=== PATIENT | female | born 1945 ===

== ENCOUNTER 2016-06-30 12:23 | Inpatient (IN) | payer MEDICARE ==
[2016-06-30] MEDS ORDERED: ALPRAZolam 0.25 MG TAB PO PRN (16:13)
[2016-06-30] MEDS ORDERED: MELATONIN 3 MG TABLET PO PRN (16:13)
[2016-06-30] MEDS ORDERED: NALOXONE 0.4 MG/ML 1 ML VIAL IV PRN (16:13)
--- NOTE | 2016-06-30 16:31 | XR ---
EXAMINATION TYPE: XR chest 1V portable DATE OF EXAM: 06/30/2016 4:27 PM COMPARISON: NONE HISTORY: Bronchitis TECHNIQUE: Single frontal view of the chest is obtained. FINDINGS: There is no heart failure nor confluent pneumonic infiltrate. There are no hilar masses. T horacic aorta is atheromatous. There is no pleural effusion. 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 IMPRESSION: No active cardiopulmonary disease. Normal heart.
[2016-06-30 16:58] LABS: Basophils # (A) 0.1 k/uL (0-0.2); Basophils % (A) 1 %; CH 28.8; CHCM 31.5; Eosinophils % (A) 0 %; HCT 29.4 % (34.0-46.0); HDW 2.42; Luc # (Auto) 0.26; Luc % (Auto) 2; Lymphocytes # (A) 0.6 k/uL (1.0-4.8); Lymphocytes % (A) 4 %; MCH 28.3 pg (25.0-35.0); MCHC 30.8 g/dL (31.0-37.0); MCV 91.8 fL (80.0-100.0); Monocytes # (A) 0.7 k/uL (0-1.0); Monocytes % (A) 5 %; Neutrophils # (A) 13.8 k/uL (1.3-7.7); Neutrophils % (A) 89 %; WBC 15.6 k/uL (3.8-10.6); WBC (Perox) 16.87
[2016-06-30 17:47] VITALS: BMI 27.9
[2016-06-30 17:48] LABS: Calcium 9.5 mg/dL (8.4-10.2); Potassium 3.9 mmol/L (3.5-5.1); Total Bilirubin 0.3 mg/dL (0.2-1.3); Total Protein 6.4 g/dL (6.3-8.2)
[2016-06-30] MEDS: LEVOFLOXACIN 500MG-D5W PMX 500 MG in DEXTROSE/WATER 1 100ML.BAG IVPB SCH (18:26)
[2016-06-30] MEDS: methylPREDNISolone SOD SUCCI 125 MG/2 ML VIAL IV SCH ×2 (18:26→23:42)
[2016-06-30] MEDS: SODIUM CHLORIDE 0.9% 1,000 ML IV SCH (18:27)
[2016-06-30 18:30] LABS: Amorphous Sediment,Urine Rare /hpf; Appearance,Urine Cloudy (Clear); Bacteria,Urine Rare /hpf; Bilirubin,Urine Negative (Negative); Glucose,Urine (UA) Negative (Negative); Ketones,Urine Negative (Negative); Leukocyte Esterase,Urine Trace (Negative); Mucus,Urine Rare /hpf; Nitrite,Urine Negative (Negative); Particle Count 1220; Protein,Urine Negative (Negative); RBC,Urine <1 /hpf (0-5); Squamous Epithelial Cell,Urine 2 /hpf (0-4); UA Billing (MACRO vs. MICRO) MICRO; Urobilinogen,Urine <2.0 mg/dL (<2.0); WBC,Urine 2 /hpf (0-5)
[2016-06-30] MEDS ORDERED: ACETAMINOPHEN TAB 500 MG TAB PO PRN (18:43)
[2016-06-30] MEDS: FORMOTEROL FUMARATE 20 MCG/2 ML NEBU INHALATION SCH (19:07)
[2016-06-30] MEDS: LEVALBUTEROL NEB (CONC) 1.25 MG/0.5 ML AMP INHALATION SCH (19:07)
[2016-06-30] MEDS: BUDESONIDE 1 MG/2 ML NEBU INHALATION SCH (19:07)
[2016-06-30] MEDS: IPRATROPIUM 0.5 MG/2.5 ML NEBU INHALATION SCH (19:07)
[2016-06-30] MEDS ORDERED: FORMOTEROL FUMARATE 20 MCG/2 ML NEBU INHALATION SCH (20:00)
[2016-06-30 21:33] LABS: Glucose,Whole Blood 230 mg/dL (75-99)
[2016-06-30] MEDS: INSULIN LISPRO (humaLOG) 300 UNIT/3 ML VIAL SQ SCH (21:41)
[2016-06-30] MEDS: HEPARIN SODIUM,PORCINE 5,000 UNIT/ML 1 ML VIAL SQ SCH (21:41)
[2016-06-30] MEDS: HYDROcodone/APAP 5-325MG 1 EACH TAB PO PRN (21:41)
[2016-06-30] MEDS: MONTELUKAST 10 MG TAB PO SCH (21:41)
[2016-07-01] MEDS: methylPREDNISolone SOD SUCCI 125 MG/2 ML VIAL IV SCH ×3 (05:42→17:30)
[2016-07-01 07:00] LABS: Glucose,Whole Blood 121 mg/dL (75-99)
[2016-07-01] MEDS: LEVALBUTEROL NEB (CONC) 1.25 MG/0.5 ML AMP INHALATION SCH ×2 (07:38→13:18)
[2016-07-01] MEDS: IPRATROPIUM 0.5 MG/2.5 ML NEBU INHALATION SCH ×2 (07:38→13:18)
[2016-07-01] MEDS: FORMOTEROL FUMARATE 20 MCG/2 ML NEBU INHALATION SCH ×2 (07:50→19:03)
[2016-07-01] MEDS: BUDESONIDE 1 MG/2 ML NEBU INHALATION SCH ×2 (07:50→19:03)
[2016-07-01] MEDS: LISINOPRIL 20 MG TAB PO SCH (08:44)
[2016-07-01] MEDS: PANTOPRAZOLE 40 MG TABLET PO SCH (08:44)
[2016-07-01] MEDS: ATORVASTATIN 20 MG TAB PO SCH (08:44)
[2016-07-01] MEDS: FUROSEMIDE 20 MG TAB PO SCH (08:44)
[2016-07-01] MEDS: FENOFIBRATE 160 MG TAB PO SCH (08:44)
[2016-07-01] MEDS: ASPIRIN 81 MG CHEW PO SCH (08:44)
[2016-07-01] MEDS: FOLIC ACID 1 MG TAB PO SCH (08:45)
[2016-07-01] MEDS: VITAMIN E (DL,TOCOPHERYL ACET) 400 UNIT CAP PO SCH (08:45)
[2016-07-01] MEDS: LORATADINE 10 MG TAB PO SCH (08:45)
[2016-07-01] MEDS: MULTIVITAMINS, THERA 1 EACH TAB PO SCH (08:45)
[2016-07-01] MEDS: VERAPAMIL SR 240 MG TABLET.ER PO SCH (08:46)
[2016-07-01] MEDS: CYANOCOBALAMIN 500 MCG TAB PO SCH (08:46)
[2016-07-01] MEDS: PARoxetine 20 MG TAB PO SCH (08:46)
[2016-07-01] MEDS: INSULIN LISPRO (humaLOG) 300 UNIT/3 ML VIAL SQ SCH ×4 (08:50→21:57)
[2016-07-01] MEDS: HEPARIN SODIUM,PORCINE 5,000 UNIT/ML 1 ML VIAL SQ SCH ×2 (08:52→21:56)
[2016-07-01 08:56] LABS: Basophils % (A) 0 %; CHCM 31.1; Eosinophils % (A) 0 %; HCT 32.2 % (34.0-46.0); HDW 2.32; HGB 9.6 gm/dL (11.4-16.0); Hypochromasia Slight; Luc # (Auto) 0.16; Luc % (Auto) 1; Lymphocytes # (A) 1.2 k/uL (1.0-4.8); Lymphocytes % (A) 9 %; MCH 27.8 pg (25.0-35.0); MCHC 29.7 g/dL (31.0-37.0); MCV 93.7 fL (80.0-100.0); Mean Platelet Volume 7.7; Monocytes # (A) 0.6 k/uL (0-1.0); Monocytes % (A) 4 %; Neutrophils # (A) 11.8 k/uL (1.3-7.7); Neutrophils % (A) 86 %; RBC 3.43 m/uL (3.80-5.40); RDW 13.2 % (11.5-15.5); WBC 13.8 k/uL (3.8-10.6); WBC (Perox) 14.44
[2016-07-01] MEDS ORDERED: PARoxetine 20 MG TAB PO SCH (09:00)
[2016-07-01 09:06] LABS: Anion Gap 13 mmol/L; Blood Urea Nitrogen 46 mg/dL (7-17); Calcium 9.4 mg/dL (8.4-10.2); Carbon Dioxide 36 mmol/L (22-30); Chloride 94 mmol/L (98-107); Glucose 115 mg/dL (74-99); Non-African American GFR(MDRD) 58 (>60 ml/min/1.73 sqM); Potassium 4.6 mmol/L (3.5-5.1); Sodium 143 mmol/L (137-145)
--- NOTE | 2016-07-01 11:04 | HP ---
DATE OF ADMISSION: 06/30/2016 CHIEF COMPLAINT: Shortness of breath. HISTORY OF PRESENT ILLNESS: This 71-year-old woman with a past history of asthma, chronic obstructive pulmonary disease, CAD, history of hypertension, hyperlipidemia, history of cardiac catheterization, coronary artery disease and stent being followed by Dr. Ryanne Glez in the outpatient setting complaining of shortness of breath and cough for the past several days at least 5 days. Initially the patient has sore throat. Subsequently patient increasing shortness of breath and cough and sputum. The patient came to [facility] and was and the patient subsequently was transferred to [facility] and admitted to the hospital for further evaluation and treatment. At this time, there is no history of fever, rigors or chills. There is no history of headache, loss of consciousness or seizures. PAST MEDICAL HISTORY: History of asthma, COPD, history of CAD, hypertension, hyperlipidemia, history of cardiac arrhythmias, history of coronary artery disease and stent, history of anxiety. MEDICATIONS: Prior to admission include: 1. Prednisone 40 mg p.o. daily. 2. Vitamin E 1000 mg daily. 3. Verapamil ER 240 mg daily. 4. Spiriva 1 puff daily. 5. Crestor 10 mg daily. 6. Ramipril 10 mg daily. 7. Paxil 40 mg daily. 8. Multivitamins one p.o. daily. 9. Singulair 10 mg q6h p.r.n. 10. Claritin 10 mg daily. 11. Hydrocodone 1 tablet q.8 p.r.n. 12. Lasix 20 mg p.o. daily. 13. Folic acid 0.4 mg daily. 14. TriCor 145 mg p.o. daily. 15. Vibramycin 100 mg p.o. b.i.d. 16. Vitamin B12 2.5 grams daily. 17. Ecotrin 81 mg daily. 18. Ventolin 2.5 q.4 p.r.n. 19. Tylenol 500 mg q.6 p.r.n. ALLERGIES: SULFA. FAMILY HISTORY: History chest pain, CHF, COPD and CAD. SOCIAL HISTORY: previous history of smoking. No history of current smoking or alcohol intake. REVIEW OF SYSTEMS: ENT: No diminished hearing. No diminished vision. CARDIOVASCULAR: No angina or palpitations. RESPIRATORY: No cough or hemoptysis otherwise as mentioned earlier. GI: No nausea or vomiting. : No dysuria or retention. Nervous system: No numbness or weakness. ALLERGY/IMMUNOLOGY: No asthma or hayfever. MUSCULOSKELETAL: As mentioned earlier. HEMATOLOGY/ONCOLOGY: No history of anemia. ENDOCRINE: No history of diabetes, hypothyroidism. CONSTITUTIONAL: As mentioned earlier. Dermatology: Negative. RHEUMATOLOGY: Negative. PSYCHIATRY: As mentioned earlier. PHYSICAL EXAMINATION: Alert and oriented times three. Pulse 65. Blood pressure ntd. Respiratory rate 20. Temperature 97.1, pulse ox 97% on room air. HEENT: Conjunctivae normal. NECK: No jugular venous distention. CARDIOVASCULAR: S1, S2 muffled. RESPIRATORY: Breath sounds diminished at the bases. Bilateral scattered rhonchi and crackles. Expiratory wheezing also. ABDOMEN: Soft. Nontender. No mass palpable. LEGS: No edema. No swelling. CENTRAL NERVOUS SYSTEM: Higher functions as mentioned earlier. Moves all four limbs. No focal deficits. LYMPHATICS: No lymph nodes palpable in the neck, axillae or groin. SKIN: No ulcer, rash or bleeding. LABS: At this time show WBC 15.7, hemoglobin 9, sodium 142, potassium 3.9, creatinine is 1.12. Urine noted. ASSESSMENT: 1. Chronic obstructive pulmonary disease acute exacerbation, with acute purulent tracheobronchitis. 2. Increased WBC, possibly secondary to tracheobronchitis. 3. Anemia, normocytic, anemia of chronic disease. 4. Remote history nicotine dependence. 5. Increased creatinine with possible mild acute renal failure, possibly prerenal. 6. History of chronic obstructive pulmonary disease, asthma. 7. History of coronary artery disease and stent. 8. Hypertension. 9. Hyperlipidemia. 10. History of cardiac arrhythmia. 11. History of coronary artery disease and stent. 12. History of anxiety. 13. FULL CODE. RECOMMENDATIONS AND DISCUSSION: In this 72-year-old woman who presented with multiple complex medical issues, we will monitor the patient closely. Continue the current medications. Continue symptomatic treatment. I would recommend extensive bronchodilators. Empiric antibiotics. Consult Dr. Bañuelos. Otherwise, DVT prophylaxis. Resume the home medications. Steroids. Guarded prognosis because of multiple complex medical issues. We will resume the home medications. Further recommendations to follow. A copy of dictation being forwarded to Dr. Rhonda Glez who is the primary care physician. JOSELIN
[2016-07-01 11:28] LABS: Hemoglobin A1C 5.6 % (4.2-6.1)
[2016-07-01 11:41] LABS: Glucose,Whole Blood 131 mg/dL (75-99)
--- NOTE | 2016-07-01 16:15 | P.CNPUL ---
History of Present Illness Consult date: 07/01/16 Reason for consult: COPD History of present illness: 71-year-old female patient with known history of COPD has been maintained on Spiriva on outpatient basis. The patient quit smoking in in October 2015. Over the past 4-5 days the patient has been getting progressively more short of breath. She had increased cough and chest congestion and wheezing. She had tried [id number] medication without much help. She typically gets bronchitis and she does not get hospitalized for that. However, with this current episode, the patient was getting more short of breath to the point where she presented herself to the [facility] were she was evaluated and then sent to the [facility] for further treatment. No chest pain. No hemoptysis. No swelling of the lower extremities. No change in mental status. No other complaints otherwise. She has home O2. She has a home nebulizer. The patient has seen Dr. Baig many years back and not recently. Review of Systems For review of system was done and the positive findings are all mentioned above Past Medical History Past Medical History: Asthma, Coronary Artery Disease (CAD), COPD, Eye Disorder , Hyperlipidemia, Hypertension, Respiratory Disorder Additional Past Medical History / Comment(s): COPD, asthma, hyperlipidemia, hypertension, cardiac arrythmia (skips a beat), pain in rotator cuff bilateral, History of Any Multi-Drug Resistant Organisms: None Reported Past Surgical History: Heart Catheterization, Heart Catheterization With Stent, Tubal Ligation, Uterine Ablation Additional Past Surgical History / Comment(s): natural child , cervical cauterized Past Anesthesia/Blood Transfusion Reactions: No Reported Reaction Date of Last Stent Placement:: 1979 Past Psychological History: Anxiety Smoking Status: Former smoker (quit smoking on ) - Past Family History Mother Family Medical History: Chest Pain / Angina, Congestive Heart Failure (CHF), COPD, Coronary Artery Disease (CAD) Additional Family Medical History / Comment(s): Father Family Medical History: Chest Pain / Angina, Congestive Heart Failure (CHF) Additional Family Medical History / Comment(s): Sister(s) Family Medical History: AICD/Pacemaker, Chest Pain / Angina, Congestive Heart Failure (CHF), COPD Medications and Allergies Home Medications Medication Instructions Recorded Confirmed Type Acetaminophen Tab [Tylenol Tab] 500 mg PO Q6H PRN MDD 4 GRAMS 06/30/16 06/30/16 History Albuterol Nebulized [Ventolin 2.5 mg INHALATION RT-Q4H PRN 06/30/16 06/30/16 History Nebulized] Aspirin EC [Ecotrin Low Dose] 81 mg PO DAILY 06/30/16 06/30/16 History Cyanocobalamin (Vitamin B-12) 2,500 mcg PO DAILY 06/30/16 06/30/16 History [Vitamin B12] Doxycycline Hyclate [Vibramycin] 100 mg PO BID 06/30/16 06/30/16 History Fenofibrate Nanocrystallized 145 mg PO DAILY 06/30/16 06/30/16 History [Tricor] Folic Acid 0.4 mg PO DAILY 06/30/16 06/30/16 History Furosemide [Lasix] 20 mg PO DAILY 06/30/16 06/30/16 History HYDROcodone/APAP 5-325MG [[place] 1 tab PO Q8H PRN MDD 8 TABLETS 06/30/16 History 5-325] Loratadine [Claritin] 10 mg PO DAILY 06/30/16 06/30/16 History Montelukast [Singulair] 10 mg PO HS 06/30/16 06/30/16 History Multivitamins, Thera [Multivitamin] 1 tab PO DAILY 06/30/16 06/30/16 History PARoxetine HCL [Paxil] 40 mg PO DAILY 06/30/16 06/30/16 History Ramipril 10 mg PO DAILY 06/30/16 06/30/16 History Rosuvastatin Calcium [Crestor] 10 mg PO DAILY 06/30/16 06/30/16 History Tiotropium [place] [Spiriva] 1 cap INHALATION RT-DAILY 06/30/16 06/30/16 History Verapamil HCl [Verapamil ER] 240 mg PO DAILY 06/30/16 06/30/16 History Vitamin E 1,000 unit PO DAILY 06/30/16 06/30/16 History predniSONE 40 mg PO DAILY 06/30/16 06/30/16 History Allergies Allergy/AdvReac Type Severity Reaction Status Date / Time Sulfa (Sulfonamide Allergy Unknown Verified 06/30/16 16:24 Antibiotics) Physical Exam Vitals: Vital Signs Temp Pulse Pulse Pulse Resp BP Pulse Ox 07/01/16 15:00 97.9 F 112 H 16 147/62 96 07/01/16 13:31 94 07/01/16 13:18 90 07/01/16 08:06 96 07/01/16 07:50 92 07/01/16 07:49 92 07/01/16 07:37 86 97 07/01/16 07:00 97.8 F 102 H 16 144/66 95 06/30/16 21:21 98.2 F 108 H 16 147/66 95 06/30/16 19:28 69 06/30/16 19:16 70 06/30/16 19:14 69 06/30/16 19:07 66 06/30/16 16:46 97.1 F L 65 20 130/73 97 Intake and Output 07/01/16 07/01/16 07/01/16 06:59 14:59 22:59 Intake Total 590 240 Balance 590 240 Intake: Oral 590 240 Other: Voiding Method Bedside Commode # Voids 2 2 Weight 71.5 kg Head exam was generally normal. There was no scleral icterus or corneal arcus. Mucous membranes were moist.Neck was supple and without jugular venous distension, thyromegaly, or carotid bruits. Carotids were easily palpable bilaterally. There was no adenopathy. Lung sounds are diminished bilaterally and there is diffuse expiratory wheezes heard throughout the lung gilbert and there is prolongation of the expiratory phase of breathing.Cardiac exam revealed the PMI to be normally situated and sized. The rhythm was regular and no extrasystoles were noted during several minutes of auscultation. The first and second heart sounds were normal and physiologic splitting of the second heart sound was noted. There were no murmurs, rubs, clicks, or gallops.Abdominal exam revealed normal bowel sounds. The abdomen was soft, non- tender, and without masses, organomegaly, or appreciable enlargement of the abdominal aorta.Examination of the extremities revealed easily palpable radial, femoral and pedal pulses. There was no cyanosis, clubbing or edema. Results - Laboratory Findings CBC and BMP: 07/01/16 08:09 07/01/16 08:09 Abnormal lab findings: Abnormal Labs 06/30/16 06/30/16 06/30/16 16:45 16:45 18:00 WBC 15.6 H RBC 3.20 L Hgb 9.0 L Hct 29.4 L MCHC 30.8 L Neutrophils # 13.8 H Lymphocytes # 0.6 L Chloride 92 L Carbon Dioxide 36 H BUN 54 H Creatinine 1.12 H Glucose 146 H POC Glucose (mg/dL) Albumin 3.3 L Urine Appearance Cloudy H Ur Leukocyte Esterase Trace H Amorphous Sediment Rare H Urine Bacteria Rare H Hyaline Casts 3 H Urine Mucus Rare H 06/30/16 07/01/16 07/01/16 21:32 06:59 08:09 WBC 13.8 H RBC 3.43 L Hgb 9.6 L Hct 32.2 L MCHC 29.7 L Neutrophils # 11.8 H Lymphocytes # Chloride Carbon Dioxide BUN Creatinine Glucose POC Glucose (mg/dL) 230 H 121 H Albumin Urine Appearance Ur Leukocyte Esterase Amorphous Sediment Urine Bacteria Hyaline Casts Urine Mucus 07/01/16 07/01/16 08:09 11:39 WBC RBC Hgb Hct MCHC Neutrophils # Lymphocytes # Chloride 94 L Carbon Dioxide 36 H BUN 46 H Creatinine Glucose 115 H POC Glucose (mg/dL) 131 H Albumin Urine Appearance Ur Leukocyte Esterase Amorphous Sediment Urine Bacteria Hyaline Casts Urine Mucus - Diagnostic Findings Chest x-ray: image reviewed Assessment and Plan Plan: Assessment 1 acute COPD exacerbation secondary to an underlying bronchitis 2 shortness of breath secondary to above 3 coronary artery disease 4 hypertension 5 hyperlipidemia 6 chronic generalized anxiety disorder Plan We'll put the patient on DuoNeb nebulized treatments 4 times a day around-the- clock. We'll start the patient on IV Solu Medrol 60 every 6 hours. We'll cover the patient with Levaquin as an empiric antibiotic coverage. Monitor the progression and I wouldn't see. The patient started getting better with the next 24-48 hours. Outpatient medication will be ordered resume. We'll continue to follow. Outpatient pulmonary function test. Spiriva as a maintenance on outpatient basis may be also continued. We'll continue to follow.
[2016-07-01 16:55] LABS: Glucose,Whole Blood 137 mg/dL (75-99)
[2016-07-01] MEDS: LEVOFLOXACIN 500MG-D5W PMX 500 MG in DEXTROSE/WATER 1 100ML.BAG IVPB SCH (17:28)
[2016-07-01] MEDS: SODIUM CHLORIDE 0.9% 1,000 ML IV SCH (17:28)
[2016-07-01] MEDS: IPRATROPIUM-ALBUTEROL 3 ML NEB INHALATION SCH (19:03)
--- NOTE | 2016-07-01 19:47 | PN ---
DATE OF SERVICE: 07/01/2016 This 71-year-old woman who was admitted with COPD, acute exacerbation, acute purulent tracheobronchitis, is being closely monitored. Seen and evaluated the patient along with the nurse practitioner. Please refer to the nurse practitioner's notes and impressions documented as a scribe for further information. Closely follow with Dr. Zabala. Further recommendations to follow.
[2016-07-01 21:11] LABS: Glucose,Whole Blood 205 mg/dL (75-99)
[2016-07-01] MEDS: MONTELUKAST 10 MG TAB PO SCH (21:56)
--- NOTE | 2016-07-01 22:42 | P.PN ---
Subjective Date of service 07/01/2016 Personal being dictated for Dr. Peña. Interval history: This is a 71-year-old female admitted with acute COPD exacerbation with purulent tracheobronchitis. Maintained on nebulized bronchodilators, empiric antibiotics, IV steroids with breathing slowly improving. Complains of dyspnea with minimal exertion. Maintaining O2 sats of 96% on 3 L nasal cannula. Denies chest pain, palpitations. Objective - Vital Signs Vital signs: Vital Signs Temp 97.9 F 07/01/16 15:00 Pulse 112 H 07/01/16 15:00 Resp 16 07/01/16 15:00 BP 147/62 07/01/16 15:00 Pulse Ox 96 07/01/16 15:00 Intake & Output 06/30/16 07/01/16 07/01/16 18:59 06:59 18:59 Intake Total 1180 240 Balance 1180 240 Weight 71.5 kg 71.5 kg Intake: Oral 1180 240 Other: Voiding Method Bedside Commode Bedside Commode # Voids 2 2 - Exam PHYSICAL EXAM: VITAL SIGNS: As above GENERAL: [Sitting up in bed, no acute distress] HEENT: [Pupils equal conjunctiva normal.] NECK: [Supple, no JVD] RESPIRATORY EFFORT:[Normal] LUNGS: [Diminished, scattered crackles throughout with expiratory wheezing] CARDIOVASCULAR[regular S1 and S2, no murmurs rubs or gallops, no edema] GI: [Abdomen soft, nontender, positive bowel sounds.] PSYCH: [Alert and oriented -3, mood and affect normal.] NEURO: No focal deficits, moves all 4 extremities, strength and sensation grossly intact - Labs CBC & Chem 7: 07/01/16 08:09 07/01/16 08:09 Labs: Abnormal Lab Results - Last 24 Hours (Table) 06/30/16 06/30/16 06/30/16 Range/Units 16:45 16:45 18:00 WBC 15.6 H (3.8-10.6) k/uL RBC 3.20 L (3.80-5.40) m/uL Hgb 9.0 L (11.4-16.0) gm/dL Hct 29.4 L (34.0-46.0) % MCHC 30.8 L (31.0-37.0) g/dL Neutrophils # 13.8 H (1.3-7.7) k/uL Lymphocytes # 0.6 L (1.0-4.8) k/uL Chloride 92 L (98-107) mmol/L Carbon Dioxide 36 H (22-30) mmol/L BUN 54 H (7-17) mg/dL Creatinine 1.12 H (0.52-1.04) mg/dL Glucose 146 H (74-99) mg/dL POC Glucose (mg/dL) (75-99) mg/dL Albumin 3.3 L (3.5-5.0) g/dL Urine Appearance Cloudy H (Clear) Ur Leukocyte Esterase Trace H (Negative) Amorphous Sediment Rare H (None) /hpf Urine Bacteria Rare H (None) /hpf Hyaline Casts 3 H (0-2) /lpf Urine Mucus Rare H (None) /hpf 06/30/16 07/01/16 07/01/16 Range/Units 21:32 06:59 08:09 WBC 13.8 H (3.8-10.6) k/uL RBC 3.43 L (3.80-5.40) m/uL Hgb 9.6 L (11.4-16.0) gm/dL Hct 32.2 L (34.0-46.0) % MCHC 29.7 L (31.0-37.0) g/dL Neutrophils # 11.8 H (1.3-7.7) k/uL Lymphocytes # (1.0-4.8) k/uL Chloride (98-107) mmol/L Carbon Dioxide (22-30) mmol/L BUN (7-17) mg/dL Creatinine (0.52-1.04) mg/dL Glucose (74-99) mg/dL POC Glucose (mg/dL) 230 H 121 H (75-99) mg/dL Albumin (3.5-5.0) g/dL Urine Appearance (Clear) Ur Leukocyte Esterase (Negative) Amorphous Sediment (None) /hpf Urine Bacteria (None) /hpf Hyaline Casts (0-2) /lpf Urine Mucus (None) /hpf 07/01/16 07/01/16 Range/Units 08:09 11:39 WBC (3.8-10.6) k/uL RBC (3.80-5.40) m/uL Hgb (11.4-16.0) gm/dL Hct (34.0-46.0) % MCHC (31.0-37.0) g/dL Neutrophils # (1.3-7.7) k/uL Lymphocytes # (1.0-4.8) k/uL Chloride 94 L (98-107) mmol/L Carbon Dioxide 36 H (22-30) mmol/L BUN 46 H (7-17) mg/dL Creatinine (0.52-1.04) mg/dL Glucose 115 H (74-99) mg/dL POC Glucose (mg/dL) 131 H (75-99) mg/dL Albumin (3.5-5.0) g/dL Urine Appearance (Clear) Ur Leukocyte Esterase (Negative) Amorphous Sediment (None) /hpf Urine Bacteria (None) /hpf Hyaline Casts (0-2) /lpf Urine Mucus (None) /hpf Assessment and Plan Plan: 1. Acute exacerbation of COPD with acute purulent tracheobronchitis 2. Anemia, normocytic, of chronic disease 3. History of nicotine dependence, quit in October 2015. 4. Acute renal failure, possibly prerenal 5. History of COPD, asthma 6. CAD with history of stent 7. Hypertension 8. Hyperlipidemia 9. Cardiac arrhythmia 10. History of anxiety 11. Chronic respiratory failure, home O2 Plan: Continue on current medication regime, antibiotics, nebulized bronchodilators, IV steroids, monitoring and symptomatic treatment. Continue increasing activity as tolerated, currently presenting with shortness of breath with minimal exertion. Follow closely with pulmonary. Prognosis remains guarded given multiple complex medical issues. The impression and plan of care has been dictated as directed. : I performed a H&P examination of this patient and discussed the same with the dictator. I agree with the dictator's note. Any additional findings/opinions/ etc. will be noted.
[2016-07-02 07:14] LABS: Glucose,Whole Blood 88 mg/dL (75-99)
[2016-07-02] MEDS: methylPREDNISolone SOD SUCCI 125 MG/2 ML VIAL IV SCH ×4 (07:53→17:10)
[2016-07-02] MEDS: IPRATROPIUM-ALBUTEROL 3 ML NEB INHALATION SCH ×4 (08:45→21:07)
[2016-07-02] MEDS: BUDESONIDE 1 MG/2 ML NEBU INHALATION SCH ×2 (08:45→21:07)
[2016-07-02] MEDS: FORMOTEROL FUMARATE 20 MCG/2 ML NEBU INHALATION SCH ×2 (08:45→21:07)
[2016-07-02] MEDS: INSULIN LISPRO (humaLOG) 300 UNIT/3 ML VIAL SQ SCH ×4 (09:00→21:55)
[2016-07-02] MEDS: PANTOPRAZOLE 40 MG TABLET PO SCH (09:08)
[2016-07-02] MEDS: ASPIRIN 81 MG CHEW PO SCH (09:08)
[2016-07-02] MEDS: FENOFIBRATE 160 MG TAB PO SCH (09:10)
[2016-07-02] MEDS: ATORVASTATIN 20 MG TAB PO SCH (09:10)
[2016-07-02] MEDS: CYANOCOBALAMIN 500 MCG TAB PO SCH (09:10)
[2016-07-02] MEDS: FOLIC ACID 1 MG TAB PO SCH (09:10)
[2016-07-02] MEDS: FUROSEMIDE 20 MG TAB PO SCH (09:11)
[2016-07-02] MEDS: VERAPAMIL SR 240 MG TABLET.ER PO SCH (09:12)
[2016-07-02] MEDS: HEPARIN SODIUM,PORCINE 5,000 UNIT/ML 1 ML VIAL SQ SCH ×2 (09:12→21:53)
[2016-07-02] MEDS: PARoxetine 20 MG TAB PO SCH (09:12)
[2016-07-02] MEDS: LORATADINE 10 MG TAB PO SCH (09:12)
[2016-07-02] MEDS: VITAMIN E (DL,TOCOPHERYL ACET) 400 UNIT CAP PO SCH (09:12)
[2016-07-02] MEDS: LISINOPRIL 20 MG TAB PO SCH (09:12)
[2016-07-02 09:17] LABS: Anion Gap 12 mmol/L; Blood Urea Nitrogen 38 mg/dL (7-17); Calcium 9.3 mg/dL (8.4-10.2); Carbon Dioxide 35 mmol/L (22-30); Chloride 95 mmol/L (98-107); Glucose 132 mg/dL (74-99); Non-African American GFR(MDRD) 54 (>60 ml/min/1.73 sqM); Potassium 4.1 mmol/L (3.5-5.1); Sodium 142 mmol/L (137-145)
[2016-07-02 09:40] LABS: Basophils % (A) 0 %; CH 28.6; CHCM 30.6; Eosinophils % (A) 0 %; HCT 33.2 % (34.0-46.0); HDW 2.19; Hypochromasia Slight; Luc # (Auto) 0.21; Luc % (Auto) 2; Lymphocytes # (A) 1.7 k/uL (1.0-4.8); Lymphocytes % (A) 12 %; MCH 28.3 pg (25.0-35.0); MCHC 30.2 g/dL (31.0-37.0); MCV 93.8 fL (80.0-100.0); Mean Platelet Volume 7.6; Monocytes # (A) 0.6 k/uL (0-1.0); Monocytes % (A) 4 %; Neutrophils # (A) 10.9 k/uL (1.3-7.7); Neutrophils % (A) 82 %; RBC 3.54 m/uL (3.80-5.40); WBC 13.4 k/uL (3.8-10.6); WBC (Perox) 13.36
[2016-07-02 11:27] LABS: Glucose,Whole Blood 101 mg/dL (75-99)
--- NOTE | 2016-07-02 12:33 | P.PN ---
Subjective 71-year-old female patient with known history of COPD has been maintained on Spiriva on outpatient basis. The patient quit smoking in in October 2015. Over the past 4-5 days the patient has been getting progressively more short of breath. She had increased cough and chest congestion and wheezing. She had tried [id number] medication without much help. She typically gets bronchitis and she does not get hospitalized for that. However, with this current episode, the patient was getting more short of breath to the point where she presented herself to the [facility] were she was evaluated and then sent to the [facility] for further treatment. No chest pain. No hemoptysis. No swelling of the lower extremities. No change in mental status. No other complaints otherwise. She has home O2. She has a home nebulizer. The patient has seen Dr. Baig many years back and not recently. On 07/02/2016 the patient is still having some shortness of breath and bronchospasm wheezing. There has been only limited improvement over the past 24 hours. The patient is still on a combination of bronchodilators and steroids. No new complaints for now. No chest pain. No significant or copious amount of sputum production. No fever or chills. No other significant events overnight. Objective - Vital Signs Vital signs: Vital Signs Temp 97.7 F 07/02/16 07:00 Pulse 104 H 07/02/16 09:09 Resp 16 07/02/16 07:00 BP 137/79 07/02/16 07:00 Pulse Ox 95 07/02/16 07:00 Intake & Output 07/01/16 07/02/16 07/02/16 18:59 06:59 18:59 Intake Total 240 Balance 240 Intake: Oral 240 Other: Voiding Method Bedside Commode Bedside Commode # Voids 2 1 2 - Exam Head exam was generally normal. There was no scleral icterus or corneal arcus. Mucous membranes were moist.Neck was supple and without jugular venous distension, thyromegaly, or carotid bruits. Carotids were easily palpable bilaterally. There was no adenopathy. Lung sounds are diminished bilaterally and there is diffuse expiratory wheezes heard throughout the lung gilbert and there is prolongation of the expiratory phase of breathing.Cardiac exam revealed the PMI to be normally situated and sized. The rhythm was regular and no extrasystoles were noted during several minutes of auscultation. The first and second heart sounds were normal and physiologic splitting of the second heart sound was noted. There were no murmurs, rubs, clicks, or gallops.Abdominal exam revealed normal bowel sounds. The abdomen was soft, non- tender, and without masses, organomegaly, or appreciable enlargement of the abdominal aorta.Examination of the extremities revealed easily palpable radial, femoral and pedal pulses. There was no cyanosis, clubbing or edema. - Labs CBC & Chem 7: 07/02/16 08:17 07/02/16 08:17 Labs: Abnormal Lab Results - Last 24 Hours (Table) 07/01/16 07/01/16 07/02/16 Range/Units 16:53 20:36 08:17 WBC 13.4 H (3.8-10.6) k/uL RBC 3.54 L (3.80-5.40) m/uL Hgb 10.0 L (11.4-16.0) gm/dL Hct 33.2 L (34.0-46.0) % MCHC 30.2 L (31.0-37.0) g/dL Neutrophils # 10.9 H (1.3-7.7) k/uL Chloride (98-107) mmol/L Carbon Dioxide (22-30) mmol/L BUN (7-17) mg/dL Glucose (74-99) mg/dL POC Glucose (mg/dL) 137 H 205 H (75-99) mg/dL 07/02/16 07/02/16 Range/Units 08:17 11:24 WBC (3.8-10.6) k/uL RBC (3.80-5.40) m/uL Hgb (11.4-16.0) gm/dL Hct (34.0-46.0) % MCHC (31.0-37.0) g/dL Neutrophils # (1.3-7.7) k/uL Chloride 95 L (98-107) mmol/L Carbon Dioxide 35 H (22-30) mmol/L BUN 38 H (7-17) mg/dL Glucose 132 H (74-99) mg/dL POC Glucose (mg/dL) 101 H (75-99) mg/dL Assessment and Plan Plan: Assessment 1 acute COPD exacerbation secondary to an underlying bronchitis 2 shortness of breath secondary to above 3 coronary artery disease 4 hypertension 5 hyperlipidemia 6 chronic generalized anxiety disorder Plan The patient is slowly improving. There has been modest improvement since yesterday. We'll continue the same treatment. Reevaluate this patient in a.m. Please refer to my earlier recommendations in regards to her COPD.
[2016-07-02] MEDS: MULTIVITAMINS, THERA 1 EACH TAB PO SCH (12:44)
--- NOTE | 2016-07-02 12:45 | CDI ---
In responding to this query, please exercise your independent professional judgment. The [facility] Coding Staff and Clinical Documentation Specialists appreciate your assistance in clarifying documentation, maintaining compliance with coding guidelines, accurately documenting patients condition and capturing severity of illness. The fact that a question is asked does not imply that any particular answer is desired or expected. Communication forms are a method of clarifying documentation and are not made part of the Legal Health Record. Thank you in advance for your clarification. Last Revision, August 2015 Michelle Drummond [address] [address] Documentation Clarification Form Date: 07/02/2016 12:40:00 PM From: Stephanie Bennett Admit Date: 06/30/2016 3:26:00 PM Patient Name: Kristen Dorado Visit Number: [id number] Dr. Zeb Peña and Latrice Kim NP Chronic Respiratory Failure is documented in the progress note on 07/01. History/Risk Factors: COPD Home O2 Exsmoker Clinical Indicators: Chronic Respiratory Failure documented on 07/01 Treatment: Breathing tx O2 nasal cannula Pulmonary consult In your professional opinion, can you please clarify if these findings signify one of the following conditions? o Chronic Respiratory failure with hypercapnia o Chronic Respiratory failure with hypoxia o Other Diagnosis, please specify o Unable to determine Please document in your progress notes and discharge summary in order to capture severity of illness and risk of mortality. Include clinical findings that support your diagnosis. FYI: Press F11 to launch patient chart. Place X here if this finding has no clinical significance, is not applicable or if you are not able to provide any additional documentation. JOSELIN
[2016-07-02] MEDS: LEVOFLOXACIN 500MG-D5W PMX 500 MG in DEXTROSE/WATER 1 100ML.BAG IVPB SCH (17:08)
[2016-07-02 17:11] LABS: Glucose,Whole Blood 152 mg/dL (75-99)
[2016-07-02 20:28] LABS: Glucose,Whole Blood 149 mg/dL (75-99)
[2016-07-02] MEDS: SODIUM CHLORIDE 0.9% 1,000 ML IV SCH (21:49)
[2016-07-02] MEDS: HYDROcodone/APAP 5-325MG 1 EACH TAB PO PRN (21:53)
[2016-07-02] MEDS: MONTELUKAST 10 MG TAB PO SCH (21:53)
--- NOTE | 2016-07-02 22:34 | P.PN ---
Addendum entered and electronically signed by Anaid Kim NPC 07/02/16 22: 37: Clarification under assessment:11. Chronic hypercapnic respiratory failure, wears 3.5 liters/ home O2 Original Note: Subjective Date of service 07/02/2016 Personal being dictated for Dr. Peña. Interval history: This is a 71-year-old female admitted with acute COPD exacerbation with purulent tracheobronchitis. Maintained on nebulized bronchodilators, empiric antibiotics, IV steroids. Complains of dyspnea with minimal exertion, not quite at baseline. Minimal productive cough .Maintaining O2 sats of 93% on 2 L nasal cannula, wears 3-1/2 L at home. Denies chest pain, palpitations. Breathing slowly improving. Afebrile. Objective - Vital Signs Vital signs: Vital Signs Temp 96.9 F L 07/02/16 15:00 Pulse 100 07/02/16 21:27 Resp 16 07/02/16 15:00 BP 151/65 07/02/16 15:00 Pulse Ox 93 L 07/02/16 15:00 Intake & Output 07/02/16 07/02/16 07/03/16 06:59 18:59 06:59 Intake Total 100 Balance 100 Intake: Intake, IV Titration 100 Amount Levofloxacin 500Mg-D5w 100 Pmx 500 mg In Dextrose/ Water 1 100ml.bag @ 100 mls/hr IVPB Q24H [facility] Rx#: [id number] Other: Voiding Method Bedside Commode # Voids 1 3 - Exam PHYSICAL EXAM: VITAL SIGNS: As above GENERAL: [Sitting up in bed, no acute distress] HEENT: [Pupils equal conjunctiva normal.] NECK: [Supple, no JVD] RESPIRATORY EFFORT:[Normal] LUNGS: [Diminished, scattered crackles throughout with prolonged expiratory wheezing] CARDIOVASCULAR[regular S1 and S2, no murmurs rubs or gallops, no edema] GI: [Abdomen soft, nontender, positive bowel sounds.] PSYCH: [Alert and oriented -3, mood and affect normal.] NEURO: No focal deficits, moves all 4 extremities, strength and sensation grossly intact - Labs CBC & Chem 7: 07/02/16 08:17 07/02/16 08:17 Labs: Abnormal Lab Results - Last 24 Hours (Table) 07/02/16 07/02/16 07/02/16 Range/Units 08:17 08:17 11:24 WBC 13.4 H (3.8-10.6) k/uL RBC 3.54 L (3.80-5.40) m/uL Hgb 10.0 L (11.4-16.0) gm/dL Hct 33.2 L (34.0-46.0) % MCHC 30.2 L (31.0-37.0) g/dL Neutrophils # 10.9 H (1.3-7.7) k/uL Chloride 95 L (98-107) mmol/L Carbon Dioxide 35 H (22-30) mmol/L BUN 38 H (7-17) mg/dL Glucose 132 H (74-99) mg/dL POC Glucose (mg/dL) 101 H (75-99) mg/dL 07/02/16 07/02/16 Range/Units 17:09 20:25 WBC (3.8-10.6) k/uL RBC (3.80-5.40) m/uL Hgb (11.4-16.0) gm/dL Hct (34.0-46.0) % MCHC (31.0-37.0) g/dL Neutrophils # (1.3-7.7) k/uL Chloride (98-107) mmol/L Carbon Dioxide (22-30) mmol/L BUN (7-17) mg/dL Glucose (74-99) mg/dL POC Glucose (mg/dL) 152 H 149 H (75-99) mg/dL Assessment and Plan Plan: 1. Acute exacerbation of COPD with acute purulent tracheobronchitis 2. Anemia, normocytic, of chronic disease 3. History of nicotine dependence, quit in October 2015. 4. Acute renal failure, possibly prerenal 5. History of COPD, asthma 6. CAD with history of stent 7. Hypertension 8. Hyperlipidemia 9. Cardiac arrhythmia 10. History of anxiety 11. Chronic respiratory failure, home O2 Plan: Continue on current medication regime, antibiotics, nebulized bronchodilators, IV steroids, monitoring and symptomatic treatment. Increase ambulation as tolerated, patient states not quite at baseline in regards to exertional dyspnea. Follow closely with pulmonary. Prognosis remains guarded given multiple complex medical issues. The impression and plan of care has been dictated as directed. : I performed a H&P examination of this patient and discussed the same with the dictator. I agree with the dictator's note. Any additional findings/opinions/ etc. will be noted.
[2016-07-03] MEDS: methylPREDNISolone SOD SUCCI 125 MG/2 ML VIAL IV SCH ×4 (00:17→17:48)
[2016-07-03 07:20] LABS: Glucose,Whole Blood 133 mg/dL (75-99)
[2016-07-03 07:35] LABS: Basophils # (A) 0.1 k/uL (0-0.2); Basophils % (A) 0 %; CH 28.7; CHCM 30.5; Eosinophils % (A) 0 %; HCT 34.5 % (34.0-46.0); HDW 2.21; HGB 10.4 gm/dL (11.4-16.0); Hypochromasia Slight; Luc % (Auto) 1; Lymphocytes # (A) 1.3 k/uL (1.0-4.8); Lymphocytes % (A) 9 %; MCH 28.6 pg (25.0-35.0); MCHC 30.2 g/dL (31.0-37.0); MCV 94.7 fL (80.0-100.0); Mean Platelet Volume 7.9; Monocytes # (A) 0.5 k/uL (0-1.0); Monocytes % (A) 4 %; Neutrophils # (A) 11.6 k/uL (1.3-7.7); Neutrophils % (A) 86 %; RBC 3.64 m/uL (3.80-5.40); RDW 13.2 % (11.5-15.5); WBC 13.5 k/uL (3.8-10.6)
[2016-07-03] MEDS: FORMOTEROL FUMARATE 20 MCG/2 ML NEBU INHALATION SCH ×2 (07:40→19:21)
[2016-07-03] MEDS: IPRATROPIUM-ALBUTEROL 3 ML NEB INHALATION SCH ×4 (07:40→19:21)
[2016-07-03] MEDS: BUDESONIDE 1 MG/2 ML NEBU INHALATION SCH ×2 (07:40→19:21)
[2016-07-03 07:59] LABS: Anion Gap 12 mmol/L; Blood Urea Nitrogen 48 mg/dL (7-17); Calcium 9.2 mg/dL (8.4-10.2); Carbon Dioxide 34 mmol/L (22-30); Chloride 95 mmol/L (98-107); Glucose 126 mg/dL (74-99); Non-African American GFR(MDRD) 51 (>60 ml/min/1.73 sqM); Potassium 4.7 mmol/L (3.5-5.1); Sodium 141 mmol/L (137-145)
[2016-07-03 08:02] VITALS: RESP 18
--- NOTE | 2016-07-03 08:28 | PN ---
DATE OF SERVICE: 07/02/2016 This 71-year-old woman who was admitted with COPD acute exacerbation is improving significantly. No chest or palpitation. No fever. Seen and evaluated the patient along with the nurse practitioner. Please refer to nurse practitioner notes and impression documented for further information.
[2016-07-03] MEDS: INSULIN LISPRO (humaLOG) 300 UNIT/3 ML VIAL SQ SCH ×3 (08:50→17:49)
[2016-07-03] MEDS: HEPARIN SODIUM,PORCINE 5,000 UNIT/ML 1 ML VIAL SQ SCH (08:50)
[2016-07-03] MEDS: VITAMIN E (DL,TOCOPHERYL ACET) 400 UNIT CAP PO SCH (08:50)
[2016-07-03] MEDS: FENOFIBRATE 160 MG TAB PO SCH (08:51)
[2016-07-03] MEDS: FOLIC ACID 1 MG TAB PO SCH (08:51)
[2016-07-03] MEDS: PANTOPRAZOLE 40 MG TABLET PO SCH (08:51)
[2016-07-03] MEDS: LORATADINE 10 MG TAB PO SCH (08:51)
[2016-07-03] MEDS: ASPIRIN 81 MG CHEW PO SCH (08:51)
[2016-07-03] MEDS: PARoxetine 20 MG TAB PO SCH (08:51)
[2016-07-03] MEDS: FUROSEMIDE 20 MG TAB PO SCH (08:51)
[2016-07-03] MEDS: LISINOPRIL 20 MG TAB PO SCH (08:51)
[2016-07-03] MEDS: CYANOCOBALAMIN 500 MCG TAB PO SCH (08:51)
[2016-07-03] MEDS: VERAPAMIL SR 240 MG TABLET.ER PO SCH (08:51)
[2016-07-03] MEDS: ATORVASTATIN 20 MG TAB PO SCH (08:51)
[2016-07-03 11:40] LABS: Glucose,Whole Blood 123 mg/dL (75-99)
[2016-07-03] MEDS: MULTIVITAMINS, THERA 1 EACH TAB PO SCH (12:37)
[2016-07-03 15:34] VITALS: BP 133/60; TEMP 98.3
[2016-07-03] MEDS: SODIUM CHLORIDE 0.9% 1,000 ML IV SCH (16:30)
--- NOTE | 2016-07-03 16:57 | P.PN ---
Progress Note - Text Clarification for progress note of 07/02/[address] Peña. Under assessment: 11. Chronic hypoxic, hypercapnic respiratory failure, wears 3.5 L nasal cannula O2 at home.
[2016-07-03] MEDS ORDERED: LEVOFLOXACIN 500 MG TAB PO SCH (17:00)
[2016-07-03] MEDS ORDERED: LEVOFLOXACIN 250 MG TAB PO SCH (17:00)
--- NOTE | 2016-07-03 17:38 | P.PN ---
Subjective 71-year-old female patient with known history of COPD has been maintained on Spiriva on outpatient basis. The patient quit smoking in in October 2015. Over the past 4-5 days the patient has been getting progressively more short of breath. She had increased cough and chest congestion and wheezing. She had tried [id number] medication without much help. She typically gets bronchitis and she does not get hospitalized for that. However, with this current episode, the patient was getting more short of breath to the point where she presented herself to the [facility] were she was evaluated and then sent to the [facility] for further treatment. No chest pain. No hemoptysis. No swelling of the lower extremities. No change in mental status. No other complaints otherwise. She has home O2. She has a home nebulizer. The patient has seen Dr. Baig many years back and not recently. She is seen again today 07/03/2016 in follow-up. She is awake and alert in no acute distress. She is feeling nearly back to her baseline. She is anxious to go home. She denies any worsening shortness of breath, cough or congestion. She is maintaining good O2 saturations in the high 90s on 3 L/m per nasal cannula. She's been afebrile. Objective - Vital Signs Vital signs: Vital Signs Temp 98.3 F 07/03/16 15:00 Pulse 100 07/03/16 16:05 Resp 18 07/03/16 15:00 BP 133/60 07/03/16 15:00 Pulse Ox 100 07/03/16 15:50 Intake & Output 07/02/16 07/03/16 07/03/16 18:59 06:59 18:59 Intake Total 100 880 480 Balance 100 880 480 Intake: Intake, IV Titration 100 140 Amount Levofloxacin 500Mg-D5w 100 100 Pmx 500 mg In Dextrose/ Water 1 100ml.bag @ 100 mls/hr IVPB Q24H [facility] Rx#: [id number] Sodium Chloride 0.9% 1, 40 000 ml @ 20 mls/hr IV . Q24H [facility] Rx#:[id number] Oral 740 480 Other: Voiding Method Bedside Commode Bedside Commode Bedside Commode # Voids 3 2 3 - Exam GENERAL EXAM: Alert, active, comfortable in no apparent distress. HEAD: Normocephalic. EYES: Normal reaction of pupils, equal size. NOSE: Clear with pink turbinates. THROAT: No erythema or exudates. NECK: No masses, no JVD. CHEST: No chest wall deformity. LUNGS: Equal air entry with faint end expiratory wheeze. Diminished. CVS: S1 and S2 normal with nan audible murmur, regular rhythm. ABDOMEN: No hepatosplenomegaly, normal bowel sounds, no guarding or rigidity. SPINE: No scoliosis or deformity SKIN: No rashes CENTRAL NERVOUS SYSTEM: No focal deficits, tone is normal in all 4 extremities. Extremities: There is no peripheral edema. No clubbing, no cyanosis. Peripheral pulses are intact. - Labs CBC & Chem 7: 07/03/16 07:17 07/03/16 07:17 Labs: Abnormal Lab Results - Last 24 Hours (Table) 07/02/16 07/03/16 07/03/16 Range/Units 20:25 07:13 07:17 WBC 13.5 H (3.8-10.6) k/uL RBC 3.64 L (3.80-5.40) m/uL Hgb 10.4 L (11.4-16.0) gm/dL MCHC 30.2 L (31.0-37.0) g/dL Plt Count 458 H (150-450) k/uL Neutrophils # 11.6 H (1.3-7.7) k/uL Chloride (98-107) mmol/L Carbon Dioxide (22-30) mmol/L BUN (7-17) mg/dL Creatinine (0.52-1.04) mg/dL Glucose (74-99) mg/dL POC Glucose (mg/dL) 149 H 133 H (75-99) mg/dL 07/03/16 07/03/16 Range/Units 07:17 11:36 WBC (3.8-10.6) k/uL RBC (3.80-5.40) m/uL Hgb (11.4-16.0) gm/dL MCHC (31.0-37.0) g/dL Plt Count (150-450) k/uL Neutrophils # (1.3-7.7) k/uL Chloride 95 L (98-107) mmol/L Carbon Dioxide 34 H (22-30) mmol/L BUN 48 H (7-17) mg/dL Creatinine 1.06 H (0.52-1.04) mg/dL Glucose 126 H (74-99) mg/dL POC Glucose (mg/dL) 123 H (75-99) mg/dL Assessment and Plan Plan: Assessment 1 acute COPD exacerbation secondary to an underlying bronchitis 2 shortness of breath secondary to above 3 coronary artery disease 4 hypertension 5 hyperlipidemia 6 chronic generalized anxiety disorder Plan The patient was seen and evaluated by Dr. Zabala. She is cleared for discharge from the pulmonary standpoint. She'll complete her prednisone taper. She'll complete her course of antibiotics.She could follow-up in our office in 1-2 weeks' time. She did see Dr. Baig in the past and would like to follow up with him in our office again. She does have oxygen and a nebulizer for her medications at home. She is encouraged to call sooner with any recurrence of symptoms or any other questions or concerns.
[2016-07-03 17:43] LABS: Glucose,Whole Blood 175 mg/dL (75-99)
[2016-07-03 19:33] VITALS: PULSE 85
--- NOTE | 2016-07-04 08:27 | DS ---
DATE OF ADMISSION: 06/30/2016 DATE OF DISCHARGE: 07/03/2016 DATE OF SERVICE: 07/03/2016 FINAL DIAGNOSES: 1. Chronic obstructive pulmonary disease acute exacerbation with acute purulent tracheobronchitis. 2. Anemia, normocytic anemia of chronic disease. 3. History of nicotine dependence. 4. Acute renal failure, possible prerenal. 5. History of chronic obstructive pulmonary disease, asthma. 6. Coronary artery disease with history of stent. 7. Hypertension. 8. Hyperlipidemia. 9. History of cardiac arrhythmias. 10. History of anxiety. 11. Chronic respiratory failure on home oxygen. DISCHARGE DISPOSITION: The patient will be discharged in stable condition with guarded prognosis. HISTORY OF PRESENT ILLNESS: This 71-year-old woman with a past medical history of multiple medical problems as mentioned earlier was admitted with COPD acute exacerbation. Patient was treated with steroids and antibiotics. The patient improved significantly. On exam, vitals are stable. CARDIOVASCULAR: S1 and S2, muffled. RESPIRATORY: A few scattered rhonchi. ABDOMEN: Soft. NERVOUS SYSTEM: No focal deficits. Dr. Zabala saw the patient. WBC is 13.5 and hemoglobin 10.4. Creatinine is 1.06. DISCHARGE ADVICE: 1. Diet is cardiac. 2. Activity limited until followup. 3. Follow up with Dr. Rhonda Glez in 2 to 3 days. 4. Follow up with Dr. Zabala in 2 weeks. 5. Home care. Medications are: 1. Tylenol 500 mg q.6 p.r.n. 2. Albuterol 2.3 q.i.d. and p.r.n. 3. Ecotrin 81 mg p.o. daily. 4. Symbicort 160/4.5, two puffs b.i.d. 5. Vitamin B12, 2.5 mg p.o. daily. 6. Fenofibrate 145 mg p.o. daily. 7. Folic acid 0.4 daily. 8. Lasix 20 mg daily. 9. [place] 5 mg q.8 p.r.n. 10. Levaquin 250 mg p.o. daily for 5 days. 11. Zestril 40 mg p.o. daily. 12. Claritin 10 mg p.o. daily. 13. Singulair 10 mg q.h.s. 14. Multivitamin 1 p.o. daily. 15. Prilosec 20 mg a.c. b.i.d. 16. Paxil 40 mg p.o. daily. 17. Crestor 10 mg p.o. daily. 18. Spiriva 1 puff daily 19. Verapamil ER 240 mg. 20. Vitamin E 1000 units daily. 21. Prednisone taper, that is 40 mg daily for 3 days, 30 for 3 days, 20 for 3 days, 10 for 3 days then stop.
--- NOTE | 2016-09-05 15:02 | PN ---
Patient is a 71-year-old admitted yesterday. On the CT, patient appears to have left lower lobe pneumonia because of which we ended up keeping the patient today. Patient went into respiratory failure. Patient is on BiPAP, may require intubation. Pulmonology is evaluating the patient at this point of time and patient is acidotic with mild CO2 retention. Patient's PO2 is 128, but patient is on high amounts of oxygen at that time. Patient is tachycardic, tachypneic, respiratory status worsened pretty quickly. Patient is tight and there is no much air movement on exam. Probably patient now has COPD exacerbation. Patient's FEV1 is 24%. Patient will be continued on present antibiotics. Patient may need intubation at this point of time. Patient is being transferred to ICU and Pulmonology is evaluating the patient at this point of time. Review of systems unable to obtain. PHYSICAL EXAMINATION: Temperature 97.5, pulse of 118, respiratory rate of 14, blood pressure is 171/70, saturating at 99% on room air. ABGs were reviewed. Patient is acidotic with pCO2 of 68, hemoglobin 7.8. GENERAL: Patient is in significant respiratory distress on BiPAP. NEUROLOGICAL: Alert. Lung examination is significantly decreased air entry. Patient is tachypneic, in severe respiratory. CARDIOVASCULAR: S1 and S2 present. Patient is mildly tachycardic. No murmurs, rubs, or gallops were appreciated. HEENT: Pupils are round and equally reacting to light. EOMI. No scleral icterus. No conjunctival pallor. Normocephalic, atraumatic. No pharyngeal erythema. No thyromegaly. PULMONARY: Chest is clear to auscultation, no wheezing or crackles. ABDOMEN: Soft, nontender, nondistended, normoactive bowel sounds. No palpable organomegaly. MUSCULOSKELETAL: No joint swelling or deformity. EXTREMITIES: No cyanosis, clubbing, or pedal edema. SKIN: No rashes. ASSESSMENT AND PLAN: 1. Acute respiratory failure, appears to be both hypercapnic and hypoxic respiratory failure. Patient has chronic hypercapnic respiratory failure from chronic obstructive pulmonary disease and chronic hypoxemia from pulmonary fibrosis. Patient will be intubated today. 2. Left lower lobe pneumonia for which patient is on ceftriaxone, azithromycin, which will continue. 3. Pulmonary fibrosis. 4. Coronary artery disease. 5. Patient has some kind of arrhythmia for which patient is on verapamil which is being continued. 6. Acute renal failure, which improved at this point of time with IV fluid resuscitation, although patient does not appear to have any pulmonary edema. 7. Hyperlipidemia. 8. Anxiety disorder. 9. Chronic anemia evaluation as an outpatient. Nature of anemia is unknown.
== END 2016-07-03 20:30 | disposition home health service (06) | DRG 191 ==
LOC: 5MS5E 15:26
PROVIDERS: ADMIT Internal Medicine; ATTEND Internal Medicine
DX: J44.0 Chronic obstructive pulmonary disease with (acute) lower respiratory infection (principal); N17.9 Acute kidney failure, unspecified; J96.12 Chronic respiratory failure with hypercapnia; Z99.81 Dependence on supplemental oxygen; D63.8 Anemia in other chronic diseases classified elsewhere; J20.9 Acute bronchitis, unspecified; J44.1 Chronic obstructive pulmonary disease with (acute) exacerbation; J45.909 Unspecified asthma, uncomplicated; Z87.891 Personal history of nicotine dependence; I25.10 Atherosclerotic heart disease of native coronary artery without angina pectoris; F41.1 Generalized anxiety disorder; F32.9 Major depressive disorder, single episode, unspecified; I10 Essential (primary) hypertension; E78.5 Hyperlipidemia, unspecified; Z79.82 Long term (current) use of aspirin; Z95.5 Presence of coronary angioplasty implant and graft; Z79.52 Long term (current) use of systemic steroids; Z79.899 Other long term (current) drug therapy; Z82.5 Family history of asthma and other chronic lower respiratory diseases
CPT/HCPCS: 71010; 80048; 80053; 81001; 83036; 85025; 87502; 93005; 94640

== ENCOUNTER 2016-09-03 20:55 | Inpatient (IN) | payer MEDICARE ==
[2016-09-03] MEDS ORDERED: ACETAMINOPHEN TAB 325 MG TAB PO PRN (23:43)
[2016-09-04 00:10] LABS: Basophils % (A) 0 %; CH 28.4; CHCM 30.4; Eosinophils # (A) 0.1 k/uL (0-0.7); Eosinophils % (A) 1 %; HCT 24.2 % (34.0-46.0); HDW 2.53; Hypochromasia Moderate; Luc # (Auto) 0.34; Luc % (Auto) 3; Lymphocytes # (A) 1.4 k/uL (1.0-4.8); Lymphocytes % (A) 14 %; MCH 29.6 pg (25.0-35.0); MCHC 31.7 g/dL (31.0-37.0); MCV 93.4 fL (80.0-100.0); Mean Platelet Volume 6.9; Monocytes # (A) 0.6 k/uL (0-1.0); Monocytes % (A) 6 %; Neutrophils # (A) 7.8 k/uL (1.3-7.7); Neutrophils % (A) 76 %; RBC 2.59 m/uL (3.80-5.40); WBC 10.2 k/uL (3.8-10.6); WBC (Perox) 10.55
[2016-09-04 00:24] LABS: Calcium 8.5 mg/dL (8.4-10.2); Potassium 3.9 mmol/L (3.5-5.1); Total Bilirubin 0.3 mg/dL (0.2-1.3); Total Protein 5.5 g/dL (6.3-8.2)
[2016-09-04 00:32] LABS: HGB 7.7 gm/dL (11.4-16.0)
[2016-09-04] MEDS ORDERED: PARoxetine 20 MG TAB PO STA (03:10)
[2016-09-04] MEDS ORDERED: NON-FORMULARY DRUG (Ipratropium/Albuterol Sulfate [Combivent Respimat Inhaler] 1 PUFF) INHALATION SCH (03:15)
[2016-09-04] MEDS: IPRATROPIUM-ALBUTEROL 3 ML NEB INHALATION PRN (03:28)
[2016-09-04] MEDS: HYDROcodone/APAP 5-325MG 1 EACH TAB PO PRN (06:32)
[2016-09-04] MEDS: IPRATROPIUM-ALBUTEROL 3 ML NEB INHALATION SCH ×4 (07:15→19:56)
[2016-09-04] MEDS: SODIUM CHLORIDE 0.9% 1,000 ML IV SCH ×3 (07:44→20:15)
[2016-09-04 08:28] LABS: Basophils % (A) 0 %; CHCM 29.8; Eosinophils # (A) 0.1 k/uL (0-0.7); Eosinophils % (A) 1 %; HCT 25.1 % (34.0-46.0); HDW 2.59; HGB 7.8 gm/dL (11.4-16.0); Hypochromasia Marked; Luc # (Auto) 0.33; Luc % (Auto) 3; Lymphocytes # (A) 1.8 k/uL (1.0-4.8); Lymphocytes % (A) 16 %; MCH 29.3 pg (25.0-35.0); MCHC 31.1 g/dL (31.0-37.0); MCV 94.2 fL (80.0-100.0); Mean Platelet Volume 7.2; Monocytes # (A) 0.7 k/uL (0-1.0); Monocytes % (A) 6 %; Neutrophils # (A) 8.4 k/uL (1.3-7.7); Neutrophils % (A) 74 %; RBC 2.67 m/uL (3.80-5.40); RDW 14.1 % (11.5-15.5); WBC 11.5 k/uL (3.8-10.6); WBC (Perox) 12.02
[2016-09-04] MEDS: AZITHROMYCIN 500 MG in SODIUM CHLORIDE 0.9% 250 ML IVPB SCH (08:32)
--- NOTE | 2016-09-04 08:34 | XR ---
EXAMINATION TYPE: XR chest 2V DATE OF EXAM: 09/04/2016 6:50 AM COMPARISON: NONE INDICATION: Pneumonia, difficulty breathing TECHNIQUE: 2 view chest. FINDINGS: The heart size is normal. The pulmonary vasculature is normal. There is a left basilar infiltrate which can be compatible with pneumonia in the proper clinical sett ing. Degenerative changes are at the shoulders. IMPRESSION: 1. Left lower lobe and lingular pneumonia. Follow-up to clearing is recommended.
[2016-09-04 08:47] LABS: Calcium 8.7 mg/dL (8.4-10.2); Potassium 4.2 mmol/L (3.5-5.1); Total Bilirubin 0.4 mg/dL (0.2-1.3); Total Protein 5.8 g/dL (6.3-8.2)
[2016-09-04] MEDS ORDERED: ACETAMINOPHEN TAB 500 MG TAB PO PRN (11:37)
[2016-09-04] MEDS ORDERED: RX INFO: IV CONTRAST WAS GIVEN 1 EACH MISC MISCELLANE PRN (14:25)
--- NOTE | 2016-09-04 15:25 | HP ---
DATE OF ADMISSION: This dictation is both H&P. Patient is a very pleasant 71-year-old female, was seen in [facility] with back pain and [place] physician called me yesterday to transfer here because of the possibility of left lower lobe pneumonia and patient's anemia which appears to be chronic without any acute GI bleed. Patient denied any blood in the stools, dark stools and patient denied any hematemesis, hematochezia. The other issue being possibility of pneumonia. Patient denied any cough, runny nose. Patient does not have any fevers. Patient has a little bit of pleural effusion on the left side. I do not see any clear-cut infiltrate. Patient although a chest x-ray is consistent with pulmonary fibrosis. Patient does have history of pulmonary fibrosis. Follows with Dr. Zabala as an outpatient. Patient has a little bit of wheeze on exam, has a bit of COPD apparently from the previous dictations from Cardiology and patient also has poor renal function because of which patient cannot take ibuprofen. Instead patient will be discharged on Tramadol. Patient's baseline kidney function appears to be around 0.9 and patient already has Symbicort and other inhalers at home. I do not believe patient will need antibiotics at this point of time. Patient was complaining of some dry cough. Beyond that, patient denied any fever, chills. No evidence of pneumonia clinically or radiologically. Past medical history is significant for COPD, coronary artery disease, hypertension, hyperlipidemia, history of cardiac arrhythmias for which patient is on Verapamil and coronary artery disease with stent placement, anxiety disorder and because of her systolic blood pressure in 90s, I am going to discontinue Ramipril but Verapamil will need to be continued without which patient's blood pressure will go up and history of anxiety disorder. Home medications include: 1. Verapamil. 2. Tiotropium. 3. Rosuvastatin. 4. Paroxetine. 5. Multivitamin. 6. Ipratropium. 7. Albuterol. 8. Hydrocodone. 9. Acetaminophen. 10. Fenofibrate. 11. Cyanocobalamin. 12. Aspirin. 13. Albuterol. 14. Acetaminophen. 15. Tramadol. FAMILY HISTORY: Significant for COPD and coronary artery disease. SOCIAL HISTORY: Used to smoke in the past. Denied any alcohol abuse or any drug abuse. REVIEW OF SYSTEMS: MUSCULOSKELETAL: Patient has low back pain. CONSTITUTIONAL: No fever, no malaise, no fatigue. HEENT: No recent visual problems or hearing problems. Denied any sore throat. CARDIOVASCULAR: No chest pain, orthopnea, PND, no palpitations, no syncope. PULMONARY: No shortness of breath, no cough, no hemoptysis. GASTROINTESTINAL: No diarrhea, no nausea, no vomiting, no abdominal pain. Normoactive bowel sounds. NEUROLOGICAL: No headaches, no weakness, no numbness. HEMATOLOGICAL: Denies any bleeding or petechiae. GENITOURINARY: Denies any burning micturition, frequency, or urgency. ENDOCRINE: Denies any polyuria or polydipsia. The rest of the 14 point review of systems is negative. PHYSICAL EXAMINATION: VITAL SIGNS: Temperature 97.4, pulse of 96, respiratory rate of 16, blood pressure is 112/56, saturating at 97% on 4 L of O2 by nasal cannula. GENERAL: The patient is alert and oriented x3, not in any acute distress. Well developed, well nourished. HEENT: Pupils are round and equally reacting to light. EOMI. No scleral icterus. No conjunctival pallor. Normocephalic, atraumatic. No pharyngeal erythema. No thyromegaly. CARDIOVASCULAR: S1 and S2 present. No murmurs, rubs, or gallops. PULMONARY: Patient has minimal bilateral wheeze and very fine little crackles on exam. ABDOMEN: Soft, nontender, nondistended, normoactive bowel sounds. No palpable organomegaly. MUSCULOSKELETAL: No joint swelling or deformity. EXTREMITIES: No cyanosis, clubbing, or pedal edema. NEUROLOGICAL: Gross neurological examination did not reveal any focal deficits. SKIN: No rashes. LABORATORY DATA: CBC and CMP are abnormal for elevated BUN and creatinine, baseline creatinine is around 0.9. Creatinine has gone up to 1.2 now and around 1.15 with IV fluids and hemoglobin is 7.8, normocytic anemia. Anemia needs to be further evaluated as an outpatient. Patient has chronic anemia. ASSESSMENT AND PLAN: 1. Back pain, appears to be chronic low back pain. Will need to follow as an outpatient for that. 2. Ruled out pneumonia. My suspicion is low for pneumonia. I do not believe patient needs antibiotics. Patient does not have any evidence of pneumonia at this point of time. 3. Pulmonary fibrosis for which patient uses 4 L of oxygen. Patient is saturating at 100%, probably we can cut down the oxygen, but I will leave the decision to Pulmonology who is going to evaluate the patient. Patient will be discharged after Pulmonology evaluation. 4. Coronary artery disease. 5. Arrhythmia, the nature of the arrhythmia is unknown. Patient I do not believe has congestive heart failure. Patient is on verapamil, which will be continued. 6. Acute renal failure secondary to probably DARRYN inhibitor that will be discontinued and intravascular volume depletion, prerenal azotemia. Received IV fluids and patient may have acute tubular necrosis from hypotension. 7. Hyperlipidemia. 8. Generalized anxiety disorder. 9. Chronic anemia, further evaluation as an outpatient. Patient has normocytic anemia. Nature of anemia is unknown. As mentioned above, will need outpatient evaluation. This dictation is both H&P and Discharge Summary. DISCHARGE DIET: Cardiac. Activity as tolerated. Follow up with Dr. Jovany Mcgowan in about 3 to [address] Zabala as scheduled. Patient will be discharged if cleared by Pulmonology. I do not believe patient will need any antibiotics at this time. MTDD
[2016-09-04] MEDS: VERAPAMIL SR 240 MG TABLET.ER PO SCH (16:06)
--- NOTE | 2016-09-04 16:11 | CT ---
CT CHEST FOR PULMONARY EMBOLISM. EXAMINATION TYPE: CT angio chest DATE OF EXAM: 09/04/2016 3:53 PM INDICATION: shortness of breath CT DLP: 457.3 mGycm, Automated exposure control for dose reduction was used. CONTRAST: Patient injected with 80 mL of Visipaque 320. COMPARISON: NONE TECHNIQUE: CT of the chest is performed on a spiral scan at 2 mm thick sections. Study is performed with intravenous contrast timed for evaluation for pulmonary embolism. This will limit additional po rtions of the evaluation. 3-D MIP images reconstructed by the technologist are reviewed on the compu ter in the coronal and sagittal planes. FINDINGS: Contrast timing appears suboptimal limiting the evaluation for pulmonary embolism. No obvious large c entral or lobar pulmonary emboli are identified. Smaller segmental and subsegmental branches may be d ifficult to exclude. There may be some substernal adenopathy or extension of the thyroid on previous measurement proximal 1.6 cm in size. Aortopulmonic window adenopathy is present measuring 1.4 cm. Smaller shotty lymph nod es are the pretracheal space and right suprahilar region. There is an enlarged subcarinal lymph node 1.9 cm. The ascending aorta diameter at the level of the main pulmonary artery is 3.3 cm. The main pulmonary artery diameter at the bifurcation is 2.4 cm. Coronary artery calcification is present. Small left pleural effusion is present. A left lower lobe consolidation is present. Some mild thicken ing of the major fissure on the left is present. There is a pneumonitis are within the superior segme nts of the lower lobes bilaterally. Some pulmonary fibrosis the left base may be present. Some chroni c bronchitis could be considered with peribronchial thickening present. Limited CT section through the upper abdomen are unremarkable. IMPRESSIONS: 1. No obvious large central pulmonary emboli present. Smaller peripheral pulmonary emboli may be diff icult to exclude due to contrast timing. 2. Enlarged mediastinal adenopathy discussed above 3. Pulmonary fibrosis left lower lobe. 4. Consolidation left lower lobe. Neoplasm or pneumonia could be considered within the differential. Follow-up is recommended. 5. Small left pleural effusion.
--- NOTE | 2016-09-04 17:00 | P.CNPUL ---
History of Present Illness Consult date: 09/04/16 Reason for consult: abnormal CXR/CT History of present illness: This 71-year-old female patient with known history of advanced COPD, oxygen dependent at 2 L/m nasal cannula who has a FEV1 of 24% of predicted. The patient was in the hospital for an acute COPD exacerbation back in June 2016. The patient was seen in the office following that and she was placed on Spiriva as maintenance along with albuterol neb last treatment was on incentive basis. The patient was doing well until around 24-48 hours ago when she woke up feeling diffuse body aches and generalized weakness and feeling lethargic. At the same time she had a pleuritic left-sided chest pain. She initially went to [facility] and following that she was brought into the [facility] for further investigation. CAT scan of the chest was done that showed a left lower lobe consolidation typical of an underlying pneumonia. There is some last forming consolidation and evidence of subcarinal and left paratracheal lymphadenopathy is obviously concerning and needs to be followed up to make sure this is not a malignant process. Despite all this, the patient has no fever or chills. No hemodynamic instability. She is up to 5 L of oxygen by nasal cannula which were able to wean it down to 3 L. She is on accommodation of Rocephin and Zithromax. She is producing adequate amount of urine output. No other significant events over the past 12-24 hours. Review of Systems 12 point review of system was done and the positive findings are almost above in history of present illness Past Medical History Past Medical History: Coronary Artery Disease (CAD), Heart Failure, COPD, Eye Disorder, Hyperlipidemia, Hypertension Additional Past Medical History / Comment(s): Cardiac arrythmia (patient says it skips a beat), pain in rotator cuff bilateral History of Any Multi-Drug Resistant Organisms: None Reported Past Surgical History: Heart Catheterization, Heart Catheterization With Stent, Tubal Ligation, Uterine Ablation Additional Past Surgical History / Comment(s): natural child , cervical cauterization Past Anesthesia/Blood Transfusion Reactions: No Reported Reaction Date of Last Stent Placement:: 1979 Past Psychological History: Anxiety Smoking Status: Former smoker Additional Drug Use History / Comment(s): Patient chews nicorette gum. Quit smoking in October 2015. - Past Family History Mother Family Medical History: Chest Pain / Angina, Congestive Heart Failure (CHF), COPD, Coronary Artery Disease (CAD) Additional Family Medical History / Comment(s): Father Family Medical History: Chest Pain / Angina, Congestive Heart Failure (CHF) Additional Family Medical History / Comment(s): Sister(s) Family Medical History: AICD/Pacemaker, Cancer, Chest Pain / Angina, Congestive Heart Failure (CHF), COPD Additional Family Medical History / Comment(s): breast cancer Medications and Allergies Home Medications Medication Instructions Recorded Confirmed Type Acetaminophen Tab [Tylenol] 500 mg PO Q6H PRN MDD 4 GRAMS 06/30/16 09/04/16 History Aspirin EC [Ecotrin Low Dose] 81 mg PO DAILY 06/30/16 09/04/16 History Cyanocobalamin (Vitamin B-12) 500 mcg PO DAILY 06/30/16 09/04/16 History [Vitamin B12] Fenofibrate Nanocrystallized 145 mg PO DAILY 06/30/16 09/04/16 History [Tricor] Folic Acid 0.4 mg PO DAILY 06/30/16 09/04/16 History HYDROcodone/APAP 5-325MG [Bonaparte 1 tab PO Q8H PRN MDD 8 TABLETS 06/30/16 History 5-325] Multivitamins, Thera [Multivitamin 1 tab PO DAILY 06/30/16 09/04/16 History (formulary)] PARoxetine HCL [Paxil] 40 mg PO HS 06/30/16 09/04/16 History Rosuvastatin Calcium [Crestor] 10 mg PO DAILY 06/30/16 09/04/16 History Tiotropium [place] [Spiriva] 1 cap INHALATION RT-DAILY 06/30/16 09/04/16 History Verapamil HCl [Verapamil ER] 240 mg PO DAILY 06/30/16 09/04/16 History Vitamin E 400 unit PO DAILY 06/30/16 09/04/16 History Albuterol Nebulized [Ventolin 2.5 mg INHALATION RT-QID 09/04/16 09/04/16 History Nebulized] Ipratropium/Albuterol Sulfate 1 puff INHALATION RT-QID 09/04/16 09/04/16 History [Combivent Respimat Inhaler] Allergies Allergy/AdvReac Type Severity Reaction Status Date / Time Sulfa (Sulfonamide Allergy Unknown Verified 09/04/16 07:42 Antibiotics) Physical Exam Vitals: Vital Signs Temp Pulse Pulse Resp BP Pulse Ox 09/04/16 16:07 92 09/04/16 16:00 88 09/04/16 11:29 97.4 F L 101 H 16 112/56 97 09/04/16 11:12 96 09/04/16 11:03 92 09/04/16 07:47 99.2 F 109 H 18 122/56 98 09/04/16 07:32 92 09/04/16 07:17 88 09/04/16 03:36 96 09/04/16 03:28 93 09/04/16 03:00 97.8 F 93 20 91/52 100 09/04/16 00:45 98.1 F 82 94/64 99 09/03/16 23:05 98.2 F 94 20 125/59 98 Intake and Output 09/04/16 09/04/16 09/04/16 06:59 14:59 22:59 Intake Total 1300 360 Output Total 300 400 Balance 1300 60 -400 Intake: IV 800 Sodium Chloride 0.9% 1, 800 000 ml @ 100 mls/hr IV . Q10H [facility] Rx#:[id number] Oral 500 360 Output: Urine 300 400 Other: Weight 71.5 kg Head exam was generally normal. There was no scleral icterus or corneal arcus. Mucous membranes were moist.Neck was supple and without jugular venous distension, thyromegaly, or carotid bruits. Carotids were easily palpable bilaterally. There was no adenopathy. Lung sounds are markedly diminished bilaterally with crackles in the lung bases more so on the left.Cardiac exam revealed the PMI to be normally situated and sized. The rhythm was regular and no extrasystoles were noted during several minutes of auscultation. The first and second heart sounds were normal and physiologic splitting of the second heart sound was noted. There were no murmurs, rubs, clicks, or gallops.Abdominal exam revealed normal bowel sounds. The abdomen was soft, non- tender, and without masses, organomegaly, or appreciable enlargement of the abdominal aorta.Examination of the extremities revealed easily palpable radial, femoral and pedal pulses. There was no cyanosis, clubbing or edema. Results - Laboratory Findings CBC and BMP: 09/04/16 07:57 09/04/16 07:57 PT/INR, D-dimer D-Dimer 4.23 mg/L FEU (<0.60) H 09/04/16 13:45 Abnormal lab findings: Abnormal Labs 09/03/16 09/03/16 09/04/16 23:57 23:57 07:57 WBC 11.5 H RBC 2.59 L 2.67 L Hgb 7.7 L D 7.8 L Hct 24.2 L 25.1 L Neutrophils # 7.8 H 8.4 H D-Dimer BUN 22 H Creatinine 1.20 H Glucose 118 H Total Protein 5.5 L Albumin 2.9 L 09/04/16 09/04/16 07:57 13:45 WBC RBC Hgb Hct Neutrophils # D-Dimer 4.23 H BUN 21 H Creatinine 1.15 H Glucose 134 H Total Protein 5.8 L Albumin 3.0 L - Diagnostic Findings Chest x-ray: image reviewed CT scan - chest: image reviewed Assessment and Plan Plan: Assessment 1 acute left lower lobe pneumonia with secondary pleurisy and shortness of breath 2 advanced COPD with an FEV1 of 24% of predicted consistent with severe disease 3 chronic hypoxic respiratory failure maintained on oxygen at 2 L per minute nasal cannula on outpatient basis 4 mediastinal lymphadenopathy, could be potentially pathologic and malignant and this needs to be followed up at a later stage and biopsy will be indicated if there is enlargement in the size of the lymph nodes. Rule out underlying malignancy. 5 coronary artery disease 6 chronic anemia 7 hypertension 8 hyperlipidemia. Plan My recommendations to keep the patient a hospital for another 24-48 hours. Provide the patient IV Rocephin and Zithromax to treat her left lower lobe pneumonia. I hope the pleuritic chest pain would improve with antibiotic treatment. Make sure there is no development or evolution of a left-sided pleural effusion. I think, based on the advanced COPD, it's reasonable to keep the patient and a hospital for another 24 hours for IV antibiotics her condition is further stabilized. I discussed this with Dr. Larkin
[2016-09-04] MEDS: PARoxetine 20 MG TAB PO SCH (20:15)
[2016-09-05] MEDS: IPRATROPIUM-ALBUTEROL 3 ML NEB INHALATION PRN ×2 (01:57→08:21)
[2016-09-05] MEDS: HYDROcodone/APAP 5-325MG 1 EACH TAB PO PRN ×2 (02:30→20:12)
[2016-09-05] MEDS: SODIUM CHLORIDE 0.9% 1,000 ML IV SCH ×2 (05:43→15:59)
[2016-09-05] MEDS: IPRATROPIUM-ALBUTEROL 3 ML NEB INHALATION SCH ×5 (07:38→23:30)
[2016-09-05] MEDS: VERAPAMIL SR 240 MG TABLET.ER PO SCH (07:57)
[2016-09-05] MEDS ORDERED: methylPREDNISolone SOD SUCCI 125 MG/2 ML VIAL IV STA (08:15)
--- NOTE | 2016-09-05 08:37 | XR ---
EXAMINATION TYPE: XR chest 1V portable DATE OF EXAM: 09/05/2016 8:28 AM HISTORY: resp distress. REFERENCE: Previous study dated 09/04/2016. FINDINGS: The heart is enlarged. There is left basilar airspace disease. There is a small left effusi on. IMPRESSION: 1. CONTINUING LEFT BASILAR PNEUMONIA. 2. SMALL LEFT EFFUSION. 3. CARDIOMEGALY.
[2016-09-05] MEDS: AZITHROMYCIN 500 MG in SODIUM CHLORIDE 0.9% 250 ML IVPB SCH (08:39)
[2016-09-05 08:49] LABS: ABG PCO2 60 mmHg (35-45); ABG PH 7.24 (7.35-7.45); ABG PO2 128 mmHg (83-108)
[2016-09-05 08:50] LABS: ABG Base Excess -1.8 mmol/L; ABG HCO3 25 mmol/L (21-25); ABG TCO2 27 mmol/L (19-24)
[2016-09-05 10:17] LABS: Glucose,Whole Blood 118 mg/dL (75-99)
[2016-09-05 10:54] LABS: ALT 31 U/L (9-52); AST 19 U/L (14-36); Alkaline Phosphatase 64 U/L (38-126); Anion Gap 15 mmol/L; Blood Urea Nitrogen 12 mg/dL (7-17); Calcium 8.9 mg/dL (8.4-10.2); Carbon Dioxide 24 mmol/L (22-30); Chloride 109 mmol/L (98-107); Glucose 125 mg/dL (74-99); Non-African American GFR(MDRD) >60 (>60 ml/min/1.73 sqM); Potassium 4.6 mmol/L (3.5-5.1); Sodium 148 mmol/L (137-145); Total Bilirubin 0.3 mg/dL (0.2-1.3); Total Protein 5.8 g/dL (6.3-8.2)
[2016-09-05 10:59] LABS: CH 27.7; CHCM 28.5; HCT 25.9 % (34.0-46.0); HGB 7.8 gm/dL (11.4-16.0); Hypochromasia Marked; MCH 29.5 pg (25.0-35.0); MCHC 30.2 g/dL (31.0-37.0); MCV 97.6 fL (80.0-100.0); RBC 2.66 m/uL (3.80-5.40); RDW 14.2 % (11.5-15.5); WBC 9.9 k/uL (3.8-10.6)
[2016-09-05 11:23] LABS: Add Differential Manual Differential
[2016-09-05 11:24] LABS: Nucleated Red Blood Cells 0 /100 WBC (0-0); Total Cells Counted 100
[2016-09-05] MEDS: PROPOFOL 500 MG in EMPTY BAG 1 BAG IV SCH ×3 (11:30→22:45)
[2016-09-05] MEDS ORDERED: PROPOFOL 0 ML IV ONE (11:45)
--- NOTE | 2016-09-05 12:05 | P.PN ---
Subjective This 71-year-old female patient with known history of advanced COPD, oxygen dependent at 2 L/m nasal cannula who has a FEV1 of 24% of predicted. The patient was in the hospital for an acute COPD exacerbation back in June 2016. The patient was seen in the office following that and she was placed on Spiriva as maintenance along with albuterol neb last treatment was on incentive basis. The patient was doing well until around 24-48 hours ago when she woke up feeling diffuse body aches and generalized weakness and feeling lethargic. At the same time she had a pleuritic left-sided chest pain. She initially went to [facility] and following that she was brought into the [facility] for further investigation. CAT scan of the chest was done that showed a left lower lobe consolidation typical of an underlying pneumonia. There is some last forming consolidation and evidence of subcarinal and left paratracheal lymphadenopathy is obviously concerning and needs to be followed up to make sure this is not a malignant process. Despite all this, the patient has no fever or chills. No hemodynamic instability. She is up to 5 L of oxygen by nasal cannula which were able to wean it down to 3 L. She is on accommodation of Rocephin and Zithromax. She is producing adequate amount of urine output. No other significant events over the past 12-24 hours. On 09/05/2016 the patient is being seen in follow-up. The patient has developed significant worsening in her respiratory status. Earlier this morning I was informed of the patient was having labored breathing and she was becoming more restless and agitated. At that time I ordered to start the patient on systemic steroids, and the chest x-ray was also done and showed worsening of the left lung pulmonary infiltrate along with development of a small left-sided pleural effusion. At that point the patient that she has resulted intensive care unit patient was started on BiPAP which she was unable to tolerate due to increased restlessness, agitation, and asynchronous with the BiPAP. At that point, the patient was intubated. I intubated the patient and I started her on sedation with Diprivan. Currently she assist-control mode of ventilation. She is post intubation. Chest x-ray still pending. A triple lumen catheter was inserted. Hemodynamically she remains stable. No hypotension. Urine output remains adequate. The family was informed and a message was left over the phone to them of the above-mentioned changes. Objective - Vital Signs Vital signs: Vital Signs Temp 97.5 F L 09/05/16 08:00 Pulse 118 H 09/05/16 08:30 Resp 40 H 09/05/16 08:00 BP 171/77 09/05/16 08:00 Pulse Ox 99 09/05/16 08:00 Intake & Output 09/04/16 09/05/16 09/05/16 18:59 06:59 18:59 Intake Total 360 1050 0 Output Total 700 200 Balance -340 850 0 Weight 71.5 kg Intake: IV 1000 Sodium Chloride 0.9% 1, 1000 000 ml @ 100 mls/hr IV . Q10H [facility] Rx#:[id number] Intake, IV Titration 50 Amount cefTRIAXone 1,000 mg In 50 Sodium Chloride 0.9% 50 ml @ 100 mls/hr IVPB Q12HR [facility] Rx#:[id number] Oral 360 0 Output: Urine 700 200 Other: Voiding Method Toilet Toilet # Voids 1 - Exam The patient is intubated on mechanical ventilator. The patient is sedated with Diprivan. She is calm and comfortable. Head exam was generally normal. There was no scleral icterus or corneal arcus. Mucous membranes were moist. The patient has an orogastric and orotracheal tube in place.Neck was supple and without jugular venous distension, thyromegaly, or carotid bruits. Carotids were easily palpable bilaterally. There was no adenopathy. Lung sounds are diminished bilaterally along with some scattered expiratory wheezes throughout the lung gilbert.Cardiac exam revealed the PMI to be normally situated and sized. The rhythm was regular and no extrasystoles were noted during several minutes of auscultation. The first and second heart sounds were normal and physiologic splitting of the second heart sound was noted. There were no murmurs , rubs, clicks, or gallops.Abdominal exam revealed normal bowel sounds. The abdomen was soft, non-tender, and without masses, organomegaly, or appreciable enlargement of the abdominal aorta.Examination of the extremities revealed easily palpable radial, femoral and pedal pulses. There was no cyanosis, clubbing or edema. - Labs CBC & Chem 7: 09/05/16 10:35 09/05/16 10:35 Labs: Abnormal Lab Results - Last 24 Hours (Table) 09/04/16 09/05/16 09/05/16 Range/Units 13:45 08:42 10:16 RBC (3.80-5.40) m/uL Hgb (11.4-16.0) gm/dL Hct (34.0-46.0) % MCHC (31.0-37.0) g/dL Plt Count (150-450) k/uL Neutrophils # (Manual) (1.3-7.7) k/uL Lymphocytes # (Manual) (1.0-4.8) k/uL D-Dimer 4.23 H (<0.60) mg/L FEU ABG pH 7.24 L (7.35-7.45) ABG pCO2 60 H (35-45) mmHg ABG pO2 128 H (83-108) mmHg ABG Total CO2 27 H (19-24) mmol/L ABG O2 Saturation 98.0 H (94-97) % Sodium (137-145) mmol/L Chloride (98-107) mmol/L Glucose (74-99) mg/dL POC Glucose (mg/dL) 118 H (75-99) mg/dL Total Protein (6.3-8.2) g/dL Albumin (3.5-5.0) g/dL 09/05/16 09/05/16 09/05/16 Range/Units 10:35 10:35 10:35 RBC 2.66 L (3.80-5.40) m/uL Hgb 7.8 L (11.4-16.0) gm/dL Hct 25.9 L (34.0-46.0) % MCHC 30.2 L (31.0-37.0) g/dL Plt Count 459 H (150-450) k/uL Neutrophils # (Manual) 9.2 H (1.3-7.7) k/uL Lymphocytes # (Manual) 0.2 L (1.0-4.8) k/uL D-Dimer 4.79 H (<0.60) mg/L FEU ABG pH (7.35-7.45) ABG pCO2 (35-45) mmHg ABG pO2 (83-108) mmHg ABG Total CO2 (19-24) mmol/L ABG O2 Saturation (94-97) % Sodium 148 H (137-145) mmol/L Chloride 109 H (98-107) mmol/L Glucose 125 H (74-99) mg/dL POC Glucose (mg/dL) (75-99) mg/dL Total Protein 5.8 L (6.3-8.2) g/dL Albumin 3.0 L (3.5-5.0) g/dL Microbiology - Last 24 Hours (Table) 09/04/16 00:17 Blood Culture - Preliminary Blood No Growth after 24 hours 09/03/16 23:57 Blood Culture - Preliminary Blood No Growth after 24 hours Assessment and Plan Plan: Assessment 1 acute left lower lobe pneumonia with secondary pleurisy and shortness of breath On 09/05/2016, the patient progressively went into respiratory failure. She developed worsening in the left basal infiltrate along with a hemoglobin of a small left-sided pleural effusion. She became more tachypneic and she subsequently went to respiratory failure, failed BiPAP, ultimately intubated and placed on a mechanical ventilator. Currently she is an assist-control mode. Post intubation chest x-ray and blood gases are still pending. 2 advanced COPD with an FEV1 of 24% of predicted consistent with severe disease 3 chronic hypoxic respiratory failure maintained on oxygen at 2 L per minute nasal cannula on outpatient basis 4 mediastinal lymphadenopathy, could be potentially pathologic and malignant and this needs to be followed up at a later stage and biopsy will be indicated if there is enlargement in the size of the lymph nodes. Rule out underlying malignancy. 5 coronary artery disease 6 chronic anemia 7 hypertension 8 hyperlipidemia. Plan Stop the antibiotic treatment to include a combination of Zosyn and Levaquin and drop the Rocephin and Zithromax for now. May need to perform a bronchoscopy and bronchial lavage of the left lower lobe looking for any microbial growth. No previous history of staphylococcal infection this patient. No previous history of MRSA infection. At this point, the patient on a mechanical ventilator and she is sedated. She is an assist-control mode. She was placed on assist control of 16, FiO2 of 50%, PEEP of 5 and tidal volume of 400. The peak airway pressure is elevated consistent with her underlying COPD. Continue the systemic steroids. Continue the bronchodilators. Initiate tube feeds. Aggressive supportive care will be continued. The family will be contacted on his above-mentioned changes. Condition is critical. Prognosis poor specially with her poor baseline pulmonary status with an FEV1 of 24% of predicted. We'll make further recommendations based on her progress. This is a critically care evaluation that was done in 35 minutes excluding time to do any procedures. Time with Patient: Greater than 30
[2016-09-05] MEDS ORDERED: CISATRACURIUM 2 MG/ML 5 ML VIAL IV ONE (12:15)
[2016-09-05] MEDS ORDERED: PROPOFOL 50 ML IV ONE ×3 (12:29→15:55)
--- NOTE | 2016-09-05 12:30 | XR ---
EXAMINATION TYPE: XR chest 1V DATE OF EXAM: 09/05/2016 12:24 PM HISTORY: intubation. REFERENCE: Previous study dated 09/05/2016. FINDINGS: The study is underexposed. The patient is rotated. The patient has been intubated. ET tube is in satisfactory position with its tip 5.4 cm above the car robyn. An NG tube is present and crosses the hemidiaphragm but its tip is not visualized. A left international logistics coordinator al jugular catheter is in place. Its tip is in the superior vena cava. The lungs are overinflated. The heart is enlarged. There is a left-sided pleural effusion. There is l eft basilar airspace disease. IMPRESSION: 1. COPD. 2. CARDIOMEGALY. 3. CONTINUING LEFT BASILAR AIRSPACE DISEASE. 4. SMALL LEFT EFFUSION. 5. SATISFACTORY ET TUBE PLACEMENT.
[2016-09-05 12:58] LABS: ABG Base Excess -3.2 mmol/L; ABG HCO3 23 mmol/L (21-25); ABG PCO2 59 mmHg (35-45); ABG PH 7.22 (7.35-7.45); ABG PO2 158 mmHg (83-108); ABG TCO2 25 mmol/L (19-24)
--- NOTE | 2016-09-05 13:49 | CDI ---
In responding to this query, please exercise your independent professional judgment. The [facility] Coding Staff and Clinical Documentation Specialists appreciate your assistance in clarifying documentation, maintaining compliance with coding guidelines, accurately documenting patients condition and capturing severity of illness. The fact that a question is asked does not imply that any particular answer is desired or expected. Communication forms are a method of clarifying documentation and are not made part of the Legal Health Record. Thank you in advance for your clarification. Last Revision, August 2015 Michelle Drummond [address] [facility] [place] [address] Documentation Clarification Form Date: 09/05/2016 1:41:00 PM From: Stephanie Bennett Admit Date: 09/03/2016 11:20:00 PM Patient Name: Kristen Dorado Visit Number: [id number] Dr. Herminia Zabala 'On 09/05/2016, the patient progressively went into respiratory failure' per your progress note on 09/05. History/Risk Factors: COPD Chronic Hypoxic respiratory failure Left lower lobe Pneumonia Clinical Indicators: 'worsening left basal infiltrate'...'she became more tachypneic and went into respiratory failure' per progress note on 09/05 ABG/CBG: pH - 7.24, pCO2 - 60, pHCO3 - 25 Treatment: Intubated and placed on Mechanical Ventilation In your professional opinion, can you please clarify if these findings signify one of the following conditions? Acuity: o Acute o Acute on Chronic Respiratory Status: o Respiratory failure with hypercapnia o Respiratory failure with hypoxia o Other Diagnosis, please specify o Unable to determine Please document in your progress notes and discharge summary in order to capture severity of illness and risk of mortality. Include clinical findings that support your diagnosis. FYI: Press F11 to launch patient chart. Place X here if this finding has no clinical significance, is not applicable or if you are not able to provide any additional documentation. JOSELIN
[2016-09-05] MEDS: LEVOFLOXACIN 750MG-D5W PMX 750 MG in DEXTROSE/WATER 1 150ML.BAG IVPB SCH (14:16)
[2016-09-05] MEDS: methylPREDNISolone SOD SUCCI 40 MG/ML 1 ML VIAL IV SCH ×2 (16:00→23:16)
[2016-09-05] MEDS ORDERED: NALOXONE 0.4 MG/ML 1 ML VIAL IV PRN (16:19)
[2016-09-05] MEDS ORDERED: PROPOFOL 500 MG in EMPTY BAG 1 BAG IV SCH (16:45)
[2016-09-05] MEDS: PIPERACILLIN-TAZOBACTAM 3.375 GM in DEXTROSE/WATER 1 50ML.BAG IVPB SCH ×2 (18:11→23:16)
[2016-09-05] MEDS: CHLORHEXIDINE GLUCONATE 15 ML CUP MUCOUS MEM SCH (20:11)
[2016-09-05] MEDS: PARoxetine 20 MG TAB PO SCH (20:12)
[2016-09-05] MEDS: BUDESONIDE 0.5 MG/2 ML NEBU INHALATION SCH (20:26)
[2016-09-06] MEDS: PROPOFOL 500 MG in EMPTY BAG 1 BAG IV SCH ×5 (00:56→10:25)
[2016-09-06] MEDS: SODIUM CHLORIDE 0.9% 1,000 ML IV SCH ×3 (03:22→23:05)
[2016-09-06] MEDS: IPRATROPIUM-ALBUTEROL 3 ML NEB INHALATION SCH ×5 (03:36→19:55)
[2016-09-06 04:29] LABS: ALT 27 U/L (9-52); AST 15 U/L (14-36); Alkaline Phosphatase 53 U/L (38-126); Anion Gap 10 mmol/L; Blood Urea Nitrogen 20 mg/dL (7-17); Carbon Dioxide 27 mmol/L (22-30); Chloride 107 mmol/L (98-107); Glucose 182 mg/dL (74-99); Magnesium 2.2 mg/dL (1.6-2.3); Non-African American GFR(MDRD) >60 (>60 ml/min/1.73 sqM); Phosphorous 2.6 mg/dL (2.5-4.5); Potassium 4.2 mmol/L (3.5-5.1); Sodium 144 mmol/L (137-145); Total Bilirubin 0.3 mg/dL (0.2-1.3); Total Protein 5.4 g/dL (6.3-8.2)
[2016-09-06 04:32] LABS: Basophils % (A) 0 %; CH 28.2; CHCM 29.4; Eosinophils % (A) 0 %; HCT 22.7 % (34.0-46.0); HDW 2.64; HGB 7.2 gm/dL (11.4-16.0); Hypochromasia Marked; Luc # (Auto) 0.09; Luc % (Auto) 1; Lymphocytes # (A) 0.6 k/uL (1.0-4.8); Lymphocytes % (A) 10 %; MCH 30.4 pg (25.0-35.0); MCHC 31.6 g/dL (31.0-37.0); MCV 96.1 fL (80.0-100.0); Mean Platelet Volume 6.9; Monocytes # (A) 0.2 k/uL (0-1.0); Monocytes % (A) 4 %; Neutrophils # (A) 5.4 k/uL (1.3-7.7); Neutrophils % (A) 85 %; RBC 2.36 m/uL (3.80-5.40); RDW 14.3 % (11.5-15.5); WBC 6.4 k/uL (3.8-10.6); WBC (Perox) 6.46
[2016-09-06 05:15] LABS: ABG HCO3 26 mmol/L (21-25); ABG PCO2 41 mmHg (35-45); ABG PH 7.42 (7.35-7.45); ABG PO2 183 mmHg (83-108); ABG TCO2 27 mmol/L (19-24)
[2016-09-06 05:16] LABS: ABG Base Excess 1.8 mmol/L
--- NOTE | 2016-09-06 07:24 | PCN ---
DATE OF PROCEDURE: ENDOTRACHEAL INTUBATION PREOPERATIVE DIAGNOSIS: Acute respiratory failure. POSTOPERATIVE DIAGNOSIS: Acute respiratory failure. Indication: Respiratory compromise. A time-out was completed verifying correct patient, procedure, site, positioning, and implant(s) or special equipment if applicable. The patient was positioned appropriately and a #8 endotracheal tube was placed under direct laryngoscopy. A #4 Espino blade was used to visualize the vocal cord. The tube was anchored at 22 cm at the teeth. Correct placement was confirmed by presence of bilateral breath sounds without air sounds in the abdomen on auscultation. An end-tidal CO2 monitor was also used to confirm tracheal placement of the ET tube. A chest x-ray was ordered to assess for pneumothorax and verify endotracheal tube placement. The patient tolerated the procedure well and there were no complications. No bedside complication.
--- NOTE | 2016-09-06 07:27 | PCN ---
DATE OF PROCEDURE: PREOPERATIVE DIAGNOSIS: Respiratory failure. POSTOPERATIVE DIAGNOSIS: Respiratory failure. TRIPLE LUMEN CATHETER PLACEMENT Indication: Hemodynamic monitoring/Intravenous access. A time-out was completed verifying correct patient, procedure, site, positioning, and implant(s) or special equipment if applicable. The patient was placed in a dependent position appropriate for triple lumen catheter placement based on the vein to be cannulated. The patient's left shoulder was prepped and draped in sterile fashion. 1% Lidocaine was used to anesthetize the surrounding skin area. A triple lumen 9F Cordis catheter was introduced into the left subclavian vein using Seldinger technique. The catheter was threaded smoothly over the guide wire and appropriate blood return was obtained. Each lumen of the catheter was evacuated of air and flushed with sterile saline. The catheter was then sutured in place to the skin and a sterile dressing applied. Perfusion to the extremity distal to the point of catheter insertion was checked and found to be adequate. No bedside complications.
--- NOTE | 2016-09-06 07:31 | PCN ---
DATE OF PROCEDURE: ARTERIAL LINE PLACEMENT Indication: Hemodynamic monitoring. A time-out was completed verifying correct patient, procedure, site, positioning, and implant(s) or special equipment if applicable. Silviano's test was performed to ensure adequate perfusion. The patient's right wrist was prepped and draped in sterile fashion. 1% Lidocaine was used to anesthetize the area. An 18G Arrow arterial line was introduced into the right radial artery. The catheter was threaded over the guide wire and the needle was removed with appropriate pulsatile blood return. Blood loss was minimal. The catheter was then sutured in place to the skin and a sterile dressing applied. Perfusion to the extremity distal to the point of catheter insertion was checked and found to be adequate. The patient tolerated the procedure well and there were no complications. No bedside complications or bleeding for this procedure.
[2016-09-06] MEDS: BUDESONIDE 0.5 MG/2 ML NEBU INHALATION SCH ×2 (07:40→19:55)
--- NOTE | 2016-09-06 07:53 | XR ---
EXAMINATION TYPE: XR chest 1V DATE OF EXAM: 09/06/2016 6:31 AM CLINICAL HISTORY: Difficulty breathing progress study. TECHNIQUE: Single AP portable upright view of the chest is obtained. COMPARISON: Chest x-ray from one day earlier FINDINGS: An endotracheal tube, orogastric tube, and left internal jugular central venous catheter a re all stable in appearance. Cardiac silhouette size is stable and mildly enlarged with persistent left basilar opacity consistent with infiltrate and/or atelectasis and probable small left pleural effusion. There is new patchy rig ht basilar atelectasis and/or infiltrate. Upper lungs are clear without pneumothorax. Osseous structu res are demineralized. Degenerative change bilateral glenohumeral joints is redemonstrated. IMPRESSION: Persistent mild cardiomegaly with left basilar atelectasis and/or infiltrate and probable small left pleural effusion felt stable. New patchy right basilar atelectasis and/or infiltrate is f elt present.
[2016-09-06] MEDS: methylPREDNISolone SOD SUCCI 40 MG/ML 1 ML VIAL IV SCH ×3 (08:04→23:08)
[2016-09-06] MEDS: CHLORHEXIDINE GLUCONATE 15 ML CUP MUCOUS MEM SCH (08:05)
[2016-09-06] MEDS: VERAPAMIL SR 240 MG TABLET.ER PO SCH (08:05)
[2016-09-06] MEDS: PIPERACILLIN-TAZOBACTAM 3.375 GM in DEXTROSE/WATER 1 50ML.BAG IVPB SCH ×3 (08:06→23:11)
[2016-09-06] MEDS ORDERED: PANTOPRAZOLE 40 MG/10 ML VIAL IV SCH (09:00)
[2016-09-06 11:11] LABS: ABG Base Excess 2.1 mmol/L; ABG HCO3 26 mmol/L (21-25); ABG PCO2 41 mmHg (35-45); ABG PH 7.42 (7.35-7.45); ABG PO2 145 mmHg (83-108); ABG TCO2 27 mmol/L (19-24)
[2016-09-06] MEDS: NYSTATIN 100,000 UNIT/ML SUSP 500,000 UNIT/5 ML CUP PO SCH ×3 (12:11→23:05)
[2016-09-06 12:16] LABS: Glucose,Whole Blood 140 mg/dL (75-99)
[2016-09-06] MEDS: LEVOFLOXACIN 750MG-D5W PMX 750 MG in DEXTROSE/WATER 1 150ML.BAG IVPB SCH (12:16)
[2016-09-06 12:52] LABS: Hemoglobin A1C 5.6 % (4.2-6.1)
--- NOTE | 2016-09-06 13:10 | P.PN ---
Subjective This 71-year-old female patient with known history of advanced COPD, oxygen dependent at 2 L/m nasal cannula who has a FEV1 of 24% of predicted. The patient was in the hospital for an acute COPD exacerbation back in June 2016. The patient was seen in the office following that and she was placed on Spiriva as maintenance along with albuterol neb last treatment was on incentive basis. The patient was doing well until around 24-48 hours ago when she woke up feeling diffuse body aches and generalized weakness and feeling lethargic. At the same time she had a pleuritic left-sided chest pain. She initially went to [facility] and following that she was brought into the [facility] for further investigation. CAT scan of the chest was done that showed a left lower lobe consolidation typical of an underlying pneumonia. There is some last forming consolidation and evidence of subcarinal and left paratracheal lymphadenopathy is obviously concerning and needs to be followed up to make sure this is not a malignant process. Despite all this, the patient has no fever or chills. No hemodynamic instability. She is up to 5 L of oxygen by nasal cannula which were able to wean it down to 3 L. She is on accommodation of Rocephin and Zithromax. She is producing adequate amount of urine output. No other significant events over the past 12-24 hours. On 09/05/2016 the patient is being seen in follow-up. The patient has developed significant worsening in her respiratory status. Earlier this morning I was informed of the patient was having labored breathing and she was becoming more restless and agitated. At that time I ordered to start the patient on systemic steroids, and the chest x-ray was also done and showed worsening of the left lung pulmonary infiltrate along with development of a small left-sided pleural effusion. At that point the patient that she has resulted intensive care unit patient was started on BiPAP which she was unable to tolerate due to increased restlessness, agitation, and asynchronous with the BiPAP. At that point, the patient was intubated. I intubated the patient and I started her on sedation with Diprivan. Currently she assist-control mode of ventilation. She is post intubation. Chest x-ray still pending. A triple lumen catheter was inserted. Hemodynamically she remains stable. No hypotension. Urine output remains adequate. The family was informed and a message was left over the phone to them of the above-mentioned changes. On 09/06/2016 the patient is being seen in follow-up. She is hemodynamically stable. She is was sedated on Diprivan. She is calm and comfortable. Peak airway pressures around 24. Chest x-ray showing some limited left lower lobe infiltration and small effusion. No significant orotracheal secretions. Hemodynamically stable. Follow-up blood gases from this morning showed a pH of 7.42 with a pCO2 of 41 and pO2 of 183. This was done with an FiO2 of 50%. Based on this, the patient was given a sedation holiday and she woke up appropriately where she was able to follow commands and answering questions appropriately. The patient was then given a spontaneous breathing trial with a pressure support of 5 and a PEEP of 5 and this presents for total of 30 minutes. The subsequent blood gases showed adequate numbers with pH of 7.42 and a pCO2 of 41 and pO2 of 145. At that point, the patient was extubated. Currently she is awake and alert and she is following commands and answering questions. No signs of any major respiratory distress. Objective - Vital Signs Vital signs: Vital Signs Temp 98.9 F 09/06/16 12:00 Pulse 101 H 09/06/16 12:00 Resp 30 H 09/06/16 12:00 BP 118/50 09/06/16 10:00 Pulse Ox 97 09/06/16 12:00 Intake & Output 09/05/16 09/06/16 09/06/16 18:59 06:59 18:59 Intake Total 705.50 1649.332 584.315 Output Total 610 850 475 Balance 95.50 799.332 109.315 Weight 71.5 kg Intake: IV 655.5 1112.5 400.0 Levofloxacin 750Mg-D5w 150 Pmx 750 mg In Dextrose/ Water 1 150ml.bag @ 100 mls/hr IVPB Q24H [facility] Rx#: [id number] Piperacillin-Tazobactam 3 37.5 12.5 50.0 .375 gm In Dextrose/Water 1 50ml.bag @ 12.5 mls/hr IVPB Q8HR [facility] Rx#: [id number] Propofol 50 ml As IV .STK 118.0 -[facility] Rx#:[id number] Sodium Chloride 0.9% 1, 500 1100 200 000 ml @ 100 mls/hr IV . Q10H [facility] Rx#:[id number] Intake, IV Titration 50.00 196.832 79.315 Amount Propofol 500 mg In Empty 50.00 196.832 79.315 Bag 1 bag @ Titrate IV . Q0M [facility] Rx#:[id number] Oral 0 Tube Feeding 250 105 Other 90 Output: Urine 610 850 475 Other: Voiding Method Indwelling Catheter Indwelling Catheter Indwelling Catheter ABP, PAP, CO, CI - Last Documented Arterial Blood Pressure 147/47 - Exam The patient appeared well nourished and normally developed. Vital signs as documented. Head exam is unremarkable. No scleral icterus or corneal arcus noted. Neck is without jugular venous distension, thyromegaly, or carotid bruits. Carotid upstrokes are brisk bilaterally. Lungs sounds are diminished bilaterally along with some crackles in the left lung base. Cardiac exam reveals the PMI to be normally sized and situated. Rhythm is regular. First and second heart sounds normal. No murmurs, rubs or gallops. Abdominal exam reveals normal bowel sounds, no masses, no organomegaly and no aortic enlargement. Extremities are nonedematous and both femoral and pedal pulses are normal. - Labs CBC & Chem 7: 09/06/16 03:50 09/06/16 03:50 Labs: Abnormal Lab Results - Last 24 Hours (Table) 09/06/16 09/06/16 09/06/16 Range/Units 03:50 03:50 04:53 RBC 2.36 L (3.80-5.40) m/uL Hgb 7.2 L (11.4-16.0) gm/dL Hct 22.7 L (34.0-46.0) % Lymphocytes # 0.6 L (1.0-4.8) k/uL ABG pO2 183 H (83-108) mmHg ABG HCO3 26 H (21-25) mmol/L ABG Total CO2 27 H (19-24) mmol/L ABG O2 Saturation 100.0 H (94-97) % BUN 20 H (7-17) mg/dL Glucose 182 H (74-99) mg/dL POC Glucose (mg/dL) (75-99) mg/dL Total Protein 5.4 L (6.3-8.2) g/dL Albumin 2.7 L (3.5-5.0) g/dL 09/06/16 09/06/16 Range/Units 11:03 12:15 RBC (3.80-5.40) m/uL Hgb (11.4-16.0) gm/dL Hct (34.0-46.0) % Lymphocytes # (1.0-4.8) k/uL ABG pO2 145 H (83-108) mmHg ABG HCO3 26 H (21-25) mmol/L ABG Total CO2 27 H (19-24) mmol/L ABG O2 Saturation 99.0 H (94-97) % BUN (7-17) mg/dL Glucose (74-99) mg/dL POC Glucose (mg/dL) 140 H (75-99) mg/dL Total Protein (6.3-8.2) g/dL Albumin (3.5-5.0) g/dL Microbiology - Last 24 Hours (Table) 09/04/16 00:17 Blood Culture - Preliminary Blood No Growth after 48 hours 09/03/16 23:57 Blood Culture - Preliminary Blood No Growth after 48 hours Assessment and Plan Plan: Assessment 1 acute left lower lobe pneumonia with secondary pleurisy and shortness of breath On 09/05/2016, the patient progressively went into respiratory failure. She developed worsening in the left basal infiltrate along with a hemoglobin of a small left-sided pleural effusion. She became more tachypneic and she subsequently went to respiratory failure, failed BiPAP, ultimately intubated and placed on a mechanical ventilator. Currently she is an assist-control mode. Post intubation chest x-ray and blood gases are still pending. On 09/06/2016 the patient was weaned off the mechanical ventilator and the patient was extubated. Chest x-ray still showing some limited left lower lobe pulmonary infiltration. The rapid extubation was done as the patient has severe COPD and I did not want to let's patient on a mechanical ventilator for extended period of time. The patient was extubated as long as she was doing better. 2 advanced COPD with an FEV1 of 24% of predicted consistent with severe disease 3 chronic hypoxic respiratory failure maintained on oxygen at 2 L per minute nasal cannula on outpatient basis 4 mediastinal lymphadenopathy, could be potentially pathologic and malignant and this needs to be followed up at a later stage and biopsy will be indicated if there is enlargement in the size of the lymph nodes. Rule out underlying malignancy. 5 coronary artery disease 6 chronic anemia 7 hypertension 8 hyperlipidemia. Plan Keep the patient in ICU for another 24 hours. Continue the steroids. Continued antibiotics. Continue the bronchial dilators. We'll continue to follow. This is a critically care evaluation was done in 40 minutes. Time with Patient: Greater than 30
[2016-09-06] MEDS: INSULIN LISPRO (humaLOG) 300 UNIT/3 ML VIAL SQ SCH ×3 (13:35→23:05)
--- NOTE | 2016-09-06 15:07 | PN ---
Patient is a 71-year-old admitted who was intubated yesterday for respiratory failure, multifactorial. Patient was extubated today, clinically doing well. Patient has multiple pulmonary problems which will be discussed below. REVIEW OF SYSTEMS: CARDIOVASCULAR: No chest pain, no orthopnea, no PND, no palpitations. PULMONARY: Denied any shortness of breath. No cough or hemoptysis. GASTROINTESTINAL: No diarrhea, nausea or vomiting. No abdominal pain. Normoactive bowel sounds. NEUROLOGIC: No headaches, no weakness, no numbness. PHYSICAL EXAMINATION: VITAL SIGNS: Temperature 98.9, pulse of 100, respiratory rate of 28. Blood pressure is 120/65. Saturating at 97% on 3 L of oxygen by nasal cannula. GENERAL: The patient is alert and oriented x3, not in any acute distress. Well developed, well nourished. HEENT: Pupils are round and equally reacting to light. EOMI. No scleral icterus. No conjunctival pallor. Normocephalic, atraumatic. No pharyngeal erythema. No thyromegaly. CARDIOVASCULAR: S1 and S2 present. No murmurs, rubs, or gallops. PULMONARY: Crackles in the left lower lung bases. ABDOMEN: Soft, nontender, nondistended, normoactive bowel sounds. No palpable organomegaly. MUSCULOSKELETAL: No joint swelling or deformity. EXTREMITIES: No cyanosis, clubbing, or pedal edema. NEUROLOGICAL: Gross neurological examination did not reveal any focal deficits. SKIN: No rashes. LABORATORY DATA: CBC, CMP: no significant abnormality was appreciated. ABG was reviewed. ASSESSMENT AND PLAN: 1. Acute respiratory failure, multifactorial, both hypercapnic and hypoxic respiratory failure. Patient has chronic hypercapnic respiratory failure as well as chronic hypoxic respiratory failure. Hypercapnic respiratory failure is secondary to chronic obstructive pulmonary disease exacerbation and hypoxic respiratory failure is secondary to pulmonary fibrosis and left lower lobe pneumonia. Patient is on antibiotics in the form of Zosyn at this point of time. 2. Pulmonary fibrosis. 3. Sepsis secondary to left lower lobe pneumonia. 4. Arrhythmia. Nature of arrhythmia is unknown. Patient is on Verapamil, which will be continued. 5. Acute renal failure; prerenal azotemia due to intravascular volume depletion, improved with IV fluid resuscitation. 6. Hyperlipidemia. 7. Anxiety disorder. 8. Chronic anemia, which will need further evaluation as an outpatient.
[2016-09-06 17:46] LABS: Glucose,Whole Blood 116 mg/dL (75-99)
[2016-09-06] MEDS: PARoxetine 20 MG TAB PO SCH (20:58)
[2016-09-06] MEDS: HYDROcodone/APAP 5-325MG 1 EACH TAB PO PRN (20:58)
[2016-09-06] MEDS ORDERED: ONDANSETRON 4 MG/2 ML VIAL IVP PRN (21:33)
[2016-09-06 23:06] LABS: Glucose,Whole Blood 139 mg/dL (75-99)
[2016-09-07] MEDS: ALPRAZolam 0.25 MG TAB PO PRN ×2 (00:17→08:42)
[2016-09-07] MEDS: IPRATROPIUM 0.5 MG/2.5 ML NEBU INHALATION SCH ×7 (01:23→23:22)
[2016-09-07 05:27] LABS: Basophils % (A) 0 %; CH 27.9; Eosinophils % (A) 0 %; HCT 25.7 % (34.0-46.0); HDW 2.64; HGB 7.8 gm/dL (11.4-16.0); Hypochromasia Marked; Luc # (Auto) 0.24; Luc % (Auto) 1; Lymphocytes # (A) 0.5 k/uL (1.0-4.8); Lymphocytes % (A) 3 %; MCH 29.1 pg (25.0-35.0); MCHC 30.2 g/dL (31.0-37.0); MCV 96.5 fL (80.0-100.0); Mean Platelet Volume 7.2; Monocytes # (A) 0.5 k/uL (0-1.0); Monocytes % (A) 3 %; Neutrophils # (A) 16.4 k/uL (1.3-7.7); Neutrophils % (A) 93 %; RBC 2.66 m/uL (3.80-5.40); RDW 14.6 % (11.5-15.5); WBC 17.8 k/uL (3.8-10.6); WBC (Perox) 18.42
[2016-09-07 05:40] LABS: ALT 31 U/L (9-52); AST 19 U/L (14-36); Alkaline Phosphatase 51 U/L (38-126); Anion Gap 11 mmol/L; Blood Urea Nitrogen 22 mg/dL (7-17); Calcium 8.8 mg/dL (8.4-10.2); Carbon Dioxide 30 mmol/L (22-30); Chloride 106 mmol/L (98-107); Glucose 131 mg/dL (74-99); Magnesium 2.1 mg/dL (1.6-2.3); Non-African American GFR(MDRD) >60 (>60 ml/min/1.73 sqM); Phosphorous 4.5 mg/dL (2.5-4.5); Sodium 147 mmol/L (137-145); Total Bilirubin 0.3 mg/dL (0.2-1.3); Total Protein 5.6 g/dL (6.3-8.2)
[2016-09-07 05:57] LABS: Potassium 4.3 mmol/L (3.5-5.1)
--- NOTE | 2016-09-07 07:18 | XR ---
EXAMINATION TYPE: XR chest 1V DATE OF EXAM: 09/07/2016 5:33 AM COMPARISON: 09/06/2016 HISTORY: 71-year-old female intubated TECHNIQUE: Single frontal view of the chest is obtained. FINDINGS: Interval extubation and removal of NG tube. Left IJ CVC tip remains at the lower SVC level. Heart remains borderline enlarged with diffuse interstitial vascular prominence and continued small l eft and trace right effusions with adjacent left greater than right bibasilar opacities. Degenerative changes at both glenohumeral joints. IMPRESSION: Overall stable exam with small left and trace right effusion and bibasilar patchy atelectasis or cons olidation.
[2016-09-07 07:28] LABS: Glucose,Whole Blood 120 mg/dL (75-99)
[2016-09-07] MEDS ORDERED: LEVALBUTEROL NEB 1.25 MG/3 ML AMP INHALATION SCH (08:00)
[2016-09-07] MEDS: BUDESONIDE 0.5 MG/2 ML NEBU INHALATION SCH ×2 (08:16→19:26)
[2016-09-07] MEDS: INSULIN LISPRO (humaLOG) 300 UNIT/3 ML VIAL SQ SCH ×5 (08:27→23:41)
[2016-09-07] MEDS: NYSTATIN 100,000 UNIT/ML SUSP 500,000 UNIT/5 ML CUP PO SCH ×4 (08:41→21:49)
[2016-09-07] MEDS: PANTOPRAZOLE 40 MG TABLET PO SCH (08:41)
[2016-09-07] MEDS: VERAPAMIL SR 240 MG TABLET.ER PO SCH (08:41)
[2016-09-07] MEDS: methylPREDNISolone SOD SUCCI 40 MG/ML 1 ML VIAL IV SCH (08:41)
[2016-09-07] MEDS: HYDROcodone/APAP 5-325MG 1 EACH TAB PO PRN (08:42)
[2016-09-07] MEDS: PIPERACILLIN-TAZOBACTAM 3.375 GM in DEXTROSE/WATER 1 50ML.BAG IVPB SCH ×3 (08:56→23:41)
[2016-09-07] MEDS: SODIUM CHLORIDE 0.9% 1,000 ML IV SCH ×3 (08:57→23:42)
[2016-09-07] MEDS ORDERED: FUROSEMIDE 10 MG/ML 4 ML VIAL IV STA (10:15)
[2016-09-07] MEDS: LORazepam 2 MG/ML SYRINGE IV PRN (10:18)
--- NOTE | 2016-09-07 10:45 | P.PN ---
Subjective This 71-year-old female patient with known history of advanced COPD, oxygen dependent at 2 L/m nasal cannula who has a FEV1 of 24% of predicted. The patient was in the hospital for an acute COPD exacerbation back in June 2016. The patient was seen in the office following that and she was placed on Spiriva as maintenance along with albuterol neb last treatment was on incentive basis. The patient was doing well until around 24-48 hours ago when she woke up feeling diffuse body aches and generalized weakness and feeling lethargic. At the same time she had a pleuritic left-sided chest pain. She initially went to [facility] and following that she was brought into the [facility] for further investigation. CAT scan of the chest was done that showed a left lower lobe consolidation typical of an underlying pneumonia. There is some last forming consolidation and evidence of subcarinal and left paratracheal lymphadenopathy is obviously concerning and needs to be followed up to make sure this is not a malignant process. Despite all this, the patient has no fever or chills. No hemodynamic instability. She is up to 5 L of oxygen by nasal cannula which were able to wean it down to 3 L. She is on accommodation of Rocephin and Zithromax. She is producing adequate amount of urine output. No other significant events over the past 12-24 hours. On 09/05/2016 the patient is being seen in follow-up. The patient has developed significant worsening in her respiratory status. Earlier this morning I was informed of the patient was having labored breathing and she was becoming more restless and agitated. At that time I ordered to start the patient on systemic steroids, and the chest x-ray was also done and showed worsening of the left lung pulmonary infiltrate along with development of a small left-sided pleural effusion. At that point the patient that she has resulted intensive care unit patient was started on BiPAP which she was unable to tolerate due to increased restlessness, agitation, and asynchronous with the BiPAP. At that point, the patient was intubated. I intubated the patient and I started her on sedation with Diprivan. Currently she assist-control mode of ventilation. She is post intubation. Chest x-ray still pending. A triple lumen catheter was inserted. Hemodynamically she remains stable. No hypotension. Urine output remains adequate. The family was informed and a message was left over the phone to them of the above-mentioned changes. On 09/06/2016 the patient is being seen in follow-up. She is hemodynamically stable. She is was sedated on Diprivan. She is calm and comfortable. Peak airway pressures around 24. Chest x-ray showing some limited left lower lobe infiltration and small effusion. No significant orotracheal secretions. Hemodynamically stable. Follow-up blood gases from this morning showed a pH of 7.42 with a pCO2 of 41 and pO2 of 183. This was done with an FiO2 of 50%. Based on this, the patient was given a sedation holiday and she woke up appropriately where she was able to follow commands and answering questions appropriately. The patient was then given a spontaneous breathing trial with a pressure support of 5 and a PEEP of 5 and this presents for total of 30 minutes. The subsequent blood gases showed adequate numbers with pH of 7.42 and a pCO2 of 41 and pO2 of 145. At that point, the patient was extubated. Currently she is awake and alert and she is following commands and answering questions. No signs of any major respiratory distress. The patient is seen again today 09/07/2016 in follow-up in the intensive care unit. Upon evaluation she was having some respiratory difficulty. She had gotten up to the bedside commode with assistance and did have a bowel movement. By the time she had gotten back in bed she was quite short of breath, tachycardic and hypertensive. Her chest x-ray shows increased pulmonary venous congestion and infiltrate of the left lung base. She has been afebrile. She was maintaining O2 saturations in the low 90s on 3 L/m. Blood cultures reveal no growth to date. Sputum cultures pending. Current white count 17.8. Hemoglobin 7.8. Objective - Vital Signs Vital signs: Vital Signs Temp 97.6 F 09/07/16 08:00 Pulse 130 H 09/07/16 10:00 Resp 40 H 09/07/16 10:00 BP 143/75 09/07/16 07:00 Pulse Ox 95 09/07/16 10:00 Intake & Output 09/06/16 09/07/16 09/07/16 18:59 06:59 18:59 Intake Total 2061.815 112.5 450 Output Total 830 1005 145 Balance 1231.815 -892.5 305 Weight 71.5 kg 76.6 kg Intake: IV 1037.5 112.5 450 Levofloxacin 750Mg-D5w 150 Pmx 750 mg In Dextrose/ Water 1 150ml.bag @ 100 mls/hr IVPB Q24H [facility] Rx#: [id number] Piperacillin-Tazobactam 3 87.5 12.5 50 .375 gm In Dextrose/Water 1 50ml.bag @ 12.5 mls/hr IVPB Q8HR [facility] Rx#: [id number] Sodium Chloride 0.9% 1, 800 100 400 000 ml @ 100 mls/hr IV . Q10H [facility] Rx#:[id number] Intake, IV Titration 79.315 Amount Propofol 500 mg In Empty 79.315 Bag 1 bag @ Titrate IV . Q0M [facility] Rx#:[id number] Tube Feeding 945 Output: Urine 830 1005 145 Other: Voiding Method Indwelling Catheter Indwelling Catheter # Voids 1 ABP, PAP, CO, CI - Last Documented Arterial Blood Pressure 170/73 - Exam GENERAL EXAM: Alert, currently in mild respiratory distress HEAD: Normocephalic. EYES: Normal reaction of pupils, equal size. NOSE: Clear with pink turbinates. THROAT: No erythema or exudates. NECK: No masses, no JVD. CHEST: No chest wall deformity. LUNGS: Equal air entry with crackles in the left lung base, and expiratory wheeze, diminished. CVS: S1 and S2 normal with no audible murmurs, regular rhythm. Tachycardic. ABDOMEN: Soft, umbilical hernia, normal bowel sounds, no guarding or rigidity. SPINE: No scoliosis or deformity SKIN: No rashes CENTRAL NERVOUS SYSTEM: No focal deficits, tone is normal in all 4 extremities. Extremities: There is trace peripheral edema. No clubbing, no cyanosis. Peripheral pulses are intact. - Labs CBC & Chem 7: 09/07/16 04:30 09/07/16 04:30 Labs: Abnormal Lab Results - Last 24 Hours (Table) 09/06/16 09/06/16 09/06/16 Range/Units 11:03 12:15 17:36 WBC (3.8-10.6) k/uL RBC (3.80-5.40) m/uL Hgb (11.4-16.0) gm/dL Hct (34.0-46.0) % MCHC (31.0-37.0) g/dL Plt Count (150-450) k/uL Neutrophils # (1.3-7.7) k/uL Lymphocytes # (1.0-4.8) k/uL ABG pO2 145 H (83-108) mmHg ABG HCO3 26 H (21-25) mmol/L ABG Total CO2 27 H (19-24) mmol/L ABG O2 Saturation 99.0 H (94-97) % Sodium (137-145) mmol/L BUN (7-17) mg/dL Glucose (74-99) mg/dL POC Glucose (mg/dL) 140 H 116 H (75-99) mg/dL Total Protein (6.3-8.2) g/dL Albumin (3.5-5.0) g/dL 09/06/16 09/07/16 09/07/16 Range/Units 23:04 04:30 04:30 WBC 17.8 H (3.8-10.6) k/uL RBC 2.66 L (3.80-5.40) m/uL Hgb 7.8 L (11.4-16.0) gm/dL Hct 25.7 L (34.0-46.0) % MCHC 30.2 L (31.0-37.0) g/dL Plt Count 580 H (150-450) k/uL Neutrophils # 16.4 H (1.3-7.7) k/uL Lymphocytes # 0.5 L (1.0-4.8) k/uL ABG pO2 (83-108) mmHg ABG HCO3 (21-25) mmol/L ABG Total CO2 (19-24) mmol/L ABG O2 Saturation (94-97) % Sodium 147 H (137-145) mmol/L BUN 22 H (7-17) mg/dL Glucose 131 H (74-99) mg/dL POC Glucose (mg/dL) 139 H (75-99) mg/dL Total Protein 5.6 L (6.3-8.2) g/dL Albumin 2.9 L (3.5-5.0) g/dL 09/07/16 Range/Units 07:26 WBC (3.8-10.6) k/uL RBC (3.80-5.40) m/uL Hgb (11.4-16.0) gm/dL Hct (34.0-46.0) % MCHC (31.0-37.0) g/dL Plt Count (150-450) k/uL Neutrophils # (1.3-7.7) k/uL Lymphocytes # (1.0-4.8) k/uL ABG pO2 (83-108) mmHg ABG HCO3 (21-25) mmol/L ABG Total CO2 (19-24) mmol/L ABG O2 Saturation (94-97) % Sodium (137-145) mmol/L BUN (7-17) mg/dL Glucose (74-99) mg/dL POC Glucose (mg/dL) 120 H (75-99) mg/dL Total Protein (6.3-8.2) g/dL Albumin (3.5-5.0) g/dL Microbiology - Last 24 Hours (Table) 09/06/16 10:28 Gram Stain - Preliminary Sputum Sputum Culture - Preliminary 09/04/16 00:17 Blood Culture - Preliminary Blood No Growth after 72 hours 09/03/16 23:57 Blood Culture - Preliminary Blood No Growth after 72 hours Assessment and Plan Plan: Assessment 1 acute left lower lobe pneumonia with secondary pleurisy and shortness of breath On 09/05/2016, the patient progressively went into respiratory failure. She developed worsening in the left basal infiltrate along with a hemoglobin of a small left-sided pleural effusion. She became more tachypneic and she subsequently went to respiratory failure, failed BiPAP, ultimately intubated and placed on a mechanical ventilator. Currently she is an assist-control mode. Post intubation chest x-ray and blood gases are still pending. On 09/06/2016 the patient was weaned off the mechanical ventilator and the patient was extubated. Chest x-ray still showing some limited left lower lobe pulmonary infiltration. The rapid extubation was done as the patient has severe COPD and I did not want to let's patient on a mechanical ventilator for extended period of time. The patient was extubated as long as she was doing better. On 09/07/2016 the patient was found to be in [id number] respiratory distress. She was placed back on BiPAP 12/5 at 40% FiO2. She was given 1 mg of Ativan IV push for her anxiety. She was given 40 mg of Lasix IV push. IV's decreased to KVO. 2 advanced COPD with an FEV1 of 24% of predicted consistent with severe disease 3 chronic hypoxic respiratory failure maintained on oxygen at 2 L per minute nasal cannula on outpatient basis 4 mediastinal lymphadenopathy, could be potentially pathologic and malignant and this needs to be followed up at a later stage and biopsy will be indicated if there is enlargement in the size of the lymph nodes. Rule out underlying malignancy. 5 coronary artery disease 6 chronic anemia 7 hypertension 8 hyperlipidemia. Plan The patient was seen and evaluated by Dr. Zabala. We did go ahead and give the patient IV Lasix, 1 mg of Ativan and placed her on BiPAP at 12/540% FiO2. Her heart rate and blood pressure have improved her respiratory rate has improved. Her chest x-ray was reviewed. We will keep her here in the intensive care unit another 24 hours and closer monitoring. If the patient continues to worsen in any respiratory distress we will reintubate her place her back on the mechanical ventilator. Her daughter has been updated. We'll continue to follow. Time with Patient: Greater than 30
[2016-09-07] MEDS: methylPREDNISolone SOD SUCCI 125 MG/2 ML VIAL IV SCH ×2 (12:06→17:49)
[2016-09-07] MEDS: LEVOFLOXACIN 750MG-D5W PMX 750 MG in DEXTROSE/WATER 1 150ML.BAG IVPB SCH (12:09)
[2016-09-07] MEDS: LEVALBUTEROL NEB 1.25 MG/3 ML AMP INHALATION SCH ×3 (12:20→23:22)
[2016-09-07 12:33] LABS: Glucose,Whole Blood 130 mg/dL (75-99)
[2016-09-07 12:40] LABS: ABG Base Excess 4.1 mmol/L; ABG HCO3 30 mmol/L (21-25); ABG Oxygen Saturation 98.3 % (94-97); ABG PCO2 57 mmHg (35-45); ABG PH 7.34 (7.35-7.45); ABG PO2 120 mmHg (83-108); ABG TCO2 31 mmol/L (19-24)
[2016-09-07] MEDS ORDERED: PROPOFOL 50 ML IV ONE (14:19)
[2016-09-07] MEDS ORDERED: SUCCINYLCHOLINE CHLORIDE 100 MG/5 ML SYR IV ONE (14:20)
--- NOTE | 2016-09-07 14:50 | XR ---
EXAMINATION TYPE: XR chest 1V DATE OF EXAM: 09/07/2016 2:43 PM COMPARISON: 09/07/2016 HISTORY: 71 year-old female post intubation TECHNIQUE: Single frontal view of the chest is obtained. FINDINGS: ET tube tip is 3.2 cm from the tristin. NG tube courses below the diaphragm. Left IJ CVC tip at the mi d to lower SVC. Heart remains upper limits of normal in size with mild diffuse interstitial prominence. Small left an d trace right pleural effusions remain. Degenerative changes at both shoulders. IMPRESSION: 1. Satisfactory ET tube, tip 3.2 cm from the tristin. 2. Otherwise, stable exam, small left and trace right pleural effusions with adjacent atelectasis and /or consolidation. Correlate to exclude mild CHF.
[2016-09-07] MEDS: PROPOFOL 500 MG in EMPTY BAG 1 BAG IV SCH ×3 (15:00→23:45)
[2016-09-07 15:53] LABS: ABG Base Excess 5.9 mmol/L; ABG HCO3 30 mmol/L (21-25); ABG Oxygen Saturation 99.1 % (94-97); ABG PCO2 47 mmHg (35-45); ABG PH 7.42 (7.35-7.45); ABG PO2 135 mmHg (83-108); ABG TCO2 32 mmol/L (19-24)
[2016-09-07 18:50] LABS: Glucose,Whole Blood 132 mg/dL (75-99)
[2016-09-07] MEDS: CHLORHEXIDINE GLUCONATE 15 ML CUP MUCOUS MEM SCH (21:48)
[2016-09-07] MEDS: PARoxetine 20 MG TAB PO SCH (21:49)
[2016-09-07 23:40] LABS: Glucose,Whole Blood 168 mg/dL (75-99)
[2016-09-08] MEDS: methylPREDNISolone SOD SUCCI 125 MG/2 ML VIAL IV SCH ×4 (00:04→23:51)
[2016-09-08] MEDS: SODIUM CHLORIDE 0.9% 1,000 ML IV SCH ×3 (00:04→23:51)
[2016-09-08] MEDS: IPRATROPIUM 0.5 MG/2.5 ML NEBU INHALATION SCH ×5 (03:25→20:15)
[2016-09-08 05:26] LABS: Glucose,Whole Blood 138 mg/dL (75-99)
[2016-09-08] MEDS: INSULIN LISPRO (humaLOG) 300 UNIT/3 ML VIAL SQ SCH ×4 (05:31→23:53)
[2016-09-08] MEDS: PROPOFOL 500 MG in EMPTY BAG 1 BAG IV SCH ×6 (05:34→22:14)
[2016-09-08 05:38] LABS: ABG Base Excess 7.6 mmol/L; ABG HCO3 32 mmol/L (21-25); ABG PCO2 47 mmHg (35-45); ABG PH 7.45 (7.35-7.45); ABG PO2 147 mmHg (83-108); ABG TCO2 33 mmol/L (19-24)
[2016-09-08 05:49] LABS: Basophils % (A) 0 %; CH 28.1; CHCM 29.9; Eosinophils % (A) 0 %; HCT 25.4 % (34.0-46.0); HDW 2.54; HGB 7.8 gm/dL (11.4-16.0); Hypochromasia Marked; Luc # (Auto) 0.24; Luc % (Auto) 2; Lymphocytes # (A) 0.8 k/uL (1.0-4.8); Lymphocytes % (A) 9 %; MCH 29.1 pg (25.0-35.0); MCHC 30.9 g/dL (31.0-37.0); MCV 94.3 fL (80.0-100.0); Mean Platelet Volume 6.8; Monocytes # (A) 0.6 k/uL (0-1.0); Monocytes % (A) 6 %; Neutrophils # (A) 8.3 k/uL (1.3-7.7); Neutrophils % (A) 83 %; RBC 2.69 m/uL (3.80-5.40); RDW 14.6 % (11.5-15.5); WBC (Perox) 10.34
[2016-09-08 06:06] LABS: ALT 33 U/L (9-52); AST 22 U/L (14-36); Alkaline Phosphatase 44 U/L (38-126); Anion Gap 7 mmol/L; Blood Urea Nitrogen 33 mg/dL (7-17); Calcium 8.6 mg/dL (8.4-10.2); Carbon Dioxide 34 mmol/L (22-30); Chloride 102 mmol/L (98-107); Glucose 127 mg/dL (74-99); Magnesium 2.4 mg/dL (1.6-2.3); Non-African American GFR(MDRD) 55 (>60 ml/min/1.73 sqM); Phosphorous 3.4 mg/dL (2.5-4.5); Sodium 143 mmol/L (137-145); Total Bilirubin 0.3 mg/dL (0.2-1.3); Total Protein 5.4 g/dL (6.3-8.2)
--- NOTE | 2016-09-08 07:21 | XR ---
EXAMINATION TYPE: XR chest 1V portable DATE OF EXAM: 09/08/2016 6:34 AM Comparison: 09/17/2016 Clinical History: 71 year-old female tube placement Findings: ET tube remains satisfactory. NG tube courses below the diaphragm. Left IJ CVC tip at the level of th e lower SVC. Heart remains upper limits of normal in size. Some interstitial prominence noted in the upper lungs w ith continued small left and trace right pleural effusions with left basilar opacity. Degenerative changes at both shoulders. Impression: Overall stable findings with small left and trace right pleural effusions with adjacent atelectasis a nd/or consolidation. There may be some increasing interstitial changes in the upper lungs. Correlate for possible mild CHF as an etiology.
[2016-09-08] MEDS: BUDESONIDE 0.5 MG/2 ML NEBU INHALATION SCH ×2 (07:42→20:15)
[2016-09-08] MEDS: LEVALBUTEROL NEB 1.25 MG/3 ML AMP INHALATION SCH ×4 (07:42→20:15)
[2016-09-08] MEDS: PIPERACILLIN-TAZOBACTAM 3.375 GM in DEXTROSE/WATER 1 50ML.BAG IVPB SCH ×2 (08:29→15:02)
[2016-09-08] MEDS: PANTOPRAZOLE 40 MG TABLET PO SCH (08:30)
[2016-09-08] MEDS: CHLORHEXIDINE GLUCONATE 15 ML CUP MUCOUS MEM SCH ×2 (08:31→20:34)
[2016-09-08] MEDS: VERAPAMIL SR 240 MG TABLET.ER PO SCH (08:33)
[2016-09-08] MEDS: NYSTATIN 100,000 UNIT/ML SUSP 500,000 UNIT/5 ML CUP PO SCH ×4 (08:50→21:43)
--- NOTE | 2016-09-08 09:50 | PCN ---
DATE OF PROCEDURE: ENDOTRACHEAL INTUBATION Indication: Respiratory compromise. A time-out was completed verifying correct patient, procedure, site, positioning, and implant(s) or special equipment if applicable. The patient was positioned appropriately. A #4 Espino blade was used and #8 orotracheal tube was placed under direct laryngoscopy. The tube was anchored at 22 cm at the teeth. Correct placement was confirmed by presence of bilateral breath sounds without air sounds in the abdomen on auscultation. An end-tidal CO2 monitor was also used to confirm tracheal placement of the ET tube. A chest x-ray was ordered to assess for pneumothorax and verify endotracheal tube placement. The patient tolerated the procedure well and there were no complications. No bedside complications or bleeding.
[2016-09-08 12:14] LABS: Glucose,Whole Blood 112 mg/dL (75-99)
[2016-09-08] MEDS: LORazepam 2 MG/ML SYRINGE IV PRN (12:15)
--- NOTE | 2016-09-08 12:44 | PN ---
DATE OF SERVICE: 09/07/2016 INTERVAL HISTORY: Ms. Dorado is a 71-year-old female with a past medical history of COPD, oxygen dependent on 2 L, coronary artery disease, hypertension, hyperlipidemia, admitted to the hospital for acute COPD exacerbation. The patient was intubated on 09/05/2016 and has been extubated yesterday. The patient was doing okay but eventually started using accessory muscles of respiration, for which the patient has been placed on BiPAP. Currently the patient is on BiPAP. She seems to be resting comfortably on BiPAP. REVIEW OF SYSTEMS: Could not be done as the patient is on BiPAP and cannot speak full sentences off of BiPAP. The patient's medications have been reviewed. She is on Tylenol, Salmon, ( ) Xopenex, levelofloxacin, Ativan, Solu-Medrol, Narcan, nystatin oral suspension, Zofran, Protonix, Zosyn, Propofol. GENERAL: Patient appears to be mild respiratory distress. She is on BiPAP currently. HEAD: Atraumatic, normocephalic. NECK: No JVD. CARDIOVASCULAR: S1, S2. LUNGS: Crackles at the left lung base and has expiratory wheezes in all lung gilbert, overall diminished breath sounds. CARDIOVASCULAR: S1, S2 heard. Tachycardic. ABDOMEN: Soft. Umbilical hernia. Normal bowel movements. No rigidity or guarding. SKIN: No rashes see on gross examination. HAND OUTSIDE CUTTER: No focal neurological deficits. EXTREMITIES: Positive for trace pedal edema. LABS: White count of 17.8, hemoglobin 7.8, platelets of 580, sodium 147, potassium 4.3, chloride 106, bicarb 30, BUN 22, creatinine 0.90. Albumin 2.9. ASSESSMENT AND PLAN: 1. Acute respiratory failure, multifactorial, both hypercapnic and hypoxic respiratory failure. 2. Acute left lower lobe pneumonia with pleural effusion. 3. End-stage chronic obstructive pulmonary disease, oxygen dependent disease. 4. Coronary artery disease. 5. Hypertension. 6. Hyperlipidemia. 7. Chronic anemia. 8. Anxiety disorder. 9. Acute renal failure, creatinine slowly trending down. PLAN: Continue the patient on BiPAP for now. Continue antibiotics in the form of levofloxacin and Zosyn. Continue the rest of her medication regimen. Overall prognosis is guarded secondary to chronic medical conditions. Further recommendations to follow depending on the progress of the patient. MTDD
[2016-09-08] MEDS: LEVOFLOXACIN 750MG-D5W PMX 750 MG in DEXTROSE/WATER 1 150ML.BAG IVPB SCH (13:25)
--- NOTE | 2016-09-08 15:41 | P.PN ---
Subjective This 71-year-old female patient with known history of advanced COPD, oxygen dependent at 2 L/m nasal cannula who has a FEV1 of 24% of predicted. The patient was in the hospital for an acute COPD exacerbation back in June 2016. The patient was seen in the office following that and she was placed on Spiriva as maintenance along with albuterol neb last treatment was on incentive basis. The patient was doing well until around 24-48 hours ago when she woke up feeling diffuse body aches and generalized weakness and feeling lethargic. At the same time she had a pleuritic left-sided chest pain. She initially went to [facility] and following that she was brought into the [facility] for further investigation. CAT scan of the chest was done that showed a left lower lobe consolidation typical of an underlying pneumonia. There is some last forming consolidation and evidence of subcarinal and left paratracheal lymphadenopathy is obviously concerning and needs to be followed up to make sure this is not a malignant process. Despite all this, the patient has no fever or chills. No hemodynamic instability. She is up to 5 L of oxygen by nasal cannula which were able to wean it down to 3 L. She is on accommodation of Rocephin and Zithromax. She is producing adequate amount of urine output. No other significant events over the past 12-24 hours. On 09/05/2016 the patient is being seen in follow-up. The patient has developed significant worsening in her respiratory status. Earlier this morning I was informed of the patient was having labored breathing and she was becoming more restless and agitated. At that time I ordered to start the patient on systemic steroids, and the chest x-ray was also done and showed worsening of the left lung pulmonary infiltrate along with development of a small left-sided pleural effusion. At that point the patient that she has resulted intensive care unit patient was started on BiPAP which she was unable to tolerate due to increased restlessness, agitation, and asynchronous with the BiPAP. At that point, the patient was intubated. I intubated the patient and I started her on sedation with Diprivan. Currently she assist-control mode of ventilation. She is post intubation. Chest x-ray still pending. A triple lumen catheter was inserted. Hemodynamically she remains stable. No hypotension. Urine output remains adequate. The family was informed and a message was left over the phone to them of the above-mentioned changes. On 09/06/2016 the patient is being seen in follow-up. She is hemodynamically stable. She is was sedated on Diprivan. She is calm and comfortable. Peak airway pressures around 24. Chest x-ray showing some limited left lower lobe infiltration and small effusion. No significant orotracheal secretions. Hemodynamically stable. Follow-up blood gases from this morning showed a pH of 7.42 with a pCO2 of 41 and pO2 of 183. This was done with an FiO2 of 50%. Based on this, the patient was given a sedation holiday and she woke up appropriately where she was able to follow commands and answering questions appropriately. The patient was then given a spontaneous breathing trial with a pressure support of 5 and a PEEP of 5 and this presents for total of 30 minutes. The subsequent blood gases showed adequate numbers with pH of 7.42 and a pCO2 of 41 and pO2 of 145. At that point, the patient was extubated. Currently she is awake and alert and she is following commands and answering questions. No signs of any major respiratory distress. The patient is seen again today 09/07/2016 in follow-up in the intensive care unit. Upon evaluation she was having some respiratory difficulty. She had gotten up to the bedside commode with assistance and did have a bowel movement. By the time she had gotten back in bed she was quite short of breath, tachycardic and hypertensive. Her chest x-ray shows increased pulmonary venous congestion and infiltrate of the left lung base. She has been afebrile. She was maintaining O2 saturations in the low 90s on 3 L/m. Blood cultures reveal no growth to date. Sputum cultures pending. Current white count 17.8. Hemoglobin 7.8. On 09/08/2016, the patient is intubated. Noted the patient's was having some respiratory difficulties yesterday morning. We'll watched her throughout the morning and late in the afternoon the patient became more short of breath. She was placed on BiPAP however she failed BiPAP therapy knowing that she was becoming more lethargic and asynchronous and she was using abdominal muscles of breathing. Based on that, but decided to intubate the patient and put her back on a mechanical ventilation. This morning, the patient is an assist-control mode of ventilation and FiO2 has been down to 40% and she is in a PEEP of 5 with a tidal volume of 400. Oxygenation is improved and the pO2 is above 100. Peak airway pressures elevated at around 33. Static pressures around 17. Chest x-ray shows a stable left lower lobe consolidation small effusion. She is not wheezing as much. She is calm and comfortable while being sedated with Diprivan. Enteral feeding will be restarted. Hemodynamically stable. No other significant issues over the past 24 hours specially post intubation. Objective - Vital Signs Vital signs: Vital Signs Temp 98.5 F 09/08/16 12:00 Pulse 90 09/08/16 15:29 Resp 20 09/08/16 15:00 BP 143/75 09/07/16 07:00 Pulse Ox 99 09/08/16 15:00 Intake & Output 09/07/16 09/08/16 09/08/16 18:59 06:59 18:59 Intake Total 820 140 437.959 Output Total 2400 685 330 Balance -1580 -545 107.959 Weight 74 kg 74 kg Intake: IV 820 40 360 Levofloxacin 750Mg-D5w 150 150 Pmx 750 mg In Dextrose/ Water 1 150ml.bag @ 100 mls/hr IVPB Q24H [facility] Rx#: [id number] Piperacillin-Tazobactam 3 100 50 .375 gm In Dextrose/Water 1 50ml.bag @ 12.5 mls/hr IVPB Q8HR [facility] Rx#: [id number] Sodium Chloride 0.9% 1, 570 40 160 000 ml @ 20 mls/hr IV . Q24H [facility] Rx#:[id number] Intake, IV Titration 100 77.959 Amount Propofol 500 mg In Empty 100 77.959 Bag 1 bag @ Titrate IV . Q0M [facility] Rx#:[id number] Output: Urine 2400 685 330 Other: Voiding Method Indwelling Catheter Indwelling Catheter Indwelling Catheter # Voids 1 ABP, PAP, CO, CI - Last Documented Arterial Blood Pressure 150/58 - Exam Patient is intubated on a mechanical ventilator. She is sedated with Diprivan and she is calm and comfortable.Head exam was generally normal. There was no scleral icterus or corneal arcus. Mucous membranes were moist.Neck was supple and without jugular venous distension, thyromegaly, or carotid bruits. Carotids were easily palpable bilaterally. There was no adenopathy. Orogastric and orotracheal tube are both in place. There is no goiter or neck masses. Lungs sounds are diminished otherwise they're clear. Scattered wheezes or rhonchi are heard bilaterally. Otherwise the breast on that equal and symmetrical.Cardiac exam revealed the PMI to be normally situated and sized. The rhythm was regular and no extrasystoles were noted during several minutes of auscultation. The first and second heart sounds were normal and physiologic splitting of the second heart sound was noted. There were no murmurs, rubs, clicks, or gallops.Abdominal exam revealed normal bowel sounds. The abdomen was soft, non-tender, and without masses, organomegaly, or appreciable enlargement of the abdominal aorta.Examination of the extremities revealed easily palpable radial, femoral and pedal pulses. There was no cyanosis, clubbing or edema. - Labs CBC & Chem 7: 09/08/16 05:20 09/08/16 05:20 Labs: Abnormal Lab Results - Last 24 Hours (Table) 09/07/16 09/07/16 09/07/16 Range/Units 15:00 18:48 23:39 RBC (3.80-5.40) m/uL Hgb (11.4-16.0) gm/dL Hct (34.0-46.0) % MCHC (31.0-37.0) g/dL Plt Count (150-450) k/uL Neutrophils # (1.3-7.7) k/uL Lymphocytes # (1.0-4.8) k/uL ABG pCO2 47 H (35-45) mmHg ABG pO2 135 H (83-108) mmHg ABG HCO3 30 H (21-25) mmol/L ABG Total CO2 32 H (19-24) mmol/L ABG O2 Saturation 99.1 H (94-97) % Carbon Dioxide (22-30) mmol/L BUN (7-17) mg/dL Glucose (74-99) mg/dL POC Glucose (mg/dL) 132 H 168 H (75-99) mg/dL Magnesium (1.6-2.3) mg/dL Total Protein (6.3-8.2) g/dL Albumin (3.5-5.0) g/dL 09/08/16 09/08/16 09/08/16 Range/Units 05:20 05:20 05:23 RBC 2.69 L (3.80-5.40) m/uL Hgb 7.8 L (11.4-16.0) gm/dL Hct 25.4 L (34.0-46.0) % MCHC 30.9 L (31.0-37.0) g/dL Plt Count 541 H (150-450) k/uL Neutrophils # 8.3 H (1.3-7.7) k/uL Lymphocytes # 0.8 L (1.0-4.8) k/uL ABG pCO2 (35-45) mmHg ABG pO2 (83-108) mmHg ABG HCO3 (21-25) mmol/L ABG Total CO2 (19-24) mmol/L ABG O2 Saturation (94-97) % Carbon Dioxide 34 H (22-30) mmol/L BUN 33 H (7-17) mg/dL Glucose 127 H (74-99) mg/dL POC Glucose (mg/dL) 138 H (75-99) mg/dL Magnesium 2.4 H (1.6-2.3) mg/dL Total Protein 5.4 L (6.3-8.2) g/dL Albumin 2.8 L (3.5-5.0) g/dL 09/08/16 09/08/16 Range/Units 05:33 12:12 RBC (3.80-5.40) m/uL Hgb (11.4-16.0) gm/dL Hct (34.0-46.0) % MCHC (31.0-37.0) g/dL Plt Count (150-450) k/uL Neutrophils # (1.3-7.7) k/uL Lymphocytes # (1.0-4.8) k/uL ABG pCO2 47 H (35-45) mmHg ABG pO2 147 H (83-108) mmHg ABG HCO3 32 H (21-25) mmol/L ABG Total CO2 33 H (19-24) mmol/L ABG O2 Saturation 99.0 H (94-97) % Carbon Dioxide (22-30) mmol/L BUN (7-17) mg/dL Glucose (74-99) mg/dL POC Glucose (mg/dL) 112 H (75-99) mg/dL Magnesium (1.6-2.3) mg/dL Total Protein (6.3-8.2) g/dL Albumin (3.5-5.0) g/dL Microbiology - Last 24 Hours (Table) 09/06/16 10:28 Gram Stain - Final Sputum Sputum Culture - Final Baylee albicans 09/04/16 00:17 Blood Culture - Preliminary Blood No Growth after 96 hours 09/03/16 23:57 Blood Culture - Preliminary Blood No Growth after 96 hours Assessment and Plan Plan: Assessment 1 acute left lower lobe pneumonia with secondary pleurisy and shortness of breath On 09/05/2016, the patient progressively went into respiratory failure. She developed worsening in the left basal infiltrate along with a hemoglobin of a small left-sided pleural effusion. She became more tachypneic and she subsequently went to respiratory failure, failed BiPAP, ultimately intubated and placed on a mechanical ventilator. Currently she is an assist-control mode. Post intubation chest x-ray and blood gases are still pending. On 09/06/2016 the patient was weaned off the mechanical ventilator and the patient was extubated. Chest x-ray still showing some limited left lower lobe pulmonary infiltration. The rapid extubation was done as the patient has severe COPD and I did not want to let's patient on a mechanical ventilator for extended period of time. The patient was extubated as long as she was doing better. On 09/08/2016, the patient is intubated after being extubated on 09/06/2016. The patient was unable to tolerate extubation for more than 24 hours. She became progressively more bronchospastic and wheezy and she was using accessory muscles of breathing. She furthermore failed BiPAP treatment and for that reason she was reintubated. She is doing better right now while being on assist control mode of ventilation on the mechanical ventilator. Chest x-ray findings are essentially stable with a stable consolidation of the left lower lobe. Hemodynamically the patient is stable for now. 2 advanced COPD with an FEV1 of 24% of predicted consistent with severe disease 3 chronic hypoxic respiratory failure maintained on oxygen at 2 L per minute nasal cannula on outpatient basis 4 mediastinal lymphadenopathy, could be potentially pathologic and malignant and this needs to be followed up at a later stage and biopsy will be indicated if there is enlargement in the size of the lymph nodes. Rule out underlying malignancy. 5 coronary artery disease 6 chronic anemia 7 hypertension 8 hyperlipidemia. Plan Continue vent support for another 24 hours. Continue the bronchodilators. Continued IV Solu Medrol. Continue same antibiotic coverage. Repeat chest x- ray in the morning. Keep the patient sedated Diprivan. Restart enteral feeding for nutritional support and the patient will be kept on sedation without any weaning trials today. She was given a sedation holiday and she seemed to be quite awake and alert. Affect the patient wakes of Estefanía fast and she has made a high tolerance for sedation. As such, we will reevaluate her situation assess her candidacy for further weaning first thing in the morning. Dictation this is a critically care evaluation that was done and 32 minutes. Time with Patient: Greater than 30
[2016-09-08 18:17] LABS: Glucose,Whole Blood 172 mg/dL (75-99)
[2016-09-08] MEDS: PARoxetine 20 MG TAB PO SCH (20:34)
[2016-09-08 23:50] LABS: Glucose,Whole Blood 162 mg/dL (75-99)
[2016-09-08] MEDS: HEPARIN SODIUM,PORCINE 5,000 UNIT/ML 1 ML VIAL SQ SCH (23:51)
[2016-09-09] MEDS: PROPOFOL 500 MG in EMPTY BAG 1 BAG IV SCH ×7 (00:59→21:00)
[2016-09-09] MEDS: PIPERACILLIN-TAZOBACTAM 3.375 GM in DEXTROSE/WATER 1 50ML.BAG IVPB SCH ×3 (00:59→16:40)
[2016-09-09 04:23] LABS: Basophils % (A) 0 %; CH 28.1; CHCM 30.3; Eosinophils % (A) 0 %; HCT 25.3 % (34.0-46.0); HDW 2.46; HGB 7.9 gm/dL (11.4-16.0); Hypochromasia Moderate; Luc # (Auto) 0.12; Luc % (Auto) 1; Lymphocytes # (A) 0.6 k/uL (1.0-4.8); Lymphocytes % (A) 7 %; MCH 28.8 pg (25.0-35.0); Mean Platelet Volume 6.8; Monocytes # (A) 0.3 k/uL (0-1.0); Monocytes % (A) 4 %; Neutrophils # (A) 7.6 k/uL (1.3-7.7); Neutrophils % (A) 88 %; RBC 2.72 m/uL (3.80-5.40); RDW 14.7 % (11.5-15.5); WBC 8.6 k/uL (3.8-10.6); WBC (Perox) 9.31
[2016-09-09 04:40] LABS: ABG Base Excess 8.9 mmol/L; ABG HCO3 33 mmol/L (21-25); ABG PCO2 42 mmHg (35-45); ABG PO2 148 mmHg (83-108); ABG TCO2 34 mmol/L (19-24)
[2016-09-09 04:44] LABS: ALT 35 U/L (9-52); AST 20 U/L (14-36); Alkaline Phosphatase 42 U/L (38-126); Anion Gap 6 mmol/L; Blood Urea Nitrogen 37 mg/dL (7-17); Calcium 8.5 mg/dL (8.4-10.2); Carbon Dioxide 34 mmol/L (22-30); Chloride 104 mmol/L (98-107); Glucose 167 mg/dL (74-99); Magnesium 2.6 mg/dL (1.6-2.3); Non-African American GFR(MDRD) >60 (>60 ml/min/1.73 sqM); Phosphorous 3.3 mg/dL (2.5-4.5); Potassium 4.2 mmol/L (3.5-5.1); Sodium 144 mmol/L (137-145); Total Bilirubin 0.4 mg/dL (0.2-1.3); Total Protein 5.4 g/dL (6.3-8.2)
[2016-09-09 06:44] LABS: Glucose,Whole Blood 167 mg/dL (75-99)
[2016-09-09] MEDS: INSULIN LISPRO (humaLOG) 300 UNIT/3 ML VIAL SQ SCH ×3 (06:44→18:14)
[2016-09-09] MEDS: IPRATROPIUM 0.5 MG/2.5 ML NEBU INHALATION SCH ×4 (07:03→19:43)
[2016-09-09] MEDS: LEVALBUTEROL NEB 1.25 MG/3 ML AMP INHALATION SCH (07:04)
[2016-09-09] MEDS: BUDESONIDE 0.5 MG/2 ML NEBU INHALATION SCH ×2 (07:04→19:43)
--- NOTE | 2016-09-09 07:14 | PN ---
DATE OF SERVICE: 09/08/2016 INTERVAL HISTORY: Ms. Dorado is a 71-year-old female with a past medical history of advanced COPD. Presented for acute COPD exacerbation. The patient was extubated a couple of days back but she was desaturating and so she was intubated again yesterday. Patient's chest x-ray showed worsening of her pneumonia. Patient is on FiO2 of 40% and PEEP of 5 with a tidal volume of 400. She is currently on propofol. Review of systems could not be done as the patient is intubated. VITALS: Heart rate of 92 to 100, respiratory rate 20, blood pressure 123/50, she is on a ventilator with FiO2 of 40%, PEEP of 5 and tidal volume of 400. GENERAL EXAMINATION: Patient intubated and sedated. CHEST: Patient has an OG tube in place. NECK: No masses. LUNGS: Diminished. In the lung gilbert no wheezes. HEART: S1, S2 heard. GI: Prominent, soft, bowel sounds are positive. EXTREMITIES: No edema. Palpable pulses are felt. Patient Labs: White count of 10, hemoglobin 7.8, platelet 541, sodium 143, potassium 4, chloride 102, bicarb 34, BUN 33, creatine 1, ABG's 7.45, bicarb 47, albumin of 2.8. ASSESSMENT AND PLAN: 1. Acute respiratory failure, multifactorial, both hypocapnic and hypoxic respiratory failure. 2. Acute left lower lobe pneumonia with pleural effusion. 3. End stage chronic obstructive pulmonary disease, oxygen dependent. 4. Coronary artery disease. 5. Hypertension. 6. Hyperlipidemia. 7. Chronic anemia. 8. Anxiety disorder. 9. Acute kidney injury, prerenal, due to infection. PLAN: The plan is to continue the patient on the ventilator support, continue antibiotics in the form of Zosyn and Rocephin. Continue with Solu-Medrol. Oral prognosis is poor chronic medical conditions. Further recommendations to follow depending on the progress of the patient. MICHAELD
[2016-09-09] MEDS ORDERED: LEVALBUTEROL NEB (CONC) 1.25 MG/0.5 ML AMP INHALATION SCH (08:41)
[2016-09-09] MEDS: HEPARIN SODIUM,PORCINE 5,000 UNIT/ML 1 ML VIAL SQ SCH ×2 (08:53→15:44)
[2016-09-09] MEDS: CHLORHEXIDINE GLUCONATE 15 ML CUP MUCOUS MEM SCH ×2 (08:53→21:55)
[2016-09-09] MEDS: PANTOPRAZOLE 40 MG/10 ML VIAL IV SCH (08:59)
[2016-09-09] MEDS: methylPREDNISolone SOD SUCCI 125 MG/2 ML VIAL IV SCH ×2 (08:59→16:40)
[2016-09-09] MEDS: NYSTATIN 100,000 UNIT/ML SUSP 500,000 UNIT/5 ML CUP PO SCH ×4 (09:00→21:55)
--- NOTE | 2016-09-09 09:14 | XR ---
EXAMINATION TYPE: XR chest 1V portable DATE OF EXAM: 09/09/2016 6:44 AM COMPARISON: 09/08/2016 INDICATION: Tube placement TECHNIQUE: Single frontal view of the chest is obtained. FINDINGS: The heart size is normal. The pulmonary vasculature is normal. There is a small left pleural effusion. Retrocardiac infiltrate is not excluded. This finding is stab le from prior study Endotracheal tube is present with tip above the tristin. Nasogastric tube transverses the thorax. Left central venous catheter is present with tip in the superior vena cava region. Lines and catheters ar e stable from prior study. IMPRESSION: 1. Stable left lower lobe infiltrate and pleural effusion. 2. Lines and catheters stable from prior study.
[2016-09-09] MEDS: VERAPAMIL SR 240 MG TABLET.ER PO SCH (11:08)
[2016-09-09] MEDS: LEVALBUTEROL NEB (CONC) 1.25 MG/0.5 ML AMP INHALATION SCH ×3 (11:21→19:43)
[2016-09-09 12:11] LABS: Glucose,Whole Blood 164 mg/dL (75-99)
[2016-09-09] MEDS: LEVOFLOXACIN 750MG-D5W PMX 750 MG in DEXTROSE/WATER 1 150ML.BAG IVPB SCH (13:19)
--- NOTE | 2016-09-09 13:57 | P.PN ---
Subjective Principal diagnosis: Acute respiratory failure secondary to his COPD exacerbation This 71-year-old female patient with known history of advanced COPD, oxygen dependent at 2 L/m nasal cannula who has a FEV1 of 24% of predicted. The patient was in the hospital for an acute COPD exacerbation back in June 2016. The patient was seen in the office following that and she was placed on Spiriva as maintenance along with albuterol neb last treatment was on incentive basis. The patient was doing well until around 24-48 hours ago when she woke up feeling diffuse body aches and generalized weakness and feeling lethargic. At the same time she had a pleuritic left-sided chest pain. She initially went to [facility] and following that she was brought into the [facility] for further investigation. CAT scan of the chest was done that showed a left lower lobe consolidation typical of an underlying pneumonia. There is some last forming consolidation and evidence of subcarinal and left paratracheal lymphadenopathy is obviously concerning and needs to be followed up to make sure this is not a malignant process. Despite all this, the patient has no fever or chills. No hemodynamic instability. She is up to 5 L of oxygen by nasal cannula which were able to wean it down to 3 L. She is on accommodation of Rocephin and Zithromax. She is producing adequate amount of urine output. No other significant events over the past 12-24 hours. On 09/05/2016 the patient is being seen in follow-up. The patient has developed significant worsening in her respiratory status. Earlier this morning I was informed of the patient was having labored breathing and she was becoming more restless and agitated. At that time I ordered to start the patient on systemic steroids, and the chest x-ray was also done and showed worsening of the left lung pulmonary infiltrate along with development of a small left-sided pleural effusion. At that point the patient that she has resulted intensive care unit patient was started on BiPAP which she was unable to tolerate due to increased restlessness, agitation, and asynchronous with the BiPAP. At that point, the patient was intubated. I intubated the patient and I started her on sedation with Diprivan. Currently she assist-control mode of ventilation. She is post intubation. Chest x-ray still pending. A triple lumen catheter was inserted. Hemodynamically she remains stable. No hypotension. Urine output remains adequate. The family was informed and a message was left over the phone to them of the above-mentioned changes. On 09/06/2016 the patient is being seen in follow-up. She is hemodynamically stable. She is was sedated on Diprivan. She is calm and comfortable. Peak airway pressures around 24. Chest x-ray showing some limited left lower lobe infiltration and small effusion. No significant orotracheal secretions. Hemodynamically stable. Follow-up blood gases from this morning showed a pH of 7.42 with a pCO2 of 41 and pO2 of 183. This was done with an FiO2 of 50%. Based on this, the patient was given a sedation holiday and she woke up appropriately where she was able to follow commands and answering questions appropriately. The patient was then given a spontaneous breathing trial with a pressure support of 5 and a PEEP of 5 and this presents for total of 30 minutes. The subsequent blood gases showed adequate numbers with pH of 7.42 and a pCO2 of 41 and pO2 of 145. At that point, the patient was extubated. Currently she is awake and alert and she is following commands and answering questions. No signs of any major respiratory distress. The patient is seen again today 09/07/2016 in follow-up in the intensive care unit. Upon evaluation she was having some respiratory difficulty. She had gotten up to the bedside commode with assistance and did have a bowel movement. By the time she had gotten back in bed she was quite short of breath, tachycardic and hypertensive. Her chest x-ray shows increased pulmonary venous congestion and infiltrate of the left lung base. She has been afebrile. She was maintaining O2 saturations in the low 90s on 3 L/m. Blood cultures reveal no growth to date. Sputum cultures pending. Current white count 17.8. Hemoglobin 7.8. On 09/08/2016, the patient is intubated. Noted the patient's was having some respiratory difficulties yesterday morning. We'll watched her throughout the morning and late in the afternoon the patient became more short of breath. She was placed on BiPAP however she failed BiPAP therapy knowing that she was becoming more lethargic and asynchronous and she was using abdominal muscles of breathing. Based on that, but decided to intubate the patient and put her back on a mechanical ventilation. This morning, the patient is an assist-control mode of ventilation and FiO2 has been down to 40% and she is in a PEEP of 5 with a tidal volume of 400. Oxygenation is improved and the pO2 is above 100. Peak airway pressures elevated at around 33. Static pressures around 17. Chest x-ray shows a stable left lower lobe consolidation small effusion. She is not wheezing as much. She is calm and comfortable while being sedated with Diprivan. Enteral feeding will be restarted. Hemodynamically stable. No other significant issues over the past 24 hours specially post intubation. On 09/09/2016, patient remains on mechanical ventilation, chest x-ray showed a small left lower lobe atelectasis and possibly a small left pleural effusion. Patient remains on propofol, she is hemodynamically stable. Remains on the same vent settings, FiO2 is down to 30%. PEEP is 5 tidal volume is 400. ABG showed a pO2 of 148 pCO2 of 42 pH of 7.50. Hemoglobin is 7.9 WBC count is 8.6. Basic metabolic profile is relatively normal except for a bicarb of 34. Renal profile is normal. Objective - Vital Signs Vital signs: Vital Signs Temp 99.6 F 09/09/16 12:00 Pulse 97 09/09/16 13:00 Resp 24 09/09/16 13:00 BP 116/60 09/09/16 13:00 Pulse Ox 96 09/09/16 13:00 Intake & Output 09/08/16 09/09/16 09/09/16 18:59 06:59 18:59 Intake Total 677.959 830.831 669.211 Output Total 490 581 400 Balance 187.959 249.831 269.211 Weight 74 kg 71.4 kg Intake: IV 470 210.0 180 Levofloxacin 750Mg-D5w 150 Pmx 750 mg In Dextrose/ Water 1 150ml.bag @ 100 mls/hr IVPB Q24H [facility] Rx#: [id number] Piperacillin-Tazobactam 3 100 50.0 100 .375 gm In Dextrose/Water 1 50ml.bag @ 12.5 mls/hr IVPB Q8HR [facility] Rx#: [id number] Sodium Chloride 0.9% 1, 220 160 80 000 ml @ 20 mls/hr IV . Q24H [facility] Rx#:[id number] Intake, IV Titration 127.959 220.831 59.211 Amount Propofol 500 mg In Empty 127.959 220.831 39.211 Bag 1 bag @ Titrate IV . Q0M [facility] Rx#:[id number] Sodium Chloride 0.9% 1, 20 000 ml @ 20 mls/hr IV . Q24H [facility] Rx#:[id number] Oral 0 Tube Feeding 80 310 370 Other 90 60 Output: Urine 490 581 400 Other: Voiding Method Indwelling Catheter Indwelling Catheter Indwelling Catheter # Voids 1 ABP, PAP, CO, CI - Last Documented Arterial Blood Pressure 131/49 - Exam Patient is intubated on a mechanical ventilator. She is sedated with Diprivan and she is calm and comfortable.Head exam was generally normal. There was no scleral icterus or corneal arcus. Mucous membranes were moist.Neck was supple and without jugular venous distension, thyromegaly, or carotid bruits. Carotids were easily palpable bilaterally. There was no adenopathy. Orogastric and orotracheal tube are both in place. There is no goiter or neck masses. Lungs sounds are diminished otherwise they're clear. Scattered wheezes or rhonchi are heard bilaterally. Otherwise the breast on that equal and symmetrical.Cardiac exam revealed the PMI to be normally situated and sized. The rhythm was regular and no extrasystoles were noted during several minutes of auscultation. The first and second heart sounds were normal and physiologic splitting of the second heart sound was noted. There were no murmurs, rubs, clicks, or gallops.Abdominal exam revealed normal bowel sounds. The abdomen was soft, non-tender, and without masses, organomegaly, or appreciable enlargement of the abdominal aorta.Examination of the extremities revealed easily palpable radial, femoral and pedal pulses. There was no cyanosis, clubbing or edema. - Labs CBC & Chem 7: 09/09/16 04:05 09/09/16 04:05 Labs: Abnormal Lab Results - Last 24 Hours (Table) 09/08/16 09/08/16 09/09/16 Range/Units 18:15 23:47 04:05 RBC (3.80-5.40) m/uL Hgb (11.4-16.0) gm/dL Hct (34.0-46.0) % Plt Count (150-450) k/uL Lymphocytes # (1.0-4.8) k/uL ABG pH (7.35-7.45) ABG pO2 (83-108) mmHg ABG HCO3 (21-25) mmol/L ABG Total CO2 (19-24) mmol/L ABG O2 Saturation (94-97) % Carbon Dioxide 34 H (22-30) mmol/L BUN 37 H (7-17) mg/dL Glucose 167 H (74-99) mg/dL POC Glucose (mg/dL) 172 H 162 H (75-99) mg/dL Magnesium 2.6 H (1.6-2.3) mg/dL Total Protein 5.4 L (6.3-8.2) g/dL Albumin 2.8 L (3.5-5.0) g/dL 09/09/16 09/09/16 09/09/16 Range/Units 04:05 04:34 06:39 RBC 2.72 L (3.80-5.40) m/uL Hgb 7.9 L (11.4-16.0) gm/dL Hct 25.3 L (34.0-46.0) % Plt Count 571 H (150-450) k/uL Lymphocytes # 0.6 L (1.0-4.8) k/uL ABG pH 7.50 H (7.35-7.45) ABG pO2 148 H (83-108) mmHg ABG HCO3 33 H (21-25) mmol/L ABG Total CO2 34 H (19-24) mmol/L ABG O2 Saturation 100.0 H (94-97) % Carbon Dioxide (22-30) mmol/L BUN (7-17) mg/dL Glucose (74-99) mg/dL POC Glucose (mg/dL) 167 H (75-99) mg/dL Magnesium (1.6-2.3) mg/dL Total Protein (6.3-8.2) g/dL Albumin (3.5-5.0) g/dL 09/09/16 Range/Units 12:10 RBC (3.80-5.40) m/uL Hgb (11.4-16.0) gm/dL Hct (34.0-46.0) % Plt Count (150-450) k/uL Lymphocytes # (1.0-4.8) k/uL ABG pH (7.35-7.45) ABG pO2 (83-108) mmHg ABG HCO3 (21-25) mmol/L ABG Total CO2 (19-24) mmol/L ABG O2 Saturation (94-97) % Carbon Dioxide (22-30) mmol/L BUN (7-17) mg/dL Glucose (74-99) mg/dL POC Glucose (mg/dL) 164 H (75-99) mg/dL Magnesium (1.6-2.3) mg/dL Total Protein (6.3-8.2) g/dL Albumin (3.5-5.0) g/dL Microbiology - Last 24 Hours (Table) 09/04/16 00:17 Blood Culture - Preliminary Blood No Growth after 120 hours 09/03/16 23:57 Blood Culture - Preliminary Blood No Growth after 120 hours Assessment and Plan Plan: 1 acute left lower lobe pneumonia with secondary pleurisy and shortness of breath On 09/05/2016, the patient progressively went into respiratory failure. She developed worsening in the left basal infiltrate along with a hemoglobin of a small left-sided pleural effusion. She became more tachypneic and she subsequently went to respiratory failure, failed BiPAP, ultimately intubated and placed on a mechanical ventilator. Currently she is an assist-control mode. Post intubation chest x-ray and blood gases are still pending. On 09/06/2016 the patient was weaned off the mechanical ventilator and the patient was extubated. Chest x-ray still showing some limited left lower lobe pulmonary infiltration. The rapid extubation was done as the patient has severe COPD and I did not want to let's patient on a mechanical ventilator for extended period of time. The patient was extubated as long as she was doing better. On 09/08/2016, the patient is intubated after being extubated on 09/06/2016. The patient was unable to tolerate extubation for more than 24 hours. She became progressively more bronchospastic and wheezy and she was using accessory muscles of breathing. She furthermore failed BiPAP treatment and for that reason she was reintubated. She is doing better right now while being on assist control mode of ventilation on the mechanical ventilator. Chest x-ray findings are essentially stable with a stable consolidation of the left lower lobe. Hemodynamically the patient is stable for now. On 09/09/2016, remains intubated, however before extubating the patient, I would like to discuss the CODE STATUS again with the family. If the patient is to be reintubated, I prefer and eventually proceed with tracheostomy. However the patient is made DO NOT RESUSCITATE, and not to reintubate in case if she fails, then it would be appropriate to proceed with weaning trials on a daily basis and possibly extubate once we feel that she has a better chance to do well postextubation. However I prefer to discuss the CODE STATUS and the issue of intubation or not after extubation. 2 advanced COPD with an FEV1 of 24% of predicted consistent with severe disease 3 chronic hypoxic respiratory failure maintained on oxygen at 2 L per minute nasal cannula on outpatient basis 4 mediastinal lymphadenopathy, could be potentially pathologic and malignant and this needs to be followed up at a later stage and biopsy will be indicated if there is enlargement in the size of the lymph nodes. Rule out underlying malignancy. 5 coronary artery disease 6 chronic anemia 7 hypertension 8 hyperlipidemia Recommendation: Continue ventilatory support, continue bronchodilators, steroids , antibiotics, address mental status on a daily basis off the prevent, continue nutritional support, and again I would like to discuss the CODE STATUS again with the family. Before proceeding with extubation, I would like to make sure that the family is very well aware of that patient may have to be reintubated over and over again. And at this point I prefer that we proceed with tracheostomy. Critical care time is 34 minutes.. Time with Patient: Greater than 30
[2016-09-09 18:16] LABS: Glucose,Whole Blood 162 mg/dL (75-99)
[2016-09-09] MEDS: PARoxetine 20 MG TAB PO SCH (21:56)
[2016-09-09] MEDS: LORazepam 2 MG/ML SYRINGE IV PRN (22:08)
[2016-09-09 23:33] LABS: Glucose,Whole Blood 158 mg/dL (75-99)
[2016-09-10] MEDS: methylPREDNISolone SOD SUCCI 125 MG/2 ML VIAL IV SCH ×3 (00:53→16:01)
[2016-09-10] MEDS: SODIUM CHLORIDE 0.9% 1,000 ML IV SCH (00:53)
[2016-09-10] MEDS: HEPARIN SODIUM,PORCINE 5,000 UNIT/ML 1 ML VIAL SQ SCH ×3 (00:53→16:01)
[2016-09-10] MEDS: PROPOFOL 500 MG in EMPTY BAG 1 BAG IV SCH ×9 (00:55→19:52)
[2016-09-10] MEDS: INSULIN LISPRO (humaLOG) 300 UNIT/3 ML VIAL SQ SCH ×4 (00:55→18:08)
[2016-09-10] MEDS: PIPERACILLIN-TAZOBACTAM 3.375 GM in DEXTROSE/WATER 1 50ML.BAG IVPB SCH ×3 (01:00→16:02)
[2016-09-10 05:28] LABS: Basophils % (A) 0 %; CH 28.1; CHCM 30.1; Eosinophils % (A) 0 %; HCT 26.6 % (34.0-46.0); HDW 2.38; Hypochromasia Moderate; Luc # (Auto) 0.08; Luc % (Auto) 1; Lymphocytes # (A) 0.6 k/uL (1.0-4.8); Lymphocytes % (A) 6 %; MCH 28.1 pg (25.0-35.0); MCV 93.7 fL (80.0-100.0); Mean Platelet Volume 7.1; Monocytes # (A) 0.3 k/uL (0-1.0); Monocytes % (A) 3 %; Neutrophils # (A) 8.3 k/uL (1.3-7.7); Neutrophils % (A) 89 %; RBC 2.84 m/uL (3.80-5.40); RDW 15.1 % (11.5-15.5); WBC 9.3 k/uL (3.8-10.6); WBC (Perox) 10.19
[2016-09-10 05:47] LABS: ALT 35 U/L (9-52); AST 19 U/L (14-36); Alkaline Phosphatase 39 U/L (38-126); Anion Gap 6 mmol/L; Blood Urea Nitrogen 35 mg/dL (7-17); Calcium 8.4 mg/dL (8.4-10.2); Carbon Dioxide 32 mmol/L (22-30); Chloride 104 mmol/L (98-107); Glucose 154 mg/dL (74-99); Magnesium 2.6 mg/dL (1.6-2.3); Non-African American GFR(MDRD) >60 (>60 ml/min/1.73 sqM); Phosphorous 3.5 mg/dL (2.5-4.5); Potassium 4.5 mmol/L (3.5-5.1); Sodium 142 mmol/L (137-145); Total Bilirubin 0.3 mg/dL (0.2-1.3); Total Protein 4.9 g/dL (6.3-8.2)
[2016-09-10] MEDS: BUDESONIDE 1 MG/2 ML NEBU INHALATION SCH ×2 (07:55→19:02)
[2016-09-10] MEDS: LEVALBUTEROL NEB (CONC) 1.25 MG/0.5 ML AMP INHALATION SCH ×4 (07:55→19:02)
[2016-09-10] MEDS: IPRATROPIUM 0.5 MG/2.5 ML NEBU INHALATION SCH ×4 (07:55→19:02)
[2016-09-10 08:03] LABS: ABG PH 7.47 (7.35-7.45)
[2016-09-10 08:04] LABS: ABG Base Excess 6.4 mmol/L; ABG HCO3 30 mmol/L (21-25); ABG PCO2 41 mmHg (35-45); ABG PO2 104 mmHg (83-108); ABG TCO2 31 mmol/L (19-24)
--- NOTE | 2016-09-10 08:07 | XR ---
EXAMINATION TYPE: XR chest 1V portable DATE OF EXAM: 09/10/2016 6:25 AM COMPARISON: NONE HISTORY: SOB, Follow Up FINDINGS: Indwelling tubes and catheters are unchanged. No change in left basilar effusion, infiltrate and/or atelectasis. Stable appearance of the cardio-mediastinal structures at this time. Pleural effusion unchanged. IMPRESSION: 1. Stable portable chest. Clinical correlation and follow up until resolution is recommended.
[2016-09-10] MEDS: VERAPAMIL SR 240 MG TABLET.ER PO SCH (08:41)
[2016-09-10] MEDS: CHLORHEXIDINE GLUCONATE 15 ML CUP MUCOUS MEM SCH ×2 (08:41→20:14)
[2016-09-10] MEDS: PANTOPRAZOLE 40 MG/10 ML VIAL IV SCH (08:41)
[2016-09-10] MEDS: NYSTATIN 100,000 UNIT/ML SUSP 500,000 UNIT/5 ML CUP PO SCH ×3 (08:41→18:09)
--- NOTE | 2016-09-10 09:55 | PN ---
DATE OF SERVICE: 09/09/2016 INTERVAL HISTORY: Ms. Peterson is a 71-year-old female with a past medical history of advanced COPD, coming in with her difficulty in breathing. She is being treated for acute COPD exacerbation secondary to her pneumonia. Patient was extubated a couple of days back and placed on BiPAP, but she could not tolerate BiPAP and so has been reintubated. Currently, she is on a ventilatory support. She is being sedated on a propofol drip but is very easily arousable. She tries to communicate with us with the ventilator in place. Review of systems could not be done as the patient is intubated. She does not seem to be in any acute distress. Patient's vital signs, temperature 99.8, heart rate between 90 to 110, respiratory rate she is on a ventilator, blood pressure 100 to 120/60 to 70. GENERAL EXAMINATION: Patient is intubated. HEAD: Atraumatic, oral cavity patient has OG-tube in place. NECK: Supple. LUNGS: Diminished in all lung gilbert. No wheezes, coarse breath sounds. HEART: S1, S2 heard. GI: Abdomen was soft. Bowel sounds are positive. EXTREMITIES: No edema. Pulses are palpable. Patient's labs: White count of 8.6, hemoglobin 9.9, platelets 571, sodium 144, potassium 4.2, chloride 104, bicarb 34, BUN 57, creatinine 1.77, magnesium 2.6. Albumin is 2.8. ASSESSMENT AND PLAN: 1. Acute left lower lobe pneumonia, causing acute respiratory failure. 2. End-stage chronic obstructive pulmonary disease. 3. Coronary artery disease. 4. Hypertension. 5. Hyperlipidemia. 6. Chronic anemia. 7. Anxiety disorder. 8. Acute kidney injury prerenal, resolving. PLAN: Support the patient on the ventilator as the patient has end-stage COPD and pneumonia, currently she will be a difficult candidate to extubate. We have to try daily weaning trials. Dr. Baig from Pulmonary following the patient closely. Possible for family meeting to discuss the CODE STATUS tomorrow and continue with the rest of her medication regimen. Overall prognosis is poor. Further recommendations to follow depending on the progress of the patient. MTDD
[2016-09-10 11:37] LABS: Glucose,Whole Blood 131 mg/dL (75-99)
[2016-09-10] MEDS: LEVOFLOXACIN 750MG-D5W PMX 750 MG in DEXTROSE/WATER 1 150ML.BAG IVPB SCH (12:39)
--- NOTE | 2016-09-10 12:40 | P.PN ---
Subjective Principal diagnosis: Acute respiratory failure secondary to his COPD exacerbation This 71-year-old female patient with known history of advanced COPD, oxygen dependent at 2 L/m nasal cannula who has a FEV1 of 24% of predicted. The patient was in the hospital for an acute COPD exacerbation back in June 2016. The patient was seen in the office following that and she was placed on Spiriva as maintenance along with albuterol neb last treatment was on incentive basis. The patient was doing well until around 24-48 hours ago when she woke up feeling diffuse body aches and generalized weakness and feeling lethargic. At the same time she had a pleuritic left-sided chest pain. She initially went to [facility] and following that she was brought into the [facility] for further investigation. CAT scan of the chest was done that showed a left lower lobe consolidation typical of an underlying pneumonia. There is some last forming consolidation and evidence of subcarinal and left paratracheal lymphadenopathy is obviously concerning and needs to be followed up to make sure this is not a malignant process. Despite all this, the patient has no fever or chills. No hemodynamic instability. She is up to 5 L of oxygen by nasal cannula which were able to wean it down to 3 L. She is on accommodation of Rocephin and Zithromax. She is producing adequate amount of urine output. No other significant events over the past 12-24 hours. On 09/05/2016 the patient is being seen in follow-up. The patient has developed significant worsening in her respiratory status. Earlier this morning I was informed of the patient was having labored breathing and she was becoming more restless and agitated. At that time I ordered to start the patient on systemic steroids, and the chest x-ray was also done and showed worsening of the left lung pulmonary infiltrate along with development of a small left-sided pleural effusion. At that point the patient that she has resulted intensive care unit patient was started on BiPAP which she was unable to tolerate due to increased restlessness, agitation, and asynchronous with the BiPAP. At that point, the patient was intubated. I intubated the patient and I started her on sedation with Diprivan. Currently she assist-control mode of ventilation. She is post intubation. Chest x-ray still pending. A triple lumen catheter was inserted. Hemodynamically she remains stable. No hypotension. Urine output remains adequate. The family was informed and a message was left over the phone to them of the above-mentioned changes. On 09/06/2016 the patient is being seen in follow-up. She is hemodynamically stable. She is was sedated on Diprivan. She is calm and comfortable. Peak airway pressures around 24. Chest x-ray showing some limited left lower lobe infiltration and small effusion. No significant orotracheal secretions. Hemodynamically stable. Follow-up blood gases from this morning showed a pH of 7.42 with a pCO2 of 41 and pO2 of 183. This was done with an FiO2 of 50%. Based on this, the patient was given a sedation holiday and she woke up appropriately where she was able to follow commands and answering questions appropriately. The patient was then given a spontaneous breathing trial with a pressure support of 5 and a PEEP of 5 and this presents for total of 30 minutes. The subsequent blood gases showed adequate numbers with pH of 7.42 and a pCO2 of 41 and pO2 of 145. At that point, the patient was extubated. Currently she is awake and alert and she is following commands and answering questions. No signs of any major respiratory distress. The patient is seen again today 09/07/2016 in follow-up in the intensive care unit. Upon evaluation she was having some respiratory difficulty. She had gotten up to the bedside commode with assistance and did have a bowel movement. By the time she had gotten back in bed she was quite short of breath, tachycardic and hypertensive. Her chest x-ray shows increased pulmonary venous congestion and infiltrate of the left lung base. She has been afebrile. She was maintaining O2 saturations in the low 90s on 3 L/m. Blood cultures reveal no growth to date. Sputum cultures pending. Current white count 17.8. Hemoglobin 7.8. On 09/08/2016, the patient is intubated. Noted the patient's was having some respiratory difficulties yesterday morning. We'll watched her throughout the morning and late in the afternoon the patient became more short of breath. She was placed on BiPAP however she failed BiPAP therapy knowing that she was becoming more lethargic and asynchronous and she was using abdominal muscles of breathing. Based on that, but decided to intubate the patient and put her back on a mechanical ventilation. This morning, the patient is an assist-control mode of ventilation and FiO2 has been down to 40% and she is in a PEEP of 5 with a tidal volume of 400. Oxygenation is improved and the pO2 is above 100. Peak airway pressures elevated at around 33. Static pressures around 17. Chest x-ray shows a stable left lower lobe consolidation small effusion. She is not wheezing as much. She is calm and comfortable while being sedated with Diprivan. Enteral feeding will be restarted. Hemodynamically stable. No other significant issues over the past 24 hours specially post intubation. On 09/09/2016, patient remains on mechanical ventilation, chest x-ray showed a small left lower lobe atelectasis and possibly a small left pleural effusion. Patient remains on propofol, she is hemodynamically stable. Remains on the same vent settings, FiO2 is down to 30%. PEEP is 5 tidal volume is 400. ABG showed a pO2 of 148 pCO2 of 42 pH of 7.50. Hemoglobin is 7.9 WBC count is 8.6. Basic metabolic profile is relatively normal except for a bicarb of 34. Renal profile is normal. On 09/10/2016, patient remains on mechanical ventilation, chest x-ray is basically about the same showing a small area of atelectasis and possibly a small effusion on the left side. Patient remains on propofol drip, she remains hemodynamically stable, tolerating nutritional support via enteral feeding.ABG this morning showed a pO2 of 104 pCO2 of 41 pH of 7.47.hemoglobin is 8.0, basic metabolic profile is relatively normal.medications were reviewed, remains on the same course of bronchodilators, remains on antibiotics and steroids.sputum was positive only for [place]. Which is felt to be a contamination. Objective - Vital Signs Vital signs: Vital Signs Temp 98.3 F 09/10/16 08:00 Pulse 84 09/10/16 11:49 Resp 19 09/10/16 11:00 BP 121/65 09/10/16 11:00 Pulse Ox 99 09/10/16 11:00 Intake & Output 09/09/16 09/10/16 09/10/16 18:59 06:59 18:59 Intake Total 1337.348 572.298 516.204 Output Total 580 585 385 Balance 757.348 -12.702 131.204 Weight 77.6 kg Intake: IV 440 270 122.5 0.9 for pressure bag 15 Levofloxacin 750Mg-D5w 150 Pmx 750 mg In Dextrose/ Water 1 150ml.bag @ 100 mls/hr IVPB Q24H [facility] Rx#: [id number] Piperacillin-Tazobactam 3 150 50 37.5 .375 gm In Dextrose/Water 1 50ml.bag @ 12.5 mls/hr IVPB Q8HR [facility] Rx#: [id number] Sodium Chloride 0.9% 1, 140 220 70 000 ml @ 20 mls/hr IV . Q24H [facility] Rx#:[id number] Intake, IV Titration 347.348 102.298 83.704 Amount Levofloxacin 750Mg-D5w 150 Pmx 750 mg In Dextrose/ Water 1 150ml.bag @ 100 mls/hr IVPB Q24H [facility] Rx#: [id number] Propofol 500 mg In Empty 137.348 102.298 83.704 Bag 1 bag @ Titrate IV . Q0M [facility] Rx#:[id number] Sodium Chloride 0.9% 1, 60 000 ml @ 20 mls/hr IV . Q24H [facility] Rx#:[id number] Oral 0 Tube Feeding 460 200 280 Other 90 30 Output: Urine 580 585 385 Other: Voiding Method Indwelling Catheter Indwelling Catheter Indwelling Catheter ABP, PAP, CO, CI - Last Documented Arterial Blood Pressure 116/47 - Exam Physical Exam: Revealed a 71-year-old female on mechanical ventilation in no distress. Patient seems to be sedated on propofol. HEENT:[Neck is supple.] [No neck masses.] [No thyromegaly.] [No JVD.]: Endotracheal tube seems to be intact. And nasogastric tube is also intact. Chest: [diminished breath sound bilaterally, no crackles or rhonchi or wheezes.. ] Cardiac Exam: [Normal S1 and S2, no S3 gallop, no murmur.] Abdomen: [Soft, nontender, no megaly, no rebound, no guarding, normal bowel sounds.] Extremities: [No clubbing, no edema, no cyanosis.] Neurological Exam: [cannot be assessed, patient is fully sedated on propofol drip. - Labs CBC & Chem 7: 09/10/16 05:00 09/10/16 05:00 Labs: Abnormal Lab Results - Last 24 Hours (Table) 09/09/16 09/09/16 09/10/16 Range/Units 18:13 23:31 05:00 RBC (3.80-5.40) m/uL Hgb (11.4-16.0) gm/dL Hct (34.0-46.0) % MCHC (31.0-37.0) g/dL Plt Count (150-450) k/uL Neutrophils # (1.3-7.7) k/uL Lymphocytes # (1.0-4.8) k/uL ABG pH (7.35-7.45) ABG HCO3 (21-25) mmol/L ABG Total CO2 (19-24) mmol/L ABG O2 Saturation (94-97) % Carbon Dioxide 32 H (22-30) mmol/L BUN 35 H (7-17) mg/dL Glucose 154 H (74-99) mg/dL POC Glucose (mg/dL) 162 H 158 H (75-99) mg/dL Magnesium 2.6 H (1.6-2.3) mg/dL Total Protein 4.9 L (6.3-8.2) g/dL Albumin 2.6 L (3.5-5.0) g/dL 09/10/16 09/10/16 09/10/16 Range/Units 05:00 07:17 11:35 RBC 2.84 L (3.80-5.40) m/uL Hgb 8.0 L (11.4-16.0) gm/dL Hct 26.6 L (34.0-46.0) % MCHC 30.0 L (31.0-37.0) g/dL Plt Count 589 H (150-450) k/uL Neutrophils # 8.3 H (1.3-7.7) k/uL Lymphocytes # 0.6 L (1.0-4.8) k/uL ABG pH 7.47 H (7.35-7.45) ABG HCO3 30 H (21-25) mmol/L ABG Total CO2 31 H (19-24) mmol/L ABG O2 Saturation 98.0 H (94-97) % Carbon Dioxide (22-30) mmol/L BUN (7-17) mg/dL Glucose (74-99) mg/dL POC Glucose (mg/dL) 131 H (75-99) mg/dL Magnesium (1.6-2.3) mg/dL Total Protein (6.3-8.2) g/dL Albumin (3.5-5.0) g/dL Microbiology - Last 24 Hours (Table) 09/04/16 00:17 Blood Culture - Final Blood No Growth after 144 hours 09/03/16 23:57 Blood Culture - Final Blood No Growth after 144 hours Assessment and Plan Plan: 1 acute left lower lobe pneumonia with secondary pleurisy and shortness of breath On 09/05/2016, the patient progressively went into respiratory failure. She developed worsening in the left basal infiltrate along with a hemoglobin of a small left-sided pleural effusion. She became more tachypneic and she subsequently went to respiratory failure, failed BiPAP, ultimately intubated and placed on a mechanical ventilator. Currently she is an assist-control mode. Post intubation chest x-ray and blood gases are still pending. On 09/06/2016 the patient was weaned off the mechanical ventilator and the patient was extubated. Chest x-ray still showing some limited left lower lobe pulmonary infiltration. The rapid extubation was done as the patient has severe COPD and I did not want to let's patient on a mechanical ventilator for extended period of time. The patient was extubated as long as she was doing better. On 09/08/2016, the patient is intubated after being extubated on 09/06/2016. The patient was unable to tolerate extubation for more than 24 hours. She became progressively more bronchospastic and wheezy and she was using accessory muscles of breathing. She furthermore failed BiPAP treatment and for that reason she was reintubated. She is doing better right now while being on assist control mode of ventilation on the mechanical ventilator. Chest x-ray findings are essentially stable with a stable consolidation of the left lower lobe. Hemodynamically the patient is stable for now. On 09/09/2016, remains intubated, however before extubating the patient, I would like to discuss the CODE STATUS again with the family. If the patient is to be reintubated, I prefer and eventually proceed with tracheostomy. However the patient is made DO NOT RESUSCITATE, and not to reintubate in case if she fails, then it would be appropriate to proceed with weaning trials on a daily basis and possibly extubate once we feel that she has a better chance to do well postextubation. However I prefer to discuss the CODE STATUS and the issue of intubation or not after extubation. On 09/10/2016, patient remains on mechanical ventilation, had a long discussion with her family at bedside, and given the option of either extubation and not to reintubate considering her poor prognostic picture and considering his severe COPD not to mention the poor quality of life, they were also given the option of tracheostomy and PEG tube placement and eventually transferred to a select care specialty. Family would like to decide on this, not quite ready to make a decision. In the meantime we'll plan to continue present supportive care measures, and we will follow closely. 2 advanced COPD with an FEV1 of 24% of predicted consistent with severe disease 3 chronic hypoxic respiratory failure maintained on oxygen at 2 L per minute nasal cannula on outpatient basis 4 mediastinal lymphadenopathy, could be potentially pathologic and malignant and this needs to be followed up at a later stage and biopsy will be indicated if there is enlargement in the size of the lymph nodes. Rule out underlying malignancy. 5 coronary artery disease 6 chronic anemia 7 hypertension 8 hyperlipidemia Recommendation: Continue ventilatory support, continue bronchodilators, steroids , antibiotics, address mental status on a daily basis off the prevent, continue nutritional support, family was approached about different options including extubation and not to reintubate if she fails, or possibly tracheostomy and PEG tube placement. Family is not ready to decide at this point, I would like to discuss it among themselves and they will get back to me regarding final decision. Again overall prognosis remains poor, we'll continue to follow closely. Critical care time is 40 minutes. Time with Patient: Greater than 30
--- NOTE | 2016-09-10 16:52 | P.PN ---
Subjective 71-year-old female with end-stage COPD FEV of 24% comes in to the hospital with difficulty breathing. Patient was intubated secondary to a left lower lobe pneumonia causing acute exacerbation of COPD. Patient was apparently extubated thereafter was reintubated due to failure and change in mental status. Today patient was seen by the pharmacy salesperson was on minimal settings no rapid spontaneous breathing trials were encouraged.. The special forces engineer sergeant as discussed with the patient's family in regards to the outlook if patient fails another extubation. Patient apparently is adamant that she does not want to be dependent on a vent. And she has verbalized this to the family in the past. Patient is sedated currently on propofol on the ventilator on minimal settings ABG was reviewed from this morning. No significant oral or ET tube secretions reported. Objective - Vital Signs Vital signs: Vital Signs Temp 98.8 F 09/10/16 16:00 Pulse 92 09/10/16 16:00 Resp 20 09/10/16 16:00 BP 102/45 09/10/16 16:00 Pulse Ox 100 09/10/16 16:00 Intake & Output 09/09/16 09/10/16 09/10/16 18:59 06:59 18:59 Intake Total 1337.348 351.969 0267.204 Output Total 580 585 780 Balance 757.348 -12.702 386.204 Weight 77.6 kg Intake: IV 440 270 372.5 0.9 for pressure bag 30 Levofloxacin 750Mg-D5w 150 150 Pmx 750 mg In Dextrose/ Water 1 150ml.bag @ 100 mls/hr IVPB Q24H [facility] Rx#: [id number] Piperacillin-Tazobactam 3 150 50 62.5 .375 gm In Dextrose/Water 1 50ml.bag @ 12.5 mls/hr IVPB Q8HR [facility] Rx#: [id number] Sodium Chloride 0.9% 1, 140 220 130 000 ml @ 20 mls/hr IV . Q24H [facility] Rx#:[id number] Intake, IV Titration 347.348 102.298 183.704 Amount Levofloxacin 750Mg-D5w 150 Pmx 750 mg In Dextrose/ Water 1 150ml.bag @ 100 mls/hr IVPB Q24H [facility] Rx#: [id number] Propofol 500 mg In Empty 137.348 102.298 183.704 Bag 1 bag @ Titrate IV . Q0M [facility] Rx#:[id number] Sodium Chloride 0.9% 1, 60 000 ml @ 20 mls/hr IV . Q24H [facility] Rx#:[id number] Oral 0 Tube Feeding 460 200 520 Other 90 90 Output: Urine 580 585 780 Other: Voiding Method Indwelling Catheter Indwelling Catheter Indwelling Catheter ABP, PAP, CO, CI - Last Documented Arterial Blood Pressure 110/47 - Exam Is arousable currently intubated and sedated Lungs good air movement diminished at the bases however no rhonchi or wheezing appreciated Heart S1-S2 heard regular rate and rhythm no murmurs appreciated Abdomen soft nontender no organomegaly Lower extremities no edema noted neuro exam currently intubated and sedated however is arousable and moves all 4 extremities on command. - Labs CBC & Chem 7: 09/10/16 05:00 09/10/16 05:00 Labs: Abnormal Lab Results - Last 24 Hours (Table) 09/09/16 09/09/16 09/10/16 Range/Units 18:13 23:31 05:00 RBC (3.80-5.40) m/uL Hgb (11.4-16.0) gm/dL Hct (34.0-46.0) % MCHC (31.0-37.0) g/dL Plt Count (150-450) k/uL Neutrophils # (1.3-7.7) k/uL Lymphocytes # (1.0-4.8) k/uL ABG pH (7.35-7.45) ABG HCO3 (21-25) mmol/L ABG Total CO2 (19-24) mmol/L ABG O2 Saturation (94-97) % Carbon Dioxide 32 H (22-30) mmol/L BUN 35 H (7-17) mg/dL Glucose 154 H (74-99) mg/dL POC Glucose (mg/dL) 162 H 158 H (75-99) mg/dL Magnesium 2.6 H (1.6-2.3) mg/dL Total Protein 4.9 L (6.3-8.2) g/dL Albumin 2.6 L (3.5-5.0) g/dL 09/10/16 09/10/16 09/10/16 Range/Units 05:00 07:17 11:35 RBC 2.84 L (3.80-5.40) m/uL Hgb 8.0 L (11.4-16.0) gm/dL Hct 26.6 L (34.0-46.0) % MCHC 30.0 L (31.0-37.0) g/dL Plt Count 589 H (150-450) k/uL Neutrophils # 8.3 H (1.3-7.7) k/uL Lymphocytes # 0.6 L (1.0-4.8) k/uL ABG pH 7.47 H (7.35-7.45) ABG HCO3 30 H (21-25) mmol/L ABG Total CO2 31 H (19-24) mmol/L ABG O2 Saturation 98.0 H (94-97) % Carbon Dioxide (22-30) mmol/L BUN (7-17) mg/dL Glucose (74-99) mg/dL POC Glucose (mg/dL) 131 H (75-99) mg/dL Magnesium (1.6-2.3) mg/dL Total Protein (6.3-8.2) g/dL Albumin (3.5-5.0) g/dL Microbiology - Last 24 Hours (Table) 09/04/16 00:17 Blood Culture - Final Blood No Growth after 144 hours 09/03/16 23:57 Blood Culture - Final Blood No Growth after 144 hours Assessment and Plan Plan: #1 acute on chronic hypoxic hypercapnic respiratory failure secondary to a left lower lobe pneumonia causing acute exacerbation of COPD #2 CAD. #3 chronic anemia #4 history of hypertension #5 dyslipidemia plan The special forces engineer sergeant has discussed with the patient's family. Patient apparently does not wish to be vent dependent. However patient is currently sedated no DPOA is recognize or does the patient have advanced directives on documented however patient has apparently verbalized to the family in the past. May have to respect the patient's wishes from the past in regards to not undergoing tracheostomy and this should be verbalized to the patient's family that this would cause her demise as well. Prognosis appears to be extremely poor continue ongoing care was discussed with the [employer] as well.
[2016-09-10 18:10] LABS: Glucose,Whole Blood 130 mg/dL (75-99)
[2016-09-10] MEDS: PARoxetine 20 MG TAB PO SCH (20:14)
[2016-09-11] MEDS: NYSTATIN 100,000 UNIT/ML SUSP 500,000 UNIT/5 ML CUP PO SCH ×5 (00:42→22:42)
[2016-09-11] MEDS: HEPARIN SODIUM,PORCINE 5,000 UNIT/ML 1 ML VIAL SQ SCH ×3 (00:42→16:57)
[2016-09-11] MEDS: SODIUM CHLORIDE 0.9% 1,000 ML IV SCH ×2 (00:43→23:10)
[2016-09-11] MEDS: INSULIN LISPRO (humaLOG) 300 UNIT/3 ML VIAL SQ SCH ×4 (00:43→18:16)
[2016-09-11] MEDS: methylPREDNISolone SOD SUCCI 125 MG/2 ML VIAL IV SCH ×3 (00:43→16:56)
[2016-09-11] MEDS: PROPOFOL 500 MG in EMPTY BAG 1 BAG IV SCH ×8 (00:49→23:09)
[2016-09-11 00:51] LABS: Glucose,Whole Blood 132 mg/dL (75-99)
[2016-09-11] MEDS: PIPERACILLIN-TAZOBACTAM 3.375 GM in DEXTROSE/WATER 1 50ML.BAG IVPB SCH ×3 (00:51→18:15)
[2016-09-11] MEDS: HYDROcodone/APAP 5-325MG 1 EACH TAB PO PRN (02:56)
[2016-09-11 05:08] LABS: CHCM 30.1; HCT 27.3 % (34.0-46.0); HGB 8.6 gm/dL (11.4-16.0); Hypochromasia Moderate; MCH 29.3 pg (25.0-35.0); MCHC 31.5 g/dL (31.0-37.0); MCV 93.1 fL (80.0-100.0); Mean Platelet Volume 7.2; RBC 2.93 m/uL (3.80-5.40); RDW 15.2 % (11.5-15.5)
[2016-09-11 05:28] LABS: Magnesium 2.6 mg/dL (1.6-2.3); Phosphorous 4.1 mg/dL (2.5-4.5)
[2016-09-11 05:29] LABS: Anion Gap 5 mmol/L; Blood Urea Nitrogen 34 mg/dL (7-17); Calcium 8.5 mg/dL (8.4-10.2); Carbon Dioxide 32 mmol/L (22-30); Chloride 102 mmol/L (98-107); Glucose 140 mg/dL (74-99); Non-African American GFR(MDRD) >60 (>60 ml/min/1.73 sqM); Potassium 4.7 mmol/L (3.5-5.1); Sodium 139 mmol/L (137-145)
--- NOTE | 2016-09-11 07:56 | XR ---
EXAMINATION TYPE: XR chest 1V portable DATE OF EXAM: 09/11/2016 6:45 AM CLINICAL HISTORY: Difficulty breathing progress study. TECHNIQUE: Single AP portable upright view of the chest is obtained. COMPARISON: Chest x-ray from one day earlier FINDINGS: An endotracheal tube, orogastric tube, and left internal jugular central venous catheter a re stable in appearance. There is persistent small left pleural effusion. Right lung is grossly clear . Cardiac silhouette size is stable and within normal limits atherosclerotic thoracic aorta. Osseous structures are intact. IMPRESSION: Overall stable findings, persistent small left pleural effusion and associated left bas ilar atelectasis and/or infiltrate
[2016-09-11] MEDS: PANTOPRAZOLE 40 MG/10 ML VIAL IV SCH (08:00)
[2016-09-11] MEDS: CHLORHEXIDINE GLUCONATE 15 ML CUP MUCOUS MEM SCH ×2 (08:00→21:02)
[2016-09-11] MEDS: VERAPAMIL SR 240 MG TABLET.ER PO SCH (08:01)
[2016-09-11 08:20] LABS: ABG Base Excess 5.9 mmol/L; ABG HCO3 30 mmol/L (21-25); ABG PCO2 42 mmHg (35-45); ABG PH 7.46 (7.35-7.45); ABG PO2 98 mmHg (83-108); ABG TCO2 31 mmol/L (19-24)
[2016-09-11] MEDS: IPRATROPIUM 0.5 MG/2.5 ML NEBU INHALATION SCH ×4 (08:44→19:58)
[2016-09-11] MEDS: BUDESONIDE 1 MG/2 ML NEBU INHALATION SCH ×2 (08:44→19:58)
[2016-09-11] MEDS: LEVALBUTEROL NEB (CONC) 1.25 MG/0.5 ML AMP INHALATION SCH ×4 (08:44→19:58)
--- NOTE | 2016-09-11 10:14 | P.PN ---
Subjective Principal diagnosis: Acute respiratory failure secondary to his COPD exacerbation This 71-year-old female patient with known history of advanced COPD, oxygen dependent at 2 L/m nasal cannula who has a FEV1 of 24% of predicted. The patient was in the hospital for an acute COPD exacerbation back in June 2016. The patient was seen in the office following that and she was placed on Spiriva as maintenance along with albuterol neb last treatment was on incentive basis. The patient was doing well until around 24-48 hours ago when she woke up feeling diffuse body aches and generalized weakness and feeling lethargic. At the same time she had a pleuritic left-sided chest pain. She initially went to [facility] and following that she was brought into the [facility] for further investigation. CAT scan of the chest was done that showed a left lower lobe consolidation typical of an underlying pneumonia. There is some last forming consolidation and evidence of subcarinal and left paratracheal lymphadenopathy is obviously concerning and needs to be followed up to make sure this is not a malignant process. Despite all this, the patient has no fever or chills. No hemodynamic instability. She is up to 5 L of oxygen by nasal cannula which were able to wean it down to 3 L. She is on accommodation of Rocephin and Zithromax. She is producing adequate amount of urine output. No other significant events over the past 12-24 hours. On 09/05/2016 the patient is being seen in follow-up. The patient has developed significant worsening in her respiratory status. Earlier this morning I was informed of the patient was having labored breathing and she was becoming more restless and agitated. At that time I ordered to start the patient on systemic steroids, and the chest x-ray was also done and showed worsening of the left lung pulmonary infiltrate along with development of a small left-sided pleural effusion. At that point the patient that she has resulted intensive care unit patient was started on BiPAP which she was unable to tolerate due to increased restlessness, agitation, and asynchronous with the BiPAP. At that point, the patient was intubated. I intubated the patient and I started her on sedation with Diprivan. Currently she assist-control mode of ventilation. She is post intubation. Chest x-ray still pending. A triple lumen catheter was inserted. Hemodynamically she remains stable. No hypotension. Urine output remains adequate. The family was informed and a message was left over the phone to them of the above-mentioned changes. On 09/06/2016 the patient is being seen in follow-up. She is hemodynamically stable. She is was sedated on Diprivan. She is calm and comfortable. Peak airway pressures around 24. Chest x-ray showing some limited left lower lobe infiltration and small effusion. No significant orotracheal secretions. Hemodynamically stable. Follow-up blood gases from this morning showed a pH of 7.42 with a pCO2 of 41 and pO2 of 183. This was done with an FiO2 of 50%. Based on this, the patient was given a sedation holiday and she woke up appropriately where she was able to follow commands and answering questions appropriately. The patient was then given a spontaneous breathing trial with a pressure support of 5 and a PEEP of 5 and this presents for total of 30 minutes. The subsequent blood gases showed adequate numbers with pH of 7.42 and a pCO2 of 41 and pO2 of 145. At that point, the patient was extubated. Currently she is awake and alert and she is following commands and answering questions. No signs of any major respiratory distress. The patient is seen again today 09/07/2016 in follow-up in the intensive care unit. Upon evaluation she was having some respiratory difficulty. She had gotten up to the bedside commode with assistance and did have a bowel movement. By the time she had gotten back in bed she was quite short of breath, tachycardic and hypertensive. Her chest x-ray shows increased pulmonary venous congestion and infiltrate of the left lung base. She has been afebrile. She was maintaining O2 saturations in the low 90s on 3 L/m. Blood cultures reveal no growth to date. Sputum cultures pending. Current white count 17.8. Hemoglobin 7.8. On 09/08/2016, the patient is intubated. Noted the patient's was having some respiratory difficulties yesterday morning. We'll watched her throughout the morning and late in the afternoon the patient became more short of breath. She was placed on BiPAP however she failed BiPAP therapy knowing that she was becoming more lethargic and asynchronous and she was using abdominal muscles of breathing. Based on that, but decided to intubate the patient and put her back on a mechanical ventilation. This morning, the patient is an assist-control mode of ventilation and FiO2 has been down to 40% and she is in a PEEP of 5 with a tidal volume of 400. Oxygenation is improved and the pO2 is above 100. Peak airway pressures elevated at around 33. Static pressures around 17. Chest x-ray shows a stable left lower lobe consolidation small effusion. She is not wheezing as much. She is calm and comfortable while being sedated with Diprivan. Enteral feeding will be restarted. Hemodynamically stable. No other significant issues over the past 24 hours specially post intubation. On 09/09/2016, patient remains on mechanical ventilation, chest x-ray showed a small left lower lobe atelectasis and possibly a small left pleural effusion. Patient remains on propofol, she is hemodynamically stable. Remains on the same vent settings, FiO2 is down to 30%. PEEP is 5 tidal volume is 400. ABG showed a pO2 of 148 pCO2 of 42 pH of 7.50. Hemoglobin is 7.9 WBC count is 8.6. Basic metabolic profile is relatively normal except for a bicarb of 34. Renal profile is normal. On 09/10/2016, patient remains on mechanical ventilation, chest x-ray is basically about the same showing a small area of atelectasis and possibly a small effusion on the left side. Patient remains on propofol drip, she remains hemodynamically stable, tolerating nutritional support via enteral feeding.ABG this morning showed a pO2 of 104 pCO2 of 41 pH of 7.47.hemoglobin is 8.0, basic metabolic profile is relatively normal.medications were reviewed, remains on the same course of bronchodilators, remains on antibiotics and steroids.sputum was positive only for [place]lee. Which is felt to be a contamination. Reevaluated today on 09/11/2016, remains on mechanical ventilation, propofol drip , same vent settings, chest x-ray is basically about the same, all labs were reviewed. Including ABG showed a pO2 of 98 pCO2 of 42 pH of 7.46. Electrolytes and renal profile is relatively normal. Hemoglobin is 8.6. Today I plan to give the patient a weaning trial, however I would like to hear from the family regarding final decision about reintubation or tracheostomy. I have a very strong feeling that the patient will likely failed extubation and at this point I would likely recommend tracheostomy and PEG tube placement. Family is yet to get back to me regarding final decision. In the meantime we' ll continue weaning trials on a daily basis. Off propofol, and we'll continue the same treatment plan including antibiotics bronchodilators and nutritional support. Objective - Vital Signs Vital signs: Vital Signs Temp 98.2 F 09/11/16 08:00 Pulse 83 09/11/16 09:00 Resp 20 09/11/16 09:00 BP 96/46 09/11/16 09:00 Pulse Ox 99 09/11/16 09:00 Intake & Output 09/10/16 09/11/16 09/11/16 18:59 06:59 18:59 Intake Total 1245.969 8155.437 278.485 Output Total 915 910 490 Balance 432.204 173.437 -211.515 Weight 77.5 kg Intake: IV 423.5 328.5 119 0.9 for pressure bag 36 36 9 Levofloxacin 750Mg-D5w 150 Pmx 750 mg In Dextrose/ Water 1 150ml.bag @ 100 mls/hr IVPB Q24H [facility] Rx#: [id number] Piperacillin-Tazobactam 3 87.5 62.5 50 .375 gm In Dextrose/Water 1 50ml.bag @ 12.5 mls/hr IVPB Q8HR [facility] Rx#: [id number] Sodium Chloride 0.9% 1, 150 230 60 000 ml @ 20 mls/hr IV . Q24H [facility] Rx#:[id number] Intake, IV Titration 233.704 114.937 39.485 Amount Propofol 500 mg In Empty 233.704 114.937 39.485 Bag 1 bag @ Titrate IV . Q0M [facility] Rx#:[id number] Tube Feeding 600 640 120 Other 90 Output: Urine 915 910 490 Other: Voiding Method Indwelling Catheter Indwelling Catheter Indwelling Catheter # Voids 1 # Bowel Movements 0 ABP, PAP, CO, CI - Last Documented Arterial Blood Pressure 129/49 - Exam Physical Exam: Revealed a 71-year-old female on mechanical ventilation in no distress. Patient seems to be sedated on propofol. HEENT:[Neck is supple.] [No neck masses.] [No thyromegaly.] [No JVD.]: Endotracheal tube seems to be intact. And nasogastric tube is also intact. Chest: [diminished breath sound bilaterally, no crackles or rhonchi or wheezes.. ] Cardiac Exam: [Normal S1 and S2, no S3 gallop, no murmur.] Abdomen: [Soft, nontender, no megaly, no rebound, no guarding, normal bowel sounds.] Extremities: [No clubbing, no edema, no cyanosis.] Neurological Exam: [cannot be assessed, patient is fully sedated on propofol drip. - Labs CBC & Chem 7: 09/11/16 05:00 09/11/16 05:00 Labs: Abnormal Lab Results - Last 24 Hours (Table) 09/10/16 09/10/16 09/11/16 Range/Units 11:35 18:08 00:40 WBC (3.8-10.6) k/uL RBC (3.80-5.40) m/uL Hgb (11.4-16.0) gm/dL Hct (34.0-46.0) % Plt Count (150-450) k/uL ABG pH (7.35-7.45) ABG HCO3 (21-25) mmol/L ABG Total CO2 (19-24) mmol/L ABG O2 Saturation (94-97) % Carbon Dioxide (22-30) mmol/L BUN (7-17) mg/dL Glucose (74-99) mg/dL POC Glucose (mg/dL) 131 H 130 H 132 H (75-99) mg/dL Magnesium (1.6-2.3) mg/dL 09/11/16 09/11/16 09/11/16 Range/Units 05:00 05:00 05:00 WBC 11.0 H (3.8-10.6) k/uL RBC 2.93 L (3.80-5.40) m/uL Hgb 8.6 L (11.4-16.0) gm/dL Hct 27.3 L (34.0-46.0) % Plt Count 553 H (150-450) k/uL ABG pH (7.35-7.45) ABG HCO3 (21-25) mmol/L ABG Total CO2 (19-24) mmol/L ABG O2 Saturation (94-97) % Carbon Dioxide 32 H (22-30) mmol/L BUN 34 H (7-17) mg/dL Glucose 140 H (74-99) mg/dL POC Glucose (mg/dL) (75-99) mg/dL Magnesium 2.6 H (1.6-2.3) mg/dL 09/11/16 Range/Units 07:10 WBC (3.8-10.6) k/uL RBC (3.80-5.40) m/uL Hgb (11.4-16.0) gm/dL Hct (34.0-46.0) % Plt Count (150-450) k/uL ABG pH 7.46 H (7.35-7.45) ABG HCO3 30 H (21-25) mmol/L ABG Total CO2 31 H (19-24) mmol/L ABG O2 Saturation 98.0 H (94-97) % Carbon Dioxide (22-30) mmol/L BUN (7-17) mg/dL Glucose (74-99) mg/dL POC Glucose (mg/dL) (75-99) mg/dL Magnesium (1.6-2.3) mg/dL Assessment and Plan Plan: 1 acute left lower lobe pneumonia with secondary pleurisy and shortness of breath On 09/05/2016, the patient progressively went into respiratory failure. She developed worsening in the left basal infiltrate along with a hemoglobin of a small left-sided pleural effusion. She became more tachypneic and she subsequently went to respiratory failure, failed BiPAP, ultimately intubated and placed on a mechanical ventilator. Currently she is an assist-control mode. Post intubation chest x-ray and blood gases are still pending. On 09/06/2016 the patient was weaned off the mechanical ventilator and the patient was extubated. Chest x-ray still showing some limited left lower lobe pulmonary infiltration. The rapid extubation was done as the patient has severe COPD and I did not want to let's patient on a mechanical ventilator for extended period of time. The patient was extubated as long as she was doing better. On 09/08/2016, the patient is intubated after being extubated on 09/06/2016. The patient was unable to tolerate extubation for more than 24 hours. She became progressively more bronchospastic and wheezy and she was using accessory muscles of breathing. She furthermore failed BiPAP treatment and for that reason she was reintubated. She is doing better right now while being on assist control mode of ventilation on the mechanical ventilator. Chest x-ray findings are essentially stable with a stable consolidation of the left lower lobe. Hemodynamically the patient is stable for now. On 09/09/2016, remains intubated, however before extubating the patient, I would like to discuss the CODE STATUS again with the family. If the patient is to be reintubated, I prefer and eventually proceed with tracheostomy. However the patient is made DO NOT RESUSCITATE, and not to reintubate in case if she fails, then it would be appropriate to proceed with weaning trials on a daily basis and possibly extubate once we feel that she has a better chance to do well postextubation. However I prefer to discuss the CODE STATUS and the issue of intubation or not after extubation. On 09/10/2016, patient remains on mechanical ventilation, had a long discussion with her family at bedside, and given the option of either extubation and not to reintubate considering her poor prognostic picture and considering his severe COPD not to mention the poor quality of life, they were also given the option of tracheostomy and PEG tube placement and eventually transferred to a select care specialty. Family would like to decide on this, not quite ready to make a decision. In the meantime we'll plan to continue present supportive care measures, and we will follow closely. On 08/2016, patient is basically about the same. Today I plan to give the patient a weaning trial off propofol, and we'll decide whether to extubate depending on how she does, in the meantime I'm still waiting to hear from the family regarding decision for tracheostomy or extubation but not reintubation if the patient fails. 2 advanced COPD with an FEV1 of 24% of predicted consistent with severe disease 3 chronic hypoxic respiratory failure maintained on oxygen at 2 L per minute nasal cannula on outpatient basis 4 mediastinal lymphadenopathy, could be potentially pathologic and malignant and this needs to be followed up at a later stage and biopsy will be indicated if there is enlargement in the size of the lymph nodes. Rule out underlying malignancy. 5 coronary artery disease 6 chronic anemia 7 hypertension 8 hyperlipidemia Recommendation: Continue ventilatory support, continue bronchodilators, steroids , antibiotics, address mental status on a daily basis off the prevent, continue nutritional support, overall prognosis remains poor and guarded, and patient will likely failed extubation considering his severe COPD, but before we extubate, we will make a decision with the family as for further treatment plan. Critical care time is 34 minutes. Time with Patient: Greater than 30
[2016-09-11 11:58] LABS: Glucose,Whole Blood 109 mg/dL (75-99)
[2016-09-11] MEDS: LEVOFLOXACIN 750MG-D5W PMX 750 MG in DEXTROSE/WATER 1 150ML.BAG IVPB SCH (14:14)
[2016-09-11 14:48] LABS: ABG HCO3 30 mmol/L (21-25); ABG PCO2 45 mmHg (35-45); ABG PH 7.44 (7.35-7.45); ABG PO2 96 mmHg (83-108)
[2016-09-11 14:49] LABS: ABG Base Excess 6.3 mmol/L; ABG TCO2 32 mmol/L (19-24)
[2016-09-11 18:19] LABS: Glucose,Whole Blood 106 mg/dL (75-99)
[2016-09-11] MEDS: PARoxetine 20 MG TAB PO SCH (21:02)
--- NOTE | 2016-09-11 21:02 | P.PN ---
Subjective 71-year-old female with end-stage COPD FEV of 24% comes in to the hospital with difficulty breathing. Patient was intubated secondary to a left lower lobe pneumonia causing acute exacerbation of COPD. Patient was apparently extubated thereafter was reintubated due to failure and change in mental status. Today patient was seen by the campus recruiting internship was on minimal settings no rapid spontaneous breathing trials were encouraged.. The watch case polisher as discussed with the patient's family in regards to the outlook if patient fails another extubation. Patient apparently is adamant that she does not want to be dependent on a vent. And she has verbalized this to the family in the past. Patient is sedated currently on propofol on the ventilator on minimal settings ABG was reviewed from this morning. No significant oral or ET tube secretions reported. 09/11/16 On CPAP RSBI <100 awake following commands was able to states that she does want a trach, however wants to be a DNR Family was at bedside, who agreed with her requests. pt was not on sedation during this eval no overnight events. Objective - Vital Signs Vital signs: Vital Signs Temp 98.1 F 09/11/16 16:00 Pulse 88 09/11/16 20:25 Resp 19 09/11/16 19:00 BP 93/49 09/11/16 19:00 Pulse Ox 98 09/11/16 19:00 Intake & Output 09/11/16 09/11/16 09/12/16 06:59 18:59 06:59 Intake Total 1083.437 496.640 23 Output Total 910 1765 60 Balance 173.437 -1268.360 -37 Weight 77.5 kg 77.5 kg Intake: IV 328.5 256 23 0.9 for pressure bag 36 36 3 Piperacillin-Tazobactam 3 62.5 100 .375 gm In Dextrose/Water 1 50ml.bag @ 12.5 mls/hr IVPB Q8HR [facility] Rx#: [id number] Sodium Chloride 0.9% 1, 230 120 20 000 ml @ 20 mls/hr IV . Q24H [facility] Rx#:[id number] Intake, IV Titration 114.937 80.640 Amount Propofol 500 mg In Empty 114.937 80.640 Bag 1 bag @ Titrate IV . Q0M [facility] Rx#:[id number] Tube Feeding 640 160 Output: Urine 910 1765 60 Other: Voiding Method Indwelling Catheter Indwelling Catheter # Voids 1 # Bowel Movements 0 ABP, PAP, CO, CI - Last Documented Arterial Blood Pressure 118/40 - Exam awake Lungs good air movement diminished at the bases however no rhonchi or wheezing appreciated Heart S1-S2 heard regular rate and rhythm no murmurs appreciated Abdomen soft nontender no organomegaly Lower extremities no edema noted neuro exam currently intubated and awake follwing commands moves all four extremities. - Labs CBC & Chem 7: 09/11/16 05:00 09/11/16 05:00 Labs: Abnormal Lab Results - Last 24 Hours (Table) 09/11/16 09/11/16 09/11/16 Range/Units 00:40 05:00 05:00 WBC 11.0 H (3.8-10.6) k/uL RBC 2.93 L (3.80-5.40) m/uL Hgb 8.6 L (11.4-16.0) gm/dL Hct 27.3 L (34.0-46.0) % Plt Count 553 H (150-450) k/uL ABG pH (7.35-7.45) ABG HCO3 (21-25) mmol/L ABG Total CO2 (19-24) mmol/L ABG O2 Saturation (94-97) % Carbon Dioxide (22-30) mmol/L BUN (7-17) mg/dL Glucose (74-99) mg/dL POC Glucose (mg/dL) 132 H (75-99) mg/dL Magnesium 2.6 H (1.6-2.3) mg/dL 09/11/16 09/11/16 09/11/16 Range/Units 05:00 07:10 11:57 WBC (3.8-10.6) k/uL RBC (3.80-5.40) m/uL Hgb (11.4-16.0) gm/dL Hct (34.0-46.0) % Plt Count (150-450) k/uL ABG pH 7.46 H (7.35-7.45) ABG HCO3 30 H (21-25) mmol/L ABG Total CO2 31 H (19-24) mmol/L ABG O2 Saturation 98.0 H (94-97) % Carbon Dioxide 32 H (22-30) mmol/L BUN 34 H (7-17) mg/dL Glucose 140 H (74-99) mg/dL POC Glucose (mg/dL) 109 H (75-99) mg/dL Magnesium (1.6-2.3) mg/dL 09/11/16 09/11/16 Range/Units 14:08 18:14 WBC (3.8-10.6) k/uL RBC (3.80-5.40) m/uL Hgb (11.4-16.0) gm/dL Hct (34.0-46.0) % Plt Count (150-450) k/uL ABG pH (7.35-7.45) ABG HCO3 30 H (21-25) mmol/L ABG Total CO2 32 H (19-24) mmol/L ABG O2 Saturation 98.0 H (94-97) % Carbon Dioxide (22-30) mmol/L BUN (7-17) mg/dL Glucose (74-99) mg/dL POC Glucose (mg/dL) 106 H (75-99) mg/dL Magnesium (1.6-2.3) mg/dL Assessment and Plan Plan: #1 acute on chronic hypoxic hypercapnic respiratory failure secondary to a left lower lobe pneumonia causing acute exacerbation of COPD #2 CAD. #3 chronic anemia #4 history of hypertension #5 dyslipidemia plan code status is DNR continue ongoing care weaning trials possible extubation discussed with RN and family Vitals stable pt does like to have trach done, if she fails extubation and gets reintubated this will be communicated with the campus recruiting internship.
[2016-09-12] MEDS: methylPREDNISolone SOD SUCCI 125 MG/2 ML VIAL IV SCH ×3 (00:05→16:15)
[2016-09-12] MEDS: INSULIN LISPRO (humaLOG) 300 UNIT/3 ML VIAL SQ SCH ×4 (00:13→19:03)
[2016-09-12 00:14] LABS: Glucose,Whole Blood 124 mg/dL (75-99)
[2016-09-12] MEDS: HEPARIN SODIUM,PORCINE 5,000 UNIT/ML 1 ML VIAL SQ SCH ×3 (00:39→16:16)
[2016-09-12] MEDS: PIPERACILLIN-TAZOBACTAM 3.375 GM in DEXTROSE/WATER 1 50ML.BAG IVPB SCH ×3 (00:39→16:20)
[2016-09-12] MEDS: PROPOFOL 500 MG in EMPTY BAG 1 BAG IV SCH ×4 (01:20→21:10)
[2016-09-12 04:44] LABS: CH 28.9; CHCM 30.3; HCT 29.8 % (34.0-46.0); HDW 2.35; HGB 8.7 gm/dL (11.4-16.0); Hypochromasia Moderate; MCH 28.1 pg (25.0-35.0); MCHC 29.3 g/dL (31.0-37.0); MCV 95.8 fL (80.0-100.0); Mean Platelet Volume 7.2; RBC 3.11 m/uL (3.80-5.40); RDW 15.7 % (11.5-15.5); WBC 10.8 k/uL (3.8-10.6)
[2016-09-12 04:53] LABS: Anion Gap 5 mmol/L; Blood Urea Nitrogen 33 mg/dL (7-17); Calcium 8.3 mg/dL (8.4-10.2); Carbon Dioxide 31 mmol/L (22-30); Chloride 105 mmol/L (98-107); Glucose 137 mg/dL (74-99); Magnesium 2.5 mg/dL (1.6-2.3); Non-African American GFR(MDRD) >60 (>60 ml/min/1.73 sqM); Phosphorous 4.6 mg/dL (2.5-4.5); Sodium 141 mmol/L (137-145)
--- NOTE | 2016-09-12 06:51 | P.GSCN ---
<Marisol Wesley - Last Filed: 09/12/16 06:37> History of Present Illness Consult date: 09/11/16 Reason for Consult: Placement of tracheostomy and PEG tube. Requesting physician: Adi Gomez History of present illness: This 71-year-old female with end-stage COPD had been followed by pulmonology for treatment. Approximately a week and a half ago she had increasing shortness of breath, diffuse body aches, generalized weakness, and was feeling lethargic. She presented to [facility] and was subsequently transferred to [facility] for further investigation. Multiple studies demonstrated most likely diagnosis of pneumonia. Again, pulmonology was managing her care including steroids and antibiotics, she became hypoxic and was trialed on BiPAP, which she failed and was subsequently intubated. She was weaned off of the ventilator and extubated, however, she again became hypoxic requiring reintubation. Multiple weaning trials had been completed without successful extubation. Dr. Neri was consulted for placement of tracheostomy and PEG tube. Review of Systems Review of systems completed and was negative except as noted. - Constitutional Reports as per HPI - Cardiovascular Reports as per HPI - Respiratory Reports as per HPI Past Medical History Past Medical History: Coronary Artery Disease (CAD), Heart Failure, COPD, Eye Disorder, Hyperlipidemia, Hypertension Additional Past Medical History / Comment(s): Cardiac arrythmia (patient says it skips a beat), pain in rotator cuff bilateral History of Any Multi-Drug Resistant Organisms: None Reported Past Surgical History: Heart Catheterization, Heart Catheterization With Stent, Tubal Ligation, Uterine Ablation Additional Past Surgical History / Comment(s): natural child , cervical cauterization Past Anesthesia/Blood Transfusion Reactions: No Reported Reaction Date of Last Stent Placement:: 1979 Past Psychological History: Anxiety Smoking Status: Former smoker Additional Drug Use History / Comment(s): Patient chews nicorette gum. Quit smoking in October 2015. - Past Family History Mother Family Medical History: Chest Pain / Angina, Congestive Heart Failure (CHF), COPD, Coronary Artery Disease (CAD) Additional Family Medical History / Comment(s): Father Family Medical History: Chest Pain / Angina, Congestive Heart Failure (CHF) Additional Family Medical History / Comment(s): Sister(s) Family Medical History: AICD/Pacemaker, Cancer, Chest Pain / Angina, Congestive Heart Failure (CHF), COPD Additional Family Medical History / Comment(s): breast cancer Medications and Allergies Home Medications Medication Instructions Recorded Confirmed Type Acetaminophen Tab [Tylenol] 500 mg PO Q6H PRN MDD 4 GRAMS 06/30/16 09/04/16 History Aspirin EC [Ecotrin Low Dose] 81 mg PO DAILY 06/30/16 09/04/16 History Cyanocobalamin (Vitamin B-12) 500 mcg PO DAILY 06/30/16 09/04/16 History [Vitamin B12] Fenofibrate Nanocrystallized 145 mg PO DAILY 06/30/16 09/04/16 History [Tricor] Folic Acid 0.4 mg PO DAILY 06/30/16 09/04/16 History HYDROcodone/APAP 5-325MG [[place] 1 tab PO Q8H PRN MDD 8 TABLETS 06/30/16 History 5-325] Multivitamins, Thera [Multivitamin 1 tab PO DAILY 06/30/16 09/04/16 History (formulary)] PARoxetine HCL [Paxil] 40 mg PO HS 06/30/16 09/04/16 History Rosuvastatin Calcium [Crestor] 10 mg PO DAILY 06/30/16 09/04/16 History Tiotropium [place] [Spiriva] 1 cap INHALATION RT-DAILY 06/30/16 09/04/16 History Verapamil HCl [Verapamil ER] 240 mg PO DAILY 06/30/16 09/04/16 History Vitamin E 400 unit PO DAILY 06/30/16 09/04/16 History Albuterol Nebulized [Ventolin 2.5 mg INHALATION RT-QID 09/04/16 09/04/16 History Nebulized] Ipratropium/Albuterol Sulfate 1 puff INHALATION RT-QID 09/04/16 09/04/16 History [Combivent Respimat Inhaler] Allergies Allergy/AdvReac Type Severity Reaction Status Date / Time Sulfa (Sulfonamide Allergy Unknown Verified 09/04/16 07:42 Antibiotics) Surgical - Exam Vital Signs Temp Pulse Resp BP Pulse Ox 98.2 F 94 20 125/59 98 09/03/16 23:05 09/03/16 23:05 09/03/16 23:05 09/03/16 23:05 09/03/16 23:05 - General well developed, no distress - Eyes PERRL, normal ocular movement - Neck no masses, trachea midline carotid bruit: absent - Respiratory Lungs sounds diminished bilaterally. Respirations even, nonlabored on mechanical ventilation. Current settings: assist control, tidal volume 400, FiO2 30%, respiratory rate 20, PEEP 5. She has an 8.0 ET tube present, 22 at the lip. - Cardiovascular S1, S2 present. Regular rate and rhythm, normal sinus rhythm on telemetry. Patient has right radial a line present, left internal jugular triple-lumen central line present. No edema present. - Abdomen OG tube present. Tube feeding currently on hold as patient is nothing by mouth for surgery today. Abdomen: soft, non tender, bowel sounds - Genitourinary Bender present draining clear, yellow urine. - Integumentary no rash - Neurologic Sedated on ventilator, however, does wake up and follow all commands, nods/ shakes had appropriately. Results - Labs 09/12/16 04:35 09/12/16 04:35 Abnormal Lab Results - Last 24 Hours (Table) 09/11/16 09/11/16 09/11/16 Range/Units 07:10 11:57 14:08 WBC (3.8-10.6) k/uL RBC (3.80-5.40) m/uL Hgb (11.4-16.0) gm/dL Hct (34.0-46.0) % MCHC (31.0-37.0) g/dL RDW (11.5-15.5) % Plt Count (150-450) k/uL ABG pH 7.46 H (7.35-7.45) ABG HCO3 30 H 30 H (21-25) mmol/L ABG Total CO2 31 H 32 H (19-24) mmol/L ABG O2 Saturation 98.0 H 98.0 H (94-97) % Carbon Dioxide (22-30) mmol/L BUN (7-17) mg/dL Glucose (74-99) mg/dL POC Glucose (mg/dL) 109 H (75-99) mg/dL Calcium (8.4-10.2) mg/dL Phosphorus (2.5-4.5) mg/dL Magnesium (1.6-2.3) mg/dL 09/11/16 09/12/16 09/12/16 Range/Units 18:14 00:12 04:35 WBC (3.8-10.6) k/uL RBC (3.80-5.40) m/uL Hgb (11.4-16.0) gm/dL Hct (34.0-46.0) % MCHC (31.0-37.0) g/dL RDW (11.5-15.5) % Plt Count (150-450) k/uL ABG pH (7.35-7.45) ABG HCO3 (21-25) mmol/L ABG Total CO2 (19-24) mmol/L ABG O2 Saturation (94-97) % Carbon Dioxide 31 H (22-30) mmol/L BUN 33 H (7-17) mg/dL Glucose 137 H (74-99) mg/dL POC Glucose (mg/dL) 106 H 124 H (75-99) mg/dL Calcium 8.3 L (8.4-10.2) mg/dL Phosphorus 4.6 H (2.5-4.5) mg/dL Magnesium 2.5 H (1.6-2.3) mg/dL 09/12/16 Range/Units 04:35 WBC 10.8 H (3.8-10.6) k/uL RBC 3.11 L (3.80-5.40) m/uL Hgb 8.7 L (11.4-16.0) gm/dL Hct 29.8 L (34.0-46.0) % MCHC 29.3 L (31.0-37.0) g/dL RDW 15.7 H (11.5-15.5) % Plt Count 523 H (150-450) k/uL ABG pH (7.35-7.45) ABG HCO3 (21-25) mmol/L ABG Total CO2 (19-24) mmol/L ABG O2 Saturation (94-97) % Carbon Dioxide (22-30) mmol/L BUN (7-17) mg/dL Glucose (74-99) mg/dL POC Glucose (mg/dL) (75-99) mg/dL Calcium (8.4-10.2) mg/dL Phosphorus (2.5-4.5) mg/dL Magnesium (1.6-2.3) mg/dL Diabetes panel 09/12/16 Range/Units 04:35 Sodium 141 (137-145) mmol/L Potassium 5.0 (3.5-5.1) mmol/L Chloride 105 (98-107) mmol/L Carbon Dioxide 31 H (22-30) mmol/L BUN 33 H (7-17) mg/dL Creatinine 0.69 (0.52-1.04) mg/dL Glucose 137 H (74-99) mg/dL Calcium 8.3 L (8.4-10.2) mg/dL Calcium panel 09/12/16 Range/Units 04:35 Calcium 8.3 L (8.4-10.2) mg/dL Phosphorus 4.6 H (2.5-4.5) mg/dL Pituitary panel 09/12/16 Range/Units 04:35 Sodium 141 (137-145) mmol/L Potassium 5.0 (3.5-5.1) mmol/L Chloride 105 (98-107) mmol/L Carbon Dioxide 31 H (22-30) mmol/L BUN 33 H (7-17) mg/dL Creatinine 0.69 (0.52-1.04) mg/dL Glucose 137 H (74-99) mg/dL Calcium 8.3 L (8.4-10.2) mg/dL Adrenal panel 09/12/16 Range/Units 04:35 Sodium 141 (137-145) mmol/L Potassium 5.0 (3.5-5.1) mmol/L Chloride 105 (98-107) mmol/L Carbon Dioxide 31 H (22-30) mmol/L BUN 33 H (7-17) mg/dL Creatinine 0.69 (0.52-1.04) mg/dL Glucose 137 H (74-99) mg/dL Calcium 8.3 L (8.4-10.2) mg/dL - Imaging Chest x-ray: report reviewed, image reviewed Assessment and Plan (1) Acute respiratory failure requiring reintubation Status: Acute (2) Left lower lobe pneumonia Status: Acute (3) COPD exacerbation Status: Acute Plan: Plan is for placement of tracheostomy tube as well as PEG tube 09/12/2016. Tube feeding stopped at midnight. Daughter will be here prior to surgery to witness patient signing consent. Medical management per primary, continued pulmonary management per the site specialist. Thank you Dr. Gomez for this consult. Time with Patient: Greater than 30 <DaronEnoch - Last Filed: 09/12/16 12:15> History of Present Illness History of present illness: TANKROOM TENDER notes reviewded and accepted I reviewed in detail with the patient and her family the procedure of tracheostomy and PEG tube including risks and options. They appear to understand these things and wished to proceed as directed. Surgical - Exam Osteopathic Statement: *. No significant issues noted on an osteopathic structural exam other than those noted in the History and Physical/Consult. Vital Signs Temp Pulse Resp BP Pulse Ox 98.2 F 94 20 125/59 98 09/03/16 23:05 09/03/16 23:05 09/03/16 23:05 09/03/16 23:05 09/03/16 23:05 Results - Labs 09/12/16 04:35 09/12/16 04:35 Abnormal Lab Results - Last 24 Hours (Table) 09/11/16 09/11/16 09/12/16 Range/Units 14:08 18:14 00:12 WBC (3.8-10.6) k/uL RBC (3.80-5.40) m/uL Hgb (11.4-16.0) gm/dL Hct (34.0-46.0) % MCHC (31.0-37.0) g/dL RDW (11.5-15.5) % Plt Count (150-450) k/uL ABG HCO3 30 H (21-25) mmol/L ABG Total CO2 32 H (19-24) mmol/L ABG O2 Saturation 98.0 H (94-97) % Carbon Dioxide (22-30) mmol/L BUN (7-17) mg/dL Glucose (74-99) mg/dL POC Glucose (mg/dL) 106 H 124 H (75-99) mg/dL Calcium (8.4-10.2) mg/dL Phosphorus (2.5-4.5) mg/dL Magnesium (1.6-2.3) mg/dL 09/12/16 09/12/16 09/12/16 Range/Units 04:35 04:35 06:58 WBC 10.8 H (3.8-10.6) k/uL RBC 3.11 L (3.80-5.40) m/uL Hgb 8.7 L (11.4-16.0) gm/dL Hct 29.8 L (34.0-46.0) % MCHC 29.3 L (31.0-37.0) g/dL RDW 15.7 H (11.5-15.5) % Plt Count 523 H (150-450) k/uL ABG HCO3 (21-25) mmol/L ABG Total CO2 (19-24) mmol/L ABG O2 Saturation (94-97) % Carbon Dioxide 31 H (22-30) mmol/L BUN 33 H (7-17) mg/dL Glucose 137 H (74-99) mg/dL POC Glucose (mg/dL) 124 H (75-99) mg/dL Calcium 8.3 L (8.4-10.2) mg/dL Phosphorus 4.6 H (2.5-4.5) mg/dL Magnesium 2.5 H (1.6-2.3) mg/dL Diabetes panel 09/12/16 Range/Units 04:35 Sodium 141 (137-145) mmol/L Potassium 5.0 (3.5-5.1) mmol/L Chloride 105 (98-107) mmol/L Carbon Dioxide 31 H (22-30) mmol/L BUN 33 H (7-17) mg/dL Creatinine 0.69 (0.52-1.04) mg/dL Glucose 137 H (74-99) mg/dL Calcium 8.3 L (8.4-10.2) mg/dL Calcium panel 09/12/16 Range/Units 04:35 Calcium 8.3 L (8.4-10.2) mg/dL Phosphorus 4.6 H (2.5-4.5) mg/dL Pituitary panel 09/12/16 Range/Units 04:35 Sodium 141 (137-145) mmol/L Potassium 5.0 (3.5-5.1) mmol/L Chloride 105 (98-107) mmol/L Carbon Dioxide 31 H (22-30) mmol/L BUN 33 H (7-17) mg/dL Creatinine 0.69 (0.52-1.04) mg/dL Glucose 137 H (74-99) mg/dL Calcium 8.3 L (8.4-10.2) mg/dL Adrenal panel 09/12/16 Range/Units 04:35 Sodium 141 (137-145) mmol/L Potassium 5.0 (3.5-5.1) mmol/L Chloride 105 (98-107) mmol/L Carbon Dioxide 31 H (22-30) mmol/L BUN 33 H (7-17) mg/dL Creatinine 0.69 (0.52-1.04) mg/dL Glucose 137 H (74-99) mg/dL Calcium 8.3 L (8.4-10.2) mg/dL
[2016-09-12 07:01] LABS: Glucose,Whole Blood 124 mg/dL (75-99)
[2016-09-12] MEDS: IPRATROPIUM 0.5 MG/2.5 ML NEBU INHALATION SCH ×4 (07:24→19:18)
[2016-09-12] MEDS: BUDESONIDE 1 MG/2 ML NEBU INHALATION SCH ×2 (07:24→19:18)
[2016-09-12] MEDS: LEVALBUTEROL NEB (CONC) 1.25 MG/0.5 ML AMP INHALATION SCH ×4 (07:24→19:18)
[2016-09-12] MEDS: CHLORHEXIDINE GLUCONATE 15 ML CUP MUCOUS MEM SCH ×2 (08:26→21:09)
[2016-09-12] MEDS: VERAPAMIL SR 240 MG TABLET.ER PO SCH (08:27)
[2016-09-12] MEDS: NYSTATIN 100,000 UNIT/ML SUSP 500,000 UNIT/5 ML CUP PO SCH ×3 (08:27→21:09)
[2016-09-12] MEDS: PANTOPRAZOLE 40 MG/10 ML VIAL IV SCH (08:28)
--- NOTE | 2016-09-12 08:43 | XR ---
EXAMINATION TYPE: XR chest 1V portable DATE OF EXAM: 09/12/2016 6:50 AM COMPARISON: NONE INDICATION: Difficulty breathing on previous abnormal chest TECHNIQUE: Single frontal view of the chest is obtained. FINDINGS: The heart size is normal. The pulmonary vasculature is normal. There continues to be a left pleural effusion which is stable. An endotracheal tube is present with t he tip above the tristin. Nasogastric tube transverses the thorax. Left central venous catheter is pre sent with the tip in the superior vena cava region. EKG leads overlie the chest. Minimal atelectasis may be developing at the right base. IMPRESSION: 1. Stable small left pleural effusion. 2. Minimal subsegmental atelectasis developing right base. 3. Lines and catheters discussed above.
[2016-09-12 12:34] LABS: Glucose,Whole Blood 95 mg/dL (75-99)
--- NOTE | 2016-09-12 13:18 | P.PN ---
Subjective Principal diagnosis: Acute respiratory failure secondary to his COPD exacerbation This 71-year-old female patient with known history of advanced COPD, oxygen dependent at 2 L/m nasal cannula who has a FEV1 of 24% of predicted. The patient was in the hospital for an acute COPD exacerbation back in June 2016. The patient was seen in the office following that and she was placed on Spiriva as maintenance along with albuterol neb last treatment was on incentive basis. The patient was doing well until around 24-48 hours ago when she woke up feeling diffuse body aches and generalized weakness and feeling lethargic. At the same time she had a pleuritic left-sided chest pain. She initially went to [facility] and following that she was brought into the [facility] for further investigation. CAT scan of the chest was done that showed a left lower lobe consolidation typical of an underlying pneumonia. There is some last forming consolidation and evidence of subcarinal and left paratracheal lymphadenopathy is obviously concerning and needs to be followed up to make sure this is not a malignant process. Despite all this, the patient has no fever or chills. No hemodynamic instability. She is up to 5 L of oxygen by nasal cannula which were able to wean it down to 3 L. She is on accommodation of Rocephin and Zithromax. She is producing adequate amount of urine output. No other significant events over the past 12-24 hours. On 09/05/2016 the patient is being seen in follow-up. The patient has developed significant worsening in her respiratory status. Earlier this morning I was informed of the patient was having labored breathing and she was becoming more restless and agitated. At that time I ordered to start the patient on systemic steroids, and the chest x-ray was also done and showed worsening of the left lung pulmonary infiltrate along with development of a small left-sided pleural effusion. At that point the patient that she has resulted intensive care unit patient was started on BiPAP which she was unable to tolerate due to increased restlessness, agitation, and asynchronous with the BiPAP. At that point, the patient was intubated. I intubated the patient and I started her on sedation with Diprivan. Currently she assist-control mode of ventilation. She is post intubation. Chest x-ray still pending. A triple lumen catheter was inserted. Hemodynamically she remains stable. No hypotension. Urine output remains adequate. The family was informed and a message was left over the phone to them of the above-mentioned changes. On 09/06/2016 the patient is being seen in follow-up. She is hemodynamically stable. She is was sedated on Diprivan. She is calm and comfortable. Peak airway pressures around 24. Chest x-ray showing some limited left lower lobe infiltration and small effusion. No significant orotracheal secretions. Hemodynamically stable. Follow-up blood gases from this morning showed a pH of 7.42 with a pCO2 of 41 and pO2 of 183. This was done with an FiO2 of 50%. Based on this, the patient was given a sedation holiday and she woke up appropriately where she was able to follow commands and answering questions appropriately. The patient was then given a spontaneous breathing trial with a pressure support of 5 and a PEEP of 5 and this presents for total of 30 minutes. The subsequent blood gases showed adequate numbers with pH of 7.42 and a pCO2 of 41 and pO2 of 145. At that point, the patient was extubated. Currently she is awake and alert and she is following commands and answering questions. No signs of any major respiratory distress. The patient is seen again today 09/07/2016 in follow-up in the intensive care unit. Upon evaluation she was having some respiratory difficulty. She had gotten up to the bedside commode with assistance and did have a bowel movement. By the time she had gotten back in bed she was quite short of breath, tachycardic and hypertensive. Her chest x-ray shows increased pulmonary venous congestion and infiltrate of the left lung base. She has been afebrile. She was maintaining O2 saturations in the low 90s on 3 L/m. Blood cultures reveal no growth to date. Sputum cultures pending. Current white count 17.8. Hemoglobin 7.8. On 09/08/2016, the patient is intubated. Noted the patient's was having some respiratory difficulties yesterday morning. We'll watched her throughout the morning and late in the afternoon the patient became more short of breath. She was placed on BiPAP however she failed BiPAP therapy knowing that she was becoming more lethargic and asynchronous and she was using abdominal muscles of breathing. Based on that, but decided to intubate the patient and put her back on a mechanical ventilation. This morning, the patient is an assist-control mode of ventilation and FiO2 has been down to 40% and she is in a PEEP of 5 with a tidal volume of 400. Oxygenation is improved and the pO2 is above 100. Peak airway pressures elevated at around 33. Static pressures around 17. Chest x-ray shows a stable left lower lobe consolidation small effusion. She is not wheezing as much. She is calm and comfortable while being sedated with Diprivan. Enteral feeding will be restarted. Hemodynamically stable. No other significant issues over the past 24 hours specially post intubation. On 09/09/2016, patient remains on mechanical ventilation, chest x-ray showed a small left lower lobe atelectasis and possibly a small left pleural effusion. Patient remains on propofol, she is hemodynamically stable. Remains on the same vent settings, FiO2 is down to 30%. PEEP is 5 tidal volume is 400. ABG showed a pO2 of 148 pCO2 of 42 pH of 7.50. Hemoglobin is 7.9 WBC count is 8.6. Basic metabolic profile is relatively normal except for a bicarb of 34. Renal profile is normal. On 09/10/2016, patient remains on mechanical ventilation, chest x-ray is basically about the same showing a small area of atelectasis and possibly a small effusion on the left side. Patient remains on propofol drip, she remains hemodynamically stable, tolerating nutritional support via enteral feeding.ABG this morning showed a pO2 of 104 pCO2 of 41 pH of 7.47.hemoglobin is 8.0, basic metabolic profile is relatively normal.medications were reviewed, remains on the same course of bronchodilators, remains on antibiotics and steroids.sputum was positive only for Baylee. Which is felt to be a contamination. Reevaluated today on 09/11/2016, remains on mechanical ventilation, propofol drip , same vent settings, chest x-ray is basically about the same, all labs were reviewed. Including ABG showed a pO2 of 98 pCO2 of 42 pH of 7.46. Electrolytes and renal profile is relatively normal. Hemoglobin is 8.6. Today I plan to give the patient a weaning trial, however I would like to hear from the family regarding final decision about reintubation or tracheostomy. I have a very strong feeling that the patient will likely failed extubation and at this point I would likely recommend tracheostomy and PEG tube placement. Family is yet to get back to me regarding final decision. In the meantime we' ll continue weaning trials on a daily basis. Off propofol, and we'll continue the same treatment plan including antibiotics bronchodilators and nutritional support. Reevaluated today on 09/12/2016, remains on mechanical ventilation, propofol drip , same vent settings, x-ray is about the same. Patient is scheduled to undergo tracheostomy and PEG tube placement today. Labs were reviewed, her hemoglobin is 8.7 today WBC count is 10.8 electrolytes and renal profile are normal. Objective - Vital Signs Vital signs: Vital Signs Temp 98.2 F 09/12/16 09:00 Pulse 78 09/12/16 11:31 Resp 19 09/12/16 11:00 BP 96/48 09/12/16 11:00 Pulse Ox 100 09/12/16 11:00 Intake & Output 09/11/16 09/12/16 09/12/16 18:59 06:59 18:59 Intake Total 496.640 926.994 142 Output Total 1765 1335 240 Balance -1268.360 -408.006 -98 Weight 77.5 kg 75.2 kg Intake: IV 256 336.5 142 0.9 for pressure bag 36 39 12 Piperacillin-Tazobactam 3 100 37.5 50 .375 gm In Dextrose/Water 1 50ml.bag @ 12.5 mls/hr IVPB Q8HR [facility] Rx#: [id number] Sodium Chloride 0.9% 1, 120 260 80 000 ml @ 20 mls/hr IV . Q24H [facility] Rx#:[id number] Intake, IV Titration 80.640 250.494 Amount Propofol 500 mg In Empty 80.640 250.494 Bag 1 bag @ Titrate IV . Q0M [facility] Rx#:[id number] Tube Feeding 160 280 0 Other 60 Output: Urine 1765 1335 240 Other: Voiding Method Indwelling Catheter Indwelling Catheter Indwelling Catheter # Bowel Movements 0 0 0 ABP, PAP, CO, CI - Last Documented Arterial Blood Pressure 90/41 - Exam Physical Exam: Revealed a 71-year-old female on mechanical ventilation in no distress. Patient seems to be sedated on propofol. HEENT:[Neck is supple.] [No neck masses.] [No thyromegaly.] [No JVD.]: Endotracheal tube seems to be intact. And nasogastric tube is also intact. Chest: [diminished breath sound bilaterally, no crackles or rhonchi or wheezes.. ] Cardiac Exam: [Normal S1 and S2, no S3 gallop, no murmur.] Abdomen: [Soft, nontender, no megaly, no rebound, no guarding, normal bowel sounds.] Extremities: [No clubbing, no edema, no cyanosis.] Neurological Exam: [cannot be assessed, patient is fully sedated on propofol drip. - Labs CBC & Chem 7: 09/12/16 04:35 09/12/16 04:35 Labs: Abnormal Lab Results - Last 24 Hours (Table) 09/11/16 09/11/16 09/12/16 Range/Units 14:08 18:14 00:12 WBC (3.8-10.6) k/uL RBC (3.80-5.40) m/uL Hgb (11.4-16.0) gm/dL Hct (34.0-46.0) % MCHC (31.0-37.0) g/dL RDW (11.5-15.5) % Plt Count (150-450) k/uL ABG HCO3 30 H (21-25) mmol/L ABG Total CO2 32 H (19-24) mmol/L ABG O2 Saturation 98.0 H (94-97) % Carbon Dioxide (22-30) mmol/L BUN (7-17) mg/dL Glucose (74-99) mg/dL POC Glucose (mg/dL) 106 H 124 H (75-99) mg/dL Calcium (8.4-10.2) mg/dL Phosphorus (2.5-4.5) mg/dL Magnesium (1.6-2.3) mg/dL 09/12/16 09/12/16 09/12/16 Range/Units 04:35 04:35 06:58 WBC 10.8 H (3.8-10.6) k/uL RBC 3.11 L (3.80-5.40) m/uL Hgb 8.7 L (11.4-16.0) gm/dL Hct 29.8 L (34.0-46.0) % MCHC 29.3 L (31.0-37.0) g/dL RDW 15.7 H (11.5-15.5) % Plt Count 523 H (150-450) k/uL ABG HCO3 (21-25) mmol/L ABG Total CO2 (19-24) mmol/L ABG O2 Saturation (94-97) % Carbon Dioxide 31 H (22-30) mmol/L BUN 33 H (7-17) mg/dL Glucose 137 H (74-99) mg/dL POC Glucose (mg/dL) 124 H (75-99) mg/dL Calcium 8.3 L (8.4-10.2) mg/dL Phosphorus 4.6 H (2.5-4.5) mg/dL Magnesium 2.5 H (1.6-2.3) mg/dL Assessment and Plan Plan: 1 acute left lower lobe pneumonia with secondary pleurisy and shortness of breath On 09/05/2016, the patient progressively went into respiratory failure. She developed worsening in the left basal infiltrate along with a hemoglobin of a small left-sided pleural effusion. She became more tachypneic and she subsequently went to respiratory failure, failed BiPAP, ultimately intubated and placed on a mechanical ventilator. Currently she is an assist-control mode. Post intubation chest x-ray and blood gases are still pending. On 09/06/2016 the patient was weaned off the mechanical ventilator and the patient was extubated. Chest x-ray still showing some limited left lower lobe pulmonary infiltration. The rapid extubation was done as the patient has severe COPD and I did not want to let's patient on a mechanical ventilator for extended period of time. The patient was extubated as long as she was doing better. On 09/08/2016, the patient is intubated after being extubated on 09/06/2016. The patient was unable to tolerate extubation for more than 24 hours. She became progressively more bronchospastic and wheezy and she was using accessory muscles of breathing. She furthermore failed BiPAP treatment and for that reason she was reintubated. She is doing better right now while being on assist control mode of ventilation on the mechanical ventilator. Chest x-ray findings are essentially stable with a stable consolidation of the left lower lobe. Hemodynamically the patient is stable for now. On 09/09/2016, remains intubated, however before extubating the patient, I would like to discuss the CODE STATUS again with the family. If the patient is to be reintubated, I prefer and eventually proceed with tracheostomy. However the patient is made DO NOT RESUSCITATE, and not to reintubate in case if she fails, then it would be appropriate to proceed with weaning trials on a daily basis and possibly extubate once we feel that she has a better chance to do well postextubation. However I prefer to discuss the CODE STATUS and the issue of intubation or not after extubation. On 09/10/2016, patient remains on mechanical ventilation, had a long discussion with her family at bedside, and given the option of either extubation and not to reintubate considering her poor prognostic picture and considering his severe COPD not to mention the poor quality of life, they were also given the option of tracheostomy and PEG tube placement and eventually transferred to a select care specialty. Family would like to decide on this, not quite ready to make a decision. In the meantime we'll plan to continue present supportive care measures, and we will follow closely. On 09/11/2016, patient is basically about the same. Today I plan to give the patient a weaning trial off propofol, and we'll decide whether to extubate depending on how she does, in the meantime I'm still waiting to hear from the family regarding decision for tracheostomy or extubation but not reintubation if the patient fails. On , patient is about the same, and plan tracheostomy and PEG tube placement today. That will make weaning off mechanical ventilation easier, and we can even possibly consider referring the patient to select care specialty. 2 advanced COPD with an FEV1 of 24% of predicted consistent with severe disease 3 chronic hypoxic respiratory failure maintained on oxygen at 2 L per minute nasal cannula on outpatient basis 4 mediastinal lymphadenopathy, could be potentially pathologic and malignant and this needs to be followed up at a later stage and biopsy will be indicated if there is enlargement in the size of the lymph nodes. Rule out underlying malignancy. 5 coronary artery disease 6 chronic anemia 7 hypertension 8 hyperlipidemia Recommendation: Continue ventilatory support, continue bronchodilators, steroids , antibiotics, address mental status on a daily basis off the prevent, continue nutritional support, patient will undergo tracheostomy and PEG tube placement today, and we will readdress weaning again in the next 24 hours. Critical care time is 32 minutes. Time with Patient: Greater than 30
[2016-09-12] MEDS: LEVOFLOXACIN 750MG-D5W PMX 750 MG in DEXTROSE/WATER 1 150ML.BAG IVPB SCH (13:39)
[2016-09-12] MEDS ORDERED: ROCURONIUM BROMIDE 10 MG/ML 10 ML VIAL IV ONE (14:24)
[2016-09-12] MEDS ORDERED: PHENYLEPHRINE-0.9% NACL SYG 1 MG/10 ML SYRINGE ONE (14:24)
[2016-09-12] MEDS ORDERED: MIDAZOLAM 2 MG/2 ML VIAL ONE (14:24)
[2016-09-12] MEDS ORDERED: fentaNYL (PF) 50 MCG/ML 2 ML AMP ONE (14:24)
[2016-09-12] MEDS ORDERED: IV FLUID CONTINUATION 1,000 ML IV ONE (14:58)
--- NOTE | 2016-09-12 15:23 | P.PCN ---
Date of Procedure: 09/12/16 Preoperative Diagnosis: Respiratory failure and inability to extubate Postoperative Diagnosis: Same Procedure(s) Performed: Tracheostomy Anesthesia: NEHEMIAH Surgeon: Enoch Neri IV fluids (ml): 10 Pathology: none sent Condition: stable Disposition: no change Indications for Procedure: Patient has been unable to wean from the vent Operative Findings: No abnormalities of the trachea were seen. Description of Procedure: With the patient in supine position, under benefit of IV sedation, we prepped and draped in standard fashion. We made a transverse incision 2 fingerbreadths above the sternal notch. We horizontally dissected through skin and subcutaneous tissue and platysma. The strap muscles were split in midline. We divided the isthmus of the thyroid with electrocautery. We relaxed are retractors to see that there was no evidence of retained bleeding from the thyroid edges or the venous structures. We then placed the first tracheal ring on traction with a tracheal hook. We divided the second through fourth tracheal rings longitudinally. We dilated the opening. We boby the endotracheal tube up above this opening and through this opening inserted a #8 Bivona foam cuff. We completed removal of the ET tube. We were easily able to ventilate through this tracheostomy tube. The corners of the incision were closed with nylon. The stitches were utilized to secure the flanges of the trach tube. Hemostasis was excellent. Sterile dressings were applied. The patient tolerated the procedure well. We then proceed with PEG tube.
--- NOTE | 2016-09-12 15:27 | P.PCN ---
Date of Procedure: 09/12/16 Preoperative Diagnosis: Inability to swallow secondary to vent dependency Postoperative Diagnosis: Same Procedure(s) Performed: Insertion of percutaneous endoscopic gastrostomy tube Anesthesia: OLEKSANDRA Surgeon: Enoch Neri Estimated Blood Loss (ml): 5 Pathology: none sent Condition: stable Disposition: PACU Indications for Procedure: Patient is vent dependent and unable to swallow initially. Operative Findings: No obvious abnormalities were seen in the stomach or esophagus Description of Procedure: With the patient supine position, under benefit of IV sedation, we prepped and draped the anterior abdominal wall. We passed the endoscope under direct visualization. We traversed the esophagus. We entered the stomach and it was insufflated. We localized an area on the anterior abdominal wall corresponding the anterior wall of stomach. We made a transverse incision in this location. We placed a needle and trocar through this incision into the stomach. We placed through this a guidewire which was grasped with a snare through the endoscope. It was drawn out through the mouth. The PEG tube was threaded over this retrograde in a modified Seldinger technique. When the plastic tip exited the anterior abdominal wall it was grasped and used for traction. The PEG tube was drawn along the line of the wire until the mushroom end of it abutted the gastric mucosa. We withdrew all possible air after visualizing the PEG tube in the stomach. Our scope was removed. Appropriate adapters were placed on the PEG tube. Sterile dressings were applied. The patient tolerated the procedure well and was taken to intensive care in stable condition.
--- NOTE | 2016-09-12 16:39 | P.PN ---
Subjective 71-year-old female with end-stage COPD FEV of 24% comes in to the hospital with difficulty breathing. Patient was intubated secondary to a left lower lobe pneumonia causing acute exacerbation of COPD. Patient was apparently extubated thereafter was reintubated due to failure and change in mental status. Today patient was seen by the aircraft refueller was on minimal settings no rapid spontaneous breathing trials were encouraged.. The bulk mail technician as discussed with the patient's family in regards to the outlook if patient fails another extubation. Patient apparently is adamant that she does not want to be dependent on a vent. And she has verbalized this to the family in the past. Patient is sedated currently on propofol on the ventilator on minimal settings ABG was reviewed from this morning. No significant oral or ET tube secretions reported. 09/11/16 On CPAP RSBI <100 awake following commands was able to states that she does want a trach, however wants to be a DNR Family was at bedside, who agreed with her requests. pt was not on sedation during this eval no overnight events. 09/12/2016 Patient is to undergo trach in PEG tube placement. And weaning trials to be done over the next few weeks. No other overnight events reported. Objective - Vital Signs Vital signs: Vital Signs Temp 98.1 F 09/12/16 12:00 Pulse 85 09/12/16 14:00 Resp 18 09/12/16 14:00 BP 101/44 09/12/16 14:00 Pulse Ox 100 09/12/16 14:00 Intake & Output 09/11/16 09/12/16 09/12/16 18:59 06:59 18:59 Intake Total 496.640 926.994 611 Output Total 1765 1335 590 Balance -1268.360 -408.006 21 Weight 77.5 kg 75.2 kg Intake: IV 256 336.5 611 0.9 for pressure bag 36 39 21 Levofloxacin 750Mg-D5w 100 Pmx 750 mg In Dextrose/ Water 1 150ml.bag @ 100 mls/hr IVPB Q24H [facility] Rx#: [id number] Piperacillin-Tazobactam 3 100 37.5 50 .375 gm In Dextrose/Water 1 50ml.bag @ 12.5 mls/hr IVPB Q8HR [facility] Rx#: [id number] Sodium Chloride 0.9% 1, 120 260 140 000 ml @ 20 mls/hr IV . Q24H [facility] Rx#:[id number] Intake, IV Titration 80.640 250.494 Amount Propofol 500 mg In Empty 80.640 250.494 Bag 1 bag @ Titrate IV . Q0M [facility] Rx#:[id number] Tube Feeding 160 280 0 Other 60 Output: Urine 1765 1335 590 Other: Voiding Method Indwelling Catheter Indwelling Catheter Indwelling Catheter # Bowel Movements 0 0 0 ABP, PAP, CO, CI - Last Documented Arterial Blood Pressure 100/39 - Exam intubated currently sedated Lungs good air movement diminished at the bases however no rhonchi or wheezing appreciated Heart S1-S2 heard regular rate and rhythm no murmurs appreciated Abdomen soft nontender no organomegaly Lower extremities no edema noted neuro exam currently sedated - Labs CBC & Chem 7: 09/12/16 04:35 09/12/16 04:35 Labs: Abnormal Lab Results - Last 24 Hours (Table) 09/11/16 09/12/16 09/12/16 Range/Units 18:14 00:12 04:35 WBC (3.8-10.6) k/uL RBC (3.80-5.40) m/uL Hgb (11.4-16.0) gm/dL Hct (34.0-46.0) % MCHC (31.0-37.0) g/dL RDW (11.5-15.5) % Plt Count (150-450) k/uL Carbon Dioxide 31 H (22-30) mmol/L BUN 33 H (7-17) mg/dL Glucose 137 H (74-99) mg/dL POC Glucose (mg/dL) 106 H 124 H (75-99) mg/dL Calcium 8.3 L (8.4-10.2) mg/dL Phosphorus 4.6 H (2.5-4.5) mg/dL Magnesium 2.5 H (1.6-2.3) mg/dL 09/12/16 09/12/16 Range/Units 04:35 06:58 WBC 10.8 H (3.8-10.6) k/uL RBC 3.11 L (3.80-5.40) m/uL Hgb 8.7 L (11.4-16.0) gm/dL Hct 29.8 L (34.0-46.0) % MCHC 29.3 L (31.0-37.0) g/dL RDW 15.7 H (11.5-15.5) % Plt Count 523 H (150-450) k/uL Carbon Dioxide (22-30) mmol/L BUN (7-17) mg/dL Glucose (74-99) mg/dL POC Glucose (mg/dL) 124 H (75-99) mg/dL Calcium (8.4-10.2) mg/dL Phosphorus (2.5-4.5) mg/dL Magnesium (1.6-2.3) mg/dL Assessment and Plan Plan: #1 acute on chronic hypoxic hypercapnic respiratory failure secondary to a left lower lobe pneumonia causing acute exacerbation of COPD #2 CAD. #3 chronic anemia #4 history of hypertension #5 dyslipidemia plan code status is DNR patient is to undergo tracheostomy and PEG tube placement. Thereafter will likely need an admission to a [facility] with the trach capabilities for to his long-term care hospital. continue antibiotic therapy continue breathing treatments. patient's acute issue appears to be improving however secondary to her disease patient needs to undergo prolonged weaning trials and this can be done at a facility like [facility]
[2016-09-12 18:45] LABS: Glucose,Whole Blood 102 mg/dL (75-99)
[2016-09-12] MEDS: PARoxetine 20 MG TAB PO SCH (21:09)
[2016-09-12] MEDS ORDERED: LISINOPRIL 10 MG TAB PO SCH (21:30)
[2016-09-13] MEDS ORDERED: HEPARIN SODIUM,PORCINE 5,000 UNIT/ML 1 ML VIAL ONE (01:00)
[2016-09-13] MEDS ORDERED: HYDROcodone/APAP 5-325MG 1 EACH TAB ONE (01:00)
[2016-09-13] MEDS ORDERED: methylPREDNISolone SOD SUCCI 125 MG/2 ML VIAL ONE (01:00)
[2016-09-13 04:20] LABS: Glucose,Whole Blood 104 mg/dL (75-99)
[2016-09-13] MEDS: NYSTATIN 100,000 UNIT/ML SUSP 500,000 UNIT/5 ML CUP PO SCH ×5 (05:19→22:08)
[2016-09-13] MEDS: SODIUM CHLORIDE 0.9% 1,000 ML IV SCH ×2 (05:20→23:45)
[2016-09-13] MEDS: INSULIN LISPRO (humaLOG) 300 UNIT/3 ML VIAL SQ SCH ×4 (05:20→17:47)
[2016-09-13 05:21] LABS: CH 28.5; CHCM 30.7; HCT 29.9 % (34.0-46.0); HDW 2.38; HGB 9.2 gm/dL (11.4-16.0); Hypochromasia Slight; MCH 28.5 pg (25.0-35.0); MCHC 30.7 g/dL (31.0-37.0); MCV 93.1 fL (80.0-100.0); Mean Platelet Volume 7.5; RBC 3.21 m/uL (3.80-5.40); RDW 15.6 % (11.5-15.5); WBC 15.8 k/uL (3.8-10.6)
[2016-09-13 06:01] LABS: Anion Gap 6 mmol/L; Blood Urea Nitrogen 34 mg/dL (7-17); Carbon Dioxide 30 mmol/L (22-30); Chloride 103 mmol/L (98-107); Glucose 96 mg/dL (74-99); Magnesium 2.5 mg/dL (1.6-2.3); Non-African American GFR(MDRD) >60 (>60 ml/min/1.73 sqM); Phosphorous 5.2 mg/dL (2.5-4.5); Potassium 5.1 mmol/L (3.5-5.1); Sodium 139 mmol/L (137-145)
[2016-09-13 06:11] LABS: Glucose,Whole Blood 103 mg/dL (75-99)
--- NOTE | 2016-09-13 07:47 | XR ---
EXAMINATION TYPE: XR chest 1V portable DATE OF EXAM: 09/13/2016 6:59 AM COMPARISON: 09/12/2016 HISTORY: SOB, Follow Up FINDINGS: Indwelling tubes and catheters are unchanged. No change in left basilar opacities. Stable appearance of the cardio-mediastinal structures at this time. Pleural effusion unchanged. IMPRESSION: 1. Stable portable chest. Clinical correlation and follow up until resolution is recommended.
[2016-09-13] MEDS: BUDESONIDE 1 MG/2 ML NEBU INHALATION SCH ×2 (08:20→21:43)
[2016-09-13] MEDS: LEVALBUTEROL NEB (CONC) 1.25 MG/0.5 ML AMP INHALATION SCH ×4 (08:20→21:43)
[2016-09-13] MEDS: IPRATROPIUM 0.5 MG/2.5 ML NEBU INHALATION SCH ×4 (08:20→21:43)
[2016-09-13] MEDS: HEPARIN SODIUM,PORCINE 5,000 UNIT/ML 1 ML VIAL SQ SCH ×3 (08:31→16:05)
[2016-09-13] MEDS: CHLORHEXIDINE GLUCONATE 15 ML CUP MUCOUS MEM SCH ×2 (08:32→22:19)
[2016-09-13] MEDS: PIPERACILLIN-TAZOBACTAM 3.375 GM in DEXTROSE/WATER 1 50ML.BAG IVPB SCH ×3 (08:32→16:15)
[2016-09-13] MEDS: methylPREDNISolone SOD SUCCI 125 MG/2 ML VIAL IV SCH ×3 (08:32→16:05)
[2016-09-13] MEDS: PANTOPRAZOLE 40 MG/10 ML VIAL IV SCH (08:34)
[2016-09-13 09:37] VITALS: BMI 28.3
--- NOTE | 2016-09-13 10:44 | P.PN ---
Subjective Principal diagnosis: Respiratory failure requiring mechanical ventilation, POD #1 tracheostomy and PEG tube placement. Patient sitting up in bed in no apparent distress. Currently on weaning trial. Objective - Vital Signs Vital signs: Vital Signs Temp 98.5 F 09/13/16 08:00 Pulse 89 09/13/16 08:20 Resp 20 09/13/16 08:00 BP 99/54 09/13/16 02:00 Pulse Ox 97 09/13/16 08:00 Intake & Output 09/12/16 09/13/16 09/13/16 18:59 06:59 18:59 Intake Total 753 347.701 35.5 Output Total 970 2680 100 Balance -217 -2332.299 -64.5 Weight 72.7 kg 72.7 kg Intake: IV 753 304.0 35.5 0.9 for pressure bag 33 39 3 Levofloxacin 750Mg-D5w 100 Pmx 750 mg In Dextrose/ Water 1 150ml.bag @ 100 mls/hr IVPB Q24H [facility] Rx#: [id number] Piperacillin-Tazobactam 3 100 25.0 12.5 .375 gm In Dextrose/Water 1 50ml.bag @ 12.5 mls/hr IVPB Q8HR [facility] Rx#: [id number] Sodium Chloride 0.9% 1, 220 240 20 000 ml @ 20 mls/hr IV . Q24H [facility] Rx#:[id number] Intake, IV Titration 43.701 Amount Propofol 500 mg In Empty 43.701 Bag 1 bag @ Titrate IV . Q0M [facility] Rx#:[id number] Tube Feeding 0 0 Output: Urine 970 2680 100 Other: Voiding Method Indwelling Catheter Indwelling Catheter # Voids 100 # Bowel Movements 0 0 ABP, PAP, CO, CI - Last Documented Arterial Blood Pressure 118/42 - Constitutional General appearance: Present: cooperative, no acute distress - Respiratory Details: Lungs sounds diminished bilaterally. Respirations even, nonlabored. Tracheostomy present, currently on CPAP weaning trial. - Cardiovascular Details: S1, S2 present. Regular rate and rhythm, normal sinus rhythm with occasional PVCs on telemetry. No edema present. - Gastrointestinal Gastrointestinal Comment(s): Abdomen soft, nontender, nondistended. PEG tube present. Tube feeding to be restarted this morning. - Genitourinary Genitourinary Comment(s): Fluid present draining clear, yellow urine. - Musculoskeletal Musculoskeletal: Present: strength equal bilaterally - Psychiatric Psychiatric: Present: A&O x's 3, appropriate affect, intact judgment & insight - Allied health notes Allied health notes reviewed: nursing - Labs CBC & Chem 7: 09/13/16 06:00 09/13/16 06:00 Labs: Abnormal Lab Results - Last 24 Hours (Table) 09/12/16 09/13/16 09/13/16 Range/Units 18:42 00:51 06:00 WBC (3.8-10.6) k/uL RBC (3.80-5.40) m/uL Hgb (11.4-16.0) gm/dL Hct (34.0-46.0) % MCHC (31.0-37.0) g/dL RDW (11.5-15.5) % Plt Count (150-450) k/uL BUN 34 H (7-17) mg/dL POC Glucose (mg/dL) 102 H 104 H (75-99) mg/dL Phosphorus 5.2 H (2.5-4.5) mg/dL Magnesium 2.5 H (1.6-2.3) mg/dL 09/13/16 09/13/16 Range/Units 06:00 06:09 WBC 15.8 H (3.8-10.6) k/uL RBC 3.21 L (3.80-5.40) m/uL Hgb 9.2 L (11.4-16.0) gm/dL Hct 29.9 L (34.0-46.0) % MCHC 30.7 L (31.0-37.0) g/dL RDW 15.6 H (11.5-15.5) % Plt Count 496 H (150-450) k/uL BUN (7-17) mg/dL POC Glucose (mg/dL) 103 H (75-99) mg/dL Phosphorus (2.5-4.5) mg/dL Magnesium (1.6-2.3) mg/dL - Imaging and Cardiology Chest x-ray: report reviewed, image reviewed Assessment and Plan (1) Acute respiratory failure requiring reintubation Status: Acute (2) Left lower lobe pneumonia Status: Acute (3) COPD exacerbation Status: Acute Plan: 1. Ventilator management/weaning trials/trach collar per photocomposing machine operator. 2. Tracheostomy site/PEG site looked good. 3. Medical management per primary. 4. Will see patient when necessary. Time with Patient: Greater than 30
[2016-09-13 11:54] LABS: Glucose,Whole Blood 95 mg/dL (75-99)
--- NOTE | 2016-09-13 13:02 | P.PN ---
Subjective Principal diagnosis: Acute respiratory failure secondary to his COPD exacerbation This 71-year-old female patient with known history of advanced COPD, oxygen dependent at 2 L/m nasal cannula who has a FEV1 of 24% of predicted. The patient was in the hospital for an acute COPD exacerbation back in June 2016. The patient was seen in the office following that and she was placed on Spiriva as maintenance along with albuterol neb last treatment was on incentive basis. The patient was doing well until around 24-48 hours ago when she woke up feeling diffuse body aches and generalized weakness and feeling lethargic. At the same time she had a pleuritic left-sided chest pain. She initially went to [facility] and following that she was brought into the [facility] for further investigation. CAT scan of the chest was done that showed a left lower lobe consolidation typical of an underlying pneumonia. There is some last forming consolidation and evidence of subcarinal and left paratracheal lymphadenopathy is obviously concerning and needs to be followed up to make sure this is not a malignant process. Despite all this, the patient has no fever or chills. No hemodynamic instability. She is up to 5 L of oxygen by nasal cannula which were able to wean it down to 3 L. She is on accommodation of Rocephin and Zithromax. She is producing adequate amount of urine output. No other significant events over the past 12-24 hours. On 09/05/2016 the patient is being seen in follow-up. The patient has developed significant worsening in her respiratory status. Earlier this morning I was informed of the patient was having labored breathing and she was becoming more restless and agitated. At that time I ordered to start the patient on systemic steroids, and the chest x-ray was also done and showed worsening of the left lung pulmonary infiltrate along with development of a small left-sided pleural effusion. At that point the patient that she has resulted intensive care unit patient was started on BiPAP which she was unable to tolerate due to increased restlessness, agitation, and asynchronous with the BiPAP. At that point, the patient was intubated. I intubated the patient and I started her on sedation with Diprivan. Currently she assist-control mode of ventilation. She is post intubation. Chest x-ray still pending. A triple lumen catheter was inserted. Hemodynamically she remains stable. No hypotension. Urine output remains adequate. The family was informed and a message was left over the phone to them of the above-mentioned changes. On 09/06/2016 the patient is being seen in follow-up. She is hemodynamically stable. She is was sedated on Diprivan. She is calm and comfortable. Peak airway pressures around 24. Chest x-ray showing some limited left lower lobe infiltration and small effusion. No significant orotracheal secretions. Hemodynamically stable. Follow-up blood gases from this morning showed a pH of 7.42 with a pCO2 of 41 and pO2 of 183. This was done with an FiO2 of 50%. Based on this, the patient was given a sedation holiday and she woke up appropriately where she was able to follow commands and answering questions appropriately. The patient was then given a spontaneous breathing trial with a pressure support of 5 and a PEEP of 5 and this presents for total of 30 minutes. The subsequent blood gases showed adequate numbers with pH of 7.42 and a pCO2 of 41 and pO2 of 145. At that point, the patient was extubated. Currently she is awake and alert and she is following commands and answering questions. No signs of any major respiratory distress. The patient is seen again today 09/07/2016 in follow-up in the intensive care unit. Upon evaluation she was having some respiratory difficulty. She had gotten up to the bedside commode with assistance and did have a bowel movement. By the time she had gotten back in bed she was quite short of breath, tachycardic and hypertensive. Her chest x-ray shows increased pulmonary venous congestion and infiltrate of the left lung base. She has been afebrile. She was maintaining O2 saturations in the low 90s on 3 L/m. Blood cultures reveal no growth to date. Sputum cultures pending. Current white count 17.8. Hemoglobin 7.8. On 09/08/2016, the patient is intubated. Noted the patient's was having some respiratory difficulties yesterday morning. We'll watched her throughout the morning and late in the afternoon the patient became more short of breath. She was placed on BiPAP however she failed BiPAP therapy knowing that she was becoming more lethargic and asynchronous and she was using abdominal muscles of breathing. Based on that, but decided to intubate the patient and put her back on a mechanical ventilation. This morning, the patient is an assist-control mode of ventilation and FiO2 has been down to 40% and she is in a PEEP of 5 with a tidal volume of 400. Oxygenation is improved and the pO2 is above 100. Peak airway pressures elevated at around 33. Static pressures around 17. Chest x-ray shows a stable left lower lobe consolidation small effusion. She is not wheezing as much. She is calm and comfortable while being sedated with Diprivan. Enteral feeding will be restarted. Hemodynamically stable. No other significant issues over the past 24 hours specially post intubation. On 09/09/2016, patient remains on mechanical ventilation, chest x-ray showed a small left lower lobe atelectasis and possibly a small left pleural effusion. Patient remains on propofol, she is hemodynamically stable. Remains on the same vent settings, FiO2 is down to 30%. PEEP is 5 tidal volume is 400. ABG showed a pO2 of 148 pCO2 of 42 pH of 7.50. Hemoglobin is 7.9 WBC count is 8.6. Basic metabolic profile is relatively normal except for a bicarb of 34. Renal profile is normal. On 09/10/2016, patient remains on mechanical ventilation, chest x-ray is basically about the same showing a small area of atelectasis and possibly a small effusion on the left side. Patient remains on propofol drip, she remains hemodynamically stable, tolerating nutritional support via enteral feeding.ABG this morning showed a pO2 of 104 pCO2 of 41 pH of 7.47.hemoglobin is 8.0, basic metabolic profile is relatively normal.medications were reviewed, remains on the same course of bronchodilators, remains on antibiotics and steroids.sputum was positive only for [place]. Which is felt to be a contamination. Reevaluated today on 09/11/2016, remains on mechanical ventilation, propofol drip , same vent settings, chest x-ray is basically about the same, all labs were reviewed. Including ABG showed a pO2 of 98 pCO2 of 42 pH of 7.46. Electrolytes and renal profile is relatively normal. Hemoglobin is 8.6. Today I plan to give the patient a weaning trial, however I would like to hear from the family regarding final decision about reintubation or tracheostomy. I have a very strong feeling that the patient will likely failed extubation and at this point I would likely recommend tracheostomy and PEG tube placement. Family is yet to get back to me regarding final decision. In the meantime we' ll continue weaning trials on a daily basis. Off propofol, and we'll continue the same treatment plan including antibiotics bronchodilators and nutritional support. Reevaluated today on 09/12/2016, remains on mechanical ventilation, propofol drip , same vent settings, x-ray is about the same. Patient is scheduled to undergo tracheostomy and PEG tube placement today. Labs were reviewed, her hemoglobin is 8.7 today WBC count is 10.8 electrolytes and renal profile are normal. Reevaluated today on 09/13/2016, patient is status post tracheostomy and PEG tube placement, postoperative day #1. She is off propofol, she seems to be doing quite well, and I give her a trial of pressure support of 8 and CPAP. She tolerated the trial quite well, hence I plan to switch her to a trach collar. Today we will likely start using her PEG tube for feeding and nutritional support. CBC showed leukocytosis with WBC count of 15.8 hemoglobin is 9.2 electrolytes and renal profile are normal. Chest x-ray showed some atelectasis in the left lower lobe and a small pleural effusion Objective - Vital Signs Vital signs: Vital Signs Temp 98.5 F 09/13/16 08:00 Pulse 96 09/13/16 11:09 Resp 20 09/13/16 08:00 BP 99/54 09/13/16 02:00 Pulse Ox 96 09/13/16 10:55 Intake & Output 09/12/16 09/13/16 09/13/16 18:59 06:59 18:59 Intake Total 753 347.701 140.0 Output Total 970 2680 550 Balance -217 -2332.299 -410.0 Weight 72.7 kg 72.7 kg Intake: IV 753 304.0 140.0 0.9 for pressure bag 33 39 15 Levofloxacin 750Mg-D5w 100 Pmx 750 mg In Dextrose/ Water 1 150ml.bag @ 100 mls/hr IVPB Q24H [facility] Rx#: [id number] Piperacillin-Tazobactam 3 100 25.0 25.0 .375 gm In Dextrose/Water 1 50ml.bag @ 12.5 mls/hr IVPB Q8HR [facility] Rx#: [id number] Sodium Chloride 0.9% 1, 220 240 100 000 ml @ 20 mls/hr IV . Q24H [facility] Rx#:[id number] Intake, IV Titration 43.701 Amount Propofol 500 mg In Empty 43.701 Bag 1 bag @ Titrate IV . Q0M [facility] Rx#:[id number] Tube Feeding 0 0 Output: Urine 970 2680 550 Other: Voiding Method Indwelling Catheter Indwelling Catheter Indwelling Catheter # Voids 100 # Bowel Movements 0 0 ABP, PAP, CO, CI - Last Documented Arterial Blood Pressure 118/42 - Exam Physical Exam: Revealed a 71-year-old female on mechanical ventilation in no distress. Awake, alert, and oriented, on mechanical ventilation through tracheostomy. Tracheostomy tube seems to be intact. HEENT:[Neck is supple.] [No neck masses.] [No thyromegaly.] [No JVD.]: Tracheostomy tube seems to be intact. PEG tube is intact. Chest: [diminished breath sound bilaterally, no crackles or rhonchi or wheezes.. ] Cardiac Exam: [Normal S1 and S2, no S3 gallop, no murmur.] Abdomen: [Soft, nontender, no megaly, no rebound, no guarding, normal bowel sounds.] PEG tube was noted to be intact. Extremities: [No clubbing, no edema, no cyanosis.] Neurological Exam: [No gross focal neurologic deficit. - Labs CBC & Chem 7: 09/13/16 06:00 09/13/16 06:00 Labs: Abnormal Lab Results - Last 24 Hours (Table) 09/12/16 09/13/16 09/13/16 Range/Units 18:42 00:51 06:00 WBC (3.8-10.6) k/uL RBC (3.80-5.40) m/uL Hgb (11.4-16.0) gm/dL Hct (34.0-46.0) % MCHC (31.0-37.0) g/dL RDW (11.5-15.5) % Plt Count (150-450) k/uL BUN 34 H (7-17) mg/dL POC Glucose (mg/dL) 102 H 104 H (75-99) mg/dL Phosphorus 5.2 H (2.5-4.5) mg/dL Magnesium 2.5 H (1.6-2.3) mg/dL 09/13/16 09/13/16 Range/Units 06:00 06:09 WBC 15.8 H (3.8-10.6) k/uL RBC 3.21 L (3.80-5.40) m/uL Hgb 9.2 L (11.4-16.0) gm/dL Hct 29.9 L (34.0-46.0) % MCHC 30.7 L (31.0-37.0) g/dL RDW 15.6 H (11.5-15.5) % Plt Count 496 H (150-450) k/uL BUN (7-17) mg/dL POC Glucose (mg/dL) 103 H (75-99) mg/dL Phosphorus (2.5-4.5) mg/dL Magnesium (1.6-2.3) mg/dL Assessment and Plan Plan: 1 acute left lower lobe pneumonia with secondary pleurisy and shortness of breath On 09/05/2016, the patient progressively went into respiratory failure. She developed worsening in the left basal infiltrate along with a hemoglobin of a small left-sided pleural effusion. She became more tachypneic and she subsequently went to respiratory failure, failed BiPAP, ultimately intubated and placed on a mechanical ventilator. Currently she is an assist-control mode. Post intubation chest x-ray and blood gases are still pending. On 09/06/2016 the patient was weaned off the mechanical ventilator and the patient was extubated. Chest x-ray still showing some limited left lower lobe pulmonary infiltration. The rapid extubation was done as the patient has severe COPD and I did not want to let's patient on a mechanical ventilator for extended period of time. The patient was extubated as long as she was doing better. On 09/08/2016, the patient is intubated after being extubated on 09/06/2016. The patient was unable to tolerate extubation for more than 24 hours. She became progressively more bronchospastic and wheezy and she was using accessory muscles of breathing. She furthermore failed BiPAP treatment and for that reason she was reintubated. She is doing better right now while being on assist control mode of ventilation on the mechanical ventilator. Chest x-ray findings are essentially stable with a stable consolidation of the left lower lobe. Hemodynamically the patient is stable for now. On 09/09/2016, remains intubated, however before extubating the patient, I would like to discuss the CODE STATUS again with the family. If the patient is to be reintubated, I prefer and eventually proceed with tracheostomy. However the patient is made DO NOT RESUSCITATE, and not to reintubate in case if she fails, then it would be appropriate to proceed with weaning trials on a daily basis and possibly extubate once we feel that she has a better chance to do well postextubation. However I prefer to discuss the CODE STATUS and the issue of intubation or not after extubation. On 09/10/2016, patient remains on mechanical ventilation, had a long discussion with her family at bedside, and given the option of either extubation and not to reintubate considering her poor prognostic picture and considering his severe COPD not to mention the poor quality of life, they were also given the option of tracheostomy and PEG tube placement and eventually transferred to a select care specialty. Family would like to decide on this, not quite ready to make a decision. In the meantime we'll plan to continue present supportive care measures, and we will follow closely. On 09/11/2016, patient is basically about the same. Today I plan to give the patient a weaning trial off propofol, and we'll decide whether to extubate depending on how she does, in the meantime I'm still waiting to hear from the family regarding decision for tracheostomy or extubation but not reintubation if the patient fails. On 09/12/2016, patient is about the same, and plan tracheostomy and PEG tube placement today. That will make weaning off mechanical ventilation easier, and we can even possibly consider referring the patient to select care specialty. On 09/13/2016, patient is status post tracheostomy and PEG tube placement, postoperative day #1. she is tolerating pressure support and CPAP well, has I would likely switch the patient to a trach collar. We will start PEG tube feeding. 2 advanced COPD with an FEV1 of 24% of predicted consistent with severe disease 3 chronic hypoxic respiratory failure maintained on oxygen at 2 L per minute nasal cannula on outpatient basis 4 mediastinal lymphadenopathy, could be potentially pathologic and malignant and this needs to be followed up at a later stage and biopsy will be indicated if there is enlargement in the size of the lymph nodes. Rule out underlying malignancy. 5 coronary artery disease 6 chronic anemia 7 hypertension 8 hyperlipidemia 9 status post tracheostomy and PEG tube placement, postoperative day #1. Recommendation: Patient is tolerating pressure support of 8 and CPAP quite well , hence I plan to switch her to a trach collar. And if that is well-tolerated over the next 24 hours, I would likely transfer the patient to a regular medical floor. With possible discharge planning early next week. In the meantime continue feeding via PEG tube and continued nutritional support as well as her antibiotics and bronchodilators and steroids. Prognosis remains guarded, patient remains relatively critically ill. Critical care time is 33 minutes. Time with Patient: Greater than 30
[2016-09-13] MEDS: LEVOFLOXACIN 750MG-D5W PMX 750 MG in DEXTROSE/WATER 1 150ML.BAG IVPB SCH (14:18)
[2016-09-13] MEDS: VERAPAMIL SR 240 MG TABLET.ER PO SCH (14:18)
[2016-09-13 14:25] LABS: Glucose,Whole Blood 105 mg/dL (75-99)
[2016-09-13] MEDS: PANTOPRAZOLE 40 MG TABLET PO SCH (16:38)
[2016-09-13 17:28] LABS: Glucose,Whole Blood 90 mg/dL (75-99)
--- NOTE | 2016-09-13 17:52 | P.PN ---
Subjective 71-year-old female with end-stage COPD FEV of 24% comes in to the hospital with difficulty breathing. Patient was intubated secondary to a left lower lobe pneumonia causing acute exacerbation of COPD. Patient was apparently extubated thereafter was reintubated due to failure and change in mental status. Today patient was seen by the stockroom associate was on minimal settings no rapid spontaneous breathing trials were encouraged.. The pipe coverer helper as discussed with the patient's family in regards to the outlook if patient fails another extubation. Patient apparently is adamant that she does not want to be dependent on a vent. And she has verbalized this to the family in the past. Patient is sedated currently on propofol on the ventilator on minimal settings ABG was reviewed from this morning. No significant oral or ET tube secretions reported. 09/11/16 On CPAP RSBI <100 awake following commands was able to states that she does want a trach, however wants to be a DNR Family was at bedside, who agreed with her requests. pt was not on sedation during this eval no overnight events. 09/12/2016 Patient is to undergo trach in PEG tube placement. And weaning trials to be done over the next few weeks. No other overnight events reported. 09/13/16 on trach collar during my eval. was on full vent support overnight. was tearful , states to be frustrated. however is learning using charts to communicate. Objective - Vital Signs Vital signs: Vital Signs Temp 98.2 F 09/13/16 16:00 Pulse 99 09/13/16 17:00 Resp 18 09/13/16 17:00 BP 99/54 09/13/16 02:00 Pulse Ox 96 09/13/16 17:00 Intake & Output 09/12/16 09/13/16 09/13/16 18:59 06:59 18:59 Intake Total 753 347.701 225.0 Output Total 970 2680 800 Balance -217 -2332.299 -575.0 Weight 72.7 kg 72.7 kg Intake: IV 753 304.0 185.0 0.9 for pressure bag 33 39 15 Levofloxacin 750Mg-D5w 100 Pmx 750 mg In Dextrose/ Water 1 150ml.bag @ 100 mls/hr IVPB Q24H [facility] Rx#: [id number] Piperacillin-Tazobactam 3 100 25.0 50.0 .375 gm In Dextrose/Water 1 50ml.bag @ 12.5 mls/hr IVPB Q8HR [facility] Rx#: [id number] Sodium Chloride 0.9% 1, 220 240 120 000 ml @ 20 mls/hr IV . Q24H [facility] Rx#:[id number] Intake, IV Titration 43.701 20 Amount Propofol 500 mg In Empty 43.701 Bag 1 bag @ Titrate IV . Q0M [facility] Rx#:[id number] Sodium Chloride 0.9% 1, 20 000 ml @ 20 mls/hr IV . Q24H [facility] Rx#:[id number] Tube Feeding 0 20 Output: Urine 970 2680 800 Other: Voiding Method Indwelling Catheter Indwelling Catheter Indwelling Catheter # Voids 100 # Bowel Movements 0 0 ABP, PAP, CO, CI - Last Documented Arterial Blood Pressure 115/38 - Exam awake alert oriented times 3. Lungs good air movement diminished at the bases however no rhonchi or wheezing appreciated Heart S1-S2 heard regular rate and rhythm no murmurs appreciated Abdomen soft nontender no organomegaly Lower extremities no edema noted neuro exam moves all four ext. - Labs CBC & Chem 7: 09/13/16 06:00 09/13/16 06:00 Labs: Abnormal Lab Results - Last 24 Hours (Table) 09/12/16 09/13/16 09/13/16 Range/Units 18:42 00:51 06:00 WBC (3.8-10.6) k/uL RBC (3.80-5.40) m/uL Hgb (11.4-16.0) gm/dL Hct (34.0-46.0) % MCHC (31.0-37.0) g/dL RDW (11.5-15.5) % Plt Count (150-450) k/uL BUN 34 H (7-17) mg/dL POC Glucose (mg/dL) 102 H 104 H (75-99) mg/dL Phosphorus 5.2 H (2.5-4.5) mg/dL Magnesium 2.5 H (1.6-2.3) mg/dL 09/13/16 09/13/16 09/13/16 Range/Units 06:00 06:09 14:21 WBC 15.8 H (3.8-10.6) k/uL RBC 3.21 L (3.80-5.40) m/uL Hgb 9.2 L (11.4-16.0) gm/dL Hct 29.9 L (34.0-46.0) % MCHC 30.7 L (31.0-37.0) g/dL RDW 15.6 H (11.5-15.5) % Plt Count 496 H (150-450) k/uL BUN (7-17) mg/dL POC Glucose (mg/dL) 103 H 105 H (75-99) mg/dL Phosphorus (2.5-4.5) mg/dL Magnesium (1.6-2.3) mg/dL Assessment and Plan Plan: #1 acute on chronic hypoxic hypercapnic respiratory failure secondary to a left lower lobe pneumonia causing acute exacerbation of COPD #2 CAD. #3 chronic anemia #4 history of hypertension #5 dyslipidemia plan code status is DNR dc to a [facility]. taper of steroids, and to continue breathing tx.
[2016-09-13] MEDS: HYDROcodone/APAP 5-325MG 1 EACH TAB PO PRN (22:07)
[2016-09-13] MEDS: PARoxetine 20 MG TAB PO SCH (22:09)
[2016-09-14 00:20] LABS: Glucose,Whole Blood 77 mg/dL (75-99)
[2016-09-14] MEDS: INSULIN LISPRO (humaLOG) 300 UNIT/3 ML VIAL SQ SCH ×3 (00:23→12:08)
[2016-09-14] MEDS: methylPREDNISolone SOD SUCCI 125 MG/2 ML VIAL IV SCH ×2 (00:23→08:24)
[2016-09-14] MEDS: PIPERACILLIN-TAZOBACTAM 3.375 GM in DEXTROSE/WATER 1 50ML.BAG IVPB SCH ×2 (00:23→08:24)
[2016-09-14] MEDS: HEPARIN SODIUM,PORCINE 5,000 UNIT/ML 1 ML VIAL SQ SCH ×2 (00:23→08:24)
[2016-09-14 03:53] LABS: Glucose,Whole Blood 102 mg/dL (75-99)
[2016-09-14] MEDS: LEVALBUTEROL NEB (CONC) 1.25 MG/0.5 ML AMP INHALATION SCH ×3 (04:22→11:45)
[2016-09-14] MEDS: IPRATROPIUM 0.5 MG/2.5 ML NEBU INHALATION SCH ×3 (04:22→11:45)
[2016-09-14 04:25] LABS: CH 28.8; CHCM 30.7; HCT 30.4 % (34.0-46.0); HDW 2.31; HGB 9.6 gm/dL (11.4-16.0); Hypochromasia Slight; MCH 29.5 pg (25.0-35.0); MCHC 31.4 g/dL (31.0-37.0); MCV 93.9 fL (80.0-100.0); Mean Platelet Volume 7.3; RBC 3.24 m/uL (3.80-5.40); RDW 15.8 % (11.5-15.5); WBC 13.6 k/uL (3.8-10.6)
[2016-09-14 04:41] LABS: Anion Gap 5 mmol/L; Blood Urea Nitrogen 30 mg/dL (7-17); Calcium 9.2 mg/dL (8.4-10.2); Carbon Dioxide 32 mmol/L (22-30); Chloride 102 mmol/L (98-107); Glucose 103 mg/dL (74-99); Magnesium 2.3 mg/dL (1.6-2.3); Non-African American GFR(MDRD) >60 (>60 ml/min/1.73 sqM); Phosphorous 4.8 mg/dL (2.5-4.5); Potassium 4.5 mmol/L (3.5-5.1); Sodium 139 mmol/L (137-145)
[2016-09-14 06:33] LABS: Glucose,Whole Blood 124 mg/dL (75-99)
[2016-09-14] MEDS: BUDESONIDE 1 MG/2 ML NEBU INHALATION SCH (07:32)
[2016-09-14] MEDS: PANTOPRAZOLE 40 MG/10 ML VIAL IV SCH (08:24)
[2016-09-14] MEDS: VERAPAMIL SR 240 MG TABLET.ER PO SCH (08:31)
[2016-09-14] MEDS: CHLORHEXIDINE GLUCONATE 15 ML CUP MUCOUS MEM SCH (08:31)
[2016-09-14] MEDS: NYSTATIN 100,000 UNIT/ML SUSP 500,000 UNIT/5 ML CUP PO SCH ×2 (08:33→13:21)
--- NOTE | 2016-09-14 11:32 | P.PN ---
Subjective Principal diagnosis: Acute respiratory failure secondary to his COPD exacerbation This 71-year-old female patient with known history of advanced COPD, oxygen dependent at 2 L/m nasal cannula who has a FEV1 of 24% of predicted. The patient was in the hospital for an acute COPD exacerbation back in June 2016. The patient was seen in the office following that and she was placed on Spiriva as maintenance along with albuterol neb last treatment was on incentive basis. The patient was doing well until around 24-48 hours ago when she woke up feeling diffuse body aches and generalized weakness and feeling lethargic. At the same time she had a pleuritic left-sided chest pain. She initially went to [facility] and following that she was brought into the [facility] for further investigation. CAT scan of the chest was done that showed a left lower lobe consolidation typical of an underlying pneumonia. There is some last forming consolidation and evidence of subcarinal and left paratracheal lymphadenopathy is obviously concerning and needs to be followed up to make sure this is not a malignant process. Despite all this, the patient has no fever or chills. No hemodynamic instability. She is up to 5 L of oxygen by nasal cannula which were able to wean it down to 3 L. She is on accommodation of Rocephin and Zithromax. She is producing adequate amount of urine output. No other significant events over the past 12-24 hours. On 09/05/2016 the patient is being seen in follow-up. The patient has developed significant worsening in her respiratory status. Earlier this morning I was informed of the patient was having labored breathing and she was becoming more restless and agitated. At that time I ordered to start the patient on systemic steroids, and the chest x-ray was also done and showed worsening of the left lung pulmonary infiltrate along with development of a small left-sided pleural effusion. At that point the patient that she has resulted intensive care unit patient was started on BiPAP which she was unable to tolerate due to increased restlessness, agitation, and asynchronous with the BiPAP. At that point, the patient was intubated. I intubated the patient and I started her on sedation with Diprivan. Currently she assist-control mode of ventilation. She is post intubation. Chest x-ray still pending. A triple lumen catheter was inserted. Hemodynamically she remains stable. No hypotension. Urine output remains adequate. The family was informed and a message was left over the phone to them of the above-mentioned changes. On 09/06/2016 the patient is being seen in follow-up. She is hemodynamically stable. She is was sedated on Diprivan. She is calm and comfortable. Peak airway pressures around 24. Chest x-ray showing some limited left lower lobe infiltration and small effusion. No significant orotracheal secretions. Hemodynamically stable. Follow-up blood gases from this morning showed a pH of 7.42 with a pCO2 of 41 and pO2 of 183. This was done with an FiO2 of 50%. Based on this, the patient was given a sedation holiday and she woke up appropriately where she was able to follow commands and answering questions appropriately. The patient was then given a spontaneous breathing trial with a pressure support of 5 and a PEEP of 5 and this presents for total of 30 minutes. The subsequent blood gases showed adequate numbers with pH of 7.42 and a pCO2 of 41 and pO2 of 145. At that point, the patient was extubated. Currently she is awake and alert and she is following commands and answering questions. No signs of any major respiratory distress. The patient is seen again today 09/07/2016 in follow-up in the intensive care unit. Upon evaluation she was having some respiratory difficulty. She had gotten up to the bedside commode with assistance and did have a bowel movement. By the time she had gotten back in bed she was quite short of breath, tachycardic and hypertensive. Her chest x-ray shows increased pulmonary venous congestion and infiltrate of the left lung base. She has been afebrile. She was maintaining O2 saturations in the low 90s on 3 L/m. Blood cultures reveal no growth to date. Sputum cultures pending. Current white count 17.8. Hemoglobin 7.8. On 09/08/2016, the patient is intubated. Noted the patient's was having some respiratory difficulties yesterday morning. We'll watched her throughout the morning and late in the afternoon the patient became more short of breath. She was placed on BiPAP however she failed BiPAP therapy knowing that she was becoming more lethargic and asynchronous and she was using abdominal muscles of breathing. Based on that, but decided to intubate the patient and put her back on a mechanical ventilation. This morning, the patient is an assist-control mode of ventilation and FiO2 has been down to 40% and she is in a PEEP of 5 with a tidal volume of 400. Oxygenation is improved and the pO2 is above 100. Peak airway pressures elevated at around 33. Static pressures around 17. Chest x-ray shows a stable left lower lobe consolidation small effusion. She is not wheezing as much. She is calm and comfortable while being sedated with Diprivan. Enteral feeding will be restarted. Hemodynamically stable. No other significant issues over the past 24 hours specially post intubation. On 09/09/2016, patient remains on mechanical ventilation, chest x-ray showed a small left lower lobe atelectasis and possibly a small left pleural effusion. Patient remains on propofol, she is hemodynamically stable. Remains on the same vent settings, FiO2 is down to 30%. PEEP is 5 tidal volume is 400. ABG showed a pO2 of 148 pCO2 of 42 pH of 7.50. Hemoglobin is 7.9 WBC count is 8.6. Basic metabolic profile is relatively normal except for a bicarb of 34. Renal profile is normal. On 09/10/2016, patient remains on mechanical ventilation, chest x-ray is basically about the same showing a small area of atelectasis and possibly a small effusion on the left side. Patient remains on propofol drip, she remains hemodynamically stable, tolerating nutritional support via enteral feeding.ABG this morning showed a pO2 of 104 pCO2 of 41 pH of 7.47.hemoglobin is 8.0, basic metabolic profile is relatively normal.medications were reviewed, remains on the same course of bronchodilators, remains on antibiotics and steroids.sputum was positive only for Baylee. Which is felt to be a contamination. Reevaluated today on 09/11/2016, remains on mechanical ventilation, propofol drip , same vent settings, chest x-ray is basically about the same, all labs were reviewed. Including ABG showed a pO2 of 98 pCO2 of 42 pH of 7.46. Electrolytes and renal profile is relatively normal. Hemoglobin is 8.6. Today I plan to give the patient a weaning trial, however I would like to hear from the family regarding final decision about reintubation or tracheostomy. I have a very strong feeling that the patient will likely failed extubation and at this point I would likely recommend tracheostomy and PEG tube placement. Family is yet to get back to me regarding final decision. In the meantime we' ll continue weaning trials on a daily basis. Off propofol, and we'll continue the same treatment plan including antibiotics bronchodilators and nutritional support. Reevaluated today on 09/12/2016, remains on mechanical ventilation, propofol drip , same vent settings, x-ray is about the same. Patient is scheduled to undergo tracheostomy and PEG tube placement today. Labs were reviewed, her hemoglobin is 8.7 today WBC count is 10.8 electrolytes and renal profile are normal. Reevaluated today on 09/13/2016, patient is status post tracheostomy and PEG tube placement, postoperative day #1. She is off propofol, she seems to be doing quite well, and I give her a trial of pressure support of 8 and CPAP. She tolerated the trial quite well, hence I plan to switch her to a trach collar. Today we will likely start using her PEG tube for feeding and nutritional support. CBC showed leukocytosis with WBC count of 15.8 hemoglobin is 9.2 electrolytes and renal profile are normal. Chest x-ray showed some atelectasis in the left lower lobe and a small pleural effusion Reevaluated today on 09/14/2016, patient has been tolerating trach collar for the last 24 hours. She did not require to go back on mechanical ventilation, she seems to be very comfortable, in no distress, off propofol. Patient was evaluated yesterday by [facility], and she may be considered for possible transfer to their facility today. Labs were reviewed, she had a relatively normal basic metabolic profile and a relatively normal CBC. No chest x-ray was done today because it was felt to be not necessary. Nutrition cardozo, patient is being fed via PEG tube. Continues to have a central line in the left neck area, and she has an arterial line which I will discontinue today. Objective - Vital Signs Vital signs: Vital Signs Temp 98.2 F 09/14/16 08:00 Pulse 93 09/14/16 11:00 Resp 22 09/14/16 11:00 BP 124/58 09/14/16 11:00 Pulse Ox 96 09/14/16 11:00 Intake & Output 09/13/16 09/14/16 09/14/16 18:59 06:59 18:59 Intake Total 316.5 488.5 299.5 Output Total 875 1173 460 Balance -558.5 -684.5 -160.5 Weight 72.7 kg 67.8 kg Intake: IV 246.5 338.5 149.5 0.9 for pressure bag 24 36 12 Piperacillin-Tazobactam 3 62.5 62.5 37.5 .375 gm In Dextrose/Water 1 50ml.bag @ 12.5 mls/hr IVPB Q8HR [facility] Rx#: [id number] Sodium Chloride 0.9% 1, 160 240 100 000 ml @ 20 mls/hr IV . Q24H [facility] Rx#:[id number] Intake, IV Titration 20 Amount Sodium Chloride 0.9% 1, 20 000 ml @ 20 mls/hr IV . Q24H [facility] Rx#:[id number] Oral 0 Tube Feeding 50 120 120 Other 30 30 Output: Urine 875 1173 460 Other: Voiding Method Indwelling Catheter Indwelling Catheter Indwelling Catheter # Voids 100 ABP, PAP, CO, CI - Last Documented Arterial Blood Pressure 147/54 - Exam Physical Exam: Revealed a 71-year-old female on trach collar Awake, alert, and oriented, off mechanical ventilation. Tracheostomy tube seems to be intact. HEENT:[Neck is supple.] [No neck masses.] [No thyromegaly.] [No JVD.]: Tracheostomy tube seems to be intact. PEG tube is intact. Chest: [diminished breath sound bilaterally, no crackles or rhonchi or wheezes.. ] Cardiac Exam: [Normal S1 and S2, no S3 gallop, no murmur.] Abdomen: [Soft, nontender, no megaly, no rebound, no guarding, normal bowel sounds.] PEG tube was noted to be intact. Extremities: [No clubbing, no edema, no cyanosis.] Neurological Exam: [No gross focal neurologic deficit. - Labs CBC & Chem 7: 09/14/16 04:00 09/14/16 04:00 Labs: Abnormal Lab Results - Last 24 Hours (Table) 09/13/16 09/14/16 09/14/16 Range/Units 14:21 03:50 04:00 WBC (3.8-10.6) k/uL RBC (3.80-5.40) m/uL Hgb (11.4-16.0) gm/dL Hct (34.0-46.0) % RDW (11.5-15.5) % Carbon Dioxide 32 H (22-30) mmol/L BUN 30 H (7-17) mg/dL Glucose 103 H (74-99) mg/dL POC Glucose (mg/dL) 105 H 102 H (75-99) mg/dL Phosphorus 4.8 H (2.5-4.5) mg/dL 09/14/16 09/14/16 Range/Units 04:00 06:29 WBC 13.6 H (3.8-10.6) k/uL RBC 3.24 L (3.80-5.40) m/uL Hgb 9.6 L (11.4-16.0) gm/dL Hct 30.4 L (34.0-46.0) % RDW 15.8 H (11.5-15.5) % Carbon Dioxide (22-30) mmol/L BUN (7-17) mg/dL Glucose (74-99) mg/dL POC Glucose (mg/dL) 124 H (75-99) mg/dL Phosphorus (2.5-4.5) mg/dL Assessment and Plan Plan: 1 acute left lower lobe pneumonia with secondary pleurisy and shortness of breath On 09/05/2016, the patient progressively went into respiratory failure. She developed worsening in the left basal infiltrate along with a hemoglobin of a small left-sided pleural effusion. She became more tachypneic and she subsequently went to respiratory failure, failed BiPAP, ultimately intubated and placed on a mechanical ventilator. Currently she is an assist-control mode. Post intubation chest x-ray and blood gases are still pending. On 09/06/2016 the patient was weaned off the mechanical ventilator and the patient was extubated. Chest x-ray still showing some limited left lower lobe pulmonary infiltration. The rapid extubation was done as the patient has severe COPD and I did not want to let's patient on a mechanical ventilator for extended period of time. The patient was extubated as long as she was doing better. On 09/08/2016, the patient is intubated after being extubated on 09/06/2016. The patient was unable to tolerate extubation for more than 24 hours. She became progressively more bronchospastic and wheezy and she was using accessory muscles of breathing. She furthermore failed BiPAP treatment and for that reason she was reintubated. She is doing better right now while being on assist control mode of ventilation on the mechanical ventilator. Chest x-ray findings are essentially stable with a stable consolidation of the left lower lobe. Hemodynamically the patient is stable for now. On 09/09/2016, remains intubated, however before extubating the patient, I would like to discuss the CODE STATUS again with the family. If the patient is to be reintubated, I prefer and eventually proceed with tracheostomy. However the patient is made DO NOT RESUSCITATE, and not to reintubate in case if she fails, then it would be appropriate to proceed with weaning trials on a daily basis and possibly extubate once we feel that she has a better chance to do well postextubation. However I prefer to discuss the CODE STATUS and the issue of intubation or not after extubation. On 09/10/2016, patient remains on mechanical ventilation, had a long discussion with her family at bedside, and given the option of either extubation and not to reintubate considering her poor prognostic picture and considering his severe COPD not to mention the poor quality of life, they were also given the option of tracheostomy and PEG tube placement and eventually transferred to a [facility] care [facility]. Family would like to decide on this, not quite ready to make a decision. In the meantime we'll plan to continue present supportive care measures, and we will follow closely. On 09/11/2016, patient is basically about the same. Today I plan to give the patient a weaning trial off propofol, and we'll decide whether to extubate depending on how she does, in the meantime I'm still waiting to hear from the family regarding decision for tracheostomy or extubation but not reintubation if the patient fails. On 09/12/2016, patient is about the same, and plan tracheostomy and PEG tube placement today. That will make weaning off mechanical ventilation easier, and we can even possibly consider referring the patient to [facility] care specialty. On 09/13/2016, patient is status post tracheostomy and PEG tube placement, postoperative day #1. she is tolerating pressure support and CPAP well, has I would likely switch the patient to a trach collar. We will start PEG tube feeding. On 09/14/2016, patient tolerated the trach collar for 24 hours, and I would likely transfer the patient [facility] care [facility] today. She will need physical therapy, and eventually decannulation of tracheostomy if she continues to do well over the next couple of weeks. 2 advanced COPD with an FEV1 of 24% of predicted consistent with severe disease 3 chronic hypoxic respiratory failure maintained on oxygen at 2 L per minute nasal cannula on outpatient basis 4 mediastinal lymphadenopathy, could be potentially pathologic and malignant and this needs to be followed up at a later stage and biopsy will be indicated if there is enlargement in the size of the lymph nodes. Rule out underlying malignancy. 5 coronary artery disease 6 chronic anemia 7 hypertension 8 hyperlipidemia 9 status post tracheostomy and PEG tube placement, postoperative day #2 we'll discontinue arterial line today. Recommendation: Agree with discharge planning to [facility] today. Time with Patient: Less than 30
[2016-09-14 11:48] LABS: Glucose,Whole Blood 129 mg/dL (75-99)
--- NOTE | 2016-09-14 12:29 | P.DS ---
Providers Date of admission: 09/03/16 23:20 Attending physician: Lilly Larkin Consults: 09/03/16 23:40 Consult Physician Routine Consulting Provider: Herminia Zabala Consult Reason/Comments: Pulmonary fibrosis, pneumonia Do you want consulting provider notified?: Yes, Notify in am 09/11/16 14:36 Consult Physician Routine Consulting Provider: Enoch Neri Consult Reason/Comments: Trach and Peg Do you want consulting provider notified?: Yes Primary care physician: Stated None Hospital Course: 71-year-old female with end-stage COPD FEV of 24% comes in to the hospital with difficulty breathing. Patient was intubated secondary to a left lower lobe pneumonia causing acute exacerbation of COPD. Patient was apparently extubated thereafter was reintubated due to failure and change in mental status. Today patient was seen by the single stroke preformer was on minimal settings no rapid spontaneous breathing trials were encouraged.. The corrosion control fitter as discussed with the patient's family in regards to the outlook if patient fails another extubation. Patient apparently is adamant that she does not want to be dependent on a vent. And she has verbalized this to the family in the past. Patient is sedated currently on propofol on the ventilator on minimal settings ABG was reviewed from this morning. No significant oral or ET tube secretions reported. 09/11/16 On CPAP RSBI <100 awake following commands was able to states that she does want a trach, however wants to be a DNR Family was at bedside, who agreed with her requests. pt was not on sedation during this eval no overnight events. 09/12/2016 Patient is to undergo trach in PEG tube placement. And weaning trials to be done over the next few weeks. No other overnight events reported. 09/13/16 on trach collar during my eval. was on full vent support overnight. was tearful , states to be frustrated. however is learning using charts to communicate. - Exam awake alert oriented times 3. Lungs good air movement diminished at the bases however no rhonchi or wheezing appreciated Heart S1-S2 heard regular rate and rhythm no murmurs appreciated Abdomen soft nontender no organomegaly Lower extremities no edema noted neuro exam moves all four ext. Assessment and Plan Plan: #1 acute on chronic hypoxic hypercapnic respiratory failure secondary to a left lower lobe pneumonia causing acute exacerbation of COPD, s/p tx with HCAP coverage for 10 days failed extubation Trach, cpap and vent support as tolerated. #2 CAD. #3 chronic anemia #4 history of hypertension #5 dyslipidemia 6. dysphagia : PEG tube : nephro goal 60ml/hr, free water 200c q8h flushes Lines: left IJ 09/05/16 Bender cath 09/05/16 continue levaquin 500mg peg tube prednisone 50mg Plan - Discharge Summary New Discharge Prescriptions: Cyclobenzaprine [Flexeril] 5 mg PO TID PRN #30 tablet PRN Reason: Spasms HYDROcodone/APAP 5-325MG [[place]ron 5-325] 1 tab PO Q8H PRN #30 tab MDD 8 TABLETS PRN Reason: Pain Levofloxacin [Levaquin] 500 mg PO DAILY #11 tab Nystatin 100,000 Unit/ml Susp [Mycostatin Oral Susp] 500,000 unit PO QID #20 cup predniSONE 50 mg PEG/G-TUBE DAILY #10 tab traMADol HCL [Ultram] 50 mg PO Q4HR PRN #30 tab PRN Reason: Shortness Of Breath Or Wheezing Discharge Medication List Acetaminophen Tab [Tylenol] 500 mg PO Q6H PRN MDD 4 GRAMS 06/30/16 [History] Aspirin EC [Ecotrin Low Dose] 81 mg PO DAILY 06/30/16 [History] Cyanocobalamin (Vitamin B-12) [Vitamin B12] 500 mcg PO DAILY 06/30/16 [History] Fenofibrate Nanocrystallized [Tricor] 145 mg PO DAILY 06/30/16 [History] Folic Acid 0.4 mg PO DAILY 06/30/16 [History] Multivitamins, Thera [Multivitamin (formulary)] 1 tab PO DAILY 06/30/16 [History ] PARoxetine HCL [Paxil] 40 mg PO HS 06/30/16 [History] Rosuvastatin Calcium [Crestor] 10 mg PO DAILY 06/30/16 [History] Tiotropium [place] [Spiriva] 1 cap INHALATION RT-DAILY 06/30/16 [History] Verapamil HCl [Verapamil ER] 240 mg PO DAILY 06/30/16 [History] Vitamin E 400 unit PO DAILY 06/30/16 [History] Omeprazole [PriLOSEC] 20 mg PO AC-BID #14 cap 07/03/16 [Rx] Albuterol Nebulized [Ventolin Nebulized] 2.5 mg INHALATION RT-QID 09/04/16 [ History] Cyclobenzaprine [Flexeril] 5 mg PO TID PRN #30 tablet 09/04/16 [Rx] Ipratropium/Albuterol Sulfate [Combivent Respimat Inhaler] 1 puff INHALATION RT- QID 09/04/16 [History] Budesonide [Pulmicort] 1 mg INHALATION RT-BID nebu 09/14/16 [Rx] Chlorhexidine Gluconate [Peridex] 15 ml MUCOUS MEM BID solution 09/14/16 [Rx] HYDROcodone/APAP 5-325MG [Wedron 5-325] 1 tab PO Q8H PRN #30 tab MDD 8 TABLETS [Rx] Levofloxacin [Levaquin] 500 mg PO DAILY #11 tab 09/14/16 [Rx] Nystatin 100,000 Unit/ml Susp [Mycostatin Oral Susp] 500,000 unit PO QID #20 cup 09/14/16 [Rx] predniSONE 50 mg PEG/G-TUBE DAILY #10 tab 09/14/16 [Rx] traMADol HCL [Ultram] 50 mg PO Q4HR PRN #30 tab 09/14/16 [Rx] Follow up Appointment(s)/Referral(s): Rhonda Glez NPC [REFERRING] - 09/09/16 1:30 pm Patient Instructions/Handouts: Pneumonia (DC) Discharge Disposition: [facility]
[2016-09-14 13:09] VITALS: TEMP 99.2
[2016-09-14] MEDS: LEVOFLOXACIN 750MG-D5W PMX 750 MG in DEXTROSE/WATER 1 150ML.BAG IVPB SCH (13:21)
[2016-09-14 14:25] VITALS: BP 113/67; PULSE 96; RESP 16
== END 2016-09-14 15:22 | DRG 4 ==
LOC: 6SEL 23:20 → 6ICU 09-05 10:12
PROVIDERS: ADMIT Internal Medicine; ATTEND Internal Medicine
PROC: 5A1955Z Respiratory Ventilation, Greater than 96 Consecutive Hours (ICD-10-PCS; principal; 2016-09-03)
PROC: 0BH17EZ Insertion of Endotracheal Airway into Trachea, Via Natural or Artificial Opening (ICD-10-PCS; 2016-09-03)
PROC: 03HY32Z Insertion of Monitoring Device into Upper Artery, Percutaneous Approach (ICD-10-PCS; 2016-09-05)
PROC: 05H633Z Insertion of Infusion Device into Left Subclavian Vein, Percutaneous Approach (ICD-10-PCS; 2016-09-05)
PROC: 0DH63UZ Insertion of Feeding Device into Stomach, Percutaneous Approach (ICD-10-PCS; 2016-09-12)
PROC: 0B110F4 Bypass Trachea to Cutaneous with Tracheostomy Device, Open Approach (ICD-10-PCS; 2016-09-12 14:30)
DX: J44.0 Chronic obstructive pulmonary disease with (acute) lower respiratory infection (principal); J18.9 Pneumonia, unspecified organism; J96.22 Acute and chronic respiratory failure with hypercapnia; J96.21 Acute and chronic respiratory failure with hypoxia; N17.9 Acute kidney failure, unspecified; J90 Pleural effusion, not elsewhere classified; J98.11 Atelectasis; I11.0 Hypertensive heart disease with heart failure; R13.10 Dysphagia, unspecified; J84.10 Pulmonary fibrosis, unspecified; I50.9 Heart failure, unspecified; D64.9 Anemia, unspecified; G89.29 Other chronic pain; M54.5 Low back pain; F41.1 Generalized anxiety disorder; T44.5X5A Adverse effect of predominantly beta-adrenoreceptor agonists, initial encounter; E86.9 Volume depletion, unspecified; J44.1 Chronic obstructive pulmonary disease with (acute) exacerbation; E78.5 Hyperlipidemia, unspecified; I25.10 Atherosclerotic heart disease of native coronary artery without angina pectoris; R59.0 Localized enlarged lymph nodes; I49.9 Cardiac arrhythmia, unspecified; Z66 Do not resuscitate; Z99.81 Dependence on supplemental oxygen; Z79.82 Long term (current) use of aspirin; Z79.899 Other long term (current) drug therapy; Z87.891 Personal history of nicotine dependence; Z95.5 Presence of coronary angioplasty implant and graft; Z82.49 Family history of ischemic heart disease and other diseases of the circulatory system; Y92.009 Unspecified place in unspecified non-institutional (private) residence as the place of occurrence of the external cause
CPT/HCPCS: 43246; 71010; 71020; 71275; 80048; 80053; 82805; 83036; 83605; 83735; 84100; 85025; 85027; 85379; 87040; 87070; 87205; 87502; 94002; 94003; 94640; 94660; 94760; 94770

== ENCOUNTER 2018-10-28 20:06 | Inpatient (IN) | payer MEDICARE ==
[2018-10-29] MEDS ORDERED: IPRATROPIUM-ALBUTEROL 3 ML NEB INHALATION PRN (01:12)
[2018-10-29] MEDS ORDERED: HYDROcodone/APAP 5-325MG 1 EACH TAB PO PRN (01:20)
[2018-10-29 05:27] VITALS: BMI 30.4
[2018-10-29 07:40] LABS: Glucose,Whole Blood 160 mg/dL (75-99)
[2018-10-29] MEDS ORDERED: BUDESONIDE 0.5 MG/2 ML NEBU INHALATION SCH (08:00)
[2018-10-29] MEDS: IPRATROPIUM-ALBUTEROL 3 ML NEB INHALATION SCH ×3 (08:37→15:51)
[2018-10-29] MEDS ORDERED: FOLIC ACID 1 MG TAB PO SCH (09:00)
[2018-10-29] MEDS ORDERED: ASPIRIN 81 MG PO SCH (09:00)
[2018-10-29] MEDS ORDERED: VERAPAMIL SR 240 MG TABLET.ER PO SCH (09:00)
[2018-10-29] MEDS ORDERED: CYANOCOBALAMIN 500 MCG TAB PO SCH (09:00)
[2018-10-29] MEDS ORDERED: LORATADINE 10 MG TAB PO SCH (09:00)
[2018-10-29] MEDS ORDERED: predniSONE 20 MG TAB PO SCH (09:00)
[2018-10-29] MEDS ORDERED: ATORVASTATIN 20 MG TAB PO SCH (09:00)
[2018-10-29] MEDS ORDERED: BUMETANIDE 0.25 MG/ML 10 ML VIAL IV SCH (09:00)
[2018-10-29] MEDS: INSULIN ASPART (NovoLOG) 100 UNIT/ML VIAL SQ SCH ×2 (09:53→14:35)
[2018-10-29 12:16] LABS: Glucose,Whole Blood 130 mg/dL (75-99)
--- NOTE | 2018-10-29 12:37 | P.CNPUL ---
History of Present Illness Consult date: 10/29/18 Requesting physician: Lilly Larkin Reason for consult: dyspnea Chief complaint: Worsening dyspnea History of present illness: This is a 73-year-old white female patient with past medical history of stage IV COPD, baseline FEV1 of 0.50 L or 24% of predicted, on home oxygen at 4 L around the clock, ex-smoker, quit smoking 3 years ago, but carries [id number] smoking history, chronic congestive heart failure, coronary artery disease, hypertension, hyperlipidemia, anxiety, and patient follows with Dr. Aguilera in the pulmonary clinic for her history of COPD. On 10/28/2018 patient presented to the hospital in [place] with complaints of worsening dyspnea, which was particularly worse with exertion, patient states she could not walk 3 feet without being severely short of breath and gasping for air. She denied any chest pain, denied any fever or chills, she did have limited cough with no phlegm production. Chest x-ray was completed at the [facility] showing mild central pulmonary vessel congestion, but no acute consolidation. D-dimer was mildly elevated at 1.450, and CT angios chest was completed showing no evidence of pulmonary embolism. Blood work showed white blood cell count of 9.87, hemoglobin of 11.7, platelet count was 302, serum sodium was 143, potassium is 4.2, chloride was 103, CO2 was 33, BUN was 20, creatinine was 0.9, lactic acid was mildly elevated at 2.3, troponin was negative at less than 0.017, proBNP was 185, within normal limits. Urinalysis showed no evidence of infection, vital signs were 98.5F, with a heart rate of 110 BPM, blood pressure is 165/69, patient was satting 94% on her usual 4 L of oxygen. She denies any weight gain, denies any lower extremity edema, she is on maintenance dose of oral Bumex at home, and she has been compliant with her medications. No chest pain, no diaphoresis, no nausea, vomiting or diarrhea. Patient was given a dose of IV Lasix, she was given IV dose of Solu-Medrol, she was given breathing tr eatments, and was transferred to [facility] for further management. She has received a dose of IV Bumex here, she is on oral prednisone, and on today's evaluation she is resting comfortably in bed, no acute distress, she states her breathing has improved. No fever or chills, her pulse ox is 99% on 4 L, vital signs are stable, respirations are even and nonlabored, lung sounds reveal minimal basilar crackles. No rhonchi or wheezes. The patient is probably stable for discharge home today Review of Systems All systems: negative Constitutional: Denies chills, Denies fever Eyes: denies blurred vision, denies pain Ears, nose, mouth and throat: Denies headache, Denies sore throat Cardiovascular: Denies chest pain, Denies shortness of breath Respiratory: Reports dyspnea, Reports home oxygen, Reports respiratory infection s, Denies cough Gastrointestinal: Denies abdominal pain, Denies diarrhea, Denies nausea, Denies vomiting Genitourinary: Denies dysuria, Denies hematuria Musculoskeletal: Denies myalgias Integumentary: Denies pruritus, Denies rash Neurological: Denies numbness, Denies weakness Psychiatric: Denies anxiety, Denies depression Endocrine: Denies fatigue, Denies weight change Past Medical History Past Medical History: Coronary Artery Disease (CAD), Heart Failure, COPD, Eye Disorder, Hyperlipidemia, Hypertension Additional Past Medical History / Comment(s): Cardiac arrythmia (patient says it skips a beat), pain in rotator cuff bilateral History of Any Multi-Drug Resistant Organisms: None Reported Past Surgical History: Heart Catheterization, Heart Catheterization With Stent, Tubal Ligation, Uterine Ablation Additional Past Surgical History / Comment(s): natural child , cervical cauterization Past Anesthesia/Blood Transfusion Reactions: No Reported Reaction Date of Last Stent Placement:: 1979 Past Psychological History: Anxiety Smoking Status: Former smoker Additional Drug Use History / Comment(s): Patient chews nicorette gum. Quit smoking in October 2015. - Past Family History Mother Family Medical History: Chest Pain / Angina, Congestive Heart Failure (CHF), COPD, Coronary Artery Disease (CAD) Additional Family Medical History / Comment(s): Father Family Medical History: Chest Pain / Angina, Congestive Heart Failure (CHF) Additional Family Medical History / Comment(s): Sister(s) Family Medical History: AICD/Pacemaker, Cancer, Chest Pain / Angina, Congestive Heart Failure (CHF), COPD Additional Family Medical History / Comment(s): breast cancer Medications and Allergies Home Medications Medication Instructions Recorded Confirmed Type Aspirin EC [Ecotrin Low Dose] 81 mg PO DAILY 06/30/16 10/28/18 History Folic Acid 0.4 mg PO DAILY 06/30/16 10/28/18 History Multivitamins, Thera [Multivitamin 1 tab PO DAILY 06/30/16 10/28/18 History (formulary)] PARoxetine HCL [Paxil] 40 mg PO HS 06/30/16 10/28/18 History Rosuvastatin Calcium [Crestor] 10 mg PO DAILY 06/30/16 10/28/18 History Tiotropium [place] [Spiriva] 1 cap INHALATION RT-DAILY 06/30/16 10/28/18 History Verapamil HCl [Verapamil ER] 240 mg PO DAILY 06/30/16 10/28/18 History Vitamin E 400 unit PO DAILY 06/30/16 10/28/18 History Albuterol Nebulized [Ventolin 2.5 mg INHALATION RT-QID PRN 09/04/16 10/28/18 History Nebulized] Ipratropium/Albuterol Sulfate 1 puff INHALATION RT-QID PRN 09/04/16 10/28/18 History [Combivent Respimat Inhaler] HYDROcodone/APAP 5-325MG [[place] 1 tab PO Q8H PRN #30 tab 09/14/16 10/28/18 Rx 5-325] Budesonide/Formoterol Fumarate 1 puff INHALATION RT-BID 10/28/18 10/28/18 History [Symbicort 160-4.5 Mcg Inhaler] Bumetanide 0.5 mg PO DAILY PRN 10/28/18 10/28/18 History Cyanocobalamin (Vitamin B-12) 1,000 mcg PO DAILY 10/28/18 10/28/18 History [Vitamin B-12] Famotidine [Pepcid] 20 mg PO HS 10/28/18 10/28/18 History Garlic 1 tab PO DAILY 10/28/18 10/28/18 History Ibuprofen [Motrin] 600 mg PO BID PRN 10/28/18 10/28/18 History Loratadine 10 mg PO DAILY 10/28/18 10/28/18 History Montelukast [Singulair] 10 mg PO HS 10/28/18 10/28/18 History [place]-3 Fatty Acids/Fish Oil [Fish 1 cap PO DAILY 10/28/18 10/28/18 History Oil 1,000 mg Softgel] Doxycycline Monohydrate [Monodox] 100 mg PO BID 3 Days #6 cap 10/29/18 Rx predniSONE 10 mg PO DAILY #30 tab 10/29/18 Rx Allergies Allergy/AdvReac Type Severity Reaction Status Date / Time Sulfa (Sulfonamide Allergy Dyspnea Verified 10/29/18 00:02 Antibiotics) Physical Exam Vitals: Vital Signs Temp Pulse Pulse Resp BP Pulse Ox 10/29/18 11:42 96 10/29/18 11:33 94 10/29/18 08:00 89 18 10/29/18 07:07 97.9 F 89 18 124/61 99 10/29/18 05:41 100 10/29/18 05:27 100 10/29/18 01:03 98.5 F 92 16 111/68 98 10/28/18 22:32 98.3 F 109 H 16 188/70 97 Intake and Output 10/28/18 10/29/18 10/29/18 22:59 06:59 14:59 Other: # Voids 1 1 # Bowel Movements 1 Weight 78.018 kg 77.8 kg GENERAL EXAM: Alert, pleasant, 73-year-old white female, obese, on 4 L of oxygen with pulse ox of 99% comfortable in no apparent distress. HEAD: Normocephalic/atraumatic. EYES: Normal reaction of pupils, equal size. Conjunctiva pink, sclera white. NOSE: Clear with pink turbinates. THROAT: No erythema or exudates. NECK: No masses, no JVD, no thyroid enlargement, no adenopathy. CHEST: No chest wall deformity. Symmetrical expansion. LUNGS: Equal air entry with minimal basilar crackles, but no wheeze, rhonchi or dullness. CVS: Regular rate and rhythm, normal S1 and S2, no gallops, no murmurs, no rubs ABDOMEN: Soft, nontender. No hepatosplenomegaly, normal bowel sounds, no gua rding or rigidity. EXTREMITIES: No clubbing, no edema, no cyanosis, 2+ pulses and upper and lower extremities. MUSCULOSKELETAL: Muscle strength and tone normal. SPINE: No scoliosis or deformity SKIN: No rashes CENTRAL NERVOUS SYSTEM: Alert and oriented -3. No focal deficits, tone is normal in all 4 extremities. PSYCHIATRIC: Alert and oriented -3. Appropriate affect. Intact judgment and insight. Results - Laboratory Findings Abnormal lab findings: Abnormal Labs 10/29/18 10/29/18 07:09 12:00 POC Glucose (mg/dL) 160 H 130 H - Diagnostic Findings Chest x-ray: report reviewed, image reviewed CT scan - chest: report reviewed Assessment and Plan Plan: Assessment: #1. Worsening dyspnea, likely related to a component of fluid volume overload, chest x-ray showed mild central vascular congestion, but no acute consolidation #2. Mildly elevated d-dimer, CTA chest showed no evidence of pulmonary embolism #3. Mild exacerbation of chronic obstructive pulmonary disease #4. Severe stage IV COPD, with a baseline FEV1 of 24% of predicted, with chronic hypoxemic and hypercapnic respiratory failure #5. History of nicotine dependence, currently in remission, patient quit smoking 3 years ago, but carries [id number] smoking history #6. Hypertension, hyperlipidemia #7. Anxiety #8. Coronary artery disease #9. Chronic congestive heart failure with unknown ejection fraction Plan: Patient is stable from pulmonary perspective, she has diuresed, she is breathing easier, she is back to her baseline, patient can finish outpatient course of prednisone taper, she can resume her usual inhalers and nebulized treatments, she can follow up with Dr. Bañuelos at the [facility] in 7-10 days. I performed a history & physical examination of the patient and discussed their management with my nurse practitioner, Mónica Carlson. I reviewed the nurse practitioner's note and agree with the documented findings and plan of care. Lung sounds are positive for diminished breath sounds with minimal crackles. The findings and the impression was discussed with the patient. I attest to the documentation by the nurse practitioner. Time with Patient: Greater than 30
[2018-10-29 14:42] VITALS: BP 127/65; RESP 16; TEMP 98.8
--- NOTE | 2018-10-29 15:09 | P.HPIM ---
History of Present Illness 73-year-old pleasant female with a stage IV COPD transferred from [facility] for COPD exacerbation. He quit smoking 3 years ago. Patient denied any fever chills is no pneumonia on the chest x-ray patient had a CAT scan of the chest as well no pneumonia or pulmonary embolism on the CAT scan. Patient is also on Lasix there is no evidence of congestive heart failure patient is a visit within normal limits. Patient also takes Bumex at home and she says if she doesn't take it patient will have pulmonary edema patient has normal liver serum creatinine because of which I'm not changing this. Patient is feeling well patient is saturating will ablate the patient is positive she is doing okay patient will be discharged today patient was evaluated cardiology. Patient will be switched to oral steroids. Patient will be discharged on GI prophylaxis. Patient will not require any IV steroids patient is not in heart failure exacerbation proBNP is 180. Patient does not have any elevated JVD doesn't have any pulmonary edema is 70 crackles on exam. Review of Systems REVIEW OF SYSTEMS: CONSTITUTIONAL: No fever, no malaise, no fatigue. HEENT: No recent visual problems or hearing problems. Denied any sore throat. CARDIOVASCULAR: No chest pain, orthopnea, PND, no palpitations, no syncope. PULMONARY: no hemoptysis. GASTROINTESTINAL: No diarrhea, no nausea, no vomiting, no abdominal pain. NEUROLOGICAL: No headaches, no weakness, no numbness. HEMATOLOGICAL: Denies any bleeding or petechiae. GENITOURINARY: Denies any burning micturition, frequency, or urgency. MUSCULOSKELETAL/RHEUMATOLOGICAL: Denies any joint pain, swelling, or any muscle pain. ENDOCRINE: Denies any polyuria or polydipsia. The rest of the 14-point review of systems is negative. Past Medical History Past Medical History: Coronary Artery Disease (CAD), Heart Failure, COPD, Eye Disorder, Hyperlipidemia, Hypertension Additional Past Medical History / Comment(s): Cardiac arrythmia (patient says it skips a beat), pain in rotator cuff bilateral History of Any Multi-Drug Resistant Organisms: None Reported Past Surgical History: Heart Catheterization, Heart Catheterization With Stent, Tubal Ligation, Uterine Ablation Additional Past Surgical History / Comment(s): natural child , cervical cauterization Past Anesthesia/Blood Transfusion Reactions: No Reported Reaction Date of Last Stent Placement:: 1979 Past Psychological History: Anxiety Smoking Status: Former smoker Additional Drug Use History / Comment(s): Patient chews nicorette gum. Quit smoking in October 2015. - Past Family History Mother Family Medical History: Chest Pain / Angina, Congestive Heart Failure (CHF), COPD, Coronary Artery Disease (CAD) Additional Family Medical History / Comment(s): Father Family Medical History: Chest Pain / Angina, Congestive Heart Failure (CHF) Additional Family Medical History / Comment(s): Sister(s) Family Medical History: AICD/Pacemaker, Cancer, Chest Pain / Angina, Congestive Heart Failure (CHF), COPD Additional Family Medical History / Comment(s): breast cancer Medications and Allergies Home Medications Medication Instructions Recorded Confirmed Type Aspirin EC [Ecotrin Low Dose] 81 mg PO DAILY 06/30/16 10/28/18 History Folic Acid 0.4 mg PO DAILY 06/30/16 10/28/18 History Multivitamins, Thera [Multivitamin 1 tab PO DAILY 06/30/16 10/28/18 History (formulary)] PARoxetine HCL [Paxil] 40 mg PO HS 06/30/16 10/28/18 History Rosuvastatin Calcium [Crestor] 10 mg PO DAILY 06/30/16 10/28/18 History Tiotropium [place] [Spiriva] 1 cap INHALATION RT-DAILY 06/30/16 10/28/18 History Verapamil HCl [Verapamil ER] 240 mg PO DAILY 06/30/16 10/28/18 History Vitamin E 400 unit PO DAILY 06/30/16 10/28/18 History Albuterol Nebulized [Ventolin 2.5 mg INHALATION RT-QID PRN 09/04/16 10/28/18 History Nebulized] Ipratropium/Albuterol Sulfate 1 puff INHALATION RT-QID PRN 09/04/16 10/28/18 History [Combivent Respimat Inhaler] HYDROcodone/APAP 5-325MG [[place] 1 tab PO Q8H PRN #30 tab 09/14/16 10/28/18 Rx 5-325] Budesonide/Formoterol Fumarate 1 puff INHALATION RT-BID 10/28/18 10/28/18 History [Symbicort 160-4.5 Mcg Inhaler] Bumetanide 0.5 mg PO DAILY PRN 10/28/18 10/28/18 History Cyanocobalamin (Vitamin B-12) 1,000 mcg PO DAILY 10/28/18 10/28/18 History [Vitamin B-12] Famotidine [Pepcid] 20 mg PO HS 10/28/18 10/28/18 History Garlic 1 tab PO DAILY 10/28/18 10/28/18 History Ibuprofen [Motrin] 600 mg PO BID PRN 10/28/18 10/28/18 History Loratadine 10 mg PO DAILY 10/28/18 10/28/18 History Montelukast [Singulair] 10 mg PO HS 10/28/18 10/28/18 History [place]-3 Fatty Acids/Fish Oil [Fish 1 cap PO DAILY 10/28/18 10/28/18 History Oil 1,000 mg Softgel] Doxycycline Monohydrate [Monodox] 100 mg PO BID 3 Days #6 cap 10/29/18 Rx predniSONE 10 mg PO DAILY #30 tab 10/29/18 Rx Allergies Allergy/AdvReac Type Severity Reaction Status Date / Time Sulfa (Sulfonamide Allergy Dyspnea Verified 10/29/18 00:02 Antibiotics) Physical Exam Vitals: Vital Signs Temp Pulse Pulse Resp BP Pulse Ox 10/29/18 13:59 98.8 F 93 16 127/65 96 10/29/18 11:42 96 10/29/18 11:33 94 10/29/18 08:00 89 18 10/29/18 07:07 97.9 F 89 18 124/61 99 10/29/18 05:41 100 10/29/18 05:27 100 10/29/18 01:03 98.5 F 92 16 111/68 98 10/28/18 22:32 98.3 F 109 H 16 188/70 97 Intake and Output 10/28/18 10/29/18 10/29/18 22:59 06:59 14:59 Other: # Voids 1 1 # Bowel Movements 1 Weight 78.018 kg 77.8 kg PHYSICAL EXAMINATION: GENERAL: The patient is alert and oriented x3, not in any acute distress. Well developed, well nourished. HEENT: Pupils are round and equally reacting to light. EOMI. No scleral icterus. No conjunctival pallor. Normocephalic, atraumatic. No pharyngeal erythema. No thyromegaly. CARDIOVASCULAR: S1 and S2 present. No murmurs, rubs, or gallops. PULMONARY: Chest is clear to auscultation, no wheezing or crackles. Crease air entry bilateral lung gilbert ABDOMEN: Soft, nontender, nondistended, normoactive bowel sounds. No palpable organomegaly. MUSCULOSKELETAL: No joint swelling or deformity. EXTREMITIES: No cyanosis, clubbing, or pedal edema. NEUROLOGICAL: Gross neurological examination did not reveal any focal deficits. SKIN: No rashes. Results Labs: Abnormal Lab Results - Last 24 Hours (Table) 10/29/18 10/29/18 Range/Units 07:09 12:00 POC Glucose (mg/dL) 160 H 130 H (75-99) mg/dL Thrombosis Risk Factor Assmnt - Choose All That Apply Any of the Below Risk Factors Present?: Yes Each Factor Represents 1 point: Abnormal pulmonary function (COPD) Each Risk Factor Represents 2 Points: Age 61-74 years Thrombosis Risk Factor Assessment Total Risk Factor Score: 3 Thrombosis Risk Factor Assessment Level: Moderate Risk Assessment and Plan Plan: Acute on chronic hypercapnic respiratory failure secondary to COPD exacerbation: Patient is clinically doing well will be discharged on weaning dose of steroids continue her inhalational treatments and oxygen for 3 days. -Hypertension -Hyperlipidemia -Coronary artery disease Anxiety disorder -Question congestive heart failure I do not have any echocardiogram ejection fraction is not known patient is euvolemic at this time. 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
--- NOTE | 2018-10-29 15:10 | P.DS ---
Providers Date of admission: 10/28/18 22:18 Attending physician: Gonzales Bolton MD Consults: 10/29/18 01:15 Consult Physician Routine Consulting Provider: Vickie Baig Consult Reason/Comments: COPD exacerbation Do you want consulting provider notified?: Yes, Notify in am Primary care physician: Stated None Hospital Course: As per HPI Plan - Discharge Summary Discharge Rx Participant: Yes New Discharge Prescriptions: New Doxycycline Monohydrate [Monodox] 100 mg PO BID 3 Days #6 cap predniSONE 10 mg PO DAILY #30 tab Continue Verapamil HCl [Verapamil ER] 240 mg PO DAILY Vitamin E 400 unit PO DAILY Tiotropium [place] [Spiriva] 1 cap INHALATION RT-DAILY Folic Acid 0.4 mg PO DAILY Multivitamins, Thera [Multivitamin (formulary)] 1 tab PO DAILY Aspirin EC [Ecotrin Low Dose] 81 mg PO DAILY Rosuvastatin Calcium [Crestor] 10 mg PO DAILY PARoxetine HCL [Paxil] 40 mg PO HS Ipratropium/Albuterol Sulfate [Combivent Respimat Inhaler] 1 puff INHALATION RT-QID PRN PRN Reason: Shortness Of Breath Albuterol Nebulized [Ventolin Nebulized] 2.5 mg INHALATION RT-QID PRN PRN Reason: Shortness Of Breath HYDROcodone/APAP 5-325MG [[place] 5-325] 1 tab PO Q8H PRN #30 tab PRN Reason: Pain Budesonide/Formoterol Fumarate [Symbicort 160-4.5 Mcg Inhaler] 1 puff INHALATION RT-BID Cyanocobalamin (Vitamin B-12) [Vitamin B-12] 1,000 mcg PO DAILY Famotidine [Pepcid] 20 mg PO HS Garlic 1 tab PO DAILY Ibuprofen [Motrin] 600 mg PO BID PRN PRN Reason: Pain Loratadine 10 mg PO DAILY Montelukast [Singulair] 10 mg PO HS [place]-3 Fatty Acids/Fish Oil [Fish Oil 1,000 mg Softgel] 1 cap PO DAILY Bumetanide 0.5 mg PO DAILY PRN PRN Reason: SWELLING Discharge Medication List Aspirin EC [Ecotrin Low Dose] 81 mg PO DAILY 06/30/16 [History] Folic Acid 0.4 mg PO DAILY 06/30/16 [History] Multivitamins, Thera [Multivitamin (formulary)] 1 tab PO DAILY 06/30/16 [History] PARoxetine HCL [Paxil] 40 mg PO HS 06/30/16 [History] Rosuvastatin Calcium [Crestor] 10 mg PO DAILY 06/30/16 [History] Tiotropium [place] [Spiriva] 1 cap INHALATION RT-DAILY 06/30/16 [History] Verapamil HCl [Verapamil ER] 240 mg PO DAILY 06/30/16 [History] Vitamin E 400 unit PO DAILY 06/30/16 [History] Albuterol Nebulized [Ventolin Nebulized] 2.5 mg INHALATION RT-QID PRN 09/04/16 [History] Ipratropium/Albuterol Sulfate [Combivent Respimat Inhaler] 1 puff INHALATION RT- QID PRN 09/04/16 [History] HYDROcodone/APAP 5-325MG [[place] 5-325] 1 tab PO Q8H PRN #30 tab 09/14/16 [Rx] Budesonide/Formoterol Fumarate [Symbicort 160-4.5 Mcg Inhaler] 1 puff INHALATION RT-BID 10/28/18 [History] Bumetanide 0.5 mg PO DAILY PRN 10/28/18 [History] Cyanocobalamin (Vitamin B-12) [Vitamin B-12] 1,000 mcg PO DAILY 10/28/18 [History] Famotidine [Pepcid] 20 mg PO HS 10/28/18 [History] Garlic 1 tab PO DAILY 10/28/18 [History] Ibuprofen [Motrin] 600 mg PO BID PRN 10/28/18 [History] Loratadine 10 mg PO DAILY 10/28/18 [History] Montelukast [Singulair] 10 mg PO HS 10/28/18 [History] [place]-3 Fatty Acids/Fish Oil [Fish Oil 1,000 mg Softgel] 1 cap PO DAILY 10/28/18 [History] Doxycycline Monohydrate [Monodox] 100 mg PO BID 3 Days #6 cap 10/29/18 [Rx] predniSONE 10 mg PO DAILY #30 tab 10/29/18 [Rx] Follow up Appointment(s)/Referral(s): Vickie Baig MD [STAFF PHYSICIAN] - 11/06/18 3:15 pm (With Lian) Trepkowski,Rhonda L, NPC [REFERRING] - 3 Days Discharge Disposition: HOME SELF-CARE
[2018-10-29 16:04] VITALS: PULSE 70
[2018-10-29] MEDS ORDERED: SYMBICORT 160-4.5 MCG INHALER INHALATION SCH (20:00)
[2018-10-29] MEDS ORDERED: MONTELUKAST 10 MG TAB PO SCH (21:00)
[2018-10-29] MEDS ORDERED: PARoxetine 20 MG TAB PO SCH (21:00)
[2018-10-29] MEDS ORDERED: FAMOTIDINE 20 MG TAB PO SCH (21:00)
== END 2018-10-29 17:41 | disposition home or self-care (01) | DRG 190 ==
LOC: 4SSUR 22:18
PROVIDERS: ADMIT Internal Medicine; ATTEND Internal Medicine
DX: J44.1 Chronic obstructive pulmonary disease with (acute) exacerbation (principal); J96.21 Acute and chronic respiratory failure with hypoxia; J96.22 Acute and chronic respiratory failure with hypercapnia; E78.5 Hyperlipidemia, unspecified; F41.9 Anxiety disorder, unspecified; I11.0 Hypertensive heart disease with heart failure; I25.10 Atherosclerotic heart disease of native coronary artery without angina pectoris; I50.9 Heart failure, unspecified; Z79.51 Long term (current) use of inhaled steroids; Z79.82 Long term (current) use of aspirin; Z79.899 Other long term (current) drug therapy; Z80.3 Family history of malignant neoplasm of breast; Z82.49 Family history of ischemic heart disease and other diseases of the circulatory system; Z82.5 Family history of asthma and other chronic lower respiratory diseases; Z87.891 Personal history of nicotine dependence; Z99.81 Dependence on supplemental oxygen; R79.1 Abnormal coagulation profile; Z88.2 Allergy status to sulfonamides; Z95.1 Presence of aortocoronary bypass graft
CPT/HCPCS: 94640

== ENCOUNTER 2019-09-12 09:37 | Inpatient (IN) | payer MEDICARE ==
[2019-09-12] MEDS ORDERED: NALOXONE 0.4 MG/ML 1 ML VIAL IV PRN (11:45)
[2019-09-12] MEDS ORDERED: ACETAMINOPHEN TAB 500 MG TAB PO PRN (11:49)
[2019-09-12] MEDS ORDERED: HYDROcodone/APAP 5-325MG 1 EACH TAB PO PRN (11:49)
[2019-09-12] MEDS ORDERED: ALPRAZolam 0.25 MG TAB PO PRN (11:49)
[2019-09-12] MEDS ORDERED: HEPARIN SODIUM,PORCINE 5,000 UNIT/ML 1 ML VIAL IV PRN (11:54)
[2019-09-12] MEDS ORDERED: HEPARIN SODIUM,PORCINE 5,000 UNIT/ML 1 ML VIAL IV ONE (11:54)
[2019-09-12] MEDS ORDERED: HEPARIN SOD,PORK IN 0.45% NACL 25,000 UNIT in 0.45% NACL 1 250ML.BAG IV SCH (12:00)
--- NOTE | 2019-09-12 12:18 | XR ---
EXAMINATION TYPE: XR chest 1V portable DATE OF EXAM: 09/12/2019 HISTORY: chf. REFERENCE: Previous study dated 09/13/2016. FINDINGS: The lungs are overinflated. The heart is mildly enlarged. Some increased in peripheral dens ities on the right may BE due to overlying soft tissues. Groundglass opacities can give a similar courtney earance. There is some scarring at the left lung base. IMPRESSION: 1. COPD. 2. MILD CARDIOMEGALY. 3. PERIPHERAL INCREASED DENSITIES MAY REFLECT OVERLYING SOFT TISSUES. EARLY INFILTRATES ARE NOT EXCLU DED.
[2019-09-12 12:26] LABS: Basophils % (A) 0 %; Eosinophils % (A) 0 %; HCT 27.9 % (34.0-46.0); HGB 8.7 gm/dL (11.4-16.0); Lymphocytes # (A) 1.1 k/uL (1.0-4.8); Lymphocytes % (A) 9 %; MCH 29.7 pg (25.0-35.0); MCHC 31.3 g/dL (31.0-37.0); MCV 94.9 fL (80.0-100.0); Monocytes # (A) 0.6 k/uL (0-1.0); Monocytes % (A) 5 %; Neutrophils # (A) 10.6 k/uL (1.3-7.7); Neutrophils % (A) 83 %; Platelet Count 178 k/uL (150-450); RBC 2.94 m/uL (3.80-5.40); RDW 12.7 % (11.5-15.5); WBC 12.8 k/uL (3.8-10.6)
[2019-09-12 12:34] LABS: INR 0.9 (<1.2); Partial Thromboplastin Time 38.6 sec (22.0-30.0); Prothrombin Time 9.7 sec (9.0-12.0)
[2019-09-12] MEDS: SODIUM CHLORIDE 0.9% 1,000 ML IV SCH ×2 (12:49→14:49)
[2019-09-12 12:50] LABS: ALT 13 U/L (4-34); AST 26 U/L (14-36); African American GFR (CKD) 49 (>60 ml/min/1.73 sqM); Albumin 2.9 g/dL (3.5-5.0); Alkaline Phosphatase 69 U/L (38-126); Anion Gap 1 mmol/L; Blood Urea Nitrogen 22 mg/dL (7-17); Calcium 7.7 mg/dL (8.4-10.2); Carbon Dioxide 31 mmol/L (22-30); Chloride 106 mmol/L (98-107); Glucose 114 mg/dL (74-99); Non-African American GFR(CKD) 42 (>60 ml/min/1.73 sqM); Potassium 4.4 mmol/L (3.5-5.1); Sodium 138 mmol/L (137-145); Total Bilirubin <0.1 mg/dL (0.2-1.3); Total Protein 5.5 g/dL (6.3-8.2)
[2019-09-12] MEDS: HYDROmorphone 0.5 MG/0.5 ML SYRINGE IVP PRN (13:20)
[2019-09-12] MEDS ORDERED: ALBUTEROL NEBULIZED 2.5 MG/3 ML INHALATION PRN (14:56)
[2019-09-12 16:56] LABS: Glucose,Whole Blood 184 mg/dL (75-99)
--- NOTE | 2019-09-12 17:02 | HP ---
HISTORY AND PHYSICAL CHIEF COMPLAINT: Multiple symptomatology including generalized weakness, achiness, chest pains and shortness of breath as well as elevated troponin. HISTORY OF PRESENT ILLNESS: This 74-year-old woman with a past medical history of multiple medical problems including history of CAD, history of CHF, COPD, hyperlipidemia, hypertension, cardiac cath, history of CAD/stent being followed by Dr. Ryanne Glez in the office setting, was not feeling well for the last couple days. Patient felt severely achy and subsequently patient checked into [facility] where the urinary tract infection with sepsis diagnosed and the patient was monitored initially. Initially Rocephin was given. Subsequently, antibiotics were changed because of nonimprovement. The patient is running some fever. Patient also had chest pain, shortness of breath and today the [place] physician called me directly and the patient directly transferred to [facility] for further evaluation and treatment. Currently the patient is complaining of shortness of breath. The calabrese virus testing was done which is negative. Troponin found to be 0.473. Cardiology evaluation in progress. A chest x-ray which was done at the time of admission, which I reviewed personally noted some peripheral increased opacities. There is no history of fever, rigors. No history of headache, loss of consciousness, seizures at this time. PAST MEDICAL HISTORY: History of CAD, CHF, COPD, hypertension, hyperlipidemia, history of CAD/stent and anxiety. MEDICATIONS: Home medications are: 1. Crestor 10 mg p.o. daily. 2. Fish oil 1 p.o. daily. 3. Hydrocodone 5 mg q.8 p.r.n. 4. Folic acid 0.4 daily. 5. Bumex 0.5 mg daily p.r.n. 6. Ecotrin 81 mg. 7. Albuterol nebulizer 2.5 q.i.d. p.r.n. 8. Vitamin E 400 units daily. 9. Combivent 1 puff q.i.d. 10.Vitamin B12 1000 mcg p.o. daily. 11.Verapamil ER 240 mg p.o. 12.Spiriva 1 puff daily. 13.Pepcid 20 mg q.h.s. 14.Symbicort 160/12.5 one puff b.i.d. 15.Paxil 40 mg q.h.s. 16.Multivitamins 1 p.o. daily. 17.Singulair 10 mg Q daily. 18.Cozaar 25 mg p.o. daily. 19.Loratadine 10 mg p.o. daily. 20.Motrin 600 mg b.i.d. p.r.n. ALLERGIES: SULFA. FAMILY HISTORY: History of COPD, CHF, CAD in the family. SOCIAL HISTORY: Previous history of smoking. No history of current smoking or alcohol intake. REVIEW OF SYSTEMS: ENT diminished vision. Diminished hearing. CARDIOVASCULAR SYSTEM: As mentioned earlier. RESPIRATORY: As mentioned earlier. GI no nausea or vomiting. no dysuria. Nervous system: No numbness or weakness. Allergy/Immunology: No asthma or hayfever. Musculoskeletal as mentioned earlier. Hematology/Oncology: No history of anemia. ENDOCRINE: As mentioned earlier. CONSTITUTIONAL: As mentioned earlier. DERMATOLOGY negative. RHEUMATOLOGY: Negative. PSYCHIATRIC: As mentioned earlier. PHYSICAL EXAMINATION: Alert and oriented times three. Pulse 104. Blood pressure 86/52, respiration 18, temperature 99.7, pulse ox 98% on 4 L. HEENT: Conjunctivae normal. NECK: No JVD. CARDIOVASCULAR: S1, S2 muffled. RESPIRATION: Breath sounds diminished in the bases. Few scattered rhonchi. ABDOMEN: Soft, nontender. No mass palpable. LEGS no edema, no swelling. NERVOUS SYSTEM higher functions as mentioned earlier. Moves all 4 limbs. No focal motor or sensory deficits. LYMPHATICS: No lymph nodes palpable in the neck, axillae or groin. SKIN: No ulcer, no rashes and no bleeding. JOINTS: No active deforming arthropathy. LABS: At this time shows: WBC 12.8, hemoglobin is 8.7, sodium 130, potassium 4.4. Creatinine is 1.25. Troponin 0.473. Albumin is 2.9. ASSESSMENT: 1. Chest pain, multiple symptomatology, rule out acute oxr-PE-busrzys-elevation myocardial infarction with troponin 0.473. 2. Increased creatinine with acute renal failure. 3. Possible urinary tract infection with sepsis. 4. Possible chronic obstructive pulmonary disease acute exacerbation and acute purulent tracheobronchitis. 5. Possible Covid-19 testing negative. 6. Increased WBC. 7. Anemia, normocytic. 8. Troponin 0.473. 9. History of stent. 10.History of congestive heart failure. 11.History of chronic obstructive pulmonary disease. 12.History of hypertension. 13.Hyperlipidemia. 14.History of cardiac arrhythmia. 15.History of anxiety. 16.Remote history of nicotine dependence. 17.FULL CODE. RECOMMENDATIONS AND DISCUSSION: In this 74-year-old woman who presented with multiple complex medical issues, we will monitor the patient closely. Continue the current medications. I recommend empiric antibiotics for UTI. Obtain cultures, blood and urine. Otherwise troponin is elevated. I would recommend cardiology consultation, 2D echo with Doppler for further evaluation and treatment. Patient also had other features including fever and some shortness of breath also, chronic obstructive pulmonary disease acute exacerbation with acute ventricular tracheobronchitis. Consider Covid-19 is also a concern, even though testing is negative. Overall prognosis is extremely guarded. See orders for details. Medication reconciliation was done. Discussed with the patient. Understands and agrees. Further recommendation to follow. JESSE / PRANAY: [id number] /
--- NOTE | 2019-09-12 17:18 | XR ---
EXAMINATION TYPE: XR chest 1V portable DATE OF EXAM: 09/12/2019 HISTORY: Shortness of breath. COMPARISON: 09/12/2019 TECHNIQUE: Single view of the chest is submitted. FINDINGS: Endotracheal tube is appropriately placed. There is evidence of massive subcutaneous emphysema. Evalu ation of the lungs is limited. Lungs appear hyperinflated. The heart is stable. Hilar and mediastinal structures are within normal limits. Degenerative changes are seen of the dorsal spine. IMPRESSION: 1. Endotracheal tube is appropriately placed. There is evidence of massive subcutaneous emphysema. E valuation of the lungs is limited. Lungs appear hyperinflated.
--- NOTE | 2019-09-12 18:02 | XR ---
EXAMINATION TYPE: XR chest 1V portable DATE OF EXAM: 09/12/2019 HISTORY: Shortness of breath. COMPARISON: Earlier in the day TECHNIQUE: Single view of the chest is submitted. FINDINGS: Placement of a left-sided chest tube with its distal tip overlying the left upper lobe. Endotracheal tube is unchanged. Extensive subcutaneous emphysema noted which limits evaluation of the lungs. There appears to be infiltrate right upper lobe. Sizable pneumothorax not clearly visualized. The heart is stable. Hilar and mediastinal structures are within normal limits. Degenerative changes are seen of the dorsal spine. IMPRESSION: 1. Placement of a left-sided chest tube with its distal tip overlying the left upper lobe. Endotrach eal tube is unchanged. Extensive subcutaneous emphysema noted which limits evaluation of the lungs. T here appears to be infiltrate right upper lobe. Sizable pneumothorax not clearly visualized.
[2019-09-12] MEDS: PROPOFOL 1,000 MG in EMPTY BAG 1 BAG IV SCH (18:09)
[2019-09-12 18:17] LABS: Glucose,Whole Blood 176 mg/dL (75-99)
[2019-09-12 18:30] LABS: ABG Base Excess -3.7 mmol/L; ABG HCO3 24 mmol/L (21-25); ABG Oxygen Saturation 98.2 % (94-97); ABG PCO2 57 mmHg (35-45); ABG PH 7.23 (7.35-7.45); ABG PO2 125 mmHg (83-108); ABG TCO2 26 mmol/L (19-24); Allen Test Performed? Yes
--- NOTE | 2019-09-12 18:31 | P.PN ---
Progress Note - Text Progress Note Date: 09/12/19 Code Blue Note: Arrived to the Unit with chest compression in progress. Per nursing patient was noted to be slumped over in the chair and was blue. HR quickly noted to be decreasing and she then became pulseless. CPR started. Blood sugar checked stat and > 150. Patient was given epi X 1. On pulse check in PEA additional epi X 2 and 1 amp of bicarb given. Patient intubated by RAIL GRINDER with Good color change noted and equal chest rise. V-fib on the monitor with defib X 1. Noted with return of ROSC a total down time 18 minutes. Noted to have manual BP of 70/50 and Levo started. BP She was noted to have massive subcutaneous emphysema in the chest wall. left sided BS decreased compared to right. ED physician called and CXR ordered. Dr. Domingo responded immediately. CXR reviewed by myself and Dr. Domingo it appeared that patient had L PTX with right sided mediastinal shift. He initially placed a thoravent. Dr. Vila was contacted and requested Chest tube to be placed. This was done by Dr. Domingo with return on Air. BP improved and levo decreased. EKG without ST segment elevation. Patient transferred to ICU. Repeat CXR without medicastinal shift, no PTX noted, and CT in good placement. 1. PEA arrest s/p ROSC 2. Acute hypoxic respiratory failure 3. UTI with septic shock. 4. Elevated troponin 5. Left pTX s/p chest tube. Report given to Dr. Baig, Dr. Rojas (EKG sent), and Dr. Bowden. Stat ABG, CMP, MG, Phos, Trop, LA, and ABG ordered and will be reviewed. Message left for family who did not chart picker. Patient moved to ICU and BP decreased, levophed increased to 1.5 mcg/min . PERRL, BS decreased on Left to R, with wheeze likely due to chest tube and dressing reinforced. Patient noted to have high peak pressure on vent. Propofol started. Awaiting ABG. Total amount of critical care time 92 minutes.
[2019-09-12 18:51] LABS: Albumin 2.5 g/dL (3.5-5.0); Calcium 6.9 mg/dL (8.4-10.2); Magnesium 2.2 mg/dL (1.6-2.3); Phosphorus 5.8 mg/dL (2.5-4.5); Total Bilirubin 0.2 mg/dL (0.2-1.3)
[2019-09-12] MEDS ORDERED: FUROSEMIDE 10 MG/ML 2 ML VIAL IV ONE (18:54)
[2019-09-12 18:59] LABS: Basophils % (A) 0 %; Eosinophils % (A) 0 %; HGB 8.5 gm/dL (11.4-16.0); Hypochromasia Moderate; Lymphocytes # (A) 0.9 k/uL (1.0-4.8); Lymphocytes % (A) 7 %; MCH 30.3 pg (25.0-35.0); MCHC 31.5 g/dL (31.0-37.0); Mean Platelet Volume 7.9; Monocytes # (A) 0.2 k/uL (0-1.0); Monocytes % (A) 1 %; Neutrophils # (A) 12.2 k/uL (1.3-7.7); Neutrophils % (A) 91 %; Platelet Count 231 k/uL (150-450); RBC 2.81 m/uL (3.80-5.40); RDW 12.7 % (11.5-15.5); WBC 13.4 k/uL (3.8-10.6)
[2019-09-12] MEDS: NOREPINEPHRINE 4 MG in SODIUM CHLORIDE 0.9% 250 ML IV SCH (19:05)
[2019-09-12] MEDS: BUDESONIDE 1 MG/2 ML NEBU INHALATION SCH (19:06)
[2019-09-12] MEDS: ALBUTEROL NEBULIZED 2.5 MG/3 ML INHALATION SCH (19:06)
[2019-09-12 19:49] LABS: Calcium 7.1 mg/dL (8.4-10.2); Potassium 5.5 mmol/L (3.5-5.1)
[2019-09-12] MEDS ORDERED: SYMBICORT 160-4.5 MCG INHALER INHALATION SCH (20:00)
[2019-09-12] MEDS: methylPREDNISolone SOD SUCCI 125 MG/2 ML VIAL IV SCH (20:06)
[2019-09-12] MEDS: AZITHROMYCIN 500 MG in SODIUM CHLORIDE 0.9% 250 ML IVPB SCH (20:07)
[2019-09-12] MEDS: ENOXAPARIN 40 MG/0.4 ML SYRINGE SQ SCH (20:07)
[2019-09-12] MEDS: CHLORHEXIDINE GLUCONATE 15 ML CUP MUCOUS MEM SCH (20:43)
[2019-09-12] MEDS: PARoxetine 20 MG TAB PO SCH (20:43)
[2019-09-12] MEDS: HYDROmorphone 1 MG/ML 1 ML SYRINGE IVP PRN (20:44)
[2019-09-12] MEDS ORDERED: FAMOTIDINE 20 MG TAB PO SCH (21:00)
--- NOTE | 2019-09-12 21:55 | ED ---
Medical Decision Making - Medical Decision Making Did respond to CODE BLUE for Dr. Cosby request. Patient had just coded and had return of circulation following CPR and intubation. There is extensive subcutaneous edema on both sides and in the breasts. Patient had decreased breath sounds on the left. Chest x-ray concerning for pneumothorax with question of tension pneumothorax. Thora vent was placed immediately with only m inimal improvement. Following this chest tube was placed without complication and significant improvement of symptoms. Repeat chest x-ray significantly improved. It does question if Thora vent was in appropriate spot and this will be deferred to Dr. Baig. Case was discussed with Dr. Baig as well as discussed with Dr. cosby. - Lab Data Result diagrams: 09/12/19 18:30 09/12/19 19:11 Lab Results 09/12/19 09/12/19 09/12/19 Range/Units 12:12 12:12 12:12 WBC (3.8-10.6) k/uL RBC (3.80-5.40) m/uL Hgb (11.4-16.0) gm/dL Hct (34.0-46.0) % MCV (80.0-100.0) fL MCH (25.0-35.0) pg MCHC (31.0-37.0) g/dL RDW (11.5-15.5) % Plt Count (150-450) k/uL Neutrophils % % Lymphocytes % % Monocytes % % Eosinophils % % Basophils % % Neutrophils # (1.3-7.7) k/uL Lymphocytes # (1.0-4.8) k/uL Monocytes # (0-1.0) k/uL Eosinophils # (0-0.7) k/uL Basophils # (0-0.2) k/uL Hypochromasia PT (9.0-12.0) sec INR (<1.2) APTT (22.0-30.0) sec Sample Site ABG pH (7.35-7.45) ABG pCO2 (35-45) mmHg ABG pO2 (83-108) mmHg ABG HCO3 (21-25) mmol/L ABG Total CO2 (19-24) mmol/L ABG O2 Saturation (94-97) % ABG Base Excess mmol/L Silviano Test FiO2 % Sodium 138 (137-145) mmol/L Potassium 4.4 (3.5-5.1) mmol/L Chloride 106 (98-107) mmol/L Carbon Dioxide 31 H (22-30) mmol/L Anion Gap 1 mmol/L BUN 22 H (7-17) mg/dL Creatinine 1.25 H (0.52-1.04) mg/dL Est GFR (CKD-EPI)AfAm 49 (>60 ml/min/1.73 sqM) Est GFR (CKD-EPI)NonAf 42 (>60 ml/min/1.73 sqM) Glucose 114 H (74-99) mg/dL POC Glucose (mg/dL) (75-99) mg/dL POC Glu Fire Management Officer ID Plasma Lactic Acid Joshua 0.9 (0.7-2.0) mmol/L Calcium 7.7 L (8.4-10.2) mg/dL Phosphorus (2.5-4.5) mg/dL Magnesium (1.6-2.3) mg/dL Total Bilirubin <0.1 L (0.2-1.3) mg/dL AST 26 (14-36) U/L ALT 13 (4-34) U/L Alkaline Phosphatase 69 (38-126) U/L Troponin I (0.000-0.034) ng/mL NT-Pro-B Natriuret Pep 8610 pg/mL Total Protein 5.5 L (6.3-8.2) g/dL Albumin 2.9 L (3.5-5.0) g/dL Coronavirus (PCR) (Not Detectd) Blood Type Blood Type Confirm Blood Type Recheck Bld Type Recheck Status Antibody Screen Spec Expiration Date 09/12/19 09/12/19 09/12/19 Range/Units 12:12 12:12 12:12 WBC 12.8 H (3.8-10.6) k/uL RBC 2.94 L (3.80-5.40) m/uL Hgb 8.7 L (11.4-16.0) gm/dL Hct 27.9 L (34.0-46.0) % MCV 94.9 (80.0-100.0) fL MCH 29.7 (25.0-35.0) pg MCHC 31.3 (31.0-37.0) g/dL RDW 12.7 (11.5-15.5) % Plt Count 178 (150-450) k/uL Neutrophils % 83 % Lymphocytes % 9 % Monocytes % 5 % Eosinophils % 0 % Basophils % 0 % Neutrophils # 10.6 H (1.3-7.7) k/uL Lymphocytes # 1.1 (1.0-4.8) k/uL Monocytes # 0.6 (0-1.0) k/uL Eosinophils # 0.0 (0-0.7) k/uL Basophils # 0.0 (0-0.2) k/uL Hypochromasia PT 9.7 (9.0-12.0) sec INR 0.9 (<1.2) APTT 38.6 H (22.0-30.0) sec Sample Site ABG pH (7.35-7.45) ABG pCO2 (35-45) mmHg ABG pO2 (83-108) mmHg ABG HCO3 (21-25) mmol/L ABG Total CO2 (19-24) mmol/L ABG O2 Saturation (94-97) % ABG Base Excess mmol/L Silviano Test FiO2 % Sodium (137-145) mmol/L Potassium (3.5-5.1) mmol/L Chloride (98-107) mmol/L Carbon Dioxide (22-30) mmol/L Anion Gap mmol/L BUN (7-17) mg/dL Creatinine (0.52-1.04) mg/dL Est GFR (CKD-EPI)AfAm (>60 ml/min/1.73 sqM) Est GFR (CKD-EPI)NonAf (>60 ml/min/1.73 sqM) Glucose (74-99) mg/dL POC Glucose (mg/dL) (75-99) mg/dL POC Glu Fire Management Officer ID Plasma Lactic Acid Joshua (0.7-2.0) mmol/L Calcium (8.4-10.2) mg/dL Phosphorus (2.5-4.5) mg/dL Magnesium (1.6-2.3) mg/dL Total Bilirubin (0.2-1.3) mg/dL AST (14-36) U/L ALT (4-34) U/L Alkaline Phosphatase (38-126) U/L Troponin I 0.473 H* (0.000-0.034) ng/mL NT-Pro-B Natriuret Pep pg/mL Total Protein (6.3-8.2) g/dL Albumin (3.5-5.0) g/dL Coronavirus (PCR) (Not Detectd) Blood Type Blood Type Confirm Blood Type Recheck Bld Type Recheck Status Antibody Screen Spec Expiration Date 09/12/19 09/12/19 09/12/19 Range/Units 12:12 12:15 16:35 WBC (3.8-10.6) k/uL RBC (3.80-5.40) m/uL Hgb (11.4-16.0) gm/dL Hct (34.0-46.0) % MCV (80.0-100.0) fL MCH (25.0-35.0) pg MCHC (31.0-37.0) g/dL RDW (11.5-15.5) % Plt Count (150-450) k/uL Neutrophils % % Lymphocytes % % Monocytes % % Eosinophils % % Basophils % % Neutrophils # (1.3-7.7) k/uL Lymphocytes # (1.0-4.8) k/uL Monocytes # (0-1.0) k/uL Eosinophils # (0-0.7) k/uL Basophils # (0-0.2) k/uL Hypochromasia PT (9.0-12.0) sec INR (<1.2) APTT (22.0-30.0) sec Sample Site ABG pH (7.35-7.45) ABG pCO2 (35-45) mmHg ABG pO2 (83-108) mmHg ABG HCO3 (21-25) mmol/L ABG Total CO2 (19-24) mmol/L ABG O2 Saturation (94-97) % ABG Base Excess mmol/L Silviano Test FiO2 % Sodium (137-145) mmol/L Potassium (3.5-5.1) mmol/L Chloride (98-107) mmol/L Carbon Dioxide (22-30) mmol/L Anion Gap mmol/L BUN (7-17) mg/dL Creatinine (0.52-1.04) mg/dL Est GFR (CKD-EPI)AfAm (>60 ml/min/1.73 sqM) Est GFR (CKD-EPI)NonAf (>60 ml/min/1.73 sqM) Glucose (74-99) mg/dL POC Glucose (mg/dL) 184 H (75-99) mg/dL POC Glu Fire Management Officer Katie Weber Plasma Lactic Acid Joshua (0.7-2.0) mmol/L Calcium (8.4-10.2) mg/dL Phosphorus (2.5-4.5) mg/dL Magnesium (1.6-2.3) mg/dL Total Bilirubin (0.2-1.3) mg/dL AST (14-36) U/L ALT (4-34) U/L Alkaline Phosphatase (38-126) U/L Troponin I (0.000-0.034) ng/mL NT-Pro-B Natriuret Pep pg/mL Total Protein (6.3-8.2) g/dL Albumin (3.5-5.0) g/dL Coronavirus (PCR) Not Detected (Not Detectd) Blood Type Blood Type Confirm O Positive Blood Type Recheck Bld Type Recheck Status Antibody Screen Spec Expiration Date 09/12/19 09/12/19 09/12/19 Range/Units 18:15 18:15 18:28 WBC (3.8-10.6) k/uL RBC (3.80-5.40) m/uL Hgb (11.4-16.0) gm/dL Hct (34.0-46.0) % MCV (80.0-100.0) fL MCH (25.0-35.0) pg MCHC (31.0-37.0) g/dL RDW (11.5-15.5) % Plt Count (150-450) k/uL Neutrophils % % Lymphocytes % % Monocytes % % Eosinophils % % Basophils % % Neutrophils # (1.3-7.7) k/uL Lymphocytes # (1.0-4.8) k/uL Monocytes # (0-1.0) k/uL Eosinophils # (0-0.7) k/uL Basophils # (0-0.2) k/uL Hypochromasia PT (9.0-12.0) sec INR (<1.2) APTT (22.0-30.0) sec Sample Site RAD ABG pH 7.23 L (7.35-7.45) ABG pCO2 57 H (35-45) mmHg ABG pO2 125 H (83-108) mmHg ABG HCO3 24 (21-25) mmol/L ABG Total CO2 26 H (19-24) mmol/L ABG O2 Saturation 98.2 H (94-97) % ABG Base Excess -3.7 mmol/L Silviano Test Yes FiO2 100 % Sodium 138 (137-145) mmol/L Potassium 6.0 H (3.5-5.1) mmol/L Chloride 107 (98-107) mmol/L Carbon Dioxide 23 (22-30) mmol/L Anion Gap 8 mmol/L BUN 22 H (7-17) mg/dL Creatinine 1.39 H (0.52-1.04) mg/dL Est GFR (CKD-EPI)AfAm 43 (>60 ml/min/1.73 sqM) Est GFR (CKD-EPI)NonAf 37 (>60 ml/min/1.73 sqM) Glucose 163 H (74-99) mg/dL POC Glucose (mg/dL) 176 H (75-99) mg/dL POC Glu Fire Management Officer ID Cait Jean Plasma Lactic Acid Joshua (0.7-2.0) mmol/L Calcium 6.9 L (8.4-10.2) mg/dL Phosphorus 5.8 H (2.5-4.5) mg/dL Magnesium 2.2 (1.6-2.3) mg/dL Total Bilirubin 0.2 (0.2-1.3) mg/dL AST 258 H (14-36) U/L ALT 139 H (4-34) U/L Alkaline Phosphatase 92 (38-126) U/L Troponin I (0.000-0.034) ng/mL NT-Pro-B Natriuret Pep pg/mL Total Protein 5.0 L (6.3-8.2) g/dL Albumin 2.5 L (3.5-5.0) g/dL Coronavirus (PCR) (Not Detectd) Blood Type Blood Type Confirm Blood Type Recheck Bld Type Recheck Status Antibody Screen Spec Expiration Date 09/12/19 09/12/19 09/12/19 Range/Units 18:30 18:30 18:30 WBC 13.4 H (3.8-10.6) k/uL RBC 2.81 L (3.80-5.40) m/uL Hgb 8.5 L (11.4-16.0) gm/dL Hct 27.0 L (34.0-46.0) % MCV 96.0 (80.0-100.0) fL MCH 30.3 (25.0-35.0) pg MCHC 31.5 (31.0-37.0) g/dL RDW 12.7 (11.5-15.5) % Plt Count 231 (150-450) k/uL Neutrophils % 91 % Lymphocytes % 7 % Monocytes % 1 % Eosinophils % 0 % Basophils % 0 % Neutrophils # 12.2 H (1.3-7.7) k/uL Lymphocytes # 0.9 L (1.0-4.8) k/uL Monocytes # 0.2 (0-1.0) k/uL Eosinophils # 0.0 (0-0.7) k/uL Basophils # 0.0 (0-0.2) k/uL Hypochromasia Moderate PT (9.0-12.0) sec INR (<1.2) APTT 27.6 (22.0-30.0) sec Sample Site ABG pH (7.35-7.45) ABG pCO2 (35-45) mmHg ABG pO2 (83-108) mmHg ABG HCO3 (21-25) mmol/L ABG Total CO2 (19-24) mmol/L ABG O2 Saturation (94-97) % ABG Base Excess mmol/L Silviano Test FiO2 % Sodium (137-145) mmol/L Potassium (3.5-5.1) mmol/L Chloride (98-107) mmol/L Carbon Dioxide (22-30) mmol/L Anion Gap mmol/L BUN (7-17) mg/dL Creatinine (0.52-1.04) mg/dL Est GFR (CKD-EPI)AfAm (>60 ml/min/1.73 sqM) Est GFR (CKD-EPI)NonAf (>60 ml/min/1.73 sqM) Glucose (74-99) mg/dL POC Glucose (mg/dL) (75-99) mg/dL POC Glu Fire Management Officer ID Plasma Lactic Acid Joshua (0.7-2.0) mmol/L Calcium (8.4-10.2) mg/dL Phosphorus (2.5-4.5) mg/dL Magnesium (1.6-2.3) mg/dL Total Bilirubin (0.2-1.3) mg/dL AST (14-36) U/L ALT (4-34) U/L Alkaline Phosphatase (38-126) U/L Troponin I 0.649 H* (0.000-0.034) ng/mL NT-Pro-B Natriuret Pep pg/mL Total Protein (6.3-8.2) g/dL Albumin (3.5-5.0) g/dL Coronavirus (PCR) (Not Detectd) Blood Type Blood Type Confirm Blood Type Recheck Bld Type Recheck Status Antibody Screen Spec Expiration Date 09/12/19 09/12/19 09/12/19 Range/Units 18:30 18:30 19:11 WBC (3.8-10.6) k/uL RBC (3.80-5.40) m/uL Hgb (11.4-16.0) gm/dL Hct (34.0-46.0) % MCV (80.0-100.0) fL MCH (25.0-35.0) pg MCHC (31.0-37.0) g/dL RDW (11.5-15.5) % Plt Count (150-450) k/uL Neutrophils % % Lymphocytes % % Monocytes % % Eosinophils % % Basophils % % Neutrophils # (1.3-7.7) k/uL Lymphocytes # (1.0-4.8) k/uL Monocytes # (0-1.0) k/uL Eosinophils # (0-0.7) k/uL Basophils # (0-0.2) k/uL Hypochromasia PT (9.0-12.0) sec INR (<1.2) APTT (22.0-30.0) sec Sample Site ABG pH (7.35-7.45) ABG pCO2 (35-45) mmHg ABG pO2 (83-108) mmHg ABG HCO3 (21-25) mmol/L ABG Total CO2 (19-24) mmol/L ABG O2 Saturation (94-97) % ABG Base Excess mmol/L Silviano Test FiO2 % Sodium 138 (137-145) mmol/L Potassium 5.5 H (3.5-5.1) mmol/L Chloride 106 (98-107) mmol/L Carbon Dioxide 28 (22-30) mmol/L Anion Gap 4 mmol/L BUN 24 H (7-17) mg/dL Creatinine 1.49 H (0.52-1.04) mg/dL Est GFR (CKD-EPI)AfAm 40 (>60 ml/min/1.73 sqM) Est GFR (CKD-EPI)NonAf 34 (>60 ml/min/1.73 sqM) Glucose 163 H (74-99) mg/dL POC Glucose (mg/dL) (75-99) mg/dL POC Glu Fire Management Officer ID Plasma Lactic Acid Joshua 3.4 H* (0.7-2.0) mmol/L Calcium 7.1 L (8.4-10.2) mg/dL Phosphorus (2.5-4.5) mg/dL Magnesium (1.6-2.3) mg/dL Total Bilirubin (0.2-1.3) mg/dL AST (14-36) U/L ALT (4-34) U/L Alkaline Phosphatase (38-126) U/L Troponin I (0.000-0.034) ng/mL NT-Pro-B Natriuret Pep pg/mL Total Protein (6.3-8.2) g/dL Albumin (3.5-5.0) g/dL Coronavirus (PCR) (Not Detectd) Blood Type O Positive Blood Type Confirm Blood Type Recheck No Previous Record Bld Type Recheck Status CABO Indicated Antibody Screen NEGATIVE Spec Expiration Date 09/15/2019 - 2329 Disposition Clinical Impression: Acute respiratory failure requiring reintubation, Pneumothorax Disposition: ADMITTED IP TO THIS HOSP Condition: Critical Is patient prescribed a controlled substance at d/c from ED?: No Procedures - Procedures Initial comment: Time out performed For been placed on the left side secondary to emergent pneumothorax following CPR and intubated patient. Area was cleansed with ChloraPrep. 1.5 cm incision made using 12 blade scalpel. This was done midclavicular over the second rib. Following this the event was introduced using introducer without complication. There was immediate return of blood and air. On discussion with Dr. Baig including patient being on the vent chest tube was performed following this. Follow-up chest x-ray question position of Thora vent however removal will be deferred to Dr. Baig. - Chest Tube Insertion Consent Obtained: emergent situation Side of Procedure: left Indication: Pneumothorax Placed on monitor/pulse oximetry: Yes Site Prep: Chloroprep Insertion Site: 5th Intercostal Space, Midaxillary Scalpel: #10 Open into Pleural Space Using: Trocar Tube Size (Armenian): 28 Returns: Air, Blood (Minimal blood) Sutured in Place: Yes Type of Suture: Nylon Attached to Suction: Yes Type of Suction: Pleuravac Repeat X-ray Results: Lung Inflated Patient Tolerated Procedure: well, no complications
[2019-09-13 00:04] LABS: Amorphous Sediment,Urine Rare /hpf; Appearance,Urine Cloudy (Clear); Bilirubin,Urine Negative (Negative); Blood,Urine Moderate (Negative); Color,Urine Yellow; Glucose,Urine (UA) Negative (Negative); Ketones,Urine Negative (Negative); Leukocyte Esterase,Urine Trace (Negative); Nitrite,Urine Negative (Negative); Protein,Urine 2+ (Negative); RBC,Urine >182 /hpf (0-5); Specific Gravity,Urine 1.011 (1.001-1.035); Squamous Epithelial Cell,Urine 2 /hpf (0-4); Urobilinogen,Urine <2.0 mg/dL (<2.0); WBC,Urine 27 /hpf (0-5)
[2019-09-13 00:15] LABS: Glucose,Whole Blood 183 mg/dL (75-99)
[2019-09-13] MEDS: methylPREDNISolone SOD SUCCI 125 MG/2 ML VIAL IV SCH ×5 (00:39→23:47)
[2019-09-13] MEDS: PROPOFOL 1,000 MG in EMPTY BAG 1 BAG IV SCH ×2 (00:41→23:51)
[2019-09-13] MEDS: NOREPINEPHRINE 4 MG in SODIUM CHLORIDE 0.9% 250 ML IV SCH (00:42)
[2019-09-13 05:46] LABS: ABG Base Excess -1.6 mmol/L; ABG HCO3 25 mmol/L (21-25); ABG Oxygen Saturation 98.5 % (94-97); ABG PCO2 51 mmHg (35-45); ABG PO2 120 mmHg (83-108); ABG TCO2 27 mmol/L (19-24); Allen Test Performed? Yes
[2019-09-13 06:02] LABS: Glucose,Whole Blood 156 mg/dL (75-99)
[2019-09-13] MEDS: INSULIN ASPART (NovoLOG) 100 UNIT/ML VIAL SQ SCH ×3 (06:38→23:46)
[2019-09-13] MEDS: ALBUTEROL NEBULIZED 2.5 MG/3 ML INHALATION SCH ×2 (07:21→11:54)
[2019-09-13] MEDS: BUDESONIDE 1 MG/2 ML NEBU INHALATION SCH ×2 (07:21→20:13)
[2019-09-13] MEDS ORDERED: PANTOPRAZOLE 40 MG TABLET PO SCH (07:30)
--- NOTE | 2019-09-13 07:35 | XR ---
EXAMINATION TYPE: XR chest 1V portable DATE OF EXAM: 09/13/2019 COMPARISON: 09/12/2019 HISTORY: SOB, Follow Up FINDINGS: Indwelling tubes and catheters are unchanged. Persistent of subcutaneous emphysema persists. Suspect small left apical pneumothorax. Scattered inte rstitial and alveolar infiltrates identified. Stable appearance of the cardio-mediastinal structures at this time. IMPRESSION: 1. Suspect small left apical pneumothorax. Scattered interstitial and alveolar infiltrates identifie d. Clinical correlation and follow up until resolution is recommended.
[2019-09-13 07:52] LABS: Basophils % (A) 0 %; Eosinophils % (A) 0 %; HCT 24.2 % (34.0-46.0); HGB 7.5 gm/dL (11.4-16.0); Lymphocytes # (A) 0.6 k/uL (1.0-4.8); Lymphocytes % (A) 6 %; MCHC 30.9 g/dL (31.0-37.0); MCV 93.8 fL (80.0-100.0); Monocytes # (A) 0.2 k/uL (0-1.0); Monocytes % (A) 2 %; Neutrophils # (A) 9.3 k/uL (1.3-7.7); Neutrophils % (A) 91 %; Platelet Count 167 k/uL (150-450); RBC 2.57 m/uL (3.80-5.40); RDW 12.7 % (11.5-15.5); WBC 10.3 k/uL (3.8-10.6)
[2019-09-13 08:07] LABS: Potassium 4.4 mmol/L (3.5-5.1)
[2019-09-13] MEDS ORDERED: CYANOCOBALAMIN 500 MCG TAB PO SCH (09:00)
[2019-09-13] MEDS ORDERED: NON FORMULARY DRUG (Omega-3 Fatty Acids/Fish Oil [Fish Oil 1,000 Mg Softgel] 1 CAP) PO SCH (09:00)
[2019-09-13] MEDS ORDERED: MONTELUKAST 10 MG TAB PO SCH (09:00)
[2019-09-13] MEDS ORDERED: MULTIVITAMINS, THERA 1 EACH TAB PO SCH (09:00)
[2019-09-13] MEDS ORDERED: VITAMIN E (DL,TOCOPHERYL ACET) 400 UNIT CAP PO SCH (09:00)
[2019-09-13] MEDS ORDERED: VERAPAMIL SR 240 MG TABLET.ER PO SCH (09:00)
[2019-09-13] MEDS ORDERED: CISATRACURIUM 2 MG/ML 5 ML VIAL IV ONE (09:20)
--- NOTE | 2019-09-13 09:55 | XR ---
EXAMINATION TYPE: XR chest 1V portable DATE OF EXAM: 09/13/2019 COMPARISON: 09/13/2019 HISTORY: SOB, Follow Up FINDINGS: Indwelling tubes and catheters are unchanged. No significant change in scattered infiltrates. Continued subcutaneous emphysema. Pneumothorax not cl early visualized on this examination. Stable appearance of the cardio-mediastinal structures at this time. Pleural effusion unchanged. IMPRESSION: 1. No significant change in scattered infiltrates. Continued subcutaneous emphysema. Pneumothorax no t clearly visualized on this examination. Clinical correlation and follow up until resolution is rec ommended.
[2019-09-13] MEDS: ASPIRIN 81 MG PO SCH (11:16)
[2019-09-13] MEDS: ENOXAPARIN 40 MG/0.4 ML SYRINGE SQ SCH ×2 (11:16→20:25)
[2019-09-13] MEDS: ATORVASTATIN 20 MG TAB PO SCH (11:17)
[2019-09-13] MEDS: PANTOPRAZOLE 40 MG/10 ML VIAL IVP SCH (11:17)
[2019-09-13] MEDS: FOLIC ACID 1 MG TAB PO SCH (11:17)
[2019-09-13] MEDS: CHLORHEXIDINE GLUCONATE 15 ML CUP MUCOUS MEM SCH ×2 (11:23→20:25)
[2019-09-13 11:51] LABS: Glucose,Whole Blood 139 mg/dL (75-99)
--- NOTE | 2019-09-13 12:24 | ECHOF ---
Referral Reason:chf MEASUREMENTS -------- HEIGHT: 160.0 cm WEIGHT: 59.4 kg BP: 94/48 RVIDd: 2.3 cm (< 3.3) IVSd: 1.2 cm (0.6 - 1.1) LVIDd: 4.9 cm (3.9 - 5.3) LVPWd: 1.2 cm (0.6 - 1.1) IVSs: 1.4 cm LVIDs: 3.8 cm LVPWs: 1.1 cm LA Diam: 2.5 cm (2.7 - 3.8) LAESV Index (A-L): 23.63 ml/m Ao Diam: 2.8 cm (2.0 - 3.7) MV EXCURSION: 25.076 mm (> 18.000) MV EF SLOPE: 171 mm/s (70 - 150) EPSS: 1.5 cm MV E Manas: 0.81 m/s MV DecT: 185 ms MV A Manas: 1.33 m/s MV E/A Ratio: 0.61 AV maxP.62 mmHg AV meanP.66 mmHg RAP: 15.00 mmHg RVSP: 39.52 mmHg FINDINGS -------- Sinus rhythm. This was a technically adequate study. The left ventricular size is normal. There is borderline concentric left ventricular hypertrophy. Overall left ventricular systolic function is moderate-severely impaired with, an EF between 30 - 35 %. Apical anterior LV wall motion is hypokinetic. Apical lateral LV wall motion is hypokinetic. Apical inferior LV wall motion is hypokinetic. Apical septum LV wall motion is hypokinetic. The right ventricle is normal in size. Normal LA size by volume 22+/-6 ml/m2. The right atrial size is normal. Interatrial and interventricular septum intact. There is mild aortic valve sclerosis. There is mild aortic stenosis present. Peak/mean gradient a cross the Aortic Valve is 20.62mmHg / 11.66mmHg. Mild mitral annular calcification present. Mild mitral regurgitation is present. Mild tricuspid regurgitation present. There is mild pulmonary hypertension. The right ventricular systolic pressure, as measured by Doppler, is 39.52mmHg. The pulmonic valve was not well visualized. There is no pulmonic regurgitation present. The aortic root size is normal. Normal inferior vena cava with less than 50% inspiratory collapse consistent with estimated right atr ial pressure of 15 mmHg. There is a trivial pericardial effusion present. CONCLUSIONS -------- 1. There is borderline concentric left ventricular hypertrophy. 2. Overall left ventricular systolic function is moderate-severely impaired with, an EF between 30 - 35 %. 3. Apical anterior LV wall motion is hypokinetic. 4. Apical lateral LV wall motion is hypokinetic. 5. Apical inferior LV wall motion is hypokinetic. 6. Apical septum LV wall motion is hypokinetic. 7. Normal LA size by volume 22+/-6 ml/m2. 8. There is mild aortic valve sclerosis. 9. There is mild aortic stenosis present. 10. Peak/mean gradient across the Aortic Valve is 20.62mmHg / 11.66mmHg. 11. Mild mitral annular calcification present. 12. Mild mitral regurgitation is present. 13. Mild tricuspid regurgitation present. 14. There is mild pulmonary hypertension. 15. There is a trivial pericardial effusion present. PLATING ENGINEER: Sandie Rowan RDCS
--- NOTE | 2019-09-13 12:43 | CONS ---
CONSULTATION Kristen Dorado is a 74-year-old lady with severe advanced COPD who is also on home oxygen. She was on the floor with a diagnosis of possible urosepsis. Apparently she had her oxygen on and she wandered around without the oxygen and suddenly became bradycardic and later on had a cardiac arrest. Whether this was a respiratory arrest followed by cardiac arrest is unclear. In any case, she was shocked, received CPR with chest compressions. This resulted in a pneumothorax with subcutaneous emphysema. Her troponin is modestly elevated. She is on a ventilator, oxygenating well with the vent and I am seeing her while she is on a ventilator without much history. On reviewing the old chart, it appears that she does have a history of COPD on home oxygen and sees Dr. Baig on a regular basis in the office. However, it is unclear if she has any history of CAD or not. I am unable to obtain any such information either from the old chart or on looking at the office chart. She has history of hypertension, hyperlipidemia, and COPD. At the time of my evaluation, she is on a ventilator with a small dose of Levophed. PAST MEDICAL HISTORY: 1. COPD, advanced on home oxygen. 2. History of CAD, details are unclear. 3. Patient had a cardiac arrest and CPR with pneumothorax as well as subcutaneous emphysema. 4. Hypertension. 5. Hyperlipidemia. MEDICATIONS: Medications at home include Crestor, aspirin 81 mg daily, Combivent inhaler, Spiriva inhaler, Paxil, Pepcid, Cozaar 25 mg daily, Motrin. ALLERGIES: Allergies are SULFA. REVIEW OF SYSTEMS: Unavailable. The patient has past history of smoking according to the chart. PHYSICAL EXAMINATION: On examination, blood pressure is about 109/60, pulse rate is about 90, sinus. HEENT: Limited examination is unremarkable. Fundus was not examined by me. Neck is supple. JVD could not be assessed. Heart exam reveals S1, S2 with a short systolic murmur. Lungs reveal ventilator assisted breaths sounds. Abdomen is soft. Lower extremities reveal diminished pulses. Central nervous system assessment not performed. LABORATORY DATA: Laboratory data suggests her troponin is elevated up to 0.8 and 0.6. This was after the CPR also. EKG is pending and echocardiogram will be performed as well. IMPRESSION: 1. Non-ST elevation myocardial infarction. 2. Cardiac arrest followed by respiratory arrest. 3. Advanced chronic obstructive pulmonary disease on home oxygen. 4. Subcutaneous emphysema and pneumothorax, which has resolved. RECOMMENDATIONS: I would recommend that we continue the IV heparin and watch her hemoglobin closely. I will obtain echocardiogram, review the information and then make a recommendation. The patient may have underlying CAD and if this is indeed a cardiac arrest related to CAD rather than is respiratory, she will benefit from coronary angiography. However, I will stabilize her and once she is more stable off the vent, we will consider coronary angiography. At this time, we will continue her with heparin and also add a small dose of beta daxa 12.5 Lopressor b.i.d. and based on clinical course I will make further recommendations. Prognosis remains quite poor for this patient who just had a cardiac arrest and CPR last night. Thank you very much for the consult. JESSE / PRANAY: [id number] /
[2019-09-13] MEDS: IPRATROPIUM-ALBUTEROL 3 ML NEB INHALATION SCH ×3 (16:15→23:48)
--- NOTE | 2019-09-13 16:22 | HP ---
HISTORY AND PHYSICAL ADDENDUM (CONTINUATION OF) HISTORY AND PHYSICAL: FINAL DIAGNOSES: 1. Chest pain; possible acute tpk-MO-wnibnss-elevation myocardial infarction. Troponin 0.473 with cardiogenic shock. 2. Acute cardiac respiratory failure, status post CPR. 3. Congestive heart failure, acute exacerbation, with acute on chronic systolic dysfunction, ejection fraction 30% to 35%, with diffuse multiple abnormalities. 4. Significant left pneumothorax, status post chest tube drainage, and subcutaneous emphysema. 5. Change in mental status, metabolic encephalopathy, acute, multifactorial. 6. Acute urinary tract infection with sepsis, present on admission possibly. 7. Increased creatinine with acute renal failure, present on admission. 8. Chronic obstructive pulmonary disease, acute exacerbation, with acute purulent tracheobronchitis, present on admission. Possibly COVID-19; testing negative. 9. Increased white count. 10.Anemia, normocytic. 11.Troponin 0.473. 12.History of stents. 13.History of congestive heart failure. 14.History of chronic obstructive pulmonary disease. 15.History of hypertension. 16.Hyperlipidemia. 17.History of cardiac catheterization. 18.History of anxiety. 19.Remote history of nicotine dependence. 20.FULL CODE. RECOMMENDATIONS AND DISCUSSION: In this 74-year-old woman who presented with multiple complex medical issues, we will monitor the patient closely, continue the current medications, continue with symptomatic treatment. Closely follow with multiple consultants. Troponins are elevated and 2D echo showed significant abnormalities. Continue to monitor. Pressor support gently with Levophed. I would also recommend broad-spectrum antibiotics. I would recommend Zosyn to broaden the coverage, including anaerobes. Otherwise, continue the rest of the medications. DVT prophylaxis. Closely follow with Pulmonary and Cardiology. Further recommendations to follow. MMODL / IJN: [id number] / JOSELIN
[2019-09-13] MEDS ORDERED: FUROSEMIDE 10 MG/ML 4 ML VIAL IV STA (16:27)
--- NOTE | 2019-09-13 16:58 | PN ---
PROGRESS NOTE DATE OF SERVICE: 09/13/2019 This 74-year-old woman who was admitted with chest pain with multiple symptomatic etiology was thought to have acute vph-WU-ovfelfv-elevation myocardial infarction with troponin 0.47, present on admission. After admission patient immediately went into cardiac arrest but was mechanically intubated and then transferred to ICU and is in ICU at this time. Primary cardiac was suspected. COVID-19 test was negative. During the CPR the patient also developed left pneumothorax. Initially Thora-Vent was inserted, but currently the patient is on chest tube drainage on the left side. Patient has extensive emphysema on the left side. Multiple consultants are following the patient closely. A 2D echo with Doppler was done by Cardiology which showed ejection fraction 30% to 35% with significant hypokinesis, indicating possible acute myocardial injury. The most recent chest x-ray, which was reviewed personally by me, showed possible bibasilar infiltrates. The patient is on IV antibiotics. Past medical history reviewed. REVIEW OF SYSTEMS: Review of systems could not be taken; the patient is mechanically ventilated and sedated. CURRENT MEDICATIONS: Reviewed. They include: 1. Tylenol p.r.n. 2. DuoNeb q.i.d. and p.r.n. 3. Aspirin. 4. Lipitor. 5. Zithromax. 6. Pulmicort. 7. Rocephin. 8. Peridex. 9. Lovenox 40 mg subcutaneously b.i.d. 10.Pepcid. 11.Folic acid. 12.Perforomist. 13.Dilaudid. 14.NovoLog. 15.Solu-Medrol. 16.Lopressor. 17.Paxil. 18.Propofol. PHYSICAL EXAMINATION: Patient is mechanically ventilated and sedated. Pulse is 91, blood pressure 94/48, respiration 22, temperature normal, pulse ox 98% HEENT: Conjunctivae normal. Oral mucosa moist. NECK: No jugular venous distention. No carotid bruit. No lymph node enlargement. CARDIOVASCULAR SYSTEM: S1, S2 muffled. RESPIRATORY SYSTEM: Breath sounds diminished at the bases. A few scattered rhonchi. ABDOMEN: Soft. Non-tender. LEGS: No edema. No swelling. NERVOUS SYSTEM: The patient is mechanically ventilated and sedated. SKIN: No ulcer, rash, bleeding. LABS: WBC 10.6, hemoglobin 7.5. ABGs noted. Sodium 139, potassium 4.4. Troponin 0.06 and 0.664. Continued in Addendum. MMODL / IJN: [id number] / MTDD
[2019-09-13] MEDS: NOREPINEPHRINE 8 MG in SODIUM CHLORIDE 0.9% 250 ML IV SCH (17:06)
[2019-09-13] MEDS: PIPERACILLIN-TAZOBACTAM 3.375 GM in SODIUM CHLORIDE 0.9% 100 ML IVPB SCH ×2 (17:07→23:51)
[2019-09-13] MEDS: HYDROmorphone 1 MG/ML 1 ML SYRINGE IVP PRN (17:25)
--- NOTE | 2019-09-13 17:32 | P.CONS ---
History of Present Illness - Reason for Consult Consult date: 09/13/19 Urinary tract infection and sepsis Requesting physician: Zeb Peña - Chief Complaint Generalized weakness x few days - History of Present Illness Patient is a 74-year-old female with past medical history taken for coronary artery disease congestive heart failure COPD, patient presented to [facility] with a chief complaints of feeling severely achy and g eneralized weakness patient's symptoms have been going on for a few days before she went to the hospital apparently the patient was running a fever while at that facility she was diagnosed with urinary tract infection and has been treated with Rocephin however she was noticed to have elevated troponin of 0.473 4 the patient subsequently has been transferred to [facility] for further management and evaluation by cardiology service, on presentation to this facility the patient did have low-grade fever of 99.9 patient did have elevated white count 12.8 with no lymphopenia patient did have a positive UA patient did have a Deshpande virus PCR ischemic negative, while on the floor the patient did have a cardiac cath did require CPR patient subsequently also developed a pneumothorax requiring chest tube placement patient has been intubated and is currently in the ICU patient anybody has been adjusted to Zosyn and infectious disease was consulted for further management of antibiotic therapy most of the information has been obtained from review the chart and the patient currently intubated on the vent sedated and unable to afford any history and is requiring low-dose pressor support in the form of Levophed but no sniffing and purulent secretion through the ET, blood and urine culture are pending so far chest x-ray from this morning no significant change in scattered infiltrates Continue subcutaneous emphysema pneumothorax not clearly was a light on this examination Review of Systems Positive points has been mentioned in HPI complete review could not be obtained because patient sedated on the vent Past Medical History Past Medical History: Coronary Artery Disease (CAD), Heart Failure, COPD, Eye Disorder, Hyperlipidemia, Hypertension Additional Past Medical History / Comment(s): Cardiac arrythmia (patient says it skips a beat), pain in rotator cuff bilateral History of Any Multi-Drug Resistant Organisms: None Reported Past Surgical History: Heart Catheterization, Heart Catheterization With Stent, Tubal Ligation, Uterine Ablation Additional Past Surgical History / Comment(s): natural child , cervical cauterization Past Anesthesia/Blood Transfusion Reactions: No Reported Reaction Date of Last Stent Placement:: 1979 Past Psychological History: Anxiety Smoking Status: Former smoker Additional Drug Use History / Comment(s): Patient chews nicorette gum. Quit sm oking in October 2015. - Past Family History Mother Family Medical History: Chest Pain / Angina, Congestive Heart Failure (CHF), COPD, Coronary Artery Disease (CAD) Additional Family Medical History / Comment(s): Father Family Medical History: Chest Pain / Angina, Congestive Heart Failure (CHF) Additional Family Medical History / Comment(s): Sister(s) Family Medical History: AICD/Pacemaker, Cancer, Chest Pain / Angina, Congestive Heart Failure (CHF), COPD Additional Family Medical History / Comment(s): breast cancer Medications and Allergies Home Medications Medication Instructions Recorded Confirmed Type Aspirin EC [Ecotrin Low Dose] 81 mg PO DAILY 06/30/16 09/12/19 History Folic Acid 0.4 mg PO DAILY 06/30/16 09/12/19 History Multivitamins, Thera [Multivitamin 1 tab PO DAILY 06/30/16 09/12/19 History (formulary)] PARoxetine HCL [Paxil] 40 mg PO HS 06/30/16 09/12/19 History Rosuvastatin Calcium [Crestor] 10 mg PO DAILY 06/30/16 09/12/19 History Tiotropium Avery [Spiriva] 1 cap INHALATION RT-HS 06/30/16 09/12/19 History Verapamil HCl [Verapamil ER] 240 mg PO DAILY 06/30/16 09/12/19 History Vitamin E 400 unit PO DAILY 06/30/16 09/12/19 History Albuterol Nebulized [Ventolin 2.5 mg INHALATION RT-QID PRN 09/04/16 09/12/19 History Nebulized] Ipratropium/Albuterol Sulfate 1 puff INHALATION RT-QID 09/04/16 09/12/19 History [Combivent Respimat Inhaler] HYDROcodone/APAP 5-325MG [[place] 1 tab PO Q8H PRN #30 tab 09/14/16 09/12/19 Rx 5-325] Budesonide/Formoterol Fumarate 1 puff INHALATION RT-BID 10/28/18 09/12/19 History [Symbicort 160-4.5 Mcg Inhaler] Bumetanide 0.5 mg PO DAILY PRN 10/28/18 09/12/19 History Cyanocobalamin (Vitamin B-12) 1,000 mcg PO DAILY 10/28/18 09/12/19 History [Vitamin B-12] Famotidine [Pepcid] 20 mg PO HS 10/28/18 09/12/19 History Ibuprofen [Motrin] 600 mg PO BID PRN 10/28/18 09/12/19 History Loratadine 10 mg PO DAILY 10/28/18 09/12/19 History Montelukast [Singulair] 10 mg PO DAILY 10/28/18 09/12/[address] [place]-3 Fatty Acids/Fish Oil [Fish 1 cap PO DAILY 10/28/18 09/12/19 History Oil 1,000 mg Softgel] Losartan [Cozaar] 25 mg PO DAILY 09/12/19 09/12/19 History Allergies Allergy/AdvReac Type Severity Reaction Status Date / Time Sulfa (Sulfonamide Allergy Dyspnea Verified 09/12/19 11:50 Antibiotics) Physical Exam Vitals: Vital Signs Temp Pulse Resp BP Pulse Ox 09/13/19 11:57 92 09/13/19 08:15 99 23 130/62 97 09/13/19 08:00 99 10 L 94/48 97 09/13/19 07:45 85 22 109/60 97 09/13/19 07:33 86 09/13/19 07:30 87 22 94/51 99 09/13/19 07:21 88 09/13/19 07:15 87 22 98/50 97 09/13/19 07:00 87 22 125/61 97 09/13/19 06:45 93 22 123/62 98 09/13/19 06:30 92 22 109/56 98 09/13/19 06:15 87 22 112/56 98 09/13/19 06:00 87 22 117/54 97 09/13/19 05:45 89 23 123/70 98 09/13/19 05:30 95 22 123/56 97 09/13/19 05:15 92 22 131/65 97 09/13/19 05:00 96 22 121/60 98 09/13/19 04:45 92 22 127/61 98 09/13/19 04:30 96 22 120/60 97 09/13/19 04:15 93 22 123/58 97 09/13/19 04:00 98.5 F 90 22 124/54 97 09/13/19 03:45 90 22 123/55 97 09/13/19 03:30 91 22 115/54 97 09/13/19 03:15 90 22 123/56 97 09/13/19 03:00 90 22 121/60 97 09/13/19 02:45 90 22 125/58 97 09/13/19 02:30 90 22 124/58 98 09/13/19 02:15 90 22 125/59 98 09/13/19 02:00 90 22 125/51 98 09/13/19 01:45 91 22 127/55 98 09/13/19 01:30 92 22 126/51 98 09/13/19 01:15 92 22 138/58 98 09/13/19 01:00 96 22 124/57 98 09/13/19 00:45 98.5 F 95 22 84/42 98 09/13/19 00:30 93 22 131/58 98 09/13/19 00:15 93 22 130/53 98 09/13/19 00:00 96 22 138/63 98 09/12/19 23:45 94 22 135/58 98 09/12/19 23:30 93 22 131/58 99 09/12/19 23:15 91 22 127/60 98 09/12/19 23:00 94 22 126/55 98 09/12/19 22:45 93 22 122/47 98 09/12/19 22:30 99 22 115/58 98 09/12/19 22:15 93 22 123/45 98 09/12/19 22:00 100 22 125/58 98 09/12/19 21:45 106 H 22 129/40 98 09/12/19 21:30 103 H 22 131/52 98 09/12/19 21:15 101 H 22 135/58 98 09/12/19 21:00 98 22 136/53 98 09/12/19 20:45 98 22 141/45 99 09/12/19 20:30 98.6 F 94 23 135/54 99 09/12/19 20:15 96 22 130/48 99 09/12/19 20:00 98 22 133/49 98 09/12/19 19:45 95 22 134/53 99 09/12/19 19:30 96 22 117/55 99 09/12/19 19:15 99 22 114/42 99 09/12/19 19:07 98 09/12/19 19:00 101 H 22 129/36 99 09/12/19 18:45 103 H 20 131/46 99 09/12/19 18:30 109 H 18 126/54 99 09/12/19 18:15 111 H 18 120/66 99 09/12/19 18:00 112 H 18 114/41 99 09/12/19 17:45 98.4 F 114 H 18 81/27 99 09/12/19 17:41 117 H 18 09/12/19 16:00 18 Intake and Output 09/12/19 09/13/19 09/13/19 22:59 06:59 14:59 Intake Total 463.373 686.529 64.055 Output Total 55 267 40 Balance 408.373 419.529 24.055 Intake: IV 450 400 50 Azithromycin 500 mg In 250 Sodium Chloride 0.9% 250 ml @ 250 mls/hr IVPB DAILY@2000 CATHY Rx#: [id number] Sodium Chloride 0.9% 1, 200 400 50 000 ml @ 50 mls/hr IV . Q20H CATHY Rx#:[id number] Intake, IV Titration 13.373 286.529 14.055 Amount Norepinephrine 4 mg In 1.889 213.701 14.055 Sodium Chloride 0.9% 250 ml @ 0.05 MCG/KG/MIN 11. 335 mls/hr IV .[id number] CATHY Rx#:[id number] Propofol 1,000 mg In 11.484 72.828 Empty Bag 1 bag @ Titrate IV .Q0M CATHY Rx#: [id number] Output: Urine 55 267 40 Other: Voiding Method Indwelling Catheter Indwelling Catheter Weight 59.5 kg GENERAL DESCRIPTION: An elderly female intubated on the vent No tachypnea or accessory muscle of respiration use. HEENT: Shows Pallor , no scleral icterus. Oral mucous membrane is dry. No pharyngeal erythema or thrush NECK: Trachea central, no thyromegaly. LUNGS: Unlabored breathing. Decreased breath sounds at the bases No wheeze HEART: S1, S2, regular rate and rhythm. No loud murmur ABDOMEN: Soft, no tenderness , guarding or rigidity, no organomegaly EXTREMITIES: No edema of feet. SKIN: No rash, no masses palpable. NEUROLOGICAL: The patient is sedated on the vent. Results CBC & Chem 7: 09/13/19 07:23 09/13/19 07:23 Labs: Abnormal Lab Results - Last 24 Hours (Table) 09/12/19 09/12/19 09/12/19 Range/Units 12:12 12:12 12:12 WBC 12.8 H (3.8-10.6) k/uL RBC 2.94 L (3.80-5.40) m/uL Hgb 8.7 L (11.4-16.0) gm/dL Hct 27.9 L (34.0-46.0) % MCHC (31.0-37.0) g/dL Neutrophils # 10.6 H (1.3-7.7) k/uL Lymphocytes # (1.0-4.8) k/uL APTT 38.6 H (22.0-30.0) sec ABG pH (7.35-7.45) ABG pCO2 (35-45) mmHg ABG pO2 (83-108) mmHg ABG Total CO2 (19-24) mmol/L ABG O2 Saturation (94-97) % Potassium (3.5-5.1) mmol/L Chloride (98-107) mmol/L Carbon Dioxide 31 H (22-30) mmol/L BUN 22 H (7-17) mg/dL Creatinine 1.25 H (0.52-1.04) mg/dL Glucose 114 H (74-99) mg/dL POC Glucose (mg/dL) (75-99) mg/dL Plasma Lactic Acid Joshua (0.7-2.0) mmol/L Calcium 7.7 L (8.4-10.2) mg/dL Phosphorus (2.5-4.5) mg/dL Total Bilirubin <0.1 L (0.2-1.3) mg/dL AST (14-36) U/L ALT (4-34) U/L Troponin I (0.000-0.034) ng/mL Total Protein 5.5 L (6.3-8.2) g/dL Albumin 2.9 L (3.5-5.0) g/dL Urine Appearance (Clear) Urine Protein (Negative) Urine Blood (Negative) Ur Leukocyte Esterase (Negative) Urine RBC (0-5) /hpf Urine WBC (0-5) /hpf Urine WBC Clumps (None) /hpf Amorphous Sediment (None) /hpf 09/12/19 09/12/19 09/12/19 Range/Units 12:12 16:35 18:15 WBC (3.8-10.6) k/uL RBC (3.80-5.40) m/uL Hgb (11.4-16.0) gm/dL Hct (34.0-46.0) % MCHC (31.0-37.0) g/dL Neutrophils # (1.3-7.7) k/uL Lymphocytes # (1.0-4.8) k/uL APTT (22.0-30.0) sec ABG pH (7.35-7.45) ABG pCO2 (35-45) mmHg ABG pO2 (83-108) mmHg ABG Total CO2 (19-24) mmol/L ABG O2 Saturation (94-97) % Potassium 6.0 H (3.5-5.1) mmol/L Chloride (98-107) mmol/L Carbon Dioxide (22-30) mmol/L BUN 22 H (7-17) mg/dL Creatinine 1.39 H (0.52-1.04) mg/dL Glucose 163 H (74-99) mg/dL POC Glucose (mg/dL) 184 H (75-99) mg/dL Plasma Lactic Acid Joshua (0.7-2.0) mmol/L Calcium 6.9 L (8.4-10.2) mg/dL Phosphorus 5.8 H (2.5-4.5) mg/dL Total Bilirubin (0.2-1.3) mg/dL AST 258 H (14-36) U/L ALT 139 H (4-34) U/L Troponin I 0.473 H* (0.000-0.034) ng/mL Total Protein 5.0 L (6.3-8.2) g/dL Albumin 2.5 L (3.5-5.0) g/dL Urine Appearance (Clear) Urine Protein (Negative) Urine Blood (Negative) Ur Leukocyte Esterase (Negative) Urine RBC (0-5) /hpf Urine WBC (0-5) /hpf Urine WBC Clumps (None) /hpf Amorphous Sediment (None) /hpf 09/12/19 09/12/19 09/12/19 Range/Units 18:15 18:28 18:30 WBC 13.4 H (3.8-10.6) k/uL RBC 2.81 L (3.80-5.40) m/uL Hgb 8.5 L (11.4-16.0) gm/dL Hct 27.0 L (34.0-46.0) % MCHC (31.0-37.0) g/dL Neutrophils # 12.2 H (1.3-7.7) k/uL Lymphocytes # 0.9 L (1.0-4.8) k/uL APTT (22.0-30.0) sec ABG pH 7.23 L (7.35-7.45) ABG pCO2 57 H (35-45) mmHg ABG pO2 125 H (83-108) mmHg ABG Total CO2 26 H (19-24) mmol/L ABG O2 Saturation 98.2 H (94-97) % Potassium (3.5-5.1) mmol/L Chloride (98-107) mmol/L Carbon Dioxide (22-30) mmol/L BUN (7-17) mg/dL Creatinine (0.52-1.04) mg/dL Glucose (74-99) mg/dL POC Glucose (mg/dL) 176 H (75-99) mg/dL Plasma Lactic Acid Joshua (0.7-2.0) mmol/L Calcium (8.4-10.2) mg/dL Phosphorus (2.5-4.5) mg/dL Total Bilirubin (0.2-1.3) mg/dL AST (14-36) U/L ALT (4-34) U/L Troponin I (0.000-0.034) ng/mL Total Protein (6.3-8.2) g/dL Albumin (3.5-5.0) g/dL Urine Appearance (Clear) Urine Protein (Negative) Urine Blood (Negative) Ur Leukocyte Esterase (Negative) Urine RBC (0-5) /hpf Urine WBC (0-5) /hpf Urine WBC Clumps (None) /hpf Amorphous Sediment (None) /hpf 04/12/20 04/12/20 04/12/20 Range/Units 18:30 18:30 19:11 WBC (3.8-10.6) k/uL RBC (3.80-5.40) m/uL Hgb (11.4-16.0) gm/dL Hct (34.0-46.0) % MCHC (31.0-37.0) g/dL Neutrophils # (1.3-7.7) k/uL Lymphocytes # (1.0-4.8) k/uL APTT (22.0-30.0) sec ABG pH (7.35-7.45) ABG pCO2 (35-45) mmHg ABG pO2 (83-108) mmHg ABG Total CO2 (19-24) mmol/L ABG O2 Saturation (94-97) % Potassium 5.5 H (3.5-5.1) mmol/L Chloride (98-107) mmol/L Carbon Dioxide (22-30) mmol/L BUN 24 H (7-17) mg/dL Creatinine 1.49 H (0.52-1.04) mg/dL Glucose 163 H (74-99) mg/dL POC Glucose (mg/dL) (75-99) mg/dL Plasma Lactic Acid Joshua 3.4 H* (0.7-2.0) mmol/L Calcium 7.1 L (8.4-10.2) mg/dL Phosphorus (2.5-4.5) mg/dL Total Bilirubin (0.2-1.3) mg/dL AST (14-36) U/L ALT (4-34) U/L Troponin I 0.649 H* (0.000-0.034) ng/mL Total Protein (6.3-8.2) g/dL Albumin (3.5-5.0) g/dL Urine Appearance (Clear) Urine Protein (Negative) Urine Blood (Negative) Ur Leukocyte Esterase (Negative) Urine RBC (0-5) /hpf Urine WBC (0-5) /hpf Urine WBC Clumps (None) /hpf Amorphous Sediment (None) /hpf 09/12/19 09/12/19 09/13/19 Range/Units 23:30 23:31 00:13 WBC (3.8-10.6) k/uL RBC (3.80-5.40) m/uL Hgb (11.4-16.0) gm/dL Hct (34.0-46.0) % MCHC (31.0-37.0) g/dL Neutrophils # (1.3-7.7) k/uL Lymphocytes # (1.0-4.8) k/uL APTT (22.0-30.0) sec ABG pH (7.35-7.45) ABG pCO2 (35-45) mmHg ABG pO2 (83-108) mmHg ABG Total CO2 (19-24) mmol/L ABG O2 Saturation (94-97) % Potassium (3.5-5.1) mmol/L Chloride (98-107) mmol/L Carbon Dioxide (22-30) mmol/L BUN (7-17) mg/dL Creatinine (0.52-1.04) mg/dL Glucose (74-99) mg/dL POC Glucose (mg/dL) 183 H (75-99) mg/dL Plasma Lactic Acid Joshua (0.7-2.0) mmol/L Calcium (8.4-10.2) mg/dL Phosphorus (2.5-4.5) mg/dL Total Bilirubin (0.2-1.3) mg/dL AST (14-36) U/L ALT (4-34) U/L Troponin I 0.853 H* (0.000-0.034) ng/mL Total Protein (6.3-8.2) g/dL Albumin (3.5-5.0) g/dL Urine Appearance Cloudy H (Clear) Urine Protein 2+ H (Negative) Urine Blood Moderate H (Negative) Ur Leukocyte Esterase Trace H (Negative) Urine RBC >182 H (0-5) /hpf Urine WBC 27 H (0-5) /hpf Urine WBC Clumps Rare H (None) /hpf Amorphous Sediment Rare H (None) /hpf 09/13/19 09/13/19 09/13/19 Range/Units 05:42 06:01 07:23 WBC (3.8-10.6) k/uL RBC 2.57 L (3.80-5.40) m/uL Hgb 7.5 L (11.4-16.0) gm/dL Hct 24.2 L (34.0-46.0) % MCHC 30.9 L (31.0-37.0) g/dL Neutrophils # 9.3 H (1.3-7.7) k/uL Lymphocytes # 0.6 L (1.0-4.8) k/uL APTT (22.0-30.0) sec ABG pH 7.30 L (7.35-7.45) ABG pCO2 51 H (35-45) mmHg ABG pO2 120 H (83-108) mmHg ABG Total CO2 27 H (19-24) mmol/L ABG O2 Saturation 98.5 H (94-97) % Potassium (3.5-5.1) mmol/L Chloride (98-107) mmol/L Carbon Dioxide (22-30) mmol/L BUN (7-17) mg/dL Creatinine (0.52-1.04) mg/dL Glucose (74-99) mg/dL POC Glucose (mg/dL) 156 H (75-99) mg/dL Plasma Lactic Acid Joshua (0.7-2.0) mmol/L Calcium (8.4-10.2) mg/dL Phosphorus (2.5-4.5) mg/dL Total Bilirubin (0.2-1.3) mg/dL AST (14-36) U/L ALT (4-34) U/L Troponin I (0.000-0.034) ng/mL Total Protein (6.3-8.2) g/dL Albumin (3.5-5.0) g/dL Urine Appearance (Clear) Urine Protein (Negative) Urine Blood (Negative) Ur Leukocyte Esterase (Negative) Urine RBC (0-5) /hpf Urine WBC (0-5) /hpf Urine WBC Clumps (None) /hpf Amorphous Sediment (None) /hpf 09/13/19 09/13/19 09/13/19 Range/Units 07:23 07:23 11:50 WBC (3.8-10.6) k/uL RBC (3.80-5.40) m/uL Hgb (11.4-16.0) gm/dL Hct (34.0-46.0) % MCHC (31.0-37.0) g/dL Neutrophils # (1.3-7.7) k/uL Lymphocytes # (1.0-4.8) k/uL APTT (22.0-30.0) sec ABG pH (7.35-7.45) ABG pCO2 (35-45) mmHg ABG pO2 (83-108) mmHg ABG Total CO2 (19-24) mmol/L ABG O2 Saturation (94-97) % Potassium (3.5-5.1) mmol/L Chloride 110 H (98-107) mmol/L Carbon Dioxide (22-30) mmol/L BUN 34 H (7-17) mg/dL Creatinine 2.29 H (0.52-1.04) mg/dL Glucose 137 H (74-99) mg/dL POC Glucose (mg/dL) 139 H (75-99) mg/dL Plasma Lactic Acid Joshua (0.7-2.0) mmol/L Calcium 7.0 L (8.4-10.2) mg/dL Phosphorus (2.5-4.5) mg/dL Total Bilirubin (0.2-1.3) mg/dL AST (14-36) U/L ALT (4-34) U/L Troponin I 0.664 H* (0.000-0.034) ng/mL Total Protein (6.3-8.2) g/dL Albumin (3.5-5.0) g/dL Urine Appearance (Clear) Urine Protein (Negative) Urine Blood (Negative) Ur Leukocyte Esterase (Negative) Urine RBC (0-5) /hpf Urine WBC (0-5) /hpf Urine WBC Clumps (None) /hpf Amorphous Sediment (None) /hpf Assessment and Plan Assessment: 1-patient presented to the hospital with generalized weakness which is likely multifactorial in this patient who did have a positive UA with concern for possible incompetent of urinary tract infection however the patient did have elevated troponin and subsequently did have a cardiac arrest could be more likely cardiac in etiology for the patient's currently closely monitored by cardiology team 2-patient with sulfa ALLERGIES limiting number of antibiotic safety use 3-patient has been ruled out for covid 19 with negative swab and did not have significant lymphopenia on presentation 4-possible complaint of left lower lobe pneumonia with a question of community versus aspiration etiology after cardiac resuscitation (1) UTI (urinary tract infection) Current Visit: Yes Status: Acute Code(s): N39.0 - URINARY TRACT INFECTION, SITE NOT SPECIFIED SNOMED Code(s): 43789601 (2) Left lower lobe pneumonia Current Visit: No Status: Acute Code(s): J18.1 - LOBAR PNEUMONIA, UNSPECIFIED ORGANISM SNOMED Code(s): 019692721 Plan: 1-we will obtain sputum for Gram stain and cultures and follow up on urine cultures 2-Zosyn 3.5 g every 8 hours 3-gentle IV fluid We will follow on clinical condition and cultures to further adjust medication if needed Thank you for this consultation will follow this patient with you Time with Patient: Greater than 30
--- NOTE | 2019-09-13 18:55 | CONS ---
CONSULTATION PULMONARY/CRITICAL CARE CONSULTATION This is a 74-year-old female who was initially admitted on September 11, sent in apparently by Rhonda Glez for generalized weakness, achiness, chest pains, and shortness of breath, as well as elevated troponins. The patient was initially admitted to the floor. She apparently did have a cardiopulmonary arrest. Dr. Domingo from the emergency room responded. The patient has history of CAD, CHF, COPD, hyperlipidemia, hypertension, previous cardiac cath with stenting, who was apparently seen by one of the nurse practitioners at one of the outlying hospitals, I believe [facility]. Because of her symptoms including generalized achiness and weakness, chest pain, shortness of breath, she was initially seen there and given antibiotics. She did not improve and apparently was directly transferred to [facility] for further evaluation and treatment. When she apparently arrived at our hospital, she was seen by Dr. Peña and she apparently was complaining about being short of breath. In addition, her troponin was elevated at 0.473. Subsequent to that, she apparently had a cardiac arrest. She had prolonged CPR lasting about 20 minutes or so, or maybe longer. She, unfortunately, sustained a left pneumothorax. A Thora-Vent was placed. Subsequent to that, a left chest tube was placed and she developed profound and significant subcutaneous emphysema. We are asked to see her now for ICU management. The patient was on the volume assist control mode rate of 22, tidal volume 350, FiO2 40%, PEEP of 5. Blood gases were reasonable with pO2 of 120, pCO2 of 51, and pH of 7.3. I did ask them to drop the FiO2 down to 30% from 40%. She currently is on Zithromax and Rocephin. Art line was attempted but could not be placed. We attempted at four different sites, please see the notes. I did place a left internal jugular triple- lumen catheter. We will also start tube feeds. She is currently also on saline at 50 mL/hour, propofol at 40 mcg/kg per minute, and norepinephrine which is currently off. It was turned off at 0630. She has been tested for COVID-19 and her reverse transcriptase/PCR was apparently not detected. PAST MEDICAL HISTORY: As mentioned above, includes CAD with previous stent placement, CHF, COPD, hypertension, hyperlipidemia, and chronic anxiety. HOME MEDICATIONS: Reviewed. They include Crestor, fish oil, hydrocodone, folic acid, Bumex, ecotrin, albuterol updrafts, vitamin E, Combivent, vitamin B12, verapamil ER, Spiriva, Pepcid, Symbicort, Paxil, multiple vitamins, Singulair, cozaar, loratadine, and Motrin. ALLERGIES: SULFA. FAMILY HISTORY: Positive for COPD, CHF, and CAD. SOCIAL HISTORY: Positive for previous heavy tobacco use. Does not smoke currently. SURGICAL HISTORY: Previous catheterization with stent placement. Other surgical history is remote. REVIEW OF SYSTEMS: Cannot be currently obtained as she is intubated and mechanically ventilated. She apparently initially presented with symptoms of generalized weakness, body aches, chest pain, and shortness of breath. It is not clear as to whether or not she had fever. PHYSICAL EXAMINATION: VITAL SIGNS: Current vital signs are reviewed. Temperature is 98.5, heart rate 99, respiratory rate 23, blood pressure 130/62, mean 84, and saturations are 97%. GENERAL: Appears in no acute distress. Currently intubated and sedated. There is an orally placed endotracheal tube and NG tube. NECK: Supple. Full range of motion. No adenopathy. There is a left internal jugular triple-lumen catheter. HEENT: Grossly unremarkable save for the tubes and lines mentioned. CARDIOVASCULAR: Regular rhythm and rate. Heart rate in the mid 90s. S1 and S2 normal. Heart sounds are distant. No distinct murmur. LUNGS: Reveal diffuse bilateral rhonchi. Breath sounds are diminished. No wheezes. No crackles. ABDOMEN: Soft. Bowel sounds are not noted. EXTREMITIES: Intact. Minimal edema. SKIN: Without rash. NEUROLOGIC: Examination could not be adequately assessed because of her current level of sedation. LAB DATA: Reviewed. As I mentioned, her coronavirus rapid test was negative. White count 10.3, hemoglobin 7.5, hematocrit 24.2, platelet count 167,000. Blood gases have been noted. Sodium 139, potassium 4.4, chloride 110, CO2 24, anion gap is 5, BUN and creatinine were 34 and 2.29. Troponin was 0.664. I do not see an EKG. Chest x-ray shows diffuse scattered infiltrates bilaterally. There is significant subcutaneous emphysema. Small bilateral pleural effusions noted. Current microbiology is negative. N-terminal proBNP was not previously mentioned but is 8610. Current medications are reviewed. She is currently on Tylenol, albuterol updrafts, Xanax, aspirin, Lipitor, Zithromax, budesonide, Rocephin, chlorhexidine, cyanocobalamin, Lovenox, famotidine, folic acid, Mcalester, Dilaudid, insulin, Solu-Medrol, metoprolol, Singulair, multiple vitamins, Narcan, Protonix, Paxil, propofol, and vitamin E. ASSESSMENT: 1. Acute hypoxemic respiratory failure of unclear etiology. This may relate to underlying ischemic cardiac disease and/or chronic obstructive pulmonary disease exacerbation. The patient is status post cardiopulmonary arrest with about a 20- minute resuscitation before return of spontaneous circulation. 2. Severe and bilateral subcutaneous emphysema secondary to chest compressions during CPR. 3. Status post left chest tube placement. 4. History of coronary artery disease. 5. History of congestive heart failure. 6. History of chronic obstructive pulmonary disease. 7. History of hypertension. 8. History of hyperlipidemia. 9. Previous stent placement. 10.Coronary artery disease. 11.History of anxiety. 12.Anemia. 13.Respiratory acidosis. 14.Acute kidney injury/acute tubular necrosis. 15.Rule out non-ST segment elevation myocardial infarction. 16.Possible urinary tract infection. 17.Patient tested negative for COVID-19 infection. PLAN: Please see my orders. We will discontinue unnecessary medications. We will make sure she is on appropriate medications. Her COVID-19 test was negative. We tried four different sites for art line placement and we could get the needle into the artery but we could not pass the guidewire. We did successfully place an internal jugular triple- lumen catheter. Medications were reviewed. Prognosis is guarded. We will continue to follow. MMODL / IJN: [id number] /
[2019-09-13] MEDS: FORMOTEROL FUMARATE 20 MCG/2 ML NEBU INHALATION SCH (20:13)
[2019-09-13] MEDS: AZITHROMYCIN 500 MG in SODIUM CHLORIDE 0.9% 250 ML IVPB SCH (20:25)
[2019-09-13] MEDS: PARoxetine 20 MG TAB PO SCH (20:26)
[2019-09-13] MEDS: SODIUM CHLORIDE 0.9% 1,000 ML IV SCH (20:32)
[2019-09-13] MEDS ORDERED: METOPROLOL TARTRATE 12.5 MG TAB PO SCH (21:00)
[2019-09-13] MEDS: FAMOTIDINE 20 MG/2 ML VIAL IV SCH (21:08)
--- NOTE | 2019-09-13 22:45 | PCN ---
PROCEDURE NOTE PROCEDURE PERFORMED: Attempted arterial line. OPERATORS: Dr. Bañuelos and Dr. Donaldson. REASON FOR THE PROCEDURE: Frequent blood gases and blood gas monitoring. DESCRIPTION OF PROCEDURE: We tried the right radial site, the left radial site, the right dorsalis pedis site and the right femoral arterial artery site. Unfortunately, with all the various attempts, although we were able to cannulate the artery, we were not able to pass the guidewire. Hence, the procedure was aborted without the art line being inserted. Again, we tried 4 different locations including the right radial site, left radial site, right dorsalis pedis site and right femoral artery site. The patient tolerated the procedure well. There was no immediate complications. Attempt will be made down the road at a different site. MMODL / IJN: [id number] /
--- NOTE | 2019-09-13 22:45 | PCN ---
PROCEDURE NOTE OPERATORS: Dr. Bañuelos and Dr. Donaldson. PROCEDURE PERFORMED: Left internal jugular triple-lumen catheter TRIPLE LUMEN CATHETER PLACEMENT: Indication: Hemodynamic monitoring/Intravenous access. A time-out was completed verifying correct patient, procedure, site, positioning, and implant(s) or special equipment if applicable. The patient was placed in a dependent position appropriate for triple lumen catheter placement based on the vein to be cannulated. The patient's left neck was prepped and draped in sterile fashion. 1% Lidocaine was used to anesthetize the surrounding skin area. A triple lumen 9F Cordis catheter was introduced into the internal jugular vein using Seldinger technique. The catheter was threaded smoothly over the guide wire and appropriate blood return was obtained. Each lumen of the catheter was evacuated of air and flushed with sterile saline. The catheter was then sutured in place to the skin and a sterile dressing applied. Perfusion to the extremity distal to the point of catheter insertion was checked and found to be adequate. There was informed consent and universal timeout. The site was the left internal jugular vein. We used a posterior approach. There was good blood return from all 3 ports. The patient tolerated the procedure well. The catheter was sutured in place. A sterile dressing was applied by the nurse. There was no immediate complication. The tip of the catheter was seen in the junction of the superior vena cava, right atrium. Of course, the chest x-ray was done to confirm placement as mentioned above. Again, there was no immediate complications. The patient tolerated the procedure well. MMODL / IJN: [id number] /
--- NOTE | 2019-09-13 23:09 | PCN ---
PROCEDURE NOTE DATE OF SERVICE: 09/13/2019. PROCEDURE PERFORMED: Left radial arterial line insertion. REASON FOR PROCEDURE: Hemodynamic monitoring, hypotension. ARTERIAL LINE PLACEMENT: Indications: Hemodynamic monitoring. A time-out was completed verifying correct patient, procedure, site, positioning, and implant(s) or special equipment if applicable. Silviano's test was performed to ensure adequate perfusion. The patient's right wrist was prepped and draped in sterile fashion. 1% Lidocaine was used to anesthetize the area. An 18G Arrow arterial line was introduced into the radial artery. The catheter was threaded over the guide wire and the needle was removed with appropriate pulsatile blood return. Blood loss was minimal. The catheter was then sutured in place to the skin and a sterile dressing applied. Perfusion to the extremity distal to the point of catheter insertion was checked and found to be adequate. The patient tolerated the procedure well and there were no complications. No immediate complications. MMODL / IJN: [id number] /
[2019-09-13 23:42] LABS: Glucose,Whole Blood 190 mg/dL (75-99)
[2019-09-14] MEDS: HYDROmorphone 0.5 MG/0.5 ML SYRINGE IVP PRN ×2 (01:39→23:41)
[2019-09-14] MEDS: IPRATROPIUM-ALBUTEROL 3 ML NEB INHALATION SCH ×4 (04:16→15:36)
[2019-09-14 04:35] LABS: HCT 21.9 % (34.0-46.0); HGB 7.2 gm/dL (11.4-16.0); MCH 30.7 pg (25.0-35.0); MCHC 32.9 g/dL (31.0-37.0); MCV 93.1 fL (80.0-100.0); Mean Platelet Volume 8.2; Platelet Count 191 k/uL (150-450); RBC 2.35 m/uL (3.80-5.40); WBC 14.4 k/uL (3.8-10.6)
[2019-09-14 04:56] LABS: Calcium 6.5 mg/dL (8.4-10.2); Potassium 3.9 mmol/L (3.5-5.1)
[2019-09-14 05:45] LABS: ABG HCO3 22 mmol/L (21-25); ABG Oxygen Saturation 97.9 % (94-97); ABG PCO2 41 mmHg (35-45); ABG PH 7.34 (7.35-7.45); ABG PO2 100 mmHg (83-108); ABG TCO2 23 mmol/L (19-24); Allen Test Performed? Yes
[2019-09-14 06:00] LABS: Glucose,Whole Blood 196 mg/dL (75-99)
[2019-09-14] MEDS: INSULIN ASPART (NovoLOG) 100 UNIT/ML VIAL SQ SCH ×4 (06:03→23:32)
[2019-09-14] MEDS: methylPREDNISolone SOD SUCCI 125 MG/2 ML VIAL IV SCH ×4 (06:03→23:31)
[2019-09-14] MEDS: PROPOFOL 1,000 MG in EMPTY BAG 1 BAG IV SCH ×3 (06:09→21:13)
[2019-09-14] MEDS: HYDROmorphone 1 MG/ML 1 ML SYRINGE IVP PRN ×2 (06:34→19:02)
--- NOTE | 2019-09-14 07:17 | XR ---
EXAMINATION TYPE: XR chest 1V portable DATE OF EXAM: 09/14/2019 COMPARISON: 09/12/2018 HISTORY: Shortness of breath TECHNIQUE: Single frontal view of the chest is obtained. FINDINGS: Indwelling tubes and catheters are unchanged. No significant change in scattered infiltrat es. Continued subcutaneous emphysema. Pneumothorax not clearly visualized on this examination. Stable appearance of the cardio-mediastinal structures at this time. Pleural effusion unchanged. Arthropath y of the shoulders. IMPRESSION: 1. Extensive subcutaneous emphysema with chest tube in position but no sizable pneumothorax. 2. Bilateral infiltrate and pleural effusion stable underlying degree of interstitial lung disease oropeza spected.
[2019-09-14] MEDS: BUDESONIDE 1 MG/2 ML NEBU INHALATION SCH (08:44)
[2019-09-14] MEDS: FORMOTEROL FUMARATE 20 MCG/2 ML NEBU INHALATION SCH (08:44)
[2019-09-14] MEDS: PIPERACILLIN-TAZOBACTAM 3.375 GM in SODIUM CHLORIDE 0.9% 100 ML IVPB SCH ×2 (09:00→21:07)
[2019-09-14] MEDS: FOLIC ACID 1 MG TAB PO SCH (09:00)
[2019-09-14] MEDS: ASPIRIN 81 MG PO SCH (09:00)
[2019-09-14] MEDS: ATORVASTATIN 20 MG TAB PO SCH (09:00)
[2019-09-14] MEDS: ENOXAPARIN 40 MG/0.4 ML SYRINGE SQ SCH (09:00)
[2019-09-14] MEDS: PANTOPRAZOLE 40 MG/10 ML VIAL IVP SCH (09:00)
[2019-09-14] MEDS: CHLORHEXIDINE GLUCONATE 15 ML CUP MUCOUS MEM SCH ×2 (10:00→21:07)
[2019-09-14] MEDS: METOPROLOL TARTRATE 25 MG TAB PO SCH ×2 (10:00→21:08)
--- NOTE | 2019-09-14 11:59 | P.PN ---
Subjective Progress Note Date: 09/14/19 Principal diagnosis: Non-ST elevation myocardial infarction and subsequent cardiac arrest This is a 74-year-old female patient who has a history of advanced chronic obstructive pulmonary disease, oxygen dependent and follows with Dr. Baig in our office, coronary artery disease, hypertension, hyperlipidemia presented here on 09/12/2019 initially with evidence of sepsis secondary to urinary tract infection. She was originally on the regular medical floor. She was found to be off her oxygen and suddenly became bradycardic and subsequent cardiac arrest. She did require approximate 18 minutes of CPR and was subsequently shocked and resuscitated. She was seen in consultation in the intensive care unit yesterday. She is seen again today 09/14/2019 in follow-up. She remains intubated and on mechanical ventilator. Current settings assist-control with a rate of 22, tidal volume 350, FiO2 30% and a PEEP of 5. Morning blood gases revealed a pO2 of 100, pCO2 41, pH 7.34. She is sedated on propofol at 50 mcg/kg/m. She is requiring norepinephrine at 4.3 mcg/m. She is receiving tube feedings of vital HP at 25 ML's per hour with a goal of 35. During the CPR process she did develop significant subcutaneous emphysema and pneumothorax requiring a left chest tube insertion. There is still a positive leak. Today's chest x-ray continues to show extensive subcutaneous emphysema but no sizable pneumothorax. There is bilateral infiltrates and pleural effusions with some degree of interstitial lung disease suspected. White count 14.4. Hemoglobin 7.2. Sodium 137. Potassium 3.9. Creatinine 3.22. She remains on DuoNeb inhalations, Pulmicort and Perforomist inhalations, IV Solu-Medrol, antibiotics in form of Zosyn and azithromycin. Objective - Vital Signs Vital signs: Vital Signs Temp 98.2 F 09/14/19 08:00 Pulse 83 09/14/19 11:30 Resp 22 09/14/19 11:30 BP 103/44 09/14/19 10:15 Pulse Ox 97 09/14/19 11:30 Intake & Output 09/13/19 09/14/19 09/14/19 18:59 06:59 18:59 Intake Total 2892.816 7455.870 722.383 Output Total 250 365 86 Balance 462.630 0531.870 636.383 Weight 59.5 kg 85.3 kg 85.3 kg Intake: IV 759 1010 380 Azithromycin 500 mg In 250 Sodium Chloride 0.9% 250 ml @ 250 mls/hr IVPB DAILY@2000 [facility] Rx#: [id number] Piperacillin-Tazobactam 3 100 100 100 .375 gm In Sodium Chloride 0.9% 100 ml @ 25 mls/hr IVPB Q8HR [facility] Rx# :[id number] Sodium Chloride 0.9% 1, 600 600 250 000 ml @ 50 mls/hr IV . Q20H [facility] Rx#:[id number] cefTRIAXone 1 gm In 50 Sodium Chloride 0.9% 50 ml @ 100 mls/hr IVPB Q24HR [facility] Rx#:[id number] pressure bag 9 60 30 Intake, IV Titration 114.151 142.870 102.383 Amount Norepinephrine 4 mg In 14.055 Sodium Chloride 0.9% 250 ml @ 0.05 MCG/KG/MIN 11. 335 mls/hr IV .[id number] [facility] Rx#:[id number] Norepinephrine 8 mg In 0.096 42.870 45.672 Sodium Chloride 0.9% 250 ml @ 0.05 MCG/KG/MIN 5. 757 mls/hr IV .Q24H [facility] Rx#:[id number] Propofol 1,000 mg In 100 100 56.711 Empty Bag 1 bag @ Titrate IV .Q0M [facility] Rx#: [id number] Tube Feeding 105 335 120 Other 60 90 120 Output: Chest Tube Drainage 20 0 Chest Tube Left Upper Mid 20 0 -Axillary Chest Urine 250 345 86 Other: Voiding Method Indwelling Catheter Indwelling Catheter Indwelling Catheter ABP, PAP, CO, CI - Last Documented Arterial Blood Pressure 114/46 - Exam GENERAL EXAM: Intubated, sedated 74-year-old female patient. Maintaining O2 saturations in the 90s on 30% FiO2 via mechanical ventilator. HEAD: Normocephalic. EYES: Sluggish reaction of pupils, equal size. NOSE: Clear with pink turbinates. THROAT: Oral endotracheal and gastric tube secured in place. No erythema or exudates. NECK: No masses, no JVD. CHEST: No chest wall deformity. LUNGS: Equal air entry with few scattered rhonchi, crackles in the bilateral posterior bases diminished more so on the left. Left chest tube in place. Positive air leak.. CVS: S1 and S2 normal with no audible murmur, regular rhythm. ABDOMEN: No hepatosplenomegaly, normal bowel sounds, no guarding or rigidity. SPINE: No scoliosis or deformity SKIN: No rashes CENTRAL NERVOUS SYSTEM: No focal deficits, tone is normal in all 4 extremities. EXTREMITIES: There is no peripheral edema. No clubbing, no cyanosis. Per ipheral pulses are intact. - Labs CBC & Chem 7: 09/14/19 04:09/14/19 04:20 Labs: Abnormal Lab Results - Last 24 Hours (Table) 09/13/19 09/13/19 09/14/19 Range/Units 11:50 23:40 04:20 WBC 14.4 H (3.8-10.6) k/uL RBC 2.35 L (3.80-5.40) m/uL Hgb 7.2 L (11.4-16.0) gm/dL Hct 21.9 L (34.0-46.0) % ABG pH (7.35-7.45) ABG O2 Saturation (94-97) % Chloride (98-107) mmol/L Carbon Dioxide (22-30) mmol/L BUN (7-17) mg/dL Creatinine (0.52-1.04) mg/dL Glucose (74-99) mg/dL POC Glucose (mg/dL) 139 H 190 H (75-99) mg/dL Calcium (8.4-10.2) mg/dL 09/14/19 09/14/19 09/14/19 Range/Units 04:20 05:42 05:58 WBC (3.8-10.6) k/uL RBC (3.80-5.40) m/uL Hgb (11.4-16.0) gm/dL Hct (34.0-46.0) % ABG pH 7.34 L (7.35-7.45) ABG O2 Saturation 97.9 H (94-97) % Chloride 108 H (98-107) mmol/L Carbon Dioxide 21 L (22-30) mmol/L BUN 47 H (7-17) mg/dL Creatinine 3.22 H (0.52-1.04) mg/dL Glucose 171 H (74-99) mg/dL POC Glucose (mg/dL) 196 H (75-99) mg/dL Calcium 6.5 L (8.4-10.2) mg/dL Microbiology - Last 24 Hours (Table) 09/12/19 23:30 Urine Culture - Preliminary Urine,Catheterized 09/12/19 12:12 Blood Culture - Preliminary Blood No Growth after 24 hours Assessment and Plan Assessment: 1 Acute hypoxemic respiratory failure secondary to suspected ischemic cardiac disease and subsequent cardiac arrest. CPR approximately 18 minutes before return of spontaneous circulation. 2 Severe bilateral subcutaneous emphysema secondary to chest compressions during CPR. Placement of a left-sided chest tube. Air leak continues. No sizable pneumothorax on x-ray today. 3 History of coronary artery disease with previous stent placement 4 History of congestive heart failure 5 History of chronic obstructive pulmonary disease, oxygen dependent 6 Hypertension 7 Hyperlipidemia 8 History of anxiety 9 Acute kidney injury Plan: The patient was seen and evaluated by Dr. Bañuelos Chest x-ray, ABGs and labs are reviewed We'll perform a sedation holiday to evaluate for any underlying anoxic encephalopathy Continue her current medications for now Titrate off the norepinephrine if possible Continue tube feeds We'll continue to follow and make further conditions base on her clinical status Critical care time 42 minutes I, the cosigning physician, performed a history & physical examination of the patient. Lungs sounds few scattered rhonchi, crackles in the bases, diminished on left lung.. Maintaining good O2 saturations in the 90s on 30% FiO2 on the mechanical ventilator. I discussed the assessment and plan of care with my nurse practitioner, Lian Donaldson. I attest to the above note as dictated by her.
--- NOTE | 2019-09-14 12:20 | PN ---
PROGRESS NOTE Kristen Dorado is a 74-year-old lady with advanced COPD, had a cardiac arrest and then hospitalized. This morning she is still on a ventilator. Oxygenation is about 30% FiO2. She has a fair urine output of about 30 mL/hour. She is hemodynamically stable. She is still on a small dose of Levophed, which is less today compared to yesterday. EKG revealed sinus tachycardia with nonspecific ST-T changes. No acute findings to indicate ischemia. I am recommending that we increase the Lopressor to 25 mg b.i.d. continue all other medications. From a cardiac standpoint, I would not do any aggressive intervention. Echocardiogram revealed ejection fraction of 35% with wall motion abnormalities. However, after she is more stable and off the vent, we will consider cardiac catheterization. For now we will continue current therapy. Patient is on a subcu heparin. She is not on full heparin because hemoglobin is low at 7.2. Prognosis remains guarded. MMODL / IJN: [id number] /
[2019-09-14 12:21] LABS: Glucose,Whole Blood 180 mg/dL (75-99)
--- NOTE | 2019-09-14 16:05 | PN ---
PROGRESS NOTE DATE OF SERVICE: 09/14/2019 This 74-year-old woman who was admitted initially with chest pain had cardiorespiratory arrest. The patient also had pneumothorax and surgical emphysema. The patient is being closely monitored at this time. The patient is mechanically intubated. Multiple consultants are following the patient, including Cardiology and Pulmonology. The most recent chest x-ray, which was reviewed personally by me, showed evidence of significant subcutaneous emphysema as well as possible bibasilar infiltrates. The patient is on broad-spectrum IV antibiotics. COVID-19 is negative. Two-D echo showed ejection fraction about 35% with wall motion abnormalities. Past medical history reviewed. Review of systems could not be taken because of mechanical ventilation. CURRENT MEDICATIONS: Reviewed. They include: 1. Tylenol p.r.n. 2. DuoNeb q.i.d. and p.r.n. 3. Aspirin. 4. Lipitor. 5. Zithromax 500 mg daily. 6. Peridex. 7. Perforomist. 8. NovoLog. 9. Solu-Medrol. 10.Levophed drip. 11.Zosyn IV. PHYSICAL EXAMINATION: Patient is mechanically ventilated and sedated. Pulse is 93, blood pressure 120/49, respiration 23, temperature normal, pulse ox 95% on mechanical ventilation, as noted. HEENT: Conjunctivae normal. NECK: No jugular venous distention. CARDIOVASCULAR SYSTEM: S1, S2 muffled. RESPIRATORY SYSTEM: Breath sounds diminished at the bases. A few scattered rhonchi and crackles. Surgical emphysema now present. ABDOMEN: Soft, non-tender. LEGS: No edema. No swelling. NERVOUS SYSTEM: Patient is mechanically ventilated and sedated. LABS: Labs at this time show WBC 14.2, point hemoglobin 7.2, sodium 137, potassium 3.9, creatinine 3.22. ASSESSMENT: 1. Chest pain; possible acute dce-QQ-suvfcta-elevation myocardial infarction; troponin 0.473 with cardiogenic shock. 2. Acute cardiorespiratory failure and cardiac arrest, status post CPR. 3. Congestive heart failure, acute exacerbation, with acute on chronic systolic dysfunction, ejection fraction 30% to 35%, with diffuse multiple motion abnormalities. 4. Significant left pneumothorax, status post chest tube drainage, with subcutaneous emphysema. 5. Change in mental status, metabolic encephalopathy, acute, multifactorial. 6. Acute urinary tract infection with sepsis, present on admission. 7. Acute on chronic kidney failure with acute kidney disease, renal, acute tubular necrosis. 8. Increased creatinine. 9. Chronic obstructive pulmonary disease, acute exacerbation, with acute purulent tracheobronchitis, present on admission; possibly COVID-19; however, test negative. 10.Increased white count. 11.Anemia, normocytic. 12.Troponin 0.473. 13.History of stents. 14.History of congestive heart failure. 15.History of chronic obstructive pulmonary disease. 16.Hypertension. 17.Hyperlipidemia. 18.History of cardiac catheterization. 19.History of anxiety. 20.Remote history of nicotine dependence. 21.FULL CODE. RECOMMENDATIONS AND DISCUSSION: I recommend to continue current medications, continue with the monitoring, symptomatic treatment. Otherwise at this time I recommend continuing with the broad-spectrum IV antibiotics. Pressor support. Continue the mechanical ventilation per Dr. Bañuelos. Otherwise, follow closely. Chest tube drainage. DVT prophylaxis. Overall prognosis is extremely guarded because of the multiple complex medical issues. Further recommendations to follow. MMODL / IJN: [id number] / JOSELIN
--- NOTE | 2019-09-14 16:11 | PN ---
PROGRESS NOTE DATE OF SERVICE: 09/13/2019 Part of this progress note is lost in translation. This 74-year-old woman who was admitted initially with chest pain, acute giw-HM-nlogwaz- elevation myocardial infarction, also had cardiorespiratory arrest. Patient was mechanically ventilated and intubated. After that the patient had left pneumothorax with subcutaneous emphysema. Multiple consultants are following the patient. The patient also had cardiogenic shock, significant ejection fraction reduction, also. The patient is being closely monitored in ICU. Chest tube was also drained after ThoraVent at this time. Please see the list of medications. Review of systems could not be taken. On exam, vitals are noted. CARDIOVASCULAR SYSTEM: S1, S2 muffled. RESPIRATORY SYSTEM: Breath sounds diminished at the bases. A few scattered rhonchi and crackles. ABDOMEN: Soft, obese. Subcutaneous emphysema present. NERVOUS SYSTEM: Patient is mechanically ventilated and sedated. ASSESSMENT AND PLAN: Please review the previous dictation. MMODL / IJN: [id number] /
[2019-09-14] MEDS ORDERED: LACTATED RINGERS 1,000 ML IV ONE (16:30)
[2019-09-14 17:38] LABS: Glucose,Whole Blood 173 mg/dL (75-99)
--- NOTE | 2019-09-14 19:11 | PN ---
PROGRESS NOTE DATE OF SERVICE: 09/14/2019 REASON FOR FOLLOWUP: Aspiration pneumonia and UTI. INTERVAL HISTORY: The patient is currently afebrile. The patient remains sedated, intubated on the vent. Hemodynamically stable. FiO2 is currently down to 30%. No diarrhea has been reported or any other change in clinical condition by the nursing staff. PHYSICAL EXAMINATION: Blood pressure 102/54 with a pulse of 94, temperature 98. She is 94% on 30% FiO2. General description is an elderly female intubated on the vent. RESPIRATORY SYSTEM: Unlabored breathing with decreased breath sounds at the base. No wheeze. HEART: S1, S2. Regular rate and rhythm. ABDOMEN: Soft. No tenderness. LABS: Hemoglobin 7.8, white count 14.4, BUN of 47, creatinine 3.22. Blood culture negative. Urine is so far negative. DIAGNOSTIC IMPRESSION AND PLAN: Patient with acute respiratory failure which is likely multifactorial in this patient initially admitted to hospital with concern for possible urinary tract infection, status post cardiac arrest and resuscitation . Concern for possible aspiration pneumonitis. The patient is currently covered with Zosyn; to continue. Sputum culture will be requested. Antibiotic adjusted further. Monitor clinical course closely. MMODL / IJN: [id number] /
[2019-09-14] MEDS ORDERED: Salmeterol 50 mcg INHALER INHALATION SCH (20:00)
[2019-09-14] MEDS ORDERED: FLUTICASONE 220 MCG INHALER INHALATION SCH (20:00)
[2019-09-14] MEDS: ALBUTEROL HFA INHALER INHALATION SCH (20:19)
[2019-09-14] MEDS: SYMBICORT 160-4.5 MCG INHALER INHALATION SCH (20:48)
[2019-09-14] MEDS ORDERED: BACITRACIN 500 UNIT/GM OINT 28.4 GM TUBE TOPICAL SCH (21:00)
[2019-09-14] MEDS: PARoxetine 20 MG TAB PO SCH (21:07)
[2019-09-14] MEDS: AZITHROMYCIN 500 MG in SODIUM CHLORIDE 0.9% 250 ML IVPB SCH (21:08)
[2019-09-14] MEDS: SODIUM CHLORIDE 0.9% 1,000 ML IV SCH (21:09)
[2019-09-14 23:22] LABS: Glucose,Whole Blood 216 mg/dL (75-99)
[2019-09-14] MEDS: NOREPINEPHRINE 8 MG in SODIUM CHLORIDE 0.9% 250 ML IV SCH (23:22)
[2019-09-15] MEDS: ALBUTEROL HFA INHALER INHALATION SCH ×3 (00:18→07:16)
[2019-09-15] MEDS: PROPOFOL 1,000 MG in EMPTY BAG 1 BAG IV SCH ×5 (02:04→21:06)
[2019-09-15] MEDS: HYDROmorphone 1 MG/ML 1 ML SYRINGE IVP PRN (04:08)
[2019-09-15 04:51] LABS: HCT 20.5 % (34.0-46.0); MCH 29.5 pg (25.0-35.0); MCHC 31.3 g/dL (31.0-37.0); MCV 94.1 fL (80.0-100.0); Mean Platelet Volume 8.1; Platelet Count 177 k/uL (150-450); RBC 2.18 m/uL (3.80-5.40); RDW 13.3 % (11.5-15.5); WBC 10.9 k/uL (3.8-10.6)
[2019-09-15 04:58] LABS: Potassium 4.1 mmol/L (3.5-5.1)
[2019-09-15 05:09] LABS: ABG Base Excess -6.8 mmol/L; ABG HCO3 20 mmol/L (21-25); ABG Oxygen Saturation 96.2 % (94-97); ABG PCO2 46 mmHg (35-45); ABG PH 7.25 (7.35-7.45); ABG PO2 87 mmHg (83-108); ABG TCO2 22 mmol/L (19-24); Allen Test Performed? Yes
[2019-09-15 05:13] LABS: HGB 6.4 gm/dL (11.4-16.0)
[2019-09-15 05:59] LABS: Glucose,Whole Blood 177 mg/dL (75-99)
[2019-09-15] MEDS: methylPREDNISolone SOD SUCCI 125 MG/2 ML VIAL IV SCH ×2 (06:03→12:00)
[2019-09-15] MEDS: INSULIN ASPART (NovoLOG) 100 UNIT/ML VIAL SQ SCH ×3 (06:04→17:36)
[2019-09-15] MEDS: SYMBICORT 160-4.5 MCG INHALER INHALATION SCH (07:16)
--- NOTE | 2019-09-15 07:53 | XR ---
EXAMINATION TYPE: XR chest 1V portable DATE OF EXAM: 09/15/2019 COMPARISON: 09/14/2019 INDICATION: Tube placement TECHNIQUE: Single frontal view of the chest is obtained in the semiupright position. FINDINGS: The heart size is normal. The pulmonary vasculature is prominent. Is diffuse increased lung markings bilaterally. This is more focal in the right lower lobe. This is w orsening from comparison. There is a left-sided chest tube. No pneumothorax is evident. Subcutaneous emphysema remains present. Endotracheal tube tip is 2.8 cm above the tristin. Nasogastric tube transverses the thorax. Left cent ral venous catheter is present with the tip in the distal superior vena cava region. IMPRESSION: 1. Bibasilar infiltrates, worsening on the right. 2. Multiple lines and catheters discussed above.
[2019-09-15] MEDS ORDERED: TIOTROPIUM 18 MCG/PUFF INHALER INHALATION SCH (08:00)
[2019-09-15] MEDS: CHLORHEXIDINE GLUCONATE 15 ML CUP MUCOUS MEM SCH ×2 (08:44→21:05)
[2019-09-15] MEDS: SODIUM BICARBONATE TAB 650 MG TAB OG-TUBE SCH ×2 (08:44→21:05)
[2019-09-15] MEDS: ASPIRIN 81 MG PO SCH (08:44)
[2019-09-15] MEDS: PANTOPRAZOLE 40 MG/10 ML VIAL IVP SCH (08:44)
[2019-09-15] MEDS: FOLIC ACID 1 MG TAB PO SCH (08:44)
[2019-09-15] MEDS: METOPROLOL TARTRATE 12.5 MG TAB PO SCH ×2 (08:44→21:06)
[2019-09-15] MEDS: ATORVASTATIN 20 MG TAB PO SCH (08:44)
[2019-09-15] MEDS: PIPERACILLIN-TAZOBACTAM 3.375 GM in SODIUM CHLORIDE 0.9% 100 ML IVPB SCH ×2 (08:44→21:06)
[2019-09-15] MEDS ORDERED: ENOXAPARIN 30 MG/0.3 ML SYRINGE SQ SCH (09:00)
[2019-09-15] MEDS ORDERED: FUROSEMIDE 10 MG/ML 10 ML VIAL IV STA (10:02)
[2019-09-15] MEDS ORDERED: CALCIUM GLUCONATE 2 GM in SODIUM CHLORIDE 0.9% 100 ML IVPB ONE (10:03)
--- NOTE | 2019-09-15 11:14 | P.NPCON ---
History of Present Illness - Reason for Consult acute renal failure - History of Present Illness Reason for consultation: Acute kidney injury History of present illness: Patient is a 74-year-old female seen in renal consultation for acute kidney injury. Her baseline creatinine is near 1 and has been gradually worsening this admission. His up to 3.79 today. Patient's urine output has been about 25-30 mL an hour. She is receiving tube feeding as well as normal saline at 50 mL an hour. Her hemoglobin was 6.4 this morning and she scheduled to receive a unit of blood transfusion. There is no active bleeding. Echocardiogram revealed ejection fraction of 30-35%. Vision had a cardiac arrest earlier this admission with down time of about 18 minutes. Subsequently she developed pneumothorax and she is a left-sided chest tube in place. Levophed was turned off earlier this morning. Chest x-ray suggestive of bibasilar infiltrates. She is also has significant subcutaneous edema. Calcium is low at 6.0. Recent albumin 2.5. Vital signs are stable. General: The patient appeared well nourished and normally developed. Intubated. HEENT: Head exam is unremarkable. Neck is without jugular venous distension. HEART: Rate and Rhythm are regular. ABDOMEN: No distention noted. EXTREMITITES: Edema present. Past Medical History Past Medical History: Coronary Artery Disease (CAD), Heart Failure, COPD, Eye Disorder, Hyperlipidemia, Hypertension Additional Past Medical History / Comment(s): Cardiac arrythmia (patient says it skips a beat), pain in rotator cuff bilateral History of Any Multi-Drug Resistant Organisms: None Reported Past Surgical History: Heart Catheterization, Heart Catheterization With Stent, Tubal Ligation, Uterine Ablation Additional Past Surgical History / Comment(s): natural child , cervical cauterization Past Anesthesia/Blood Transfusion Reactions: No Reported Reaction Date of Last Stent Placement:: 1979 Past Psychological History: Anxiety Smoking Status: Former smoker Additional Drug Use History / Comment(s): Patient chews nicorette gum. Quit smoking in October 2015. - Past Family History Mother Family Medical History: Chest Pain / Angina, Congestive Heart Failure (CHF), COPD, Coronary Artery Disease (CAD) Additional Family Medical History / Comment(s): Father Family Medical History: Chest Pain / Angina, Congestive Heart Failure (CHF) Additional Family Medical History / Comment(s): Sister(s) Family Medical History: AICD/Pacemaker, Cancer, Chest Pain / Angina, Congestive Heart Failure (CHF), COPD Additional Family Medical History / Comment(s): breast cancer Medications and Allergies Home Medications Medication Instructions Recorded Confirmed Type Aspirin EC [Ecotrin Low Dose] 81 mg PO DAILY 06/30/16 09/12/19 History Folic Acid 0.4 mg PO DAILY 06/30/16 09/12/19 History Multivitamins, Thera [Multivitamin 1 tab PO DAILY 06/30/16 09/12/19 History (formulary)] PARoxetine HCL [Paxil] 40 mg PO HS 06/30/16 09/12/19 History Rosuvastatin Calcium [Crestor] 10 mg PO DAILY 06/30/16 09/12/19 History Tiotropium [place] [Spiriva] 1 cap INHALATION RT-HS 06/30/16 09/12/19 History Verapamil HCl [Verapamil ER] 240 mg PO DAILY 06/30/16 09/12/19 History Vitamin E 400 unit PO DAILY 06/30/16 09/12/19 History Albuterol Nebulized [Ventolin 2.5 mg INHALATION RT-QID PRN 09/04/16 09/12/19 History Nebulized] Ipratropium/Albuterol Sulfate 1 puff INHALATION RT-QID 09/04/16 09/12/19 History [Combivent Respimat Inhaler] HYDROcodone/APAP 5-325MG [[place] 1 tab PO Q8H PRN #30 tab 09/14/16 09/12/19 Rx 5-325] Budesonide/Formoterol Fumarate 1 puff INHALATION RT-BID 10/28/18 09/12/19 History [Symbicort 160-4.5 Mcg Inhaler] Bumetanide 0.5 mg PO DAILY PRN 10/28/18 09/12/19 History Cyanocobalamin (Vitamin B-12) 1,000 mcg PO DAILY 10/28/18 09/12/19 History [Vitamin B-12] Famotidine [Pepcid] 20 mg PO HS 10/28/18 09/12/19 History Ibuprofen [Motrin] 600 mg PO BID PRN 10/28/18 09/12/19 History Loratadine 10 mg PO DAILY 10/28/18 09/12/19 History Montelukast [Singulair] 10 mg PO DAILY 10/28/18 09/12/19 History [place]irth-3 Fatty Acids/Fish Oil [Fish 1 cap PO DAILY 10/28/18 09/12/19 History Oil 1,000 mg Softgel] Losartan [Cozaar] 25 mg PO DAILY 09/12/19 09/12/19 History Allergies Allergy/AdvReac Type Severity Reaction Status Date / Time Sulfa (Sulfonamide Allergy Dyspnea Verified 09/12/19 11:50 Antibiotics) Physical Exam Vitals: Vital Signs Temp Pulse Resp BP Pulse Ox 09/15/19 10:00 78 26 H 118/54 95 09/15/19 09:50 98.4 F 77 26 H 119/48 96 09/15/19 09:30 79 26 H 127/87 96 09/15/19 09:00 92 29 H 117/53 89 L 09/15/19 08:52 98.3 F 92 29 H 147/57 89 L 09/15/19 08:30 82 26 H 110/53 09/15/19 08:22 98.3 F 81 26 H 117/53 96 09/15/19 08:12 98.4 F 82 26 H 113/45 96 09/15/19 08:00 98.4 F 79 22 109/51 96 09/15/19 07:30 82 22 104/48 96 09/15/19 07:00 79 22 111/45 95 09/15/19 06:30 81 22 103/50 95 09/15/19 06:00 80 22 102/47 95 09/15/19 05:30 80 22 104/50 94 L 09/15/19 05:00 80 22 104/48 94 L 09/15/19 04:30 82 22 101/51 94 L 09/15/19 04:00 98.1 F 83 25 H 106/56 92 L 09/15/19 03:30 79 22 112/54 95 09/15/19 03:00 82 20 109/58 96 09/15/19 02:30 80 22 121/53 95 09/15/19 02:00 80 22 95 09/15/19 01:30 81 22 116/56 95 09/15/19 01:00 80 22 110/49 95 09/15/19 00:30 83 22 107/47 96 09/15/19 00:00 98 F 83 22 95 09/14/19 23:30 82 22 107/51 94 L 09/14/19 23:00 84 22 93 L 09/14/19 22:30 85 23 102/77 93 L 09/14/19 22:00 91 28 H 89 L 09/14/19 21:30 92 22 124/57 95 09/14/19 21:00 90 22 95 09/14/19 20:30 89 22 109/45 95 09/14/19 20:00 92 22 95 09/14/19 19:30 98.3 F 94 22 134/77 95 09/14/19 19:00 102 H 38 H 96 09/14/19 18:30 93 28 H 130/58 96 09/14/19 18:00 90 28 H 96 09/14/19 17:30 94 30 H 94 L 09/14/19 17:15 94 29 H 132/54 94 L 09/14/19 17:00 101 H 34 H 94 L 09/14/19 16:45 98 28 H 136/63 95 09/14/19 16:30 97 32 H 116/54 95 09/14/19 16:15 91 27 H 95 09/14/19 16:01 88 09/14/19 16:00 98.3 F 87 22 99 09/14/19 15:45 89 22 99 09/14/19 15:40 92 09/14/19 15:39 27 H 09/14/19 15:30 90 28 H 95 09/14/19 15:15 90 27 H 95 09/14/19 15:00 90 27 H 95 09/14/19 14:45 92 26 H 95 09/14/19 14:30 94 26 H 94 L 09/14/19 14:15 96 26 H 93 L 09/14/19 14:00 103 H 33 H 95 09/14/19 13:45 106 H 24 90 L 09/14/19 13:30 92 25 H 95 09/14/19 13:15 95 26 H 95 09/14/19 13:00 95 24 95 09/14/19 12:45 93 23 95 09/14/19 12:30 91 23 96 09/14/19 12:27 90 09/14/19 12:22 24 09/14/19 12:15 87 22 99 09/14/19 12:08 86 09/14/19 12:00 98.6 F 86 22 97 09/14/19 11:45 84 20 96 09/14/19 11:30 83 22 97 09/14/19 11:15 83 22 96 Intake and Output 09/14/19 09/15/19 09/15/19 22:59 06:59 14:59 Intake Total 2195.739 862.522 875.664 Output Total 225 237 109 Balance 1970.739 625.522 766.664 Intake: IV 1798 448 324 Azithromycin 500 mg In 250 Sodium Chloride 0.9% 250 ml @ 250 mls/hr IVPB DAILY@2000 [facility] Rx#: [id number] Lactated Ringers 1,000 ml 1000 @ 999 mls/hr IV .Q1H1M [facility] Rx#:[id number] Piperacillin-Tazobactam 3 100 100 .375 gm In Sodium Chloride 0.9% 100 ml @ 25 mls/hr IVPB Q8HR [facility] Rx# :[id number] Sodium Chloride 0.9% 1, 400 400 200 000 ml @ 20 mls/hr IV . Q24H [facility] Rx#:[id number] pressure bag 48 48 24 Intake, IV Titration 22.739 4.522 1.664 Amount Norepinephrine 8 mg In 22.739 Sodium Chloride 0.9% 250 ml @ 0.05 MCG/KG/MIN 5. 757 mls/hr IV .Q24H [facility] Rx#:[id number] Propofol 1,000 mg In 4.522 1.664 Empty Bag 1 bag @ Titrate IV .Q0M [facility] Rx#: [id number] Tube Feeding 315 350 210 Blood Product 310 Rc As-3 Unit 310 [id number] Other 60 60 30 Output: Chest Tube Drainage 20 15 Chest Tube Left Upper Mid 20 15 -Axillary Chest Urine 205 222 109 Other: Voiding Method Indwelling Catheter Indwelling Catheter Weight 86.7 kg 86.7 kg ABP, PAP, CO, CI - Last 8 Hours Arterial Blood Pressure 120/49 Arterial Blood Pressure 117/47 Arterial Blood Pressure 147/57 Arterial Blood Pressure 120/46 Arterial Blood Pressure 110/43 Arterial Blood Pressure 97/37 Arterial Blood Pressure 84/35 Arterial Blood Pressure 87/36 Arterial Blood Pressure 83/34 Arterial Blood Pressure 81/33 Arterial Blood Pressure 82/34 Arterial Blood Pressure 84/34 Arterial Blood Pressure 106/44 Arterial Blood Pressure 98/40 Results - Lab Results Most recent lab results ABG pH 7.25 (7.35-7.45) L 09/15/19 05:04 ABG pCO2 46 mmHg (35-45) H 09/15/19 05:04 ABG pO2 87 mmHg (83-108) 09/15/19 05:04 ABG HCO3 20 mmol/L (21-25) L 09/15/19 05:04 ABG O2 Saturation 96.2 % (94-97) 09/15/19 05:04 Calcium 6.0 mg/dL (8.4-10.2) L* 09/15/19 04:14 Phosphorus 5.8 mg/dL (2.5-4.5) H 09/12/19 18:15 Magnesium 2.2 mg/dL (1.6-2.3) 09/12/19 18:15 09/15/19 04:14 09/15/19 04:14 Assessment and Plan Plan: Assessment: 1. Acute kidney injury secondary to ATN secondary to cardiopulmonary arrest and acute blood loss anemia. Creatinine up to 3.79 today. 2. Acute blood loss anemia. Hemoglobin 6.4 today. 3. Status post cardiac arrest. 4. Hypotension. Levophed turned off this morning. 5. Metabolic acidosis secondary to acute kidney injury maintained on oral bicarbonate. 6. Hypocalcemia secondary to acute kidney injury. 7. Pneumothorax status post left-sided chest tube placement. 8. Acute hypoxic respiratory failure. Currently intubated. Plan: Scheduled to receive 1 unit of packed red cell transfusion today. Lasix 80 mg IV once after blood transfusion. Hep-Lock IV fluids. Maintain tube feeding. 2 g IV calcium gluconate today. Continue to monitor renal function and urine output. Avoid nephrotoxins. Continue to assess daily for need for renal placement therapy. Thank you for the consultation. I will continue to follow the patient with you during her hospital stay.
[2019-09-15] MEDS: IPRATROPIUM-ALBUTEROL 3 ML NEB INHALATION SCH ×3 (11:40→19:35)
[2019-09-15 11:46] LABS: Glucose,Whole Blood 171 mg/dL (75-99)
--- NOTE | 2019-09-15 12:00 | P.PN ---
Subjective 74-year-old female was transferred from [facility] after she was treated for UTI and chest pain but there is no clear evidence of for myocardial infarction. Patient also has COPD uses a 5 L of oxygen at home patient had COPD exacerbation and it up having respiratory failure leading to cardiac respiratory arrest patient was subsequently intubated. Patient has a chest tube patient is found to have pneumothorax during CPR patient as a result has some tenderness emphysema. Patient ejection fraction dropped to 30% troponins are minimally elevated can be related to CPR patient is on aspirin and DVT prophylaxis patient has low hemoglobin being transferred 6.5 units no evidence of acute bleed at this time. Multiple consultants have been following the patient and patient was treated for cardiac shock may be secondary to cardiorespiratory arrest patient was on norepinephrine which was discontinued patient is presently on ventilatory support with PEEP of 5 set up respiratory rate of 26, FiO2 of around 40% patient didn't tolerate sedation vacation patient remains on high dose of propofol. She presently continues to have a chest tube. Covid19 was ruled out, but patient remains in isolation review of systems: Unable to obtain at this time All inpatient medications were reviewed and appropriate changes in these medications as dictated in the interval history and assessment and plan. Objective - Vital Signs Vital signs: Vital Signs Temp 98.4 F 09/15/19 09:50 Pulse 84 09/15/19 11:30 Resp 28 H 09/15/19 11:30 BP 116/58 09/15/19 11:30 Pulse Ox 94 L 09/15/19 11:30 Intake & Output 09/14/19 09/15/19 09/15/19 18:59 06:59 18:59 Intake Total 2508.023 1585.522 967.273 Output Total 303 322 169 Balance 2205.023 1263.522 798.273 Weight 85.3 kg 86.7 kg 86.7 kg Intake: IV 1828 966 380 Azithromycin 500 mg In 250 Sodium Chloride 0.9% 250 ml @ 250 mls/hr IVPB DAILY@2000 [facility] Rx#: [id number] Lactated Ringers 1,000 ml 1000 @ 999 mls/hr IV .Q1H1M [facility] Rx#:[id number] Piperacillin-Tazobactam 3 100 100 100 .375 gm In Sodium Chloride 0.9% 100 ml @ 25 mls/hr IVPB Q8HR [facility] Rx# :[id number] Sodium Chloride 0.9% 1, 650 550 250 000 ml @ 20 mls/hr IV . Q24H [facility] Rx#:[id number] pressure bag 78 66 30 Intake, IV Titration 170.023 4.522 2.273 Amount Norepinephrine 8 mg In 70.023 Sodium Chloride 0.9% 250 ml @ 0.05 MCG/KG/MIN 5. 757 mls/hr IV .Q24H [facility] Rx#:[id number] Propofol 1,000 mg In 100.000 Empty Bag 1 bag @ Titrate IV .Q0M [facility] Rx#: [id number] Propofol 1,000 mg In 4.522 2.273 Empty Bag 1 bag @ Titrate IV .Q0M [facility] Rx#: [id number] Tube Feeding 330 525 245 Blood Product 310 Rc As-3 Unit 310 [id number] Other 180 90 30 Output: Chest Tube Drainage 20 15 Chest Tube Left Upper Mid 20 15 -Axillary Chest Urine 283 307 169 Other: Voiding Method Indwelling Catheter Indwelling Catheter ABP, PAP, CO, CI - Last Documented Arterial Blood Pressure 127/55 - Exam PHYSICAL EXAMINATION: GENERAL: patient is intubated sedated HEENT: Pupils are round and equally reacting to light. EOMI. No scleral icterus. No conjunctival pallor. Normocephalic, atraumatic. No pharyngeal erythema. No thyromegaly. CARDIOVASCULAR: S1 and S2 present. No murmurs, rubs, or gallops. PULMONARY: decreased air entry into bilateral lung gilbert and some rhonchi in significant subcutaneous emphysema ABDOMEN: Soft, nontender, nondistended, normoactive bowel sounds. No palpable organomegaly. MUSCULOSKELETAL: No joint swelling or deformity. EXTREMITIES: No cyanosis, clubbing, or pedal edema. NEUROLOGICAL:unable to assess and patient is sedated SKIN: No rashes. - Labs CBC & Chem 7: 09/15/19 04:14 09/15/19 04:14 Labs: Abnormal Lab Results - Last 24 Hours (Table) 09/12/19 09/14/19 09/14/19 Range/Units 18:30 12:20 17:36 WBC (3.8-10.6) k/uL RBC (3.80-5.40) m/uL Hgb (11.4-16.0) gm/dL Hct (34.0-46.0) % ABG pH (7.35-7.45) ABG pCO2 (35-45) mmHg ABG HCO3 (21-25) mmol/L Chloride (98-107) mmol/L Carbon Dioxide (22-30) mmol/L BUN (7-17) mg/dL Creatinine (0.52-1.04) mg/dL Glucose (74-99) mg/dL POC Glucose (mg/dL) 180 H 173 H (75-99) mg/dL Calcium (8.4-10.2) mg/dL Crossmatch See Detail 09/14/19 09/15/19 09/15/19 Range/Units 23:21 04:14 04:14 WBC 10.9 H (3.8-10.6) k/uL RBC 2.18 L (3.80-5.40) m/uL Hgb 6.4 L* (11.4-16.0) gm/dL Hct 20.5 L (34.0-46.0) % ABG pH (7.35-7.45) ABG pCO2 (35-45) mmHg ABG HCO3 (21-25) mmol/L Chloride 108 H (98-107) mmol/L Carbon Dioxide 21 L (22-30) mmol/L BUN 65 H (7-17) mg/dL Creatinine 3.79 H (0.52-1.04) mg/dL Glucose 152 H (74-99) mg/dL POC Glucose (mg/dL) 216 H (75-99) mg/dL Calcium 6.0 L* (8.4-10.2) mg/dL Crossmatch 09/15/19 09/15/19 09/15/19 Range/Units 05:04 05:58 11:45 WBC (3.8-10.6) k/uL RBC (3.80-5.40) m/uL Hgb (11.4-16.0) gm/dL Hct (34.0-46.0) % ABG pH 7.25 L (7.35-7.45) ABG pCO2 46 H (35-45) mmHg ABG HCO3 20 L (21-25) mmol/L Chloride (98-107) mmol/L Carbon Dioxide (22-30) mmol/L BUN (7-17) mg/dL Creatinine (0.52-1.04) mg/dL Glucose (74-99) mg/dL POC Glucose (mg/dL) 177 H 171 H (75-99) mg/dL Calcium (8.4-10.2) mg/dL Crossmatch Microbiology - Last 24 Hours (Table) 09/14/19 20:45 Gram Stain - Preliminary Sputum Sputum Culture - Preliminary 09/12/19 12:12 Blood Culture - Preliminary Blood No Growth after 48 hours 09/12/19 23:30 Urine Culture - Final Urine,Catheterized Assessment and Plan Plan: acute the hypoxic and acute on chronic hypercapnic respiratory failure secondary to COPD exacerbation secondary to cardiorespiratory arrest and patient remains intubated with the above-mentioned vent settings -Cardio- respiratory arrest status post CPR , postintubation patient remains on ventilator support didn't tolerate sedation vacation at this time. Cardiac respiratory arrest is most probably secondary to respiratory causes including COPD exacerbation and not wearing oxygen. -Mild troponin elevation secondary to CPR there is no evidence of acute non-ST elevation myocardial infarction at least type I microinfarction although this cannot be completely ruled out patient will undergo cardiac catheterization once more stabilized and patient remains in aspirin and serpiginous heparin for DVT prophylaxis in the because of hemoglobin dropping and because of poor renal function and a switched to Lovenox to heparin subcutaneous -Significant left hemothorax status post chest tube and patient has subcutaneous emphysema secondary to that -Congest heart failure systolic dysfunction most probably acute secondary to cardiorespiratory arrest with mild acute exacerbation. -COPD with acute exacerbation patient went on systemic steroids -UTI completed antibiotic therapy for that but remains on Zosyn although so far negative cultures -Cardiac shock, off pressor support patient shock improved at this time -Leukocytosis can be reactive and secondary to systemic steroids -Hypertensionpatient just came out of sepsis not on any antidepressant medications at this time -Hyperlipidemia - acute renal failure secondary to acute tubular necrosis secondary to cardiac shock patient urine output, patient received a Lasix challenge with improved urine output and patient is presently on IV fluids
[2019-09-15 12:31] LABS: HGB 7.6 gm/dL (11.4-16.0); MCH 30.1 pg (25.0-35.0); MCHC 33.2 g/dL (31.0-37.0); MCV 90.7 fL (80.0-100.0); Mean Platelet Volume 8.5; Platelet Count 181 k/uL (150-450); RBC 2.54 m/uL (3.80-5.40); RDW 14.1 % (11.5-15.5); WBC 12.2 k/uL (3.8-10.6)
--- NOTE | 2019-09-15 12:50 | PN ---
PROGRESS NOTE Mrs Dorado is a lady with a cardiac arrest and she is still on a vent, oxygenation is fair on the ventilator. Her hemoglobin has dropped substantially. We will discontinue the subcu heparin in this case. She has a multiple comorbid conditions. She is in a sinus rhythm, rate is better. Will reduce the metoprolol to 12.5 mg b.i.d. She is on a small dose of Levophed. Urine output is fair, S1-S2 heard normally, short systolic murmur noted. Lungs reveal bilateral air entry. Abdomen and lower extremity exam unchanged. Patient had a cardiac arrest, some mild troponin elevation and significant wall motion abnormalities on the echo. We will pursue conservative management. Prognosis remains poor. MMODL / IJN: [id number] /
[2019-09-15] MEDS: HYDROmorphone 0.5 MG/0.5 ML SYRINGE IVP PRN ×2 (13:18→18:53)
--- NOTE | 2019-09-15 13:53 | PN ---
PROGRESS NOTE PULMONARY/CRITICAL CARE PROGRESS NOTE: DATE OF SERVICE: September 15, 2019 This is a 74-year-old female who was admitted on September 11. Unfortunately, the patient sustained a cardiopulmonary arrest. The patient had a prolonged resuscitation lasting about 18 to 20 minutes. During the process of resuscitation, she developed a pneumothorax on the left side. Initially a Thoravent was placed and subsequent to that she had a chest tube placed. She still has a chest tube in place and she is still on the mechanical ventilator. The patient is currently on the volume assist-control mode rate of 22, tidal volume 350, FiO2 30%, PEEP of 5. Blood gases show pO2 of 87, pCO2 of 46 and a pH 7.25. Bicarbonates 20. The patient is getting saline at 50 mL an hour. Norepinephrine has been turned off at 3 a.m. She is on propofol at 60 mcg/kg per minute, and tube feeds with Vital high-protein at 35 with a goal of 35. She still has a left chest tube in place and she has a continuous air leak. Because of a low hemoglobin, the patient will receive 1 unit of PRBCs. In addition, because of her blood gases showing a bit of hypercarbic induced acidosis, her rate will be increased from 20 to 26. The patient is also placed on sodium bicarb grains 10 i.e. 650 mg twice a day down the NG tube. Will discontinue the Zithromax. Overall, her prognosis remains very guarded. Dr. Gamez would like to do a heart catheterization on her should she recover from this illness. PHYSICAL EXAMINATION: VITAL SIGNS: Current vital signs are reviewed. Temperature is 98.6, heart rate 85, respiratory rate 27, blood pressure 128/61, mean 83, saturations are 93%. CVP is 15. GENERAL: She appears in no acute distress, she is currently sedated heavily with propofol. We will do as usual, a daily interruption of sedation. HEENT: Examination is grossly unremarkable. She has an orally placed endotracheal tube and NG tube. NECK: Supple. Full range of motion. No adenopathy or thyromegaly. Neck veins are flat. CARDIOVASCULAR: Examination reveals a regular rhythm and rate. Heart rate mid 80s. S1, S2 normal. Heart sounds are distant. No S3, S4, or murmur. LUNGS: Reveal diffuse bilateral rhonchi. Breath sounds are diminished. She does have subcutaneous emphysema on the right side of the chest and neck area. No crackles. ABDOMEN: Soft. Bowel sounds are heard. EXTREMITIES: Are intact. Minimal to no edema. SKIN: Without rash. NEUROLOGIC: Examination is difficult to assess given her current level of sedation. Microbiologic studies including blood, urine and sputum are all negative. LABS: Labs are reviewed. White count 12.2, hemoglobin 7.6, up from 6.4 after 1 unit of blood, hematocrit 23, platelet count 181,000. Sodium 137, potassium 4.1, chloride 108, CO2 of 21, anion gap is 8. BUN and creatinine were 65 and 3.79. Calcium is 6. Chest x-ray from today shows worsening bibasilar infiltrates, worse on the right than on the left side. MEDICATIONS: Medications are reviewed. She is currently on Tylenol, aspirin, Lipitor, chlorhexidine, folic acid, subcu heparin, Dilaudid p.r.n., insulin p.r.n., DuoNeb q.4 around the clock, Solu-Medrol 60 mg q.6, metoprolol, Narcan, norepinephrine, which as I mentioned, was weaned off at 3 a.m., Protonix, Paxil, Zosyn, Diprivan, sodium bicarbonate tablets, and the basic IV. ASSESSMENT: 1. Acute hypoxemic respiratory failure secondary to suspected ischemic cardiac disease and cardiac arrest, status post 18 to 20 minutes of cardiopulmonary resuscitation with eventual return of spontaneous circulation. 2. Severe bilateral subcutaneous emphysema secondary to chest compressions during CPR, with a left-sided pneumothorax, status post Thoravent placement initially then chest tube placement. A Thoravent has been subsequently removed. 3. History of coronary artery disease with previous stent placement. 4. History of congestive heart failure. 5. History of chronic obstructive pulmonary disease, oxygen dependent. 6. Non ST-segment elevation myocardial infarction. 7. Benign essential hypertension. 8. Hyperlipidemia. 9. History of anxiety. 10.History of acute kidney injury. PLAN: The patient will have some bicarbonate added to her regimen, 650 mg p.o. twice a day. Will discontinue the Zithromax. Culture data is thus far negative. We gave her 1 unit of PRBCs. In addition, we increased the rate on the ventilator to 26 breaths per minute. Levophed has been weaned off. Her medications are reviewed. Additional recommendations and suggestions are forthcoming. Prognosis is guarded. Critical care time more than 30 minutes. MMODL / IJN: [id number] /
[2019-09-15] MEDS: SODIUM CHLORIDE 0.9% 1,000 ML IV SCH (16:41)
--- NOTE | 2019-09-15 16:53 | PN ---
PROGRESS NOTE DATE OF SERVICE: 09/15/2019 REASON FOR FOLLOWUP: Sepsis, aspiration pneumonia, UTI. INTERVAL HISTORY: The patient is currently afebrile. The patient is hemodynamically stable. FiO2 is currently 30%. No significant or diarrhea reported by the nursing staff. PHYSICAL EXAMINATION: On examination, her blood pressure is 122/53 with a pulse of 82, temperature 98, she is 94% on 30% FiO2. General description is an elderly female, lying in bed in no distress. RESPIRATORY SYSTEM: Unlabored breathing, decreased breath sounds in the base, with no wheeze. HEART: S1, S2. Regular rate and rhythm. ABDOMEN: Soft, no tenderness. LABS: Hemoglobin 7.4, white count , creatinine up to 3.79. Sputum culture currently pending. DIAGNOSTIC IMPRESSION AND PLAN: Patient with acute respiratory failure which is likely multifactorial in this patient did have a component of aspiration pneumonia, post cardiac arrest and UTI. Currently covered with Zosyn to continue and will monitor clinical course as well as cultures closely. Continue supportive care. MMODL / IJN: [id number] /
[2019-09-15 17:33] LABS: Glucose,Whole Blood 183 mg/dL (75-99)
[2019-09-15] MEDS: methylPREDNISolone SOD SUCCI 40 MG/ML 1 ML VIAL IV SCH (17:36)
[2019-09-15] MEDS: HEPARIN SODIUM,PORCINE 5,000 UNIT/ML 1 ML VIAL SQ SCH (21:05)
[2019-09-15] MEDS: PARoxetine 20 MG TAB PO SCH (21:05)
[2019-09-16] MEDS: IPRATROPIUM-ALBUTEROL 3 ML NEB INHALATION SCH ×6 (00:02→19:20)
[2019-09-16 00:19] LABS: Glucose,Whole Blood 197 mg/dL (75-99)
[2019-09-16] MEDS: INSULIN ASPART (NovoLOG) 100 UNIT/ML VIAL SQ SCH ×4 (00:30→18:07)
[2019-09-16] MEDS: methylPREDNISolone SOD SUCCI 40 MG/ML 1 ML VIAL IV SCH ×4 (00:31→18:07)
[2019-09-16] MEDS: HYDROmorphone 0.5 MG/0.5 ML SYRINGE IVP PRN ×3 (02:21→19:57)
[2019-09-16] MEDS: PROPOFOL 1,000 MG in EMPTY BAG 1 BAG IV SCH ×6 (02:22→22:18)
[2019-09-16 04:33] LABS: HCT 23.1 % (34.0-46.0); HGB 7.6 gm/dL (11.4-16.0); MCH 29.5 pg (25.0-35.0); MCHC 32.7 g/dL (31.0-37.0); MCV 90.3 fL (80.0-100.0); Mean Platelet Volume 9.1; Platelet Count 187 k/uL (150-450); RBC 2.56 m/uL (3.80-5.40); RDW 14.3 % (11.5-15.5); WBC 13.2 k/uL (3.8-10.6)
[2019-09-16 05:43] LABS: ABG Base Excess -8.7 mmol/L; ABG HCO3 18 mmol/L (21-25); ABG Oxygen Saturation 96.9 % (94-97); ABG PCO2 41 mmHg (35-45); ABG PH 7.26 (7.35-7.45); ABG PO2 96 mmHg (83-108); ABG TCO2 20 mmol/L (19-24); Allen Test Performed? Yes
[2019-09-16 06:00] LABS: Glucose,Whole Blood 166 mg/dL (75-99)
[2019-09-16] MEDS ORDERED: CALCIUM GLUCONATE 2 GM in SODIUM CHLORIDE 0.9% 100 ML IVPB ONE (06:15)
--- NOTE | 2019-09-16 07:39 | XR ---
EXAMINATION TYPE: XR chest 1V portable DATE OF EXAM: 09/16/2019 COMPARISON: 09/15/2019 HISTORY: SOB, Follow Up FINDINGS: Indwelling tubes and catheters are unchanged. Scattered interstitial and alveolar infiltrates persist essentially unchanged greatest at the lung ba ses. Subcutaneous emphysema is also persistent. Stable appearance of the cardio-mediastinal structures at this time. Pleural effusion unchanged. IMPRESSION: 1. Stable portable chest. Clinical correlation and follow up until resolution is recommended.
--- NOTE | 2019-09-16 08:02 | PN ---
PROGRESS NOTE Mrs. Dorado is in a sinus rhythm. She tolerated the metoprolol well. She is off her Levophed. She seems to be doing better. Urine output is fair. Vitals are stable. S1, S2 heard normally. Short systolic murmur noted. Lungs reveal improved air entry with ventilator assisted breaths sounds. The rest of physical exam unchanged. Patient has wall motion abnormalities on the echo, decreased ejection fraction, has non ST elevation MT probably related to the hypoxia and oxygen mismatch. I am recommending that we continue current medical regimen. I will see her as needed and please do not hesitate to call us if she has any further symptoms. MMODL / IJN: [id number] /
[2019-09-16] MEDS: CHLORHEXIDINE GLUCONATE 15 ML CUP MUCOUS MEM SCH ×2 (08:25→19:58)
[2019-09-16] MEDS: PANTOPRAZOLE 40 MG/10 ML VIAL IVP SCH (08:25)
[2019-09-16] MEDS: SODIUM BICARBONATE TAB 650 MG TAB OG-TUBE SCH ×2 (08:25→19:57)
[2019-09-16] MEDS: ASPIRIN 81 MG PO SCH (08:25)
[2019-09-16] MEDS: PIPERACILLIN-TAZOBACTAM 3.375 GM in SODIUM CHLORIDE 0.9% 100 ML IVPB SCH ×2 (08:25→19:58)
[2019-09-16] MEDS: METOPROLOL TARTRATE 12.5 MG TAB PO SCH ×2 (08:25→22:18)
[2019-09-16] MEDS: ATORVASTATIN 20 MG TAB PO SCH (08:25)
[2019-09-16] MEDS: HEPARIN SODIUM,PORCINE 5,000 UNIT/ML 1 ML VIAL SQ SCH ×2 (08:26→19:58)
--- NOTE | 2019-09-16 11:22 | P.PN ---
Subjective 74-year-old female was transferred from [facility] after she was treated for UTI and chest pain but there is no clear evidence of for myocardial infarction. Patient also has COPD uses a 5 L of oxygen at home patient had COPD exacerbation and it up having respiratory failure leading to cardiac respiratory arrest patient was subsequently intubated. Patient has a chest tube patient is found to have pneumothorax during CPR patient as a result has some tenderness emphysema. Patient ejection fraction dropped to 30% troponins are minimally elevated can be related to CPR patient is on aspirin and DVT prophylaxis patient has low hemoglobin being transferred 6.5 units no evidence of acute bleed at this time. Multiple consultants have been following the patient and patient was treated for cardiac shock may be secondary to cardiorespiratory arrest patient was on norepinephrine which was discontinued patient is presently on ventilatory support with PEEP of 5 set up respiratory rate of 26, FiO2 of around 40% patient didn't tolerate sedation vacation patient remains on high dose of propofol. She presently continues to have a chest tube. Covid19 was ruled out, but patient remains in isolation 09/16/2019 No significant change in her clinical condition compared to yesterday although patient is getting Lasix on as-needed basis not on IV fluids, her urine output actually improved compared to yesterday she is having around the 0.3-0.5 mL/kg/h. Her creatinine is bit worse review of systems: Unable to obtain at this time All inpatient medications were reviewed and appropriate changes in these medications as dictated in the interval history and assessment and plan. Objective - Vital Signs Vital signs: Vital Signs Temp 97.6 F 09/16/19 08:00 Pulse 92 09/16/19 11:00 Resp 30 H 09/16/19 11:00 BP 124/61 09/16/19 11:00 Pulse Ox 95 09/16/19 11:00 Intake & Output 09/15/19 09/16/19 09/16/19 18:59 06:59 18:59 Intake Total 4618.619 4576.143 607.397 Output Total 964 655 220 Balance 731.782 410.143 387.397 Weight 86.7 kg 88.4 kg Intake: IV 712 312 330 Calcium Gluconate 2 gm In 120 100 Sodium Chloride 0.9% 100 ml @ 60 mls/hr IVPB ONCE ONE Rx#:[id number] Piperacillin-Tazobactam 3 100 100 .375 gm In Sodium Chloride 0.9% 100 ml @ 25 mls/hr IVPB Q8HR [facility] Rx# :[id number] Sodium Chloride 0.9% 1, 420 240 100 000 ml @ 20 mls/hr IV . Q24H [facility]Y Rx#:[id number] pressure bag 72 72 30 Intake, IV Titration 4.782 7.143 1.397 Amount Propofol 1,000 mg In 4.782 7.143 1.397 Empty Bag 1 bag @ Titrate IV .Q0M CATHY Rx#: [id number] Tube Feeding 579 656 246 Blood Product 310 Rc As-3 Unit 310 [id number] Other 90 90 30 Output: Chest Tube Drainage 10 15 Chest Tube Left Upper Mid 10 15 -Axillary Chest Urine 954 640 220 Other: Voiding Method Indwelling Catheter Indwelling Catheter Indwelling Catheter ABP, PAP, CO, CI - Last Documented Arterial Blood Pressure 109/47 - Exam PHYSICAL EXAMINATION: GENERAL: patient is intubated sedated HEENT: Pupils are round and equally reacting to light. EOMI. No scleral icterus. No conjunctival pallor. Normocephalic, atraumatic. No pharyngeal erythema. No thyromegaly. CARDIOVASCULAR: S1 and S2 present. No murmurs, rubs, or gallops. PULMONARY: decreased air entry into bilateral lung gilbert and some rhonchi in significant subcutaneous emphysema ABDOMEN: Soft, nontender, nondistended, normoactive bowel sounds. No palpable organomegaly. MUSCULOSKELETAL: No joint swelling or deformity. EXTREMITIES: No cyanosis, clubbing, or pedal edema. NEUROLOGICAL:unable to assess and patient is sedated SKIN: No rashes. - Labs CBC & Chem 7: 09/16/19 04:20 09/16/19 04:20 Labs: Abnormal Lab Results - Last 24 Hours (Table) 09/15/19 09/15/19 09/15/19 Range/Units 11:45 12:10 17:30 WBC 12.2 H (3.8-10.6) k/uL RBC 2.54 L (3.80-5.40) m/uL Hgb 7.6 L (11.4-16.0) gm/dL Hct 23.0 L (34.0-46.0) % ABG pH (7.35-7.45) ABG HCO3 (21-25) mmol/L Carbon Dioxide (22-30) mmol/L BUN (7-17) mg/dL Creatinine (0.52-1.04) mg/dL Glucose (74-99) mg/dL POC Glucose (mg/dL) 171 H 183 H (75-99) mg/dL Calcium (8.4-10.2) mg/dL 09/16/19 09/16/19 09/16/19 Range/Units 00:17 04:20 04:20 WBC 13.2 H (3.8-10.6) k/uL RBC 2.56 L (3.80-5.40) m/uL Hgb 7.6 L (11.4-16.0) gm/dL Hct 23.1 L (34.0-46.0) % ABG pH (7.35-7.45) ABG HCO3 (21-25) mmol/L Carbon Dioxide 18 L (22-30) mmol/L BUN 89 H (7-17) mg/dL Creatinine 4.31 H (0.52-1.04) mg/dL Glucose 146 H (74-99) mg/dL POC Glucose (mg/dL) 197 H (75-99) mg/dL Calcium 6.0 L* (8.4-10.2) mg/dL 09/16/19 09/16/19 Range/Units 05:38 05:59 WBC (3.8-10.6) k/uL RBC (3.80-5.40) m/uL Hgb (11.4-16.0) gm/dL Hct (34.0-46.0) % ABG pH 7.26 L (7.35-7.45) ABG HCO3 18 L (21-25) mmol/L Carbon Dioxide (22-30) mmol/L BUN (7-17) mg/dL Creatinine (0.52-1.04) mg/dL Glucose (74-99) mg/dL POC Glucose (mg/dL) 166 H (75-99) mg/dL Calcium (8.4-10.2) mg/dL Microbiology - Last 24 Hours (Table) 09/12/19 12:12 Blood Culture - Preliminary Blood No Growth after 72 hours 09/14/19 20:45 Gram Stain - Preliminary Sputum Sputum Culture - Preliminary Assessment and Plan Plan: acute the hypoxic and acute on chronic hypercapnic respiratory failure secondary to COPD exacerbation secondary to cardiorespiratory arrest and patient remains intubated with the above-mentioned vent settings -Cardio- respiratory arrest status post CPR , postintubation patient remains on ventilator support didn't tolerate sedation vacation at this time. Cardiac respiratory arrest is most probably secondary to respiratory causes including COPD exacerbation and not wearing oxygen. -Mild troponin elevation secondary to CPR there is no evidence of acute non-ST elevation myocardial infarction at least type I microinfarction although this cannot be completely ruled out patient will undergo cardiac catheterization once more stabilized and patient remains in aspirin and serpiginous heparin for DVT prophylaxis in the because of hemoglobin dropping and because of poor renal function and a switched to Lovenox to heparin subcutaneous -Significant left hemothorax status post chest tube and patient has subcutaneous emphysema secondary to that -Congest heart failure systolic dysfunction most probably acute secondary to cardiorespiratory arrest with mild acute exacerbation. -COPD with acute exacerbation patient went on systemic steroids -UTI completed antibiotic therapy for that but remains on Zosyn although so far negative cultures -Cardiac shock, off pressor support patient shock improved at this time -Leukocytosis can be reactive and secondary to systemic steroids -Hypertensionpatient just came out of sepsis not on any antidepressant medications at this time -Hyperlipidemia - acute renal failure secondary to acute tubular necrosis secondary to cardiac shock patient urine output, patient received a Lasix challenge with improved urine output and patient is presently on IV fluids
--- NOTE | 2019-09-16 11:32 | P.PN ---
Subjective Patient is seen in follow-up for acute kidney injury. Creatinine up to 4.3 today. She received Lasix 80 mg IV once yesterday. Urine output 40-50 mL an hour. Remains intubated. On 30% FiO2. Hemoglobin 7.6 today. Vital signs are stable. Off vasopressors. General: The patient appeared well nourished and normally developed. HEENT: Head exam is unremarkable. Neck is without jugular venous distension. Intubated. HEART: Rate and Rhythm are regular. ABDOMEN: No distention noted. EXTREMITITES: No gross edema. Objective - Vital Signs Vital signs: Vital Signs Temp 97.6 F 09/16/19 08:00 Pulse 92 09/16/19 11:10 Resp 30 H 09/16/19 11:00 BP 124/61 09/16/19 11:00 Pulse Ox 95 09/16/19 11:00 Intake & Output 09/15/19 09/16/19 09/16/19 18:59 06:59 18:59 Intake Total 5057.573 3088.143 607.397 Output Total 964 655 220 Balance 731.782 410.143 387.397 Weight 86.7 kg 88.4 kg Intake: IV 712 312 330 Calcium Gluconate 2 gm In 120 100 Sodium Chloride 0.9% 100 ml @ 60 mls/hr IVPB ONCE ONE Rx#:[id number] Piperacillin-Tazobactam 3 100 100 .375 gm In Sodium Chloride 0.9% 100 ml @ 25 mls/hr IVPB Q8HR [facility]Y Rx# :[id number] Sodium Chloride 0.9% 1, 420 240 100 000 ml @ 20 mls/hr IV . Q24H [facility]ATHY Rx#:[id number] pressure bag 72 72 30 Intake, IV Titration 4.782 7.143 1.397 Amount Propofol 1,000 mg In 4.782 7.143 1.397 Empty Bag 1 bag @ Titrate IV .Q0M CATHY Rx#: [id number] Tube Feeding 579 656 246 Blood Product 310 Rc As-3 Unit 310 [id number] Other 90 90 30 Output: Chest Tube Drainage 10 15 Chest Tube Left Upper Mid 10 15 -Axillary Chest Urine 954 640 220 Other: Voiding Method Indwelling Catheter Indwelling Catheter Indwelling Catheter ABP, PAP, CO, CI - Last Documented Arterial Blood Pressure 109/47 - Labs CBC & Chem 7: 09/16/19 04:20 09/16/19 04:20 Labs: Abnormal Lab Results - Last 24 Hours (Table) 09/15/19 09/15/19 09/15/19 Range/Units 11:45 12:10 17:30 WBC 12.2 H (3.8-10.6) k/uL RBC 2.54 L (3.80-5.40) m/uL Hgb 7.6 L (11.4-16.0) gm/dL Hct 23.0 L (34.0-46.0) % ABG pH (7.35-7.45) ABG HCO3 (21-25) mmol/L Carbon Dioxide (22-30) mmol/L BUN (7-17) mg/dL Creatinine (0.52-1.04) mg/dL Glucose (74-99) mg/dL POC Glucose (mg/dL) 171 H 183 H (75-99) mg/dL Calcium (8.4-10.2) mg/dL 09/16/19 09/16/19 09/16/19 Range/Units 00:17 04:20 04:20 WBC 13.2 H (3.8-10.6) k/uL RBC 2.56 L (3.80-5.40) m/uL Hgb 7.6 L (11.4-16.0) gm/dL Hct 23.1 L (34.0-46.0) % ABG pH (7.35-7.45) ABG HCO3 (21-25) mmol/L Carbon Dioxide 18 L (22-30) mmol/L BUN 89 H (7-17) mg/dL Creatinine 4.31 H (0.52-1.04) mg/dL Glucose 146 H (74-99) mg/dL POC Glucose (mg/dL) 197 H (75-99) mg/dL Calcium 6.0 L* (8.4-10.2) mg/dL 09/16/19 09/16/19 Range/Units 05:38 05:59 WBC (3.8-10.6) k/uL RBC (3.80-5.40) m/uL Hgb (11.4-16.0) gm/dL Hct (34.0-46.0) % ABG pH 7.26 L (7.35-7.45) ABG HCO3 18 L (21-25) mmol/L Carbon Dioxide (22-30) mmol/L BUN (7-17) mg/dL Creatinine (0.52-1.04) mg/dL Glucose (74-99) mg/dL POC Glucose (mg/dL) 166 H (75-99) mg/dL Calcium (8.4-10.2) mg/dL Microbiology - Last 24 Hours (Table) 09/12/19 12:12 Blood Culture - Preliminary Blood No Growth after 72 hours 09/14/19 20:45 Gram Stain - Preliminary Sputum Sputum Culture - Preliminary Assessment and Plan Plan: Assessment: 1. Acute kidney injury secondary to ATN secondary to cardiopulmonary arrest and acute blood loss anemia. Creatinine up to 4.31 today. 2. Acute blood loss anemia status post blood transfusion on September 14. Hemoglobin 7.6 this morning. 3. Status post cardiac arrest. 4. Hypotension. Improved. Off vasopressors. 5. Metabolic acidosis secondary to acute kidney injury maintained on oral bicarbonate. 6. Hypocalcemia secondary to acute kidney injury. 7. Pneumothorax status post left-sided chest tube placement. 8. Acute hypoxic respiratory failure. Currently intubated. Plan: Maintain tube feeding. 2 g IV calcium gluconate today. Continue to monitor renal function and urine output. Avoid nephrotoxins. Continue to assess daily for need for renal placement therapy. Wean FiO2.
[2019-09-16 12:28] LABS: Glucose,Whole Blood 160 mg/dL (75-99)
--- NOTE | 2019-09-16 12:29 | PN ---
PROGRESS NOTE PULMONARY/CRITICAL CARE PROGRESS NOTE: DATE OF SERVICE: 09/16/2019 Critical care time greater than 30 minutes. This is a 74-year-old female who was admitted on September 11. Unfortunately, the patient sustained a cardiopulmonary arrest, and had a prolonged resuscitation of about 18-20 minutes. During the process of her resuscitation, she developed a pneumothorax on the left side, which initially required a Thora vent and then a subsequent chest tube to be placed. She is still on mechanical ventilator. Her vent settings are reviewed. They include a volume assist-control mode rate of 26, tidal volume 350, FiO2 of 30% and a PEEP of 5. Blood gases show a pO2 of 96, pCO2 of 41, and pH of 7.26. These blood gases are consistent with normoxemia and a mild metabolic acidosis. The patient remains on Vital AF at 41 with a goal of 41 mL an hour. She is getting propofol at 60 mcg/kg per minute and a saline IV at 20 mL an hour. She is in normal sinus rhythm with a rate of 84, and the patient's left chest tube which was inserted shortly after the resuscitation, continues to show an ongoing air leak. Hence, the chest tube cannot come out while she is on positive-pressure ventilation. She has not made much progress. She has a DNR. The pararescue craftsman would like to do a heart catheterization on her if she survives this illness and improves. Current vital signs are reviewed. Her temperature is 97.6, heart rate 92, respiratory rate 30, blood pressure 124/61 mean 82, saturations are 95%. CVP is running at 13 cm of water. Appears in no acute distress. HEENT: Examination is grossly unremarkable. She had got an orally placed endotracheal tube and NG tube. NECK: Supple, full range of motion. No adenopathy or thyromegaly. Neck veins are flat. CARDIOVASCULAR: Examination reveals regular rhythm and rate. Heart rate about 90 beats per minute. S1, S2 normal. Heart sounds are distant. LUNGS: Reveal diffuse coarse rhonchi. Breath sounds equal. No crackles. ABDOMEN: Soft, bowel sounds are noted. EXTREMITIES: Reveal some mild edema. SKIN: Without rash. NEUROLOGIC: Examination cannot be adequately assessed because she is currently sedated. CURRENT LABORATORY DATA: Reviewed. White count 13.2, hemoglobin 7.6, hematocrit 23.1, platelet count 187,000. Blood gases show again show pO2 of 96, pCO2 of 41, pH is 7.26, which is consistent with a mild metabolic acidosis. Sodium 137, potassium 4, chloride is 106, CO2 is 18, anion gap is 13. BUN and creatinine were 89 and 4.31. Calcium is 6. Microbiology is currently all negative. Her chest x-ray from September 15 shows a properly placed endotracheal tube. She has bilateral diffuse infiltrates. She has bilateral effusions. Her pattern appears to be more consistent with CHF. CURRENT MEDICATIONS: Reviewed. She is on Tylenol, aspirin, Lipitor, chlorhexidine, heparin subcu, Dilaudid, insulin, updrafts, Solu-Medrol, metoprolol, Narcan, Protonix, Paxil, Zosyn, Diprivan, sodium bicarbonate tablets, and saline at 20 mL an hour. ASSESSMENT: 1. Acute hypoxemic respiratory failure secondary to suspected ischemic cardiac disease and cardiac arrest, status post 18-20 minutes of cardiopulmonary resuscitation with eventual return of spontaneous circulation. 2. Severe bilateral subcutaneous emphysema secondary to chest compressions and CPR with the left-sided pneumothorax, status post Thora Vent placement initially, then chest tube placement. 3. History of coronary artery disease with previous stent placement. 4. History of congestive heart failure. 5. History of chronic obstructive pulmonary disease, oxygen dependent. 6. Non ST-segment elevation myocardial infarction. 7. Benign essential hypertension. 8. Hyperlipidemia. 9. History of anxiety. 10.History of acute kidney injury. PLAN: Currently, the patient is doing about the same. She still has a continuous air leak at about left-sided chest tube. Blood gases show very mild metabolic acidosis. Bicarbonate tablets were added 650 mg twice a day. The patient is on tube feeds at goal at 41 mL an hour with Vital AF. Again blood gases show good oxygenation. COVID- 19 testing was negative. Chest x-ray is consistent with fluid overload. Overall prognosis remains guarded. Critical care time greater than 30 minutes. MMODL / IJN: [id number] /
[2019-09-16] MEDS: SODIUM CHLORIDE 0.9% 1,000 ML IV SCH (13:35)
[2019-09-16 18:02] LABS: Glucose,Whole Blood 204 mg/dL (75-99)
--- NOTE | 2019-09-16 19:11 | PN ---
PROGRESS NOTE DATE OF SERVICE: 09/16/2019 REASON FOR FOLLOW UP: Urinary tract infection, aspiration pneumonia. INTERVAL HISTORY: The patient is currently in atrial fibrillation. The patient is hemodynamically stable. The patient's FIO2 is currently down to 30%. No significant purulent secretions or diarrhea reported by nursing staff. The patient remains to be sedated on the vent. PHYSICAL EXAMINATION: On examination, blood pressure is 135/62 with pulse of 84, temperature of 98.4, she is on 94% on 30% FIO2. General description is an elderly female, intubated on the vent. RESPIRATORY SYSTEM: Unlabored breathing, decreased breath sounds in the bases. HEART: S1, S2. Regular rhythm. ABDOMEN: Soft. No tenderness. LABS: Hemoglobin 7.6, white count 13.2, creatinine is 4.31. Sputum is showing yeast. Urine is negative. DIAGNOSTIC IMPRESSION AND PLAN: Patient with acute respiratory failure which is likely multifactorial and this patient did have cardiac arrest requiring recent sedation. The patient is currently covered with Zosyn because of aspiration pneumonitis and urinary tract infection. Mildly elevated white count more likely steroid effect. We will monitor closely and continue supportive care. MMODL / IJN: [id number] /
[2019-09-16] MEDS: PARoxetine 20 MG TAB PO SCH (19:57)
[2019-09-16 23:56] LABS: Glucose,Whole Blood 200 mg/dL (75-99)
[2019-09-17] MEDS: INSULIN ASPART (NovoLOG) 100 UNIT/ML VIAL SQ SCH ×5 (00:03→18:09)
[2019-09-17] MEDS: methylPREDNISolone SOD SUCCI 40 MG/ML 1 ML VIAL IV SCH ×4 (00:03→18:08)
[2019-09-17] MEDS: IPRATROPIUM-ALBUTEROL 3 ML NEB INHALATION SCH ×7 (00:15→23:24)
[2019-09-17] MEDS: HYDROmorphone 0.5 MG/0.5 ML SYRINGE IVP PRN ×3 (01:47→16:37)
[2019-09-17] MEDS: PROPOFOL 1,000 MG in EMPTY BAG 1 BAG IV SCH ×5 (01:51→21:55)
[2019-09-17 04:36] LABS: Glucose,Whole Blood 185 mg/dL (75-99)
[2019-09-17 04:47] LABS: HCT 23.1 % (34.0-46.0); HGB 7.5 gm/dL (11.4-16.0); MCH 29.4 pg (25.0-35.0); MCHC 32.4 g/dL (31.0-37.0); MCV 90.6 fL (80.0-100.0); Mean Platelet Volume 9.9; Platelet Count 201 k/uL (150-450); RBC 2.55 m/uL (3.80-5.40); RDW 14.2 % (11.5-15.5); WBC 13.9 k/uL (3.8-10.6)
[2019-09-17 05:06] LABS: Ionized Calcium 3.7 mg/dL (4.5-5.3)
[2019-09-17 05:14] LABS: Potassium 4.5 mmol/L (3.5-5.1)
[2019-09-17 05:25] LABS: Calcium 6.1 mg/dL (8.4-10.2)
[2019-09-17 05:43] LABS: ABG Base Excess -9.7 mmol/L; ABG HCO3 18 mmol/L (21-25); ABG Oxygen Saturation 97.1 % (94-97); ABG PCO2 41 mmHg (35-45); ABG PH 7.25 (7.35-7.45); ABG PO2 105 mmHg (83-108); ABG TCO2 19 mmol/L (19-24); Allen Test Performed? Yes
[2019-09-17] MEDS ORDERED: CALCIUM GLUCONATE 2 GM in SODIUM CHLORIDE 0.9% 100 ML IVPB ONE (06:00)
[2019-09-17] MEDS: HYDROmorphone 1 MG/ML 1 ML SYRINGE IVP PRN (06:12)
--- NOTE | 2019-09-17 08:08 | XR ---
EXAMINATION TYPE: XR chest 1V portable DATE OF EXAM: 09/17/2019 COMPARISON: Prior chest x-ray 09/16/[address] from outside institution 10/28/2018 HISTORY: Intubated TECHNIQUE: Single frontal view of the chest is obtained. FINDINGS: Endotracheal tube and NG tube, left jugular central venous catheter, left chest tube and e xtensive subcutaneous emphysema are again noted. No evident pneumothorax. Bibasilar increased density persists. Heart size is stable. There are overlying cardiac leads. There is some prominence of inter stitium. IMPRESSION: Findings are similar to prior exam. Possible basilar pneumonia versus atelectasis and ef fusions, there is emphysema noted on prior CT in the upper lobes
[2019-09-17] MEDS: ASPIRIN 81 MG PO SCH (09:06)
[2019-09-17] MEDS: ATORVASTATIN 20 MG TAB PO SCH (09:06)
[2019-09-17] MEDS: HEPARIN SODIUM,PORCINE 5,000 UNIT/ML 1 ML VIAL SQ SCH ×2 (09:06→20:02)
[2019-09-17] MEDS: SODIUM BICARBONATE TAB 650 MG TAB OG-TUBE SCH ×3 (09:06→22:05)
[2019-09-17] MEDS: CHLORHEXIDINE GLUCONATE 15 ML CUP MUCOUS MEM SCH ×2 (09:06→20:01)
[2019-09-17] MEDS: METOPROLOL TARTRATE 12.5 MG TAB PO SCH ×2 (09:06→20:03)
[2019-09-17] MEDS: PANTOPRAZOLE 40 MG/10 ML VIAL IVP SCH (09:06)
[2019-09-17] MEDS: PIPERACILLIN-TAZOBACTAM 3.375 GM in SODIUM CHLORIDE 0.9% 100 ML IVPB SCH ×2 (09:07→20:06)
--- NOTE | 2019-09-17 11:06 | P.PN ---
Subjective Patient is seen in follow-up for acute kidney injury. Creatinine up to 4.67 today. She received Lasix 80 mg IV once on September 14. Urine output stable at 50-60 mL per hour. Remains intubated. On 30% FiO2. Hemoglobin stable at 7.5 today. 2. Is running at goal. Vital signs are stable. Off vasopressors. General: The patient appeared well nourished and normally developed. HEENT: Head exam is unremarkable. Neck is without jugular venous distension. Intubated. HEART: Rate and Rhythm are regular. ABDOMEN: No distention noted. EXTREMITITES: No gross edema. Objective - Vital Signs Vital signs: Vital Signs Temp 98.1 F 09/17/19 08:00 Pulse 80 09/17/19 11:02 Resp 28 H 09/17/19 11:00 BP 124/63 09/17/19 11:00 Pulse Ox 97 09/17/19 11:00 Intake & Output 09/16/19 09/17/19 09/17/19 18:59 06:59 18:59 Intake Total 1262.798 996.577 570.280 Output Total 615 725 285 Balance 647.798 271.577 285.280 Weight 89.5 kg Intake: IV 512 312 230 Calcium Gluconate 2 gm In 100 Sodium Chloride 0.9% 100 ml @ 60 mls/hr IVPB ONCE ONE Rx#:[id number] Piperacillin-Tazobactam 3 100 100 .375 gm In Sodium Chloride 0.9% 100 ml @ 25 mls/hr IVPB Q8HR [facility] Rx# :[id number] Sodium Chloride 0.9% 1, 240 240 100 000 ml @ 20 mls/hr IV . Q24H [facility]Y Rx#:[id number] pressure bag 72 72 30 Intake, IV Titration 4.798 102.577 105.280 Amount Propofol 1,000 mg In 4.798 2.577 Empty Bag 1 bag @ Titrate IV .Q0M [facility]Y Rx#: [id number] Propofol 1,000 mg In 100 105.280 Empty Bag 1 bag @ Titrate IV .Q0M C[facility]Y Rx#: [id number] Tube Feeding 656 492 205 Other 90 90 30 Output: Chest Tube Drainage 110 Chest Tube Left Upper Mid 110 -Axillary Chest Urine 615 615 285 Other: Voiding Method Indwelling Catheter Indwelling Catheter Indwelling Catheter ABP, PAP, CO, CI - Last Documented Arterial Blood Pressure 139/55 - Labs CBC & Chem 7: 09/17/19 04:30 09/17/19 04:30 Labs: Abnormal Lab Results - Last 24 Hours (Table) 09/16/19 09/16/19 09/16/19 Range/Units 12:26 18:00 23:53 WBC (3.8-10.6) k/uL RBC (3.80-5.40) m/uL Hgb (11.4-16.0) gm/dL Hct (34.0-46.0) % ABG pH (7.35-7.45) ABG HCO3 (21-25) mmol/L ABG O2 Saturation (94-97) % Chloride (98-107) mmol/L Carbon Dioxide (22-30) mmol/L BUN (7-17) mg/dL Creatinine (0.52-1.04) mg/dL Glucose (74-99) mg/dL POC Glucose (mg/dL) 160 H 204 H 200 H (75-99) mg/dL Calcium (8.4-10.2) mg/dL Ionized Calcium Pepe (4.5-5.3) mg/dL 09/17/19 09/17/19 09/17/19 Range/Units 04:30 04:30 04:35 WBC 13.9 H (3.8-10.6) k/uL RBC 2.55 L (3.80-5.40) m/uL Hgb 7.5 L (11.4-16.0) gm/dL Hct 23.1 L (34.0-46.0) % ABG pH (7.35-7.45) ABG HCO3 (21-25) mmol/L ABG O2 Saturation (94-97) % Chloride 108 H (98-107) mmol/L Carbon Dioxide 18 L (22-30) mmol/L BUN 108 H* (7-17) mg/dL Creatinine 4.67 H (0.52-1.04) mg/dL Glucose 162 H (74-99) mg/dL POC Glucose (mg/dL) 185 H (75-99) mg/dL Calcium 6.1 L* (8.4-10.2) mg/dL Ionized Calcium Pepe 3.7 L (4.5-5.3) mg/dL 09/17/19 Range/Units 05:37 WBC (3.8-10.6) k/uL RBC (3.80-5.40) m/uL Hgb (11.4-16.0) gm/dL Hct (34.0-46.0) % ABG pH 7.25 L (7.35-7.45) ABG HCO3 18 L (21-25) mmol/L ABG O2 Saturation 97.1 H (94-97) % Chloride (98-107) mmol/L Carbon Dioxide (22-30) mmol/L BUN (7-17) mg/dL Creatinine (0.52-1.04) mg/dL Glucose (74-99) mg/dL POC Glucose (mg/dL) (75-99) mg/dL Calcium (8.4-10.2) mg/dL Ionized Calcium Pepe (4.5-5.3) mg/dL Microbiology - Last 24 Hours (Table) 09/12/19 12:12 Blood Culture - Preliminary Blood No Growth after 96 hours 09/14/19 20:45 Gram Stain - Preliminary Sputum Sputum Culture - Preliminary Yeast species Baylee albicans Assessment and Plan Plan: Assessment: 1. Acute kidney injury secondary to ATN secondary to cardiopulmonary arrest and acute blood loss anemia. Creatinine up to 4.67 today. 2. Acute blood loss anemia status post blood transfusion on September 14. Hemoglobin 7.5 this morning. 3. Status post cardiac arrest. 4. Hypotension. Improved. Off vasopressors. 5. Metabolic acidosis secondary to acute kidney injury maintained on oral bicarbonate. 6. Hypocalcemia secondary to acute kidney injury. 7. Pneumothorax status post left-sided chest tube placement. 8. Acute hypoxic respiratory failure. Currently intubated. Plan: Maintain tube feeding. 2 g IV calcium gluconate today. Continue to monitor renal function and urine output. Avoid nephrotoxins. Continue to assess daily for need for renal placement therapy. Wean FiO2. Hold off on diuretics.
[2019-09-17 12:06] LABS: Glucose,Whole Blood 175 mg/dL (75-99)
--- NOTE | 2019-09-17 12:07 | P.PN ---
Subjective 74-year-old female was transferred from [facility] after she was treated for UTI and chest pain but there is no clear evidence of for myocardial infarction. Patient also has COPD uses a 5 L of oxygen at home patient had COPD exacerbation and it up having respiratory failure leading to cardiac respiratory arrest patient was subsequently intubated. Patient has a chest tube patient is found to have pneumothorax during CPR patient as a result has some tenderness emphysema. Patient ejection fraction dropped to 30% troponins are minimally elevated can be related to CPR patient is on aspirin and DVT prophylaxis patient has low hemoglobin being transferred 6.5 units no evidence of acute bleed at this time. Multiple consultants have been following the patient and patient was treated for cardiac shock may be secondary to cardiorespiratory arrest patient was on norepinephrine which was discontinued patient is presently on ventilatory support with PEEP of 5 set up respiratory rate of 26, FiO2 of around 40% patient didn't tolerate sedation vacation patient remains on high dose of propofol. She presently continues to have a chest tube. Covid19 was ruled out, but patient remains in isolation 09/16/2019 No significant change in her clinical condition compared to yesterday although patient is getting Lasix on as-needed basis not on IV fluids, her urine output actually improved compared to yesterday she is having around the 0.3-0.5 mL/kg/h. Her creatinine is bit worse 09/17/2019 There is no significant the improvement in her clinical condition actually her kidney function is bit worse and creatinine went up to 4.7 her overall prognosis is extremely poor considering her poor pulmonary reserve from her advanced COPD she is liters 5 L of oxygen and with cardiac respiratory arrest her clinical condition remains guarded and prognosis remains extremely poor. Patient failed weaning trial and the sedation medication today as well patient is also on 30% FiO2. Patient is presently not on any pressor support. Diuretics are being held by nephrology review of systems: Unable to obtain at this time All inpatient medications were reviewed and appropriate changes in these medications as dictated in the interval history and assessment and plan. Objective - Vital Signs Vital signs: Vital Signs Temp 98.1 F 09/17/19 08:00 Pulse 78 09/17/19 11:12 Resp 28 H 09/17/19 11:00 BP 124/63 09/17/19 11:00 Pulse Ox 97 09/17/19 11:00 Intake & Output 09/16/19 09/17/19 09/17/19 18:59 06:59 18:59 Intake Total 1262.798 996.577 570.280 Output Total 615 725 285 Balance 647.798 271.577 285.280 Weight 89.5 kg Intake: IV 512 312 230 Calcium Gluconate 2 gm In 100 Sodium Chloride 0.9% 100 ml @ 60 mls/hr IVPB ONCE ONE Rx#:[id number] Piperacillin-Tazobactam 3 100 100 .375 gm In Sodium Chloride 0.9% 100 ml @ 25 mls/hr IVPB Q8HR [facility] Rx# :[id number] Sodium Chloride 0.9% 1, 240 240 100 000 ml @ 20 mls/hr IV . Q24H [facility] Rx#:[id number] pressure bag 72 72 30 Intake, IV Titration 4.798 102.577 105.280 Amount Propofol 1,000 mg In 4.798 2.577 Empty Bag 1 bag @ Titrate IV .Q0M [facility] Rx#: [id number] Propofol 1,000 mg In 100 105.280 Empty Bag 1 bag @ Titrate IV .Q0M [facility] Rx#: [id number] Tube Feeding 656 492 205 Other 90 90 30 Output: Chest Tube Drainage 110 Chest Tube Left Upper Mid 110 -Axillary Chest Urine 615 615 285 Other: Voiding Method Indwelling Catheter Indwelling Catheter Indwelling Catheter ABP, PAP, CO, CI - Last Documented Arterial Blood Pressure 139/55 - Exam PHYSICAL EXAMINATION: GENERAL: patient is intubated sedated HEENT: Pupils are round and equally reacting to light. EOMI. No scleral icterus. No conjunctival pallor. Normocephalic, atraumatic. No pharyngeal erythema. No thyromegaly. CARDIOVASCULAR: S1 and S2 present. No murmurs, rubs, or gallops. PULMONARY: decreased air entry into bilateral lung gilbert and some rhonchi in significant subcutaneous emphysema ABDOMEN: Soft, nontender, nondistended, normoactive bowel sounds. No palpable organomegaly. MUSCULOSKELETAL: No joint swelling or deformity. EXTREMITIES: No cyanosis, clubbing, or pedal edema. NEUROLOGICAL:unable to assess and patient is sedated SKIN: No rashes. - Labs CBC & Chem 7: 09/17/19 04:30 09/17/19 04:30 Labs: Abnormal Lab Results - Last 24 Hours (Table) 09/16/19 09/16/19 09/16/19 Range/Units 12:26 18:00 23:53 WBC (3.8-10.6) k/uL RBC (3.80-5.40) m/uL Hgb (11.4-16.0) gm/dL Hct (34.0-46.0) % ABG pH (7.35-7.45) ABG HCO3 (21-25) mmol/L ABG O2 Saturation (94-97) % Chloride (98-107) mmol/L Carbon Dioxide (22-30) mmol/L BUN (7-17) mg/dL Creatinine (0.52-1.04) mg/dL Glucose (74-99) mg/dL POC Glucose (mg/dL) 160 H 204 H 200 H (75-99) mg/dL Calcium (8.4-10.2) mg/dL Ionized Calcium Pepe (4.5-5.3) mg/dL 09/17/19 09/17/19 09/17/19 Range/Units 04:30 04:30 04:35 WBC 13.9 H (3.8-10.6) k/uL RBC 2.55 L (3.80-5.40) m/uL Hgb 7.5 L (11.4-16.0) gm/dL Hct 23.1 L (34.0-46.0) % ABG pH (7.35-7.45) ABG HCO3 (21-25) mmol/L ABG O2 Saturation (94-97) % Chloride 108 H (98-107) mmol/L Carbon Dioxide 18 L (22-30) mmol/L BUN 108 H* (7-17) mg/dL Creatinine 4.67 H (0.52-1.04) mg/dL Glucose 162 H (74-99) mg/dL POC Glucose (mg/dL) 185 H (75-99) mg/dL Calcium 6.1 L* (8.4-10.2) mg/dL Ionized Calcium Pepe 3.7 L (4.5-5.3) mg/dL 09/17/19 Range/Units 05:37 WBC (3.8-10.6) k/uL RBC (3.80-5.40) m/uL Hgb (11.4-16.0) gm/dL Hct (34.0-46.0) % ABG pH 7.25 L (7.35-7.45) ABG HCO3 18 L (21-25) mmol/L ABG O2 Saturation 97.1 H (94-97) % Chloride (98-107) mmol/L Carbon Dioxide (22-30) mmol/L BUN (7-17) mg/dL Creatinine (0.52-1.04) mg/dL Glucose (74-99) mg/dL POC Glucose (mg/dL) (75-99) mg/dL Calcium (8.4-10.2) mg/dL Ionized Calcium Pepe (4.5-5.3) mg/dL Microbiology - Last 24 Hours (Table) 09/14/19 20:45 Gram Stain - Final Sputum Sputum Culture - Final Baylee sp,not albicans/galbr Baylee albicans 09/12/19 12:12 Blood Culture - Preliminary Blood No Growth after 96 hours Assessment and Plan Plan: acute the hypoxic and acute on chronic hypercapnic respiratory failure secondary to COPD exacerbation secondary to cardiorespiratory arrest and patient remains intubated with the above-mentioned vent settings -Cardio- respiratory arrest status post CPR , postintubation patient remains on ventilator support didn't tolerate sedation vacation at this time. Cardiac respiratory arrest is most probably secondary to respiratory causes including COPD exacerbation and not wearing oxygen. -Mild troponin elevation secondary to CPR there is no evidence of acute non-ST elevation myocardial infarction at least type I microinfarction although this cannot be completely ruled out patient will undergo cardiac catheterization once more stabilized but her prognosis remains extremely poor patient is probably more appropriate for comfort care patient is presently DO NOT RESUSCITATE -Significant left hemothorax status post chest tube with minimal output and can use to have leak -Congestive heart failure systolic dysfunction most probably acute secondary to cardiorespiratory arrest with mild acute exacerbation. -COPD with acute exacerbation patient went on systemic steroids -UTI completed antibiotic therapy for that but remains on Zosyn although so far negative cultures -Cardiac shock, off pressor support patient shock improved at this time -Leukocytosis can be reactive and secondary to systemic steroids -Hypertensionpatient just came out of sepsis not on any antidepressant medications at this time -Hyperlipidemia - acute renal failure secondary to acute tubular necrosis secondary to cardiac shock patient urine output, patient received a Lasix challenge with improved urine output and patient is presently on IV fluids Patient's prognosis is extremely poor patient is probably more appropriate for terminal wean and comfort care
[2019-09-17] MEDS: SODIUM CHLORIDE 0.9% 1,000 ML IV SCH (12:23)
[2019-09-17] MEDS: FAMOTIDINE 20 MG/2 ML VIAL IV SCH (12:54)
--- NOTE | 2019-09-17 13:15 | PN ---
PROGRESS NOTE PULMONARY/CRITICAL CARE PROGRESS NOTE: DATE OF SERVICE: September 17, 2019 Critical care time is greater than 30 minutes. This is a 74-year-old female who was admitted back on September 11. Unfortunately, the patient sustained a cardiopulmonary arrest and had prolonged cardiopulmonary resuscitation of about 18 to 20 minutes with eventual return of spontaneous circulation. During the process of resuscitation, she developed left-sided pneumothorax, which was initially treated with a Thoravent and then subsequently she had a chest tube inserted and the Thora-Vent was removed. She remains on the mechanical ventilator. She is on the volume assist-control mode rate of 26, tidal volume 350, FiO2 30%, PEEP of 5. Blood gases show pO2 of 105, pCO2 of 41 and a pH 7.25. This blood gas is consistent with a mild hyperoxia and a mild metabolic acidosis. Currently, she is getting some calcium replacement for a protein bound calcium of 6.1 and an ionized calcium of 3.7. The patient is on propofol at 60 mcg/kg per minute and saline at 20 mL an hour. She is being nourished with Vital AF at 41 with a goal of 41. Chest x-ray shows bilateral effusions and a left-sided chest tube with continuous air leak. Culture data is essentially negative. The sputum is showing evidence of the yeast. She is on Zosyn. We are planning a daily interruption of sedation today and increasing her bicarbonate tablets to 3 times a day, 650 mg or grain 10. She is a DNR. Cardiology would like to do a catheterization on her should she survive this illness. Again, she has not made much progress. PHYSICAL EXAMINATION: VITAL SIGNS: Current vital signs are reviewed. The temperature is 98.1, heart rate 78, respiratory rate 28, blood pressure 124/63, mean 83, saturations are 97%. CVP is 11. GENERAL: Appears in no acute distress. Currently sedated. HEENT: Examination is grossly unremarkable. There is an orally placed endotracheal tube and NG tube. NECK: Supple. Full range of motion. No adenopathy, thyromegaly or neck vein distention. CARDIOVASCULAR: Examination reveals regular rhythm rate. Heart rate 78 beats per minute. S1, S2 normal. LUNGS: Reveal coarse bilateral rhonchi. No wheezes. There are some bibasilar crackles. Breath sounds equal. ABDOMEN: Soft. Bowel sounds are heard. EXTREMITIES: Are intact. No cyanosis, clubbing, or edema. SKIN: Without rash. NEUROLOGIC: Examination is difficult to assess because she is currently sedated. She does have a left-sided chest tube in place. LAB DATA: Lab data is reviewed. White count 13.9, hemoglobin 7.5, hematocrit 23.1, platelet count 201,000. Blood gases have been noted. Sodium 139, potassium 4.5, chloride 108, CO2 18, anion gap is 13. BUN and creatinine were 108 and 4.67. Glucose is 162. Calcium 6.1, ionized calcium 3.7. Microbiology is showing Baylee species in the sputum. A chest x-ray from the shows bibasilar pneumonia versus atelectasis and left-sided chest tube. CURRENT MEDICATIONS: Current medications are reviewed. She is on Tylenol, aspirin, Lipitor, chlorhexidine, subcu heparin, Dilaudid, insulin, DuoNeb, Solu-Medrol, metoprolol, Narcan, Protonix, Paxil, Zosyn, propofol, bicarbonate 650 mg 3 times a day, and saline at 20 mL an hour. ASSESSMENT: 1. Acute hypoxemic respiratory failure secondary to suspected ischemic cardiac disease and cardiac arrest, status post 18 to 20 minutes of cardiopulmonary resuscitation with eventual return of spontaneous circulation (CPA/CPR/ROSC). 2. Severe bilateral subcutaneous emphysema secondary to chest compressions and CPR with resultant left-sided pneumothorax, status post initial Thoravent placement and then finally chest tube placement. 3. History of coronary artery disease with previous stent placement. 4. History of congestive heart failure. 5. History of chronic obstructive pulmonary disease, oxygen dependent. 6. Non ST-segment elevation myocardial infarction. 7. Benign essential hypertension. 8. Hyperlipidemia. 9. History of anxiety. 10.History of acute kidney injury. PLAN: The patient's overall prognosis remains very poor. The patient may end up needing dialysis. She gets calcium replacement. The culture data is reviewed. She is on appropriate antibiotics at this time. She remains on propofol for sedation. Blood gases show very mild metabolic acidosis. Sodium bicarbonate tablets are increased to 3 times a day. She is getting nourished. CRITICAL CARE TIME: Greater than 30 minutes. MMODL / IJN: [id number] /
[2019-09-17 17:50] LABS: Glucose,Whole Blood 204 mg/dL (75-99)
[2019-09-17] MEDS: PARoxetine 20 MG TAB PO SCH (20:03)
--- NOTE | 2019-09-18 00:02 | PN ---
PROGRESS NOTE DATE OF SERVICE: 09/17/2019 REASON FOR FOLLOWUP: Aspiration pneumonia and UTI. INTERVAL HISTORY: The patient is currently afebrile. The patient is hemodynamically stable. Not on any pressor support. FiO2 is currently down to 30%. The patient remains to be intubated on the vent. Unable to provide any history. PHYSICAL EXAMINATION: Blood pressure 125/56, pulse of 79, temperature 98.2. She is 98% on 30% FiO2. General description is an elderly female lying in bed in no distress. Respiratory system: Unlabored breathing. Some coarse breath sounds at the base. No wheeze. HEART: S1, S2. Regular rate and rhythm. Abdomen soft, no tenderness. LABS: Hemoglobin 7.5, white count 13.9, BUN of 108, creatinine 4.67. Sputum with Baylee albicans. Urine has been negative. DIAGNOSTIC IMPRESSION AND PLAN: Patient with acute respiratory failure which is likely multifactorial in this patient with pneumonitis. Sputum has been negative for any resistant pathogen. X-rays have been showing basilar pneumonia. Patient to continue Zosyn and monitor clinical course closely. MMODL / IJN: [id number] /
[2019-09-18 00:05] LABS: Glucose,Whole Blood 182 mg/dL (75-99)
[2019-09-18] MEDS: INSULIN ASPART (NovoLOG) 100 UNIT/ML VIAL SQ SCH ×5 (00:09→23:52)
[2019-09-18] MEDS: methylPREDNISolone SOD SUCCI 40 MG/ML 1 ML VIAL IV SCH ×5 (00:09→23:53)
[2019-09-18] MEDS: PROPOFOL 1,000 MG in EMPTY BAG 1 BAG IV SCH ×7 (01:02→23:53)
[2019-09-18] MEDS: IPRATROPIUM-ALBUTEROL 3 ML NEB INHALATION SCH ×6 (04:18→23:15)
[2019-09-18 04:41] LABS: HCT 25.2 % (34.0-46.0); HGB 8.2 gm/dL (11.4-16.0); MCH 29.8 pg (25.0-35.0); MCHC 32.7 g/dL (31.0-37.0); MCV 91.2 fL (80.0-100.0); Mean Platelet Volume 8.7; Platelet Count 296 k/uL (150-450); RBC 2.76 m/uL (3.80-5.40); RDW 14.3 % (11.5-15.5); WBC 20.8 k/uL (3.8-10.6)
[2019-09-18 05:25] LABS: Ionized Calcium 3.8 mg/dL (4.5-5.3)
[2019-09-18 05:58] LABS: Calcium 6.4 mg/dL (8.4-10.2)
[2019-09-18 06:24] LABS: Glucose,Whole Blood 143 mg/dL (75-99)
[2019-09-18 06:32] LABS: ABG Base Excess -11.1 mmol/L; ABG HCO3 17 mmol/L (21-25); ABG PCO2 44 mmHg (35-45); ABG PO2 97 mmHg (83-108); ABG TCO2 18 mmol/L (19-24); Allen Test Performed? Yes
--- NOTE | 2019-09-18 07:05 | XR ---
EXAMINATION TYPE: XR chest 1V portable DATE OF EXAM: 09/18/2019 HISTORY: Tube placement. REFERENCE: Previous study dated 09/17/2019. FINDINGS: The patient is ET tube, NG tube and left internal jugular catheter remain in place, unchang ed in appearance. The lungs are overinflated. There is continuing bibasilar infiltrates. I suspect small effusions. Hea rt size upper limits of normal. IMPRESSION: NO SIGNIFICANT INTERVAL CHANGE IN THE APPEARANCE OF THE CHEST.
[2019-09-18] MEDS: CISATRACURIUM 2 MG/ML 5 ML VIAL IV ONE ×2 (07:54→16:09)
[2019-09-18 08:17] LABS: ABG Base Excess 1.1 mmol/L; ABG HCO3 25 mmol/L (21-25); ABG Oxygen Saturation 98.6 % (94-97); ABG PCO2 38 mmHg (35-45); ABG PH 7.43 (7.35-7.45); ABG PO2 112 mmHg (83-108); ABG TCO2 27 mmol/L (19-24)
[2019-09-18 08:18] LABS: Allen Test Performed? no
--- NOTE | 2019-09-18 08:52 | P.PN ---
Subjective Progress Note Date: 09/18/19 Principal diagnosis: This is a 74-year-old female who is followed up with acute kidney injury. She came in here with chest pain and then subsequently had a cardiac arrest with abo ut 18 minutes downtime. She is currently intubated on 40% FiO2 and, off of pressors and lipid is 130s at the time of this exam. She is sedated. He is triggering the ventilator per the nursing staff Urine output is 1566, intake is 2613. Echocardiogram shows 30-35% ejection fraction Objective - Vital Signs Vital signs: Vital Signs Temp 98.4 F 09/18/19 04:00 Pulse 99 09/18/19 07:30 Resp 28 H 09/18/19 07:30 BP 118/52 09/18/19 07:30 Pulse Ox 94 L 09/18/19 07:30 Intake & Output 09/17/19 09/18/19 09/18/19 18:59 06:59 18:59 Intake Total 5783.085 1004.618 26 Output Total 785 781 75 Balance 409.000 638.618 -49 Weight 89.5 kg Intake: IV 412 387 26 Piperacillin-Tazobactam 3 100 75 .375 gm In Sodium Chloride 0.9% 100 ml @ 25 mls/hr IVPB Q8HR [facility] Rx# :[id number] Sodium Chloride 0.9% 1, 240 240 20 000 ml @ 20 mls/hr IV . Q24H [facility] Rx#:[id number] pressure bag 72 72 6 Intake, IV Titration 200.000 368.618 Amount Propofol 1,000 mg In 200.000 368.618 Empty Bag 1 bag @ Titrate IV .Q0M [facility] Rx#: [id number] Tube Feeding 492 574 Other 90 90 Output: Chest Tube Drainage 130 20 Chest Tube Left Upper Mid 130 20 -Axillary Chest Urine 655 760 75 Stool 1 Other: Voiding Method Indwelling Catheter Indwelling Catheter # Bowel Movements 1 ABP, PAP, CO, CI - Last Documented Arterial Blood Pressure 113/54 Patient was not examined Nursing staff she has mild edema She is obtunded sedated - Labs CBC & Chem 7: 09/18/19 04:20 09/18/19 04:20 Labs: Abnormal Lab Results - Last 24 Hours (Table) 09/17/19 09/17/19 09/18/19 Range/Units 12:05 17:49 00:04 WBC (3.8-10.6) k/uL RBC (3.80-5.40) m/uL Hgb (11.4-16.0) gm/dL Hct (34.0-46.0) % ABG pH (7.35-7.45) ABG pO2 (83-108) mmHg ABG HCO3 (21-25) mmol/L ABG Total CO2 (19-24) mmol/L ABG O2 Saturation (94-97) % Chloride (98-107) mmol/L Carbon Dioxide (22-30) mmol/L BUN (7-17) mg/dL Creatinine (0.52-1.04) mg/dL Glucose (74-99) mg/dL POC Glucose (mg/dL) 175 H 204 H 182 H (75-99) mg/dL Calcium (8.4-10.2) mg/dL Ionized Calcium Pepe (4.5-5.3) mg/dL Albumin (3.5-5.0) g/dL 09/18/19 09/18/19 09/18/19 Range/Units 04:20 04:20 04:20 WBC 20.8 H (3.8-10.6) k/uL RBC 2.76 L (3.80-5.40) m/uL Hgb 8.2 L (11.4-16.0) gm/dL Hct 25.2 L (34.0-46.0) % ABG pH (7.35-7.45) ABG pO2 (83-108) mmHg ABG HCO3 (21-25) mmol/L ABG Total CO2 (19-24) mmol/L ABG O2 Saturation (94-97) % Chloride 109 H (98-107) mmol/L Carbon Dioxide 17 L (22-30) mmol/L BUN 121 H* (7-17) mg/dL Creatinine 5.00 H (0.52-1.04) mg/dL Glucose 134 H (74-99) mg/dL POC Glucose (mg/dL) (75-99) mg/dL Calcium 6.4 L* (8.4-10.2) mg/dL Ionized Calcium Pepe 3.8 L (4.5-5.3) mg/dL Albumin 2.9 L (3.5-5.0) g/dL 09/18/19 09/18/19 09/18/19 Range/Units 06:22 06:30 08:15 WBC (3.8-10.6) k/uL RBC (3.80-5.40) m/uL Hgb (11.4-16.0) gm/dL Hct (34.0-46.0) % ABG pH 7.20 L (7.35-7.45) ABG pO2 112 H (83-108) mmHg ABG HCO3 17 L (21-25) mmol/L ABG Total CO2 18 L 27 H (19-24) mmol/L ABG O2 Saturation 98.6 H (94-97) % Chloride (98-107) mmol/L Carbon Dioxide (22-30) mmol/L BUN (7-17) mg/dL Creatinine (0.52-1.04) mg/dL Glucose (74-99) mg/dL POC Glucose (mg/dL) 143 H (75-99) mg/dL Calcium (8.4-10.2) mg/dL Ionized Calcium Pepe (4.5-5.3) mg/dL Albumin (3.5-5.0) g/dL Microbiology - Last 24 Hours (Table) 09/12/19 12:12 Blood Culture - Preliminary Blood No Growth after 120 hours 09/14/19 20:45 Gram Stain - Final Sputum Sputum Culture - Final Baylee sp,not albicans/galbr Baylee albicans Assessment and Plan Assessment: Impression 1. ATN post cardiac arrest, nonoliguric. Creatinine slowly worsening for about 1.2 to 5, 2. Mildly fluid overloaded. 3. On the ventilator with FiO2 in the 40% range and stable 4. Cardiomyopathy ejection fraction is 35% 5. Mild degree of gap and non-gap acidosis from acute kidney injury 6. Obtundation 7. Mild hypocalcemia secondary to acute kidney injury ionized calcium is 3.8 normal is 4.5 Recommendation 1. Will diurese her with 40 mg of Lasix today. 2. She may need dialysis tomorrow if there is no turnaround. 3. Because she she is hemodynamically stable and making urine we will watch for another 24 hours. 4. 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
[2019-09-18] MEDS ORDERED: CALCIUM GLUCONATE 2 GM in SODIUM CHLORIDE 0.9% 100 ML IVPB ONE (09:30)
[2019-09-18] MEDS: ATORVASTATIN 20 MG TAB PO SCH (09:43)
[2019-09-18] MEDS: ASPIRIN 81 MG PO SCH (09:43)
[2019-09-18] MEDS: CHLORHEXIDINE GLUCONATE 15 ML CUP MUCOUS MEM SCH ×2 (09:43→20:23)
[2019-09-18] MEDS: HEPARIN SODIUM,PORCINE 5,000 UNIT/ML 1 ML VIAL SQ SCH ×2 (09:43→20:23)
[2019-09-18] MEDS: PANTOPRAZOLE 40 MG/10 ML VIAL IVP SCH (09:43)
[2019-09-18] MEDS: PIPERACILLIN-TAZOBACTAM 3.375 GM in SODIUM CHLORIDE 0.9% 100 ML IVPB SCH ×2 (09:44→20:23)
[2019-09-18] MEDS: METOPROLOL TARTRATE 12.5 MG TAB PO SCH ×2 (09:49→20:23)
[2019-09-18] MEDS: SODIUM BICARBONATE TAB 650 MG TAB OG-TUBE SCH ×4 (09:49→22:45)
--- NOTE | 2019-09-18 11:12 | P.PN ---
Subjective 74-year-old female was transferred from [facility] after she was treated for UTI and chest pain but there is no clear evidence of for myocardial infarction. Patient also has COPD uses a 5 L of oxygen at home patient had COPD exacerbation and it up having respiratory failure leading to cardiac respiratory arrest patient was subsequently intubated. Patient has a chest tube patient is found to have pneumothorax during CPR patient as a result has some tenderness emphysema. Patient ejection fraction dropped to 30% troponins are minimally elevated can be related to CPR patient is on aspirin and DVT prophylaxis patient has low hemoglobin being transferred 6.5 units no evidence of acute bleed at this time. Multiple consultants have been following the patient and patient was treated for cardiac shock may be secondary to cardiorespiratory arrest patient was on norepinephrine which was discontinued patient is presently on ventilatory support with PEEP of 5 set up respiratory rate of 26, FiO2 of around 40% patient didn't tolerate sedation vacation patient remains on high dose of propofol. She presently continues to have a chest tube. Covid19 was ruled out, but patient remains in isolation 09/16/2019 No significant change in her clinical condition compared to yesterday although patient is getting Lasix on as-needed basis not on IV fluids, her urine output actually improved compared to yesterday she is having around the 0.3-0.5 mL/kg/h. Her creatinine is bit worse 09/17/2019 There is no significant the improvement in her clinical condition actually her kidney function is bit worse and creatinine went up to 4.7 her overall prognosis is extremely poor considering her poor pulmonary reserve from her advanced COPD she is liters 5 L of oxygen and with cardiac respiratory arrest her clinical condition remains guarded and prognosis remains extremely poor. Patient failed weaning trial and the sedation medication today as well patient is also on 30% FiO2. Patient is presently not on any pressor support. Diuretics are being held by nephrology 09/18/2019 Patient remains on ventilator support at the same and sitting surface today patient received paralytic agent as she is not synchronizing with the event patient had shallow breathing patient is also on high-dose of propofol overall there is no improvement in her clinical condition chest x-ray did not show any infiltrate, marginal urine output. marginal urine output, patient was diuresed with Lasix today, her creatinine continued to get worsethe patient is also being treated for hypercalcemia. Her overall prognosis remains extremely poor review of systems: Unable to obtain at this time All inpatient medications were reviewed and appropriate changes in these medications as dictated in the interval history and assessment and plan. Objective - Vital Signs Vital signs: Vital Signs Temp 98.4 F 09/18/19 04:00 Pulse 99 09/18/19 09:24 Resp 28 H 09/18/19 07:30 BP 118/52 09/18/19 07:30 Pulse Ox 94 L 09/18/19 07:30 Intake & Output 09/17/19 09/18/19 09/18/19 18:59 06:59 18:59 Intake Total 5049.362 1964.618 126 Output Total 785 781 75 Balance 409.000 638.618 51 Weight 89.5 kg Intake: IV 412 387 26 Piperacillin-Tazobactam 3 100 75 .375 gm In Sodium Chloride 0.9% 100 ml @ 25 mls/hr IVPB Q8HR [facility] Rx# :[id number] Sodium Chloride 0.9% 1, 240 240 20 000 ml @ 20 mls/hr IV . Q24H [facility] Rx#:[id number] pressure bag 72 72 6 Intake, IV Titration 200.000 368.618 100 Amount Propofol 1,000 mg In 200.000 368.618 100 Empty Bag 1 bag @ Titrate IV .Q0M [facility] Rx#: [id number] Tube Feeding 492 574 Other 90 90 Output: Chest Tube Drainage 130 20 Chest Tube Left Upper Mid 130 20 -Axillary Chest Urine 655 760 75 Stool 1 Other: Voiding Method Indwelling Catheter Indwelling Catheter # Bowel Movements 1 ABP, PAP, CO, CI - Last Documented Arterial Blood Pressure 113/54 - Exam PHYSICAL EXAMINATION: GENERAL: patient is intubated sedated HEENT: Pupils are round and equally reacting to light. EOMI. No scleral icterus. No conjunctival pallor. Normocephalic, atraumatic. No pharyngeal erythema. No thyromegaly. CARDIOVASCULAR: S1 and S2 present. No murmurs, rubs, or gallops. PULMONARY: decreased air entry into bilateral lung gilbert and some rhonchi in significant subcutaneous emphysema ABDOMEN: Soft, nontender, nondistended, normoactive bowel sounds. No palpable organomegaly. MUSCULOSKELETAL: No joint swelling or deformity. EXTREMITIES: No cyanosis, clubbing, or pedal edema. NEUROLOGICAL:unable to assess and patient is sedated SKIN: No rashes. - Labs CBC & Chem 7: 09/18/19 04:20 09/18/19 04:20 Labs: Abnormal Lab Results - Last 24 Hours (Table) 09/17/19 09/17/19 09/18/19 Range/Units 12:05 17:49 00:04 WBC (3.8-10.6) k/uL RBC (3.80-5.40) m/uL Hgb (11.4-16.0) gm/dL Hct (34.0-46.0) % ABG pH (7.35-7.45) ABG pO2 (83-108) mmHg ABG HCO3 (21-25) mmol/L ABG Total CO2 (19-24) mmol/L ABG O2 Saturation (94-97) % Chloride (98-107) mmol/L Carbon Dioxide (22-30) mmol/L BUN (7-17) mg/dL Creatinine (0.52-1.04) mg/dL Glucose (74-99) mg/dL POC Glucose (mg/dL) 175 H 204 H 182 H (75-99) mg/dL Calcium (8.4-10.2) mg/dL Ionized Calcium Pepe (4.5-5.3) mg/dL Albumin (3.5-5.0) g/dL 09/18/19 09/18/19 09/18/19 Range/Units 04:20 04:20 04:20 WBC 20.8 H (3.8-10.6) k/uL RBC 2.76 L (3.80-5.40) m/uL Hgb 8.2 L (11.4-16.0) gm/dL Hct 25.2 L (34.0-46.0) % ABG pH (7.35-7.45) ABG pO2 (83-108) mmHg ABG HCO3 (21-25) mmol/L ABG Total CO2 (19-24) mmol/L ABG O2 Saturation (94-97) % Chloride 109 H (98-107) mmol/L Carbon Dioxide 17 L (22-30) mmol/L BUN 121 H* (7-17) mg/dL Creatinine 5.00 H (0.52-1.04) mg/dL Glucose 134 H (74-99) mg/dL POC Glucose (mg/dL) (75-99) mg/dL Calcium 6.4 L* (8.4-10.2) mg/dL Ionized Calcium Pepe 3.8 L (4.5-5.3) mg/dL Albumin 2.9 L (3.5-5.0) g/dL 09/18/19 09/18/19 09/18/19 Range/Units 06:22 06:30 08:15 WBC (3.8-10.6) k/uL RBC (3.80-5.40) m/uL Hgb (11.4-16.0) gm/dL Hct (34.0-46.0) % ABG pH 7.20 L (7.35-7.45) ABG pO2 112 H (83-108) mmHg ABG HCO3 17 L (21-25) mmol/L ABG Total CO2 18 L 27 H (19-24) mmol/L ABG O2 Saturation 98.6 H (94-97) % Chloride (98-107) mmol/L Carbon Dioxide (22-30) mmol/L BUN (7-17) mg/dL Creatinine (0.52-1.04) mg/dL Glucose (74-99) mg/dL POC Glucose (mg/dL) 143 H (75-99) mg/dL Calcium (8.4-10.2) mg/dL Ionized Calcium Pepe (4.5-5.3) mg/dL Albumin (3.5-5.0) g/dL Microbiology - Last 24 Hours (Table) 09/12/19 12:12 Blood Culture - Preliminary Blood No Growth after 120 hours 09/14/19 20:45 Gram Stain - Final Sputum Sputum Culture - Final Baylee sp,not albicans/galbr Baylee albicans Assessment and Plan Plan: acute the hypoxic and acute on chronic hypercapnic respiratory failure secondary to COPD exacerbation secondary to cardiorespiratory arrest and patient remains intubated with the above-mentioned vent settings -Cardio- respiratory arrest status post CPR , postintubation patient remains on ventilator support didn't tolerate sedation vacation at this time. Cardiac respiratory arrest is most probably secondary to respiratory causes including [place] PD exacerbation and not wearing oxygen. -hypocalcemia secondary to renal failure that she was being replaced -Mild troponin elevation secondary to CPR there is no evidence of acute non-ST elevation myocardial infarction at least type I microinfarction although this cannot be completely ruled out patient will undergo cardiac catheterization once more stabilized but her prognosis remains extremely poor patient is probably more appropriate for comfort care patient is presently DO NOT RESUSCITATE -Significant left hemothorax status post chest tube with minimal output and can use to have leak -Congestive heart failure systolic dysfunction most probably acute secondary to cardiorespiratory arrest with mild acute exacerbation. -COPD with acute exacerbation patient went on systemic steroids -UTI completed antibiotic therapy for that but remains on Zosyn although so far negative cultures -Cardiac shock, off pressor support patient shock improved at this time -Leukocytosis can be reactive and secondary to systemic steroids -Hypertensionpatient just came out of sepsis not on any antidepressant medications at this time -Hyperlipidemia - acute renal failure secondary to acute tubular necrosis secondary to cardiac shock patient urine output, patient received a Lasix challenge with improved uri ne output and patient is presently on IV fluids Patient's prognosis is extremely poor patient is probably more appropriate for terminal wean and comfort care
[2019-09-18 11:47] LABS: Glucose,Whole Blood 169 mg/dL (75-99)
--- NOTE | 2019-09-18 12:26 | PN ---
PROGRESS NOTE PULMONARY/CRITICAL CARE PROGRESS NOTE: DATE OF SERVICE: 09/18/2019 Critical care time greater than 30 minutes. This is a 74-year-old female who was admitted back on September 11. The patient subsequent to admission sustained a cardiopulmonary arrest and had a prolonged cardiopulmonary resuscitation of about 18-20 minutes with eventual return of spontaneous circulation. During the process of resuscitation, she developed a left-sided pneumothorax which was initially treated with a Thora vent and then subsequent to that, because it was not re- expanding, A chest tube was placed. Unfortunately, chest tube remains in place and she has a continuous leak from that chest tube. She remains on mechanical ventilator. Her vent settings include the volume assist-control mode rate of 26, tidal volume 350, FiO2 of 30%, PEEP of 5. Blood gases show a pO2 of 97, pCO2 pf 44, and a pH of 7.2. The patient is also on propofol at 60 mcg/kg per minute, saline at 20 mL an hour and Vital high-protein at 41 with a goal of 41. The left chest tube remains with a continuous leak. The patient's mental status apparently according to the night nurse has declined. She will go for head CT minus contrast. In addition, for a worsening acidosis, the patient will receive an increase in her sodium bicarbonate. Other than that, there has been no major changes in this patient. She is a DNR. Current vital signs are reviewed. Temperature is 98.4, heart rate 99, respiratory rate 28, blood pressure 118/52 mean 74, states CVP is 13, saturations are 94%-95% on 30% FiO2 and 5 of PEEP. Appears in no acute distress. Currently sedated. HEENT: Examination is grossly unremarkable. There is an orally placed endotracheal tube and NG tube. NECK: Supple, full range of motion. No adenopathy. CARDIOVASCULAR: Examination reveals regular rhythm and rate. Heart rate about 95 beats per minute. S1, S2 normal. Heart sounds are distant. No murmur. There is a left- sided chest tube in place. LUNGS: Reveal diffuse coarse rhonchi bilaterally. No wheezes. A few scattered crackles are noted. Breath sounds equal bilaterally. ABDOMEN: Soft, bowel sounds are noted. EXTREMITIES: Intact. Minimal edema. SKIN: Without rash. NEUROLOGIC: Examination could not be adequately assessed because of her current level of sedation. In addition, examination reveals some subcutaneous emphysema in the upper chest and neck area. LABS: Reviewed. White count 20.8, hemoglobin 8.2, hematocrit 25.2, platelet count 296,000, sodium 140, potassium chloride 109, CO2 is 17, anion gap is 14. BUN and creatinine were 121 and 5. Calcium 6.4, ionized calcium 3.8, albumin 2.9. Microbiology is essentially negative. Chest x-rays reviewed. Chest x-ray shows no significant interval change. There are bibasilar infiltrates. There is a small effusion bilaterally. There is mild cardiomegaly. Some subcu air is noted as mentioned above. CURRENT MEDICATIONS: Reviewed. She is on Tylenol, aspirin, Lipitor, Peridex, heparin subcu, Dilaudid, hydromorphone or Dilaudid p.r.n., insulin, DuoNeb, Solu-Medrol, metoprolol, Narcan, Protonix, Paxil, Zosyn, Diprivan, sodium bicarbonate tablets, grain 10 q.i.d., and saline IV. ASSESSMENT: 1. Acute hypoxemic respiratory failure, secondary to suspected ischemic cardiac disease and cardiac arrest, status post 18-20 minutes of cardiopulmonary resuscitation with eventual return of spontaneous circulation (CPA/CPR/ROSC). 2. Bilateral subcutaneous emphysema, secondary to chest compressions and CPR with resultant left-sided pneumothorax, status post initial Thora-vent placement and subsequent formal chest tube placement. 3. History of coronary artery disease with previous stent placement. 4. History of congestive heart failure. 5. History of chronic obstructive pulmonary disease, oxygen dependent. 6. Non ST-segment elevation myocardial infarction. 7. Benign essential hypertension. 8. History of anxiety. 9. History of hyperlipidemia. 10.History of acute kidney injury/acute tubular necrosis. PLAN: The patient will go for a head CT today. Will be done without contrast. He remains on propofol. She may need Nimbex for the procedure. Blood gases show a mild acidosis. Bicarbonate is increased. She still has a continuous chest tube leak. She remains on propofol at 60 mcg/kg per minute. Will continue to follow. Prognosis is guarded. She apparently was noted by the nurses this morning to have upper deviation of the eyes. I did not see that when I examined her. Again additional recommendations and suggestions are forthcoming. Critical care time greater than 30 minutes. MMODL / IJN: [id number] / MTDD
[2019-09-18] MEDS ORDERED: FUROSEMIDE 10 MG/ML 4 ML VIAL IV STA (14:11)
[2019-09-18] MEDS: SODIUM CHLORIDE 0.9% 1,000 ML IV SCH (14:25)
--- NOTE | 2019-09-18 16:12 | CT ---
EXAMINATION TYPE: CT brain wo con DATE OF EXAM: 09/18/2019 COMPARISON: None HISTORY: ams CT DLP: 1084.4 mGycm Automated exposure control for dose reduction was used. There is a diffuse hypodensity involving the left cerebral hemisphere in the white matter. This invol ves the left frontal temporal parietal and occipital lobes. There is also hypodensity in the left int ernal capsule and left caudate nucleus. There is no sign of intracranial hemorrhage. The right cerebr al hemisphere appears intact. The calvarium is intact. Cerebellum appears normal. IMPRESSION: Hypodensity involving large area of the left cerebral hemisphere consistent with large subacute left hemisphere infarct. There is involvement of the anterior middle and posterior cerebral artery distrib ution.
[2019-09-18 18:32] LABS: Glucose,Whole Blood 161 mg/dL (75-99)
[2019-09-18] MEDS: PARoxetine 20 MG TAB PO SCH (20:23)
--- NOTE | 2019-09-18 22:22 | PN ---
PROGRESS NOTE DATE OF SERVICE: 09/18/2019 REASON FOR FOLLOWUP: Aspiration pneumonia and possible UTI. INTERVAL HISTORY: The patient is currently afebrile. The mentation remains to be an issue for which the patient did have a repeat CT of the brain. The patient is hemodynamically stable, not on any pressor support. Remains to be intubated on the vent. FiO2 is currently at 30%. No diarrhea has been reported. PHYSICAL EXAMINATION: Blood pressure 154/56, pulse of 85, temperature 98.6. She is 97% on 30% FiO2. General description is an elderly female intubated on the vent. Respiratory system: Unlabored breathing, decreased breath sounds at the base. No wheeze. HEART: S1, S2. Regular rate and rhythm. Abdomen soft. No distention. LABS: Hemoglobin is 8.2 with white count up to 20.8, BUN of 121, creatinine 5.0. DIAGNOSTIC IMPRESSION AND PLAN: 1. Patient with acute respiratory failure which is likely multifactorial with concern for a UTI. This patient did have cardiac arrest requiring resuscitation. The patient is on Zosyn to continue. 2. Patient with worsening white count, possibly related to steroids and monitor closely. MMODL / IJN: [id number] /
[2019-09-18 23:48] LABS: Glucose,Whole Blood 146 mg/dL (75-99)
[2019-09-19] MEDS: IPRATROPIUM-ALBUTEROL 3 ML NEB INHALATION SCH ×6 (03:17→23:19)
[2019-09-19] MEDS: PROPOFOL 1,000 MG in EMPTY BAG 1 BAG IV SCH ×6 (04:56→23:59)
[2019-09-19 05:05] LABS: ABG Base Excess -11.5 mmol/L; ABG HCO3 16 mmol/L (21-25); ABG Oxygen Saturation 97.5 % (94-97); ABG PCO2 39 mmHg (35-45); ABG PH 7.22 (7.35-7.45); ABG PO2 121 mmHg (83-108); ABG TCO2 17 mmol/L (19-24); Allen Test Performed? Yes
[2019-09-19 05:09] LABS: Basophils # (A) 0.1 k/uL (0-0.2); Basophils % (A) 0 %; Eosinophils % (A) 0 %; HCT 25.1 % (34.0-46.0); HGB 7.8 gm/dL (11.4-16.0); Lymphocytes # (A) 0.9 k/uL (1.0-4.8); Lymphocytes % (A) 5 %; MCH 28.7 pg (25.0-35.0); MCHC 31.2 g/dL (31.0-37.0); Mean Platelet Volume 10.2; Monocytes # (A) 0.7 k/uL (0-1.0); Monocytes % (A) 4 %; Neutrophils # (A) 16.4 k/uL (1.3-7.7); Neutrophils % (A) 89 %; Platelet Count 295 k/uL (150-450); RBC 2.73 m/uL (3.80-5.40); RDW 14.5 % (11.5-15.5); WBC 18.5 k/uL (3.8-10.6)
[2019-09-19 05:28] LABS: Albumin 2.9 g/dL (3.5-5.0); Total Bilirubin 0.2 mg/dL (0.2-1.3); Total Protein 5.5 g/dL (6.3-8.2)
[2019-09-19 05:39] LABS: Calcium 6.4 mg/dL (8.4-10.2)
[2019-09-19 05:43] LABS: Glucose,Whole Blood 151 mg/dL (75-99)
[2019-09-19] MEDS: methylPREDNISolone SOD SUCCI 40 MG/ML 1 ML VIAL IV SCH ×4 (05:51→23:59)
[2019-09-19] MEDS: INSULIN ASPART (NovoLOG) 100 UNIT/ML VIAL SQ SCH ×4 (05:51→23:19)
--- NOTE | 2019-09-19 06:35 | XR ---
EXAMINATION TYPE: XR chest 1V DATE OF EXAM: 09/19/2019 HISTORY: intubated. REFERENCE: Previous study dated 09/18/2019. FINDINGS: The patient's ET tube, NG tube and left internal jugular catheter remain in place, unchange d in appearance. A left pleural drain is in place. There is worsening subcutaneous emphysema on the l eft. There is bibasilar airspace disease. This may have improved slightly from previous. I cannot exc lude small effusions. No definite pneumothorax is seen. IMPRESSION: 1. IMPROVED AERATION, BOTH LUNG BASES. 2. WORSENING SUBCUTANEOUS EMPHYSEMA ON THE LEFT. THERE IS SOME ON THE RIGHT TO LESSER EXTENT. 3. LEFT-SIDED EFFUSION.
[2019-09-19] MEDS: ASPIRIN 81 MG PO SCH (10:00)
[2019-09-19] MEDS: PANTOPRAZOLE 40 MG/10 ML VIAL IVP SCH (10:00)
[2019-09-19] MEDS: CHLORHEXIDINE GLUCONATE 15 ML CUP MUCOUS MEM SCH ×2 (10:00→21:30)
[2019-09-19] MEDS: METOPROLOL TARTRATE 12.5 MG TAB PO SCH ×2 (10:01→21:30)
[2019-09-19] MEDS: ATORVASTATIN 20 MG TAB PO SCH (10:01)
[2019-09-19] MEDS: SODIUM BICARBONATE TAB 650 MG TAB OG-TUBE SCH ×4 (10:01→21:30)
[2019-09-19] MEDS: HEPARIN SODIUM,PORCINE 5,000 UNIT/ML 1 ML VIAL SQ SCH ×2 (10:01→21:31)
[2019-09-19] MEDS: PIPERACILLIN-TAZOBACTAM 3.375 GM in SODIUM CHLORIDE 0.9% 100 ML IVPB SCH ×2 (10:02→21:31)
--- NOTE | 2019-09-19 12:00 | PN ---
PROGRESS NOTE PULMONARY/CRITICAL CARE PROGRESS NOTE DATE OF SERVICE: 09/19/2019 CRITICAL CARE TIME: Greater than 30 minutes. This is a 74-year-old female admitted back on September 11. the patient, subsequent to her admission, sustained a cardiopulmonary arrest, at which time she had a prolonged cardiopulmonary resuscitation of about 18 to 20 minutes. There was eventual return of spontaneous circulation. During the process of resuscitation, she developed a left- sided pneumothorax. Initially, a Thora-Vent was placed and then subsequent to that, she had a formal chest tube placed. The patient's chest tube remains in place and she has an ongoing continuous leak from that left-sided chest tube. She, unfortunately, remains on the mechanical ventilator and has really not made much progress. She is on volume-assist control mode, rate of 26, tidal volume 350, FiO2 30%, PEEP of 5. Blood gases show pO2 of 121, pCO2 of 39, and a pH of 7.22. The FiO2 has dropped from 30% to 25%. The left chest tube has a continuous leak. In addition, she remains on propofol at 60 mcg/kg per minute, saline at 20 mL an hour, and Vital 1.2 at 41 with a goal of 41 mL an hour. In addition, we felt that there was a change in her neurologic examination yesterday. We found her eyes to be deviated. Anyway, we sent her for a CT scan without contrast, which shows hypodensity involving a large area of the left cerebral hemisphere consistent with a large subacute left hemisphere infarct. There was also involvement of anterior, middle, and posterior cerebral artery distribution. I did have a chance to speak to the daughter this morning. They are leaning towards comfort measures. They have not made a final decision. The patient is a NO CODE. I spoke to a daughter by the name of Lary. PHYSICAL EXAMINATION: VITAL SIGNS: Current vital signs are reviewed. Temperature is 98.3, heart rate 98, respiratory rate 29, blood pressure 141/84, mean 83, and saturations are 90% to 98%. GENERAL: Appears currently in no acute distress, she is sedated. HEENT: Grossly unremarkable. There is an orally placed endotracheal tube and NG tube. NECK: Supple. Full range of motion. No adenopathy, thyromegaly, or neck vein distention. CARDIOVASCULAR: Regular rhythm and rate. Heart rate 99 beats per minute. S1 and S2 normal. Heart sounds are distant. LUNGS: Diffuse coarse rhonchi. Breath sounds are diminished throughout. She has a lot of subcutaneous emphysema to the neck and chest area. ABDOMEN: Soft. Bowel sounds are heard. EXTREMITIES: Intact. There is edema. SKIN: Without rash. NEUROLOGIC: Difficult to assess given her current level of sedation. LABS: Labs are reviewed. White count 18.5, hemoglobin 10.8, hematocrit 25.1, platelet count 295,000. Blood gases: PO2 is 121, pCO2 39, and pH is 7.22. Blood gases are consistent with mild hyperoxia and a metabolic acidosis. Sodium 141, potassium 5, chloride is 109, CO2 17, anion gap is 15, BUN and creatinine were 130 and 5.36. Calcium 6.4. Her ALT is 44 with an albumin of 2.9. Microbiology is showing Baylee species in the sputum from September 13. Chest x-ray from September 18 shows slightly improved aeration bilaterally. There is worsened subcutaneous emphysema bilaterally, more so on the left than on the right. CURRENT MEDICATIONS: Reviewed. The patient is on Tylenol, aspirin, Lipitor, chlorhexidine, subcutaneous heparin, Dilaudid, insulin, DuoNeb, Solu-Medrol, metoprolol, Narcan, Protonix, Paxil, Zosyn, sodium bicarbonate tablets, and saline IV. ASSESSMENT: 1. Acute hypoxemic respiratory failure, secondary to suspected ischemic cardiac disease and cardiac arrest, status post 18 to 20 minutes of cardiopulmonary resuscitation, with eventual return of spontaneous circulation (CPA/CPR/ROSC). 2. Bilateral subcutaneous emphysema, secondary to chest compressions and CPR with resultant left-sided pneumothorax, status post initial Thora-Vent placement and subsequent formal chest tube placement. 3. History of coronary artery disease with previous stent placement. 4. History of congestive heart failure. 5. History of chronic obstructive pulmonary disease, oxygen dependent. 6. Non-ST segment elevation myocardial infarction. 7. Benign essential hypertension. 8. History of anxiety. 9. History of hyperlipidemia. 10.History of acute kidney injury/acute tubular necrosis. 11.Acute/subacute left-sided cerebrovascular accident. PLAN: The patient remains on the ventilator. She is also getting propofol, which we will try to reduce for sedation. She is being nourished with Vital 1.2 at goal. The FiO2 has dropped from 30% to 25%. She has had ongoing leak from the left chest tube. The results of the CT scan of the brain done yesterday was shared with the daughter, Lary. The patient is a DNR. The patient's family is leaning towards comfort measures. They will make a final decision sometime later today. In the meantime, we will continue with ongoing support. Prognosis is poor. CRITICAL CARE TIME: Greater than 30 minutes. JESSE / PRANAY: [id number] /
--- NOTE | 2019-09-19 13:44 | P.PN ---
Subjective 74-year-old female was transferred from [facility] after she was treated for UTI and chest pain but there is no clear evidence of for myocardial infarction. Patient also has COPD uses a 5 L of oxygen at home patient had COPD exacerbation and it up having respiratory failure leading to cardiac respiratory arrest patient was subsequently intubated. Patient has a chest tube patient is found to have pneumothorax during CPR patient as a result has some tenderness emphysema. Patient ejection fraction dropped to 30% troponins are minimally elevated can be related to CPR patient is on aspirin and DVT prophylaxis patient has low hemoglobin being transferred 6.5 units no evidence of acute bleed at this time. Multiple consultants have been following the patient and patient was treated for cardiac shock may be secondary to cardiorespiratory arrest patient was on norepinephrine which was discontinued patient is presently on ventilatory support with PEEP of 5 set up respiratory rate of 26, FiO2 of around 40% patient didn't tolerate sedation vacation patient remains on high dose of propofol. She presently continues to have a chest tube. Covid19 was ruled out, but patient remains in isolation 09/16/2019 No significant change in her clinical condition compared to yesterday although patient is getting Lasix on as-needed basis not on IV fluids, her urine output actually improved compared to yesterday she is having around the 0.3-0.5 mL/kg/h. Her creatinine is bit worse 09/17/2019 There is no significant the improvement in her clinical condition actually her kidney function is bit worse and creatinine went up to 4.7 her overall prognosis is extremely poor considering her poor pulmonary reserve from her advanced COPD she is liters 5 L of oxygen and with cardiac respiratory arrest her clinical condition remains guarded and prognosis remains extremely poor. Patient failed weaning trial and the sedation medication today as well patient is also on 30% FiO2. Patient is presently not on any pressor support. Diuretics are being held by nephrology 09/18/2019 Patient remains on ventilator support at the same and sitting surface today patient received paralytic agent as she is not synchronizing with the event patient had shallow breathing patient is also on high-dose of propofol overall there is no improvement in her clinical condition chest x-ray did not show any infiltrate, marginal urine output. marginal urine output, patient was diuresed with Lasix today, her creatinine continued to get worsethe patient is also being treated for hypercalcemia. Her overall prognosis remains extremely poor 09/19/2019 Patient had a CAT scan of the head which showed large infarct the lack left cerebral hemisphere. Patient has no significant improvement. Patient's pupils are not reacting to light doesn't have cough or gag reflex although patient is on high-dose of sedatives patient has set up respiratory of 26 not breathing over the ventilator FiO2 of around 35% and PEEP of the 5. Her prognosis is extremely poor and patient may have anoxic injury to the brain with a subacute infarct which was seen on the CAT scan because of these reasons bowl turner discussed to her overall goals of care with the family patient will be comfort care with terminal wean tomorrow review of systems: Unable to obtain at this time All inpatient medications were reviewed and appropriate changes in these medications as dictated in the interval history and assessment and plan. Objective - Vital Signs Vital signs: Vital Signs Temp 98.3 F 09/19/19 08:00 Pulse 85 09/19/19 11:25 Resp 26 H 09/19/19 11:00 BP 139/62 09/19/19 11:00 Pulse Ox 89 L 09/19/19 11:00 Intake & Output 09/18/19 09/19/19 09/19/19 18:59 06:59 18:59 Intake Total 1368 1186 534.256 Output Total 925 1130 450 Balance 443 56 84.256 Weight 88.4 kg Intake: IV 412 312 130 Calcium gluconate 100 Sodium Chloride 0.9% 1, 240 240 100 000 ml @ 20 mls/hr IV . Q24H CATHY Rx#:[id number] pressure bag 72 72 30 Intake, IV Titration 300 200 158.256 Amount Propofol 1,000 mg In 300 200 158.256 Empty Bag 1 bag @ Titrate IV .Q0M CATHY Rx#: [id number] Tube Feeding 656 574 246 Other 100 Output: Chest Tube Drainage 0 Chest Tube Left Upper Mid 0 -Axillary Chest Urine 925 1130 450 Other: Voiding Method Indwelling Catheter Indwelling Catheter Indwelling Catheter # Bowel Movements 1 ABP, PAP, CO, CI - Last Documented Arterial Blood Pressure 109/47 - Exam PHYSICAL EXAMINATION: GENERAL: patient is intubated sedated HEENT: Pupils are not reacting to light. Conjunctival to flex no gag reflex No scleral icterus. No conjunctival pallor. Normocephalic, atraumatic. No pharyngeal erythema. No thyromegaly. CARDIOVASCULAR: S1 and S2 present. No murmurs, rubs, or gallops. PULMONARY: decreased air entry into bilateral lung gilbert and some rhonchi in significant subcutaneous emphysema ABDOMEN: Soft, nontender, nondistended, normoactive bowel sounds. No palpable organomegaly. MUSCULOSKELETAL: No joint swelling or deformity. EXTREMITIES: No cyanosis, clubbing, or pedal edema. NEUROLOGICAL:unable to assess and patient is sedated SKIN: No rashes. - Labs CBC & Chem 7: 09/19/19 04:50 09/19/19 04:50 Labs: Abnormal Lab Results - Last 24 Hours (Table) 09/18/19 09/18/19 09/19/19 Range/Units 18:25 23:47 04:50 WBC 18.5 H (3.8-10.6) k/uL RBC 2.73 L (3.80-5.40) m/uL Hgb 7.8 L (11.4-16.0) gm/dL Hct 25.1 L (34.0-46.0) % Neutrophils # 16.4 H (1.3-7.7) k/uL Lymphocytes # 0.9 L (1.0-4.8) k/uL ABG pH (7.35-7.45) ABG pO2 (83-108) mmHg ABG HCO3 (21-25) mmol/L ABG Total CO2 (19-24) mmol/L ABG O2 Saturation (94-97) % Chloride (98-107) mmol/L Carbon Dioxide (22-30) mmol/L BUN (7-17) mg/dL Creatinine (0.52-1.04) mg/dL Glucose (74-99) mg/dL POC Glucose (mg/dL) 161 H 146 H (75-99) mg/dL Calcium (8.4-10.2) mg/dL Ionized Calcium Pepe (4.5-5.3) mg/dL ALT (4-34) U/L Total Protein (6.3-8.2) g/dL Albumin (3.5-5.0) g/dL 09/19/19 09/19/19 09/19/19 Range/Units 04:50 05:02 05:41 WBC (3.8-10.6) k/uL RBC (3.80-5.40) m/uL Hgb (11.4-16.0) gm/dL Hct (34.0-46.0) % Neutrophils # (1.3-7.7) k/uL Lymphocytes # (1.0-4.8) k/uL ABG pH 7.22 L (7.35-7.45) ABG pO2 121 H (83-108) mmHg ABG HCO3 16 L (21-25) mmol/L ABG Total CO2 17 L (19-24) mmol/L ABG O2 Saturation 97.5 H (94-97) % Chloride 109 H (98-107) mmol/L Carbon Dioxide 17 L (22-30) mmol/L BUN 130 H* (7-17) mg/dL Creatinine 5.36 H (0.52-1.04) mg/dL Glucose 133 H (74-99) mg/dL POC Glucose (mg/dL) 151 H (75-99) mg/dL Calcium 6.4 L* (8.4-10.2) mg/dL Ionized Calcium Pepe (4.5-5.3) mg/dL ALT 44 H (4-34) U/L Total Protein 5.5 L (6.3-8.2) g/dL Albumin 2.9 L (3.5-5.0) g/dL 09/19/19 Range/Units 05:55 WBC (3.8-10.6) k/uL RBC (3.80-5.40) m/uL Hgb (11.4-16.0) gm/dL Hct (34.0-46.0) % Neutrophils # (1.3-7.7) k/uL Lymphocytes # (1.0-4.8) k/uL ABG pH (7.35-7.45) ABG pO2 (83-108) mmHg ABG HCO3 (21-25) mmol/L ABG Total CO2 (19-24) mmol/L ABG O2 Saturation (94-97) % Chloride (98-107) mmol/L Carbon Dioxide (22-30) mmol/L BUN (7-17) mg/dL Creatinine (0.52-1.04) mg/dL Glucose (74-99) mg/dL POC Glucose (mg/dL) (75-99) mg/dL Calcium (8.4-10.2) mg/dL Ionized Calcium Pepe 3.9 L (4.5-5.3) mg/dL ALT (4-34) U/L Total Protein (6.3-8.2) g/dL Albumin (3.5-5.0) g/dL Microbiology - Last 24 Hours (Table) 09/12/19 12:12 Blood Culture - Final Blood No Growth after 144 hours Assessment and Plan Plan: acute the hypoxic and acute on chronic hypercapnic respiratory failure secondary to COPD exacerbation secondary to cardiorespiratory arrest and patient remains intubated with the above-mentioned vent settings -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 Cardiac re spiratory arrest is most probably secondary to respiratory causes including COPD exacerbation and not wearing oxygen. -hypocalcemia secondary to renal failure that calcium was replaced -Mild troponin elevation secondary to CPR there is no evidence of acute non-ST elevation myocardial infarction at least type I myocardial infarction although this cannot be completely ruled out patient will undergo cardiac catheterization once more stabilized but her prognosis remains extremely poor patient is pro bably more appropriate for comfort care patient is presently DO NOT RESUSCITATE -Significant left hemothorax status post chest tube placement -Congestive heart failure systolic dysfunction most probably acute secondary to cardiorespiratory arrest with mild acute exacerbation. -COPD with acute exacerbation patient went on systemic steroids -UTI completed antibiotic therapy for that but remains on Zosyn although so far negative cultures -Cardiac shock, off pressor support patient shock improved at this time -Leukocytosis can be reactive and secondary to systemic steroids -Hypertensionpatient just came out of sepsis not on any antidepressant medications at this time -Hyperlipidemia - acute renal failure secondary to acute tubular necrosis secondary to cardiac shock patient urine output, Patient's prognosis extremely poor patient probably will undergo terminal wean and comfort care tomorrow
[2019-09-19 14:29] LABS: Glucose,Whole Blood 142 mg/dL (75-99)
[2019-09-19] MEDS: SODIUM CHLORIDE 0.9% 1,000 ML IV SCH (16:26)
[2019-09-19 18:44] LABS: Glucose,Whole Blood 102 mg/dL (75-99)
[2019-09-19] MEDS: PARoxetine 20 MG TAB PO SCH (21:32)
[2019-09-19] MEDS ORDERED: ANIDULAFUNGIN 200 MG in SODIUM CHLORIDE 0.9% 200 ML IVPB ONE (22:00)
[2019-09-19 23:21] LABS: Glucose,Whole Blood 112 mg/dL (75-99)
--- NOTE | 2019-09-20 00:57 | PN ---
PROGRESS NOTE DATE OF SERVICE: 09/19/2019 REASON FOR FOLLOWUP: Aspiration pneumonia and UTI. INTERVAL HISTORY: The patient is currently afebrile. The patient is hemodynamically stable not on any pressor support. FiO2 is currently at 30%. No significant purulent secretion through the ET or any diarrhea reported. PHYSICAL EXAMINATION: Blood pressure 123/47 with the pulse of 80, temperature 98.3. She is 97% on 30% FiO2. General description is an elderly female lying in bed in no distress. RESPIRATORY SYSTEM: Unlabored breathing, decreased breath sounds at the bases, no wheeze. HEART: S1, S2. Regular rate and rhythm. ABDOMEN: Soft, no tenderness. LABS: Hemoglobin 7.8, white count 18.5, BUN of 130, creatinine 5.36. Sputum has been mostly [place]. DIAGNOSTIC IMPRESSION AND PLAN: Patient with acute respiratory failure with concern for possible aspiration pneumonitis in this patient currently on the vent. The patient is covered with Zosyn with elevated white count could be related to steroids plus minus a component of oropharyngeal candidiasis with sputum showing both albicans and glabrata. We will add Eraxis and monitor clinical response. MMODL / IJN: [id number] / MTDD
[2019-09-20] MEDS: IPRATROPIUM-ALBUTEROL 3 ML NEB INHALATION SCH ×3 (03:45→11:37)
[2019-09-20 04:42] LABS: Basophils # (A) 0.1 k/uL (0-0.2); Basophils % (A) 0 %; Eosinophils # (A) 0.1 k/uL (0-0.7); Eosinophils % (A) 0 %; HCT 23.4 % (34.0-46.0); HGB 7.5 gm/dL (11.4-16.0); Lymphocytes % (A) 5 %; MCH 29.4 pg (25.0-35.0); MCV 91.9 fL (80.0-100.0); Mean Platelet Volume 10.5; Monocytes # (A) 0.7 k/uL (0-1.0); Monocytes % (A) 4 %; Neutrophils # (A) 18.9 k/uL (1.3-7.7); Neutrophils % (A) 90 %; Platelet Count 281 k/uL (150-450); RBC 2.54 m/uL (3.80-5.40); RDW 14.5 % (11.5-15.5)
[2019-09-20 04:52] LABS: Albumin 2.7 g/dL (3.5-5.0); Potassium 4.9 mmol/L (3.5-5.1); Total Bilirubin 0.2 mg/dL (0.2-1.3)
[2019-09-20] MEDS: PROPOFOL 1,000 MG in EMPTY BAG 1 BAG IV SCH ×2 (04:58→12:16)
[2019-09-20 05:17] LABS: Calcium 6.3 mg/dL (8.4-10.2)
[2019-09-20 05:25] VITALS: BP 116/50
[2019-09-20 05:42] LABS: Glucose,Whole Blood 190 mg/dL (75-99)
[2019-09-20] MEDS: methylPREDNISolone SOD SUCCI 40 MG/ML 1 ML VIAL IV SCH ×2 (05:53→12:11)
[2019-09-20] MEDS: INSULIN ASPART (NovoLOG) 100 UNIT/ML VIAL SQ SCH ×2 (05:54→12:11)
[2019-09-20 05:56] LABS: ABG Base Excess -12.4 mmol/L; ABG HCO3 15 mmol/L (21-25); ABG Oxygen Saturation 95.3 % (94-97); ABG PCO2 38 mmHg (35-45); ABG PH 7.22 (7.35-7.45); ABG PO2 88 mmHg (83-108); ABG TCO2 17 mmol/L (19-24)
[2019-09-20 05:58] LABS: Allen Test Performed? no
--- NOTE | 2019-09-20 07:49 | XR ---
EXAMINATION TYPE: XR chest 1V DATE OF EXAM: 09/20/2019 COMPARISON: 09/19/2019 HISTORY: SOB, Follow Up FINDINGS: Indwelling tubes and catheters are unchanged. Left-sided chest tube is unchanged in position. No evid ence for visible or sizable pneumothorax. Persistent subcutaneous emphysema. No change in scattered infiltrates.. Stable appearance of the cardio-mediastinal structures at this time. Pleural effusion unchanged. IMPRESSION: 1. Stable portable chest. Clinical correlation and follow up until resolution is recommended.
[2019-09-20] MEDS: PIPERACILLIN-TAZOBACTAM 3.375 GM in SODIUM CHLORIDE 0.9% 100 ML IVPB SCH (08:07)
[2019-09-20] MEDS: ASPIRIN 81 MG PO SCH (08:08)
[2019-09-20] MEDS: SODIUM BICARBONATE TAB 650 MG TAB OG-TUBE SCH ×2 (08:08→12:12)
[2019-09-20] MEDS: CHLORHEXIDINE GLUCONATE 15 ML CUP MUCOUS MEM SCH (08:08)
[2019-09-20] MEDS: ATORVASTATIN 20 MG TAB PO SCH (08:08)
[2019-09-20] MEDS: HEPARIN SODIUM,PORCINE 5,000 UNIT/ML 1 ML VIAL SQ SCH (08:08)
[2019-09-20] MEDS: METOPROLOL TARTRATE 12.5 MG TAB PO SCH (08:08)
[2019-09-20] MEDS: PANTOPRAZOLE 40 MG/10 ML VIAL IVP SCH (08:08)
[2019-09-20] MEDS: HYDROmorphone 1 MG/ML 1 ML SYRINGE IVP PRN (08:14)
--- NOTE | 2019-09-20 10:36 | P.PN ---
Subjective Progress Note Date: 09/20/19 This is a 74-year-old female patient with a known history of advanced COPD, chronic oxygen dependence, coronary artery disease, hypertension, hyperlipidemia who presented to the hospital on 09/12/2019 with sepsis and UTI. He was admitted to a medical floor and subsequently the patient had a bradycardic e pisode and went into a cardiac arrest. He required CPR for a total of 18 minutes and during the resuscitative was also given defibrillation shock. He was subsequently brought into the intensive care units. During the CPR did develop some subcutaneous emphysema and pneumothorax requiring a left-sided chest tube insertion. He also developed bilateral pulmonary infiltrates and pleural effusions and some interstitial edema. This patient has been on a mechanical ventilator since. The patient has been on the mechanical ventilation on assist control mode at the rate of 26 with a tidal volume of 350 and FiO2 of 30% with a PEEP of 5. His chest tube continues to show positive air leak. He remains sedated with propofol. He remains on enteral feeding with Vital;1.2 at the rate of 41 mL an hour which is goal. CAT scan of the brain without contrast showed hypodensity involving a large area of the left cerebral hemisphere consistent with a large subacute left hemispheric infarcts. There w as also involvement of the anterior middle and the posterior circulation distribution. The family is leaning covered comfort care measures. It final decision has not been made yet although his CODE STATUS has been switched to DNR. Covid 19 infection was ruled out. He was treated with Zosyn regarding a UTI. He was taking gradually off pressors following his cardiopulmonary arrest. He has developed an acute kidney injury in the creatinine has been gradually on the rise from a baseline of 1.12 5 up to 5.36 and the findings on the case. The patient is receiving oral bicarb, and saline at rate of 20 mL an hour. He remains on broad-spectrum antibiotic with IV Zosyn. The chest x-ray is showing worsening his subcutaneous emphysema and a left-sided pleural effusion. ET tube remains in a good location for now and there is no significant pneumothorax on the left. The patient is a left IJ triple-lumen catheter in place. The echocardiogram has shown ejection fraction of 30-35% with significant segmental wall motion abnormalities. On 09/20/2019, the patient is being seen for a follow-up. The patient is doing poorly still. The patient is on assist control mode at the rate of 26 with a tidal volume of 350 and the patient is also on FiO2 of 30% with a PEEP of 5. The patient is still on propofol at 50 g per KG per minute. The patient on IV fluids with normal saline at the rate of 20 mL an hour. Left sided chest tube is still leaking. The patient has subcutaneous emphysema along the left chest. The plan is to proceed with comfort care later on once the family gives us to follow care. The renal function continues to be impaired with a creatinine of 5.1. The fluid balance has been positive over the past 24 hours although the patient is nonoliguric and the patient continues to produce around 2 L of urine output for yesterday. The patient is currently off pressors. Objective - Vital Signs Vital signs: Vital Signs Temp 98.3 F 09/20/19 04:00 Pulse 78 09/20/19 06:00 Resp 26 H 09/20/19 06:00 BP 116/50 09/20/19 06:00 Pulse Ox 95 09/20/19 06:00 Intake & Output 09/19/19 09/19/19 09/20/19 06:59 18:59 06:59 Intake Total 1186 8764.226 8601.067 Output Total 1130 1025 1016 Balance 56 139.075 177.067 Weight 88.4 kg 89 kg Intake: IV 312 312 312 Sodium Chloride 0.9% 1, 240 240 240 000 ml @ 20 mls/hr IV . Q24H [facility]ATHY Rx#:[id number] pressure bag 72 72 72 Intake, IV Titration 200 319.075 236.067 Amount Propofol 1,000 mg In 200 319.075 236.067 Empty Bag 1 bag @ Titrate IV .Q0M CATHY Rx#: [id number] Tube Feeding 574 533 615 Other 100 30 Output: Urine 1130 1025 1015 Stool 1 Other: Voiding Method Indwelling Catheter Indwelling Catheter Indwelling Catheter ABP, PAP, CO, CI - Last Documented Arterial Blood Pressure 113/44 - Exam GENERAL EXAM: Intubated, sedated 74-year-old female patient. was sedated and patient is comfortable. The patient is a left-sided chest tube in place. HEAD: Normocephalic. EYES: Sluggish reaction of pupils, equal size. NOSE: Clear with pink turbinates. THROAT: Oral endotracheal and gastric tube secured in place. No erythema or exudates. NECK: No masses, no JVD. CHEST: No chest wall deformity.there is significant adjacent edema across the left chest and neck area LUNGS: Equal air entry with few scattered rhonchi, crackles in the bilateral posterior bases diminished more so on the left. Left chest tube in place. Positive air leak.. The patient has advanced emphysema along the left chest area. CVS: S1 and S2 normal with no audible murmur, regular rhythm. ABDOMEN: No hepatosplenomegaly, normal bowel sounds, no guarding or rigidity. SPINE: No scoliosis or deformity SKIN: No rashes CENTRAL NERVOUS SYSTEM: No focal deficits, the patient is unresponsive. The patient has an upward gaze. No nystagmus. Pupils are sluggishly reactive to light. No Babinski. No clonus. Motor and sensory function cannot be adequately assessed. EXTREMITIES: There is no peripheral edema. No clubbing, no cyanosis. Peripheral pulses are intact. - Labs CBC & Chem 7: 09/20/19 04:35 09/20/19 04:35 Labs: Abnormal Lab Results - Last 24 Hours (Table) 09/19/19 09/19/19 09/19/19 Range/Units 14:27 18:43 23:18 WBC (3.8-10.6) k/uL RBC (3.80-5.40) m/uL Hgb (11.4-16.0) gm/dL Hct (34.0-46.0) % Neutrophils # (1.3-7.7) k/uL ABG pH (7.35-7.45) ABG HCO3 (21-25) mmol/L ABG Total CO2 (19-24) mmol/L Chloride (98-107) mmol/L Carbon Dioxide (22-30) mmol/L BUN (7-17) mg/dL Creatinine (0.52-1.04) mg/dL Glucose (74-99) mg/dL POC Glucose (mg/dL) 142 H 102 H 112 H (75-99) mg/dL Calcium (8.4-10.2) mg/dL Ionized Calcium Pepe (4.5-5.3) mg/dL Total Protein (6.3-8.2) g/dL Albumin (3.5-5.0) g/dL 09/20/19 09/20/1920 Range/Units 04:35 04:35 05:30 WBC 21.0 H (3.8-10.6) k/uL RBC 2.54 L (3.80-5.40) m/uL Hgb 7.5 L (11.4-16.0) gm/dL Hct 23.4 L (34.0-46.0) % Neutrophils # 18.9 H (1.3-7.7) k/uL ABG pH (7.35-7.45) ABG HCO3 (21-25) mmol/L ABG Total CO2 (19-24) mmol/L Chloride 113 H (98-107) mmol/L Carbon Dioxide 16 L (22-30) mmol/L BUN 142 H* (7-17) mg/dL Creatinine 5.16 H (0.52-1.04) mg/dL Glucose 159 H (74-99) mg/dL POC Glucose (mg/dL) (75-99) mg/dL Calcium 6.3 L* (8.4-10.2) mg/dL Ionized Calcium Pepe 3.9 L (4.5-5.3) mg/dL Total Protein 5.0 L (6.3-8.2) g/dL Albumin 2.7 L (3.5-5.0) g/dL 09/20/19 09/20/19 Range/Units 05:30 05:52 WBC (3.8-10.6) k/uL RBC (3.80-5.40) m/uL Hgb (11.4-16.0) gm/dL Hct (34.0-46.0) % Neutrophils # (1.3-7.7) k/uL ABG pH 7.22 L (7.35-7.45) ABG HCO3 15 L (21-25) mmol/L ABG Total CO2 17 L (19-24) mmol/L Chloride (98-107) mmol/L Carbon Dioxide (22-30) mmol/L BUN (7-17) mg/dL Creatinine (0.52-1.04) mg/dL Glucose (74-99) mg/dL POC Glucose (mg/dL) 190 H (75-99) mg/dL Calcium (8.4-10.2) mg/dL Ionized Calcium Pepe (4.5-5.3) mg/dL Total Protein (6.3-8.2) g/dL Albumin (3.5-5.0) g/dL Assessment and Plan Plan: 1 acute cardiac arrest, possibly related to an underlying ischemic cardiac disease in addition to development of a CVA as the patient has a large infarct in the left cerebral hemisphere evolving following the cardiac pulmonary arrest with secondary acute hypoxemic respiratory failure CPR approximately 18 minutes before return of spontaneous circulation. Neurologic function continued to be impaired. The patient has likely a component of anoxic encephalopathy in addition to a CVA. 2 large infarct involving the left cerebral hemisphere along with a possibility of an underlying anoxic brain injury following a cardiac pulmonary arrest 3 coronary artery disease with ischemic cardiomyopathy and impaired ejection fraction of 25-30% and segmental wall motion abnormalities 4 advanced COPD with chronic hypoxic history failure 5 Severe bilateral subcutaneous emphysema secondary to chest compressions during CPR. Placement of a left-sided chest tube. Air leak continues. No sizable pneumothorax on x-ray today. 6 History of coronary artery disease with previous stent placement, Mild troponin elevation secondary to CPR there is no evidence of acute non-ST elevation myocardial infarction at least type I myocardial infarction although this cannot be completely ruled out 7 History of congestive heart failure 8 History of chronic obstructive pulmonary disease, oxygen dependent 9 Hypertension 10 Hyperlipidemia 11 History of anxiety 12 Acute kidney injury with progressive worsening the kidney function secondary to ATN postcardiac arrest and cardiac shock 13 hypocalcemia secondary to renal failure and the calcium level has been replaced 14 leukocytosis is likely reactive, white cell count is at 21 15 UTI currently on IV Zosyn, cultures are negative Plan Prognosis poor. No major changes were done on today's evaluation. The plan is to proceed with comfort care measures with morphine drip and the patient would likely get extubated once the final decision and okay is given by the family. I think this has been done and the family will be proceeding with this around noontime. This is a critical care evaluation that was done more than 30 minutes. Time with Patient: Greater than 30
[2019-09-20 12:04] VITALS: TEMP 98
[2019-09-20 12:10] LABS: Glucose,Whole Blood 175 mg/dL (75-99)
--- NOTE | 2019-09-20 12:20 | P.PN ---
Subjective 74-year-old female was transferred from [facility] after she was treated for UTI and chest pain but there is no clear evidence of for myocardial infarction. Patient also has COPD uses a 5 L of oxygen at home patient had COPD exacerbation and it up having respiratory failure leading to cardiac respiratory arrest patient was subsequently intubated. Patient has a chest tube patient is found to have pneumothorax during CPR patient as a result has some tenderness emphysema. Patient ejection fraction dropped to 30% troponins are minimally elevated can be related to CPR patient is on aspirin and DVT prophylaxis patient has low hemoglobin being transferred 6.5 units no evidence of acute bleed at this time. Multiple consultants have been following the patient and patient was treated for cardiac shock may be secondary to cardiorespiratory arrest patient was on norepinephrine which was discontinued patient is presently on ventilatory support with PEEP of 5 set up respiratory rate of 26, FiO2 of around 40% patient didn't tolerate sedation vacation patient remains on high dose of propofol. She presently continues to have a chest tube. Covid19 was ruled out, but patient remains in isolation 09/16/2019 No significant change in her clinical condition compared to yesterday although patient is getting Lasix on as-needed basis not on IV fluids, her urine output actually improved compared to yesterday she is having around the 0.3-0.5 mL/kg/h. Her creatinine is bit worse 09/17/2019 There is no significant the improvement in her clinical condition actually her kidney function is bit worse and creatinine went up to 4.7 her overall prognosis is extremely poor considering her poor pulmonary reserve from her advanced COPD she is liters 5 L of oxygen and with cardiac respiratory arrest her clinical condition remains guarded and prognosis remains extremely poor. Patient failed weaning trial and the sedation medication today as well patient is also on 30% FiO2. Patient is presently not on any pressor support. Diuretics are being held by nephrology 09/18/2019 Patient remains on ventilator support at the same and sitting surface today patient received paralytic agent as she is not synchronizing with the event patient had shallow breathing patient is also on high-dose of propofol overall there is no improvement in her clinical condition chest x-ray did not show any infiltrate, marginal urine output. marginal urine output, patient was diuresed with Lasix today, her creatinine continued to get worsethe patient is also being treated for hypercalcemia. Her overall prognosis remains extremely poor 09/19/2019 Patient had a CAT scan of the head which showed large infarct the lack left cerebral hemisphere. Patient has no significant improvement. Patient's pupils are not reacting to light doesn't have cough or gag reflex although patient is on high-dose of sedatives patient has set up respiratory of 26 not breathing over the ventilator FiO2 of around 35% and PEEP of the 5. Her prognosis is extremely poor and patient may have anoxic injury to the brain with a subacute infarct which was seen on the CAT scan because of these reasons elastic cutter discussed to her overall goals of care with the family patient will be comfort care with terminal wean tomorrow 09/20/2019 Patient will be terminally weaned and will be started on comfort measures at that time. Elevating for the family members review of systems: Unable to obtain at this time All inpatient medications were reviewed and appropriate changes in these medications as dictated in the interval history and assessment and plan. Objective - Vital Signs Vital signs: Vital Signs Temp 98 F 09/20/19 12:00 Pulse 75 09/20/19 12:00 Resp 26 H 09/20/19 12:00 BP 116/50 09/20/19 06:00 Pulse Ox 96 09/20/19 12:00 Intake & Output 09/19/19 09/20/19 09/20/19 18:59 06:59 18:59 Intake Total 4822.907 8904.067 525 Output Total 1025 1016 420 Balance 139.075 177.067 105 Weight 89 kg Intake: IV 312 312 156 Sodium Chloride 0.9% 1, 240 240 120 000 ml @ 20 mls/hr IV . Q24H CATHY Rx#:[id number] pressure bag 72 72 36 Intake, IV Titration 319.075 236.067 Amount Propofol 1,000 mg In 319.075 236.067 Empty Bag 1 bag @ Titrate IV .Q0M CATHY Rx#: [id number] Tube Feeding 533 615 369 Other 30 Output: Urine 1025 1015 420 Stool 1 Other: Voiding Method Indwelling Catheter Indwelling Catheter Indwelling Catheter ABP, PAP, CO, CI - Last Documented Arterial Blood Pressure 120/43 - Exam PHYSICAL EXAMINATION: GENERAL: patient is intubated sedated HEENT: Pupils are not reacting to light. Conjunctival to flex no gag reflex No scleral icterus. No conjunctival pallor. Normocephalic, atraumatic. No pharyngeal erythema. No thyromegaly. CARDIOVASCULAR: S1 and S2 present. No murmurs, rubs, or gallops. PULMONARY: decreased air entry into bilateral lung gilbert and some rhonchi in significant subcutaneous emphysema ABDOMEN: Soft, nontender, nondistended, normoactive bowel sounds. No palpable organomegaly. MUSCULOSKELETAL: No joint swelling or deformity. EXTREMITIES: No cyanosis, clubbing, or pedal edema. NEUROLOGICAL:unable to assess and patient is sedated SKIN: No rashes. - Labs CBC & Chem 7: 09/20/19 04:35 09/20/19 04:35 Labs: Abnormal Lab Results - Last 24 Hours (Table) 09/19/19 09/19/19 09/19/19 Range/Units 14:27 18:43 23:18 WBC (3.8-10.6) k/uL RBC (3.80-5.40) m/uL Hgb (11.4-16.0) gm/dL Hct (34.0-46.0) % Neutrophils # (1.3-7.7) k/uL ABG pH (7.35-7.45) ABG HCO3 (21-25) mmol/L ABG Total CO2 (19-24) mmol/L Chloride (98-107) mmol/L Carbon Dioxide (22-30) mmol/L BUN (7-17) mg/dL Creatinine (0.52-1.04) mg/dL Glucose (74-99) mg/dL POC Glucose (mg/dL) 142 H 102 H 112 H (75-99) mg/dL Calcium (8.4-10.2) mg/dL Ionized Calcium Pepe (4.5-5.3) mg/dL Total Protein (6.3-8.2) g/dL Albumin (3.5-5.0) g/dL 09/20/19 09/20/19 09/20/19 Range/Units 04:35 04:35 05:30 WBC 21.0 H (3.8-10.6) k/uL RBC 2.54 L (3.80-5.40) m/uL Hgb 7.5 L (11.4-16.0) gm/dL Hct 23.4 L (34.0-46.0) % Neutrophils # 18.9 H (1.3-7.7) k/uL ABG pH (7.35-7.45) ABG HCO3 (21-25) mmol/L ABG Total CO2 (19-24) mmol/L Chloride 113 H (98-107) mmol/L Carbon Dioxide 16 L (22-30) mmol/L BUN 142 H* (7-17) mg/dL Creatinine 5.16 H (0.52-1.04) mg/dL Glucose 159 H (74-99) mg/dL POC Glucose (mg/dL) (75-99) mg/dL Calcium 6.3 L* (8.4-10.2) mg/dL Ionized Calcium Pepe 3.9 L (4.5-5.3) mg/dL Total Protein 5.0 L (6.3-8.2) g/dL Albumin 2.7 L (3.5-5.0) g/dL 09/20/19 09/20/19 09/20/19 Range/Units 05:30 05:52 12:08 WBC (3.8-10.6) k/uL RBC (3.80-5.40) m/uL Hgb (11.4-16.0) gm/dL Hct (34.0-46.0) % Neutrophils # (1.3-7.7) k/uL ABG pH 7.22 L (7.35-7.45) ABG HCO3 15 L (21-25) mmol/L ABG Total CO2 17 L (19-24) mmol/L Chloride (98-107) mmol/L Carbon Dioxide (22-30) mmol/L BUN (7-17) mg/dL Creatinine (0.52-1.04) mg/dL Glucose (74-99) mg/dL POC Glucose (mg/dL) 190 H 175 H (75-99) mg/dL Calcium (8.4-10.2) mg/dL Ionized Calcium Pepe (4.5-5.3) mg/dL Total Protein (6.3-8.2) g/dL Albumin (3.5-5.0) g/dL Assessment and Plan Plan: acute the hypoxic and acute on chronic hypercapnic respiratory failure secondary to COPD exacerbation secondary to cardiorespiratory arrest and patient remains intubated with the above-mentioned vent settings -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 Cardiac respiratory arrest is most probably secondary to respiratory causes including COPD exacerbation and not wearing oxygen. -hypocalcemia secondary to renal failure that calcium was replaced -Mild troponin elevation secondary to CPR there is no evidence of acute non-ST elevation myocardial infarction at least type I myocardial infarction although this cannot be completely ruled out patient will undergo cardiac catheterization once more stabilized but her prognosis remains extremely poor patient is probably more appropriate for comfort care patient is presently DO NOT RESUSCITATE -Significant left hemothorax status post chest tube placement -Congestive heart failure systolic dysfunction most probably acute secondary to cardiorespiratory arrest with mild acute exacerbation. -COPD with acute exacerbation patient went on systemic steroids -UTI completed antibiotic therapy for that but remains on Zosyn although so far negative cultures -Cardiac shock, off pressor support patient shock improved at this time -Leukocytosis can be reactive and secondary to systemic steroids -Hypertensionpatient just came out of sepsis not on any antidepressant medications at this time -Hyperlipidemia - acute renal failure secondary to acute tubular necrosis secondary to cardiac shock patient urine output, Patient will be terminal wean and comfort care today
[2019-09-20] MEDS ORDERED: LORazepam 2 MG/ML INJ IV PRN (12:41)
[2019-09-20] MEDS ORDERED: MORPHINE SULFATE 4 MG/ML SYRINGE IV PRN (12:41)
[2019-09-20] MEDS ORDERED: ATROPINE OPHTH SOLN 1% 5ML BTL SUBLINGUAL PRN (12:41)
[2019-09-20] MEDS ORDERED: MORPHINE SULFATE (100 MG/2 ML) 100 MG in SODIUM CHLORIDE 0.9% 100 ML IV SCH (12:45)
[2019-09-20] MEDS ORDERED: SCOPOLAMINE 1.5MG/72HR PATCH TRANSDERM SCH (13:00)
[2019-09-20 13:42] VITALS: BMI 34.7
[2019-09-20] MEDS: SODIUM CHLORIDE 0.9% 1,000 ML IV SCH (15:17)
[2019-09-20 15:29] VITALS: PULSE 79; RESP 17
--- NOTE | 2019-09-20 16:54 | P.PN ---
Progress Note - Text Progress Note Date: 09/20/19 REASON FOR FOLLOWUP: Aspiration pneumonia and UTI. INTERVAL HISTORY: The patient remains to be afebrile. The patient is hemodynamically stable not on any pressor support. FiO2 is currently at 25 %. No significant purulent secretion through the ET or any diarrhea reported by the nursing staff PHYSICAL EXAMINATION: Blood pressure 125/50 with the pulse of 80, temperature 98 degrees Fahrenheit. She is 97% on 25 % FiO2. General description is an elderly female lying in bed in no distress. RESPIRATORY SYSTEM: Unlabored breathing, decreased breath sounds at the bases, no wheeze. HEART: S1, S2. Regular rate and rhythm. ABDOMEN: Soft, no tenderness. LABS: Reviewed DIAGNOSTIC IMPRESSION AND PLAN: Patient with acute respiratory failure with concern for possible aspiration pneumonitis in this patient currently on the vent. The patient is covered with Zosyn with elevated white count could be related to steroids plus minus a component of oropharyngeal candidiasis, however in view of the fact the patient did have a stroke with a possible Plan for terminal wean this afternoon no further changes in antibiotics or antifungal therapy Which can be safely discontinued, son was at the bedside questions were answered
[2019-09-20] MEDS ORDERED: ANIDULAFUNGIN 100 MG in SODIUM CHLORIDE 0.9% 100 ML IVPB SCH (21:00)
--- NOTE | 2019-09-22 09:44 | CDI ---
Documentation Clarification Form Date: 09/22/19 From: Radha Murrell CCS Phone: If you have a question about this query, please contact Juanita Varner, Director Of Procurement at [phone] between 8am and 5pm. Admit Date: 09/12/19 Discharge Date:09/20/19 Patient Name: Kristen Dorado Visit Number: [id number] ATTENTION: The Clinical Documentation Specialists (CDI) and [facility] Coding Staff appreciate your assistance in clarifying documentation. Please respond to the clarification below the line at the bottom and electronically sign. The CDI & [facility] Coding staff will review the response and follow-up if needed. Please note: Queries are made part of the Legal Health Record. If you have any questions, please contact the author of this message via ITS. Dear Dr. Larkin, Conflicting documentation has been found in the medical record: Herlinda - Franco 09/13/19 documents: IMPRESSION: 1.Non-ST elevation myocardial infarction. Progress Note 09/20/19 documents: Mild troponin elevation secondary to CPR there is no evidence of acute non-ST elevation myocardial infarction at least type I myocardial infarction although this cannot be completely ruled out patient will undergo cardiac catheterization once more stabilized but her prognosis remains extremely poor patient is probably more appropriate for comfort care patient is presently DO NOT RESUSCITATE History/Risk Factors: CHF w/ Exac, Anemia, COPD w/ Exac, Sepsis, UTI, CAD w/ previous PTCA/Stent Clinical Indicators: Transferred from [facility] with chest pain and elevated troponin Treatment: Heparin IV, Lasix IV In your opinion, what is the most clinically appropriate diagnosis for this patient? Non-ST Myocardial Infarction Type II Myocardial Infarction Myocardial Infarction Ruled Out Chest Pain due to Elevated Troponin due to Other explanation of clinical findings Unable to determine (no explanation for clinical findings) No myocardial infarction MTDD
--- NOTE | 2019-09-22 10:46 | CDI ---
Documentation Clarification Form Date: 09/22/19 From: Radha Murrell CCS Phone: If you have a question about this query, please contact Juanita Varner, Area Field Manager at [phone] between 8am and 5pm. Admit Date: 09/12/19 Discharge Date:09/20/19 Patient Name: Kristen Dorado Visit Number: [id number] ATTENTION: The Clinical Documentation Specialists (CDI) and [facility] Coding Staff appreciate your assistance in clarifying documentation. Please respond to the clarification below the line at the bottom and electronically sign. The CDI & [facility] Coding staff will review the response and follow-up if needed. Please note: Queries are made part of the Legal Health Record. If you have any questions, please contact the author of this message via ITS. Dear Dr. Larkin, CKD is documented in the 09/13 Progress Note. History/Risk Factors: HTN, CAD, COPD, CHF Clinical Indicators: Acute on Chronic Renal Failure BUN: 22, 24, 34 Creatinine: 1.25, 1.39, 1.49 GFR: 49, 43, 40 Consults: Margot In order to capture the severity of condition, please clarify the stage of the CKD, if known: CKD Stage 1 (GFR > 90) CKD Stage 2 (GFR 60-89) CKD Stage 3 (GFR 30-59) CKD Stage 4 (GFR 15-29) CKD Stage 5 (GFR <15) ESRD Other, please specify Unable to determine Unable to stage MTDD
== END 2019-09-20 16:00 | disposition hospice, inpatient (51) | DRG 870 ==
LOC: 3SCARD 09:37 → 2SICU 17:33
PROVIDERS: ADMIT Hospitalist; ATTEND Hospitalist
PROC: 5A1955Z Respiratory Ventilation, Greater than 96 Consecutive Hours (ICD-10-PCS; principal; 2019-09-12)
PROC: 5A12012 Performance of Cardiac Output, Single, Manual (ICD-10-PCS; 2019-09-12)
PROC: 0BH17EZ Insertion of Endotracheal Airway into Trachea, Via Natural or Artificial Opening (ICD-10-PCS; 2019-09-12)
PROC: 0W9B30Z Drainage of Left Pleural Cavity with Drainage Device, Percutaneous Approach (ICD-10-PCS; 2019-09-12)
PROC: 0DH67UZ Insertion of Feeding Device into Stomach, Via Natural or Artificial Opening (ICD-10-PCS; 2019-09-12)
PROC: 02HV33Z Insertion of Infusion Device into Superior Vena Cava, Percutaneous Approach (ICD-10-PCS; 2019-09-13)
PROC: 03HY32Z Insertion of Monitoring Device into Upper Artery, Percutaneous Approach (ICD-10-PCS; 2019-09-13)
PROC: 4A133B1 Monitoring of Arterial Pressure, Peripheral, Percutaneous Approach (ICD-10-PCS; 2019-09-13)
PROC: 4A133J1 Monitoring of Arterial Pulse, Peripheral, Percutaneous Approach (ICD-10-PCS; 2019-09-13)
PROC: 3E0G76Z Introduction of Nutritional Substance into Upper GI, Via Natural or Artificial Opening (ICD-10-PCS; 2019-09-13)
PROC: 3E043XZ Introduction of Vasopressor into Central Vein, Percutaneous Approach (ICD-10-PCS; 2019-09-13)
PROC: 30243N1 Transfusion of Nonautologous Red Blood Cells into Central Vein, Percutaneous Approach (ICD-10-PCS; 2019-09-15)
DX: A41.9 Sepsis, unspecified organism (principal); I50.23 Acute on chronic systolic (congestive) heart failure; R57.0 Cardiogenic shock; G93.41 Metabolic encephalopathy; N17.0 Acute kidney failure with tubular necrosis; J69.0 Pneumonitis due to inhalation of food and vomit; I49.01 Ventricular fibrillation; R65.21 Severe sepsis with septic shock; I63.59 Cerebral infarction due to unspecified occlusion or stenosis of other cerebral artery; J96.21 Acute and chronic respiratory failure with hypoxia; I13.0 Hypertensive heart and chronic kidney disease with heart failure and stage 1 through stage 4 chronic kidney disease, or unspecified chronic kidney disease; J44.1 Chronic obstructive pulmonary disease with (acute) exacerbation; J44.0 Chronic obstructive pulmonary disease with (acute) lower respiratory infection; J84.9 Interstitial pulmonary disease, unspecified; Z20.828 Contact with and (suspected) exposure to other viral communicable diseases; T79.7XXA Traumatic subcutaneous emphysema, initial encounter; E87.2 Acidosis; G93.1 Anoxic brain damage, not elsewhere classified; J93.9 Pneumothorax, unspecified; D62 Acute posthemorrhagic anemia; J93.82 Other air leak; N39.0 Urinary tract infection, site not specified; I42.9 Cardiomyopathy, unspecified; Z66 Do not resuscitate; Z51.5 Encounter for palliative care; E83.51 Hypocalcemia; I25.10 Atherosclerotic heart disease of native coronary artery without angina pectoris; N18.9 Chronic kidney disease, unspecified; E78.5 Hyperlipidemia, unspecified; F41.9 Anxiety disorder, unspecified; D63.1 Anemia in chronic kidney disease; R79.89 Other specified abnormal findings of blood chemistry; J20.9 Acute bronchitis, unspecified; E66.9 Obesity, unspecified; Z68.34 Body mass index [BMI] 34.0-34.9, adult; I48.91 Unspecified atrial fibrillation; H57.9 Unspecified disorder of eye and adnexa; Z79.899 Other long term (current) drug therapy; Z79.82 Long term (current) use of aspirin; Z79.51 Long term (current) use of inhaled steroids; Z95.5 Presence of coronary angioplasty implant and graft; Z87.891 Personal history of nicotine dependence; Z99.81 Dependence on supplemental oxygen; Z98.51 Tubal ligation status; Z98.890 Other specified postprocedural states; Z88.2 Allergy status to sulfonamides; Z80.3 Family history of malignant neoplasm of breast; Z82.5 Family history of asthma and other chronic lower respiratory diseases; Z82.49 Family history of ischemic heart disease and other diseases of the circulatory system
CPT/HCPCS: 36600; 70450; 71045; 80048; 80053; 81001; 82040; 82330; 82805; 83605; 83735; 83880; 84100; 84484; 85025; 85027; 85610; 85730; 86850; 86900; 86901; 86920; 87040; 87070; 87086; 87205; 87635; 92950; 93306; 94002; 94003; 94640

== ENCOUNTER 2019-09-20 14:54 | Inpatient (IN) | payer MEDICAID ==
[2019-09-20] MEDS ORDERED: MORPHINE SULFATE 4 MG/ML SYRINGE IV PRN (14:59)
[2019-09-20] MEDS ORDERED: LORazepam 2 MG/ML INJ IV PRN (14:59)
[2019-09-20] MEDS ORDERED: ATROPINE OPHTH SOLN 1% 5ML BTL SUBLINGUAL PRN (14:59)
[2019-09-20] MEDS ORDERED: ACETAMINOPHEN SUPPOSITORY 650 MG SUPP RECTAL PRN (14:59)
[2019-09-20] MEDS ORDERED: MORPHINE SULFATE (100 MG/2 ML) 100 MG in SODIUM CHLORIDE 0.9% 100 ML IV SCH (15:30)
[2019-09-20] MEDS ORDERED: SCOPOLAMINE 1.5MG/72HR PATCH TRANSDERM SCH (16:00)
[2019-09-20 19:57] VITALS: PULSE 109; RESP 10
[2019-09-20 21:13] VITALS: BP 106/64; TEMP 97.6
== END 2019-09-20 22:45 | disposition expired | DRG 951 ==
LOC: 2SICU 16:04 → 4SSUR 19:08
PROVIDERS: ADMIT Internal Medicine; ATTEND Internal Medicine
DX: Z51.5 Encounter for palliative care (principal); J96.00 Acute respiratory failure, unspecified whether with hypoxia or hypercapnia; I21.4 Non-ST elevation (NSTEMI) myocardial infarction; I50.23 Acute on chronic systolic (congestive) heart failure; G93.41 Metabolic encephalopathy; A41.9 Sepsis, unspecified organism; J93.9 Pneumothorax, unspecified; N17.9 Acute kidney failure, unspecified; J44.1 Chronic obstructive pulmonary disease with (acute) exacerbation; J44.0 Chronic obstructive pulmonary disease with (acute) lower respiratory infection; T79.7XXA Traumatic subcutaneous emphysema, initial encounter; N39.0 Urinary tract infection, site not specified; Z66 Do not resuscitate; R57.0 Cardiogenic shock; I11.0 Hypertensive heart disease with heart failure; D64.9 Anemia, unspecified; E78.5 Hyperlipidemia, unspecified; F41.9 Anxiety disorder, unspecified; J20.9 Acute bronchitis, unspecified; Z95.5 Presence of coronary angioplasty implant and graft; Z87.891 Personal history of nicotine dependence; Z79.82 Long term (current) use of aspirin; Z79.51 Long term (current) use of inhaled steroids; Z79.899 Other long term (current) drug therapy; Z88.2 Allergy status to sulfonamides; Z82.49 Family history of ischemic heart disease and other diseases of the circulatory system; Z82.5 Family history of asthma and other chronic lower respiratory diseases